=== PATIENT | female | born 1955 | race American Indian/Alaskan Native ===

== ENCOUNTER 2017-12-22 11:55 | Outpatient (CLI) | payer BC ==
--- NOTE | 2017-12-22 23:43 | XRay Report ---
FINAL REPORT PROCEDURE: XR SHOULDER 2+V RT TECHNIQUE: Right shoulder radiographs including AP views in internal and external rotation and abduction. CPT 56902 HISTORY: SHOULDER PAIN COMPARISON: No prior studies are available for comparison. FINDINGS: Fracture (s) and/or Dislocation(s): None . Joint space(s): Normal . Soft tissues: Normal . Bone mineralization: Normal . Foreign bodies: None . IMPRESSION: Normal Examination
== END 2017-12-22 11:56 | disposition home or self-care (01) ==
LOC: XRAY 11:55
PROVIDERS: ATTEND Internal Medicine
DX: M25.511 Pain in right shoulder (principal); I10 Essential (primary) hypertension; J45.909 Unspecified asthma, uncomplicated; Z90.710 Acquired absence of both cervix and uterus

== ENCOUNTER 2022-01-28 21:39 | Inpatient (IN) | payer MEDICARE ==
[2022-01-29] MEDS ORDERED: SODIUM CHLORIDE 0.9% 1000 ML 1,000 ML IV ONE
[2022-01-29 00:57] LABS: Hematocrit 28.4 % (30.3-42.9); Hemoglobin 9.3 gm/dl (10.1-14.3); Mean Corpuscular HGB Conc 33 % (30-34); Mean Corpuscular Volume 86 fl (79-97); Platelet Count 140 K/mm3 (140-440); Red Blood Count 3.31 M/mm3 (3.65-5.03)
[2022-01-29 01:08] LABS: Alanine Aminotransferase 12 units/L (7-56); Albumin 3.4 g/dL (3.9-5); BUN/Creatinine Ratio 12; Blood Urea Nitrogen 31 mg/dL (7-17); Calcium 9.2 mg/dL (8.4-10.2); Hemolysis Index 22
--- NOTE | 2022-01-29 01:17 | Emergency Department Report ---
ED General Adult HPI - General Chief complaint: Pain General Stated complaint: HIGH BLOOD SUGAR/GENERAL ILLNESS Time Seen by Provider: 01/29/22 00:00 Source: EMS Mode of arrival: Stretcher Limitations: No Limitations - History of Present Illness Initial comments: Patient is a 66-year-old female presented emergency department with complaint of generalized weakness. Patient states that she has a history of type 2 diabetes and takes insulin. She not take insulin today due to her not eating. She states that she feels generally weak and noticed that her blood sugar has been elevated. She denies any chest pain shortness of breath. She denies any nausea vomiting or abdominal pain. - Related Data Previous Rx's Medication Instructions Recorded Last Taken Type Azithromycin [Zithromax TAB] 500 mg PO QDAY #7 tablet 08/05/15 Unknown Rx Cinacalcet HCl [Sensipar] 60 mg PO DAILY #30 tablet 08/05/15 Unknown Rx Insulin Lispro Prot/Lispro 28 units SUB-Q 1700 units 08/05/15 Unknown Rx [HumaLOG Mix 75/25 Vial] Insulin Lispro Prot/Lispro 30 units SUB-Q QDDIAB units 08/05/15 Unknown Rx [HumaLOG Mix 75/25 Vial] Insulin Lispro [HumaLOG VIAL] 28 units SQ QHS #1 vial 08/05/15 Unknown Rx Insulin Lispro [HumaLOG VIAL] 30 units SQ QAM #1 vial 08/05/15 Unknown Rx Levothyroxine [Synthroid] 175 mcg PO QAM #30 tablet 08/05/15 Unknown Rx Prednisone [predniSONE 10 mg 10 mg PO .TAPER #1 tab.ds.pk 08/05/15 Unknown Rx (6-Day Pack, 21 Tabs)] Spironolactone [Aldactone] 100 mg PO QDAY #30 tablet 08/05/15 Unknown Rx carvediloL [Coreg] 3.125 mg PO BID #60 tablet 08/05/15 Unknown Rx metFORMIN [Glucophage] 500 mg PO BID #30 tablet 08/05/15 Unknown Rx Allergies Allergy/AdvReac Type Severity Reaction Status Date / Time No Known Allergies Allergy Unverified 08/01/15 23:02 ED Review of Systems ROS: Stated complaint: HIGH BLOOD SUGAR/GENERAL ILLNESS Other details as noted in HPI Constitutional: malaise, weakness. denies: chills, fever Eyes: denies: eye pain, eye discharge, vision change ENT: denies: ear pain, throat pain Respiratory: denies: cough, shortness of breath, wheezing Cardiovascular: denies: chest pain, palpitations Endocrine: no symptoms reported Gastrointestinal: denies: abdominal pain, nausea, diarrhea Genitourinary: denies: urgency, dysuria, discharge Musculoskeletal: denies: back pain, joint swelling, arthralgia Skin: denies: rash, lesions Neurological: denies: headache, weakness, paresthesias Psychiatric: denies: anxiety, depression Hematological/Lymphatic: denies: easy bleeding, easy bruising ED Past Medical Hx - Past Medical History Previous Medical History?: Yes Hx Hypertension: Yes Hx Diabetes: Yes Hx Asthma: Yes Additional medical history: hyperthyroid - Surgical History Past Surgical History?: Yes Additional Surgical History: myomectomy, hysterectomy - Social History Smoking Status: Never Smoker Substance Use Type: None - Medications Home Medications: Home Medications Medication Instructions Recorded Confirmed Last Taken Type Azithromycin [Zithromax TAB] 500 mg PO QDAY #7 tablet 08/05/15 Unknown Rx Cinacalcet HCl [Sensipar] 60 mg PO DAILY #30 tablet 08/05/15 Unknown Rx Insulin Lispro Prot/Lispro 28 units SUB-Q 1700 units 08/05/15 Unknown Rx [HumaLOG Mix 75/25 Vial] Insulin Lispro Prot/Lispro 30 units SUB-Q QDDIAB units 08/05/15 Unknown Rx [HumaLOG Mix 75/25 Vial] Insulin Lispro [HumaLOG VIAL] 28 units SQ QHS #1 vial 08/05/15 Unknown Rx Insulin Lispro [HumaLOG VIAL] 30 units SQ QAM #1 vial 08/05/15 Unknown Rx Levothyroxine [Synthroid] 175 mcg PO QAM #30 tablet 08/05/15 Unknown Rx Prednisone [predniSONE 10 mg 10 mg PO .TAPER #1 tab.ds.pk 08/05/15 Unknown Rx (6-Day Pack, 21 Tabs)] Spironolactone [Aldactone] 100 mg PO QDAY #30 tablet 08/05/15 Unknown Rx carvediloL [Coreg] 3.125 mg PO BID #60 tablet 08/05/15 Unknown Rx metFORMIN [Glucophage] 500 mg PO BID #30 tablet 08/05/15 Unknown Rx ED Physical Exam - General Limitations: No Limitations General appearance: alert, in no apparent distress - Head Head exam: Present: atraumatic, normocephalic - Eye Eye exam: Present: normal appearance - ENT ENT exam: Present: mucous membranes moist - Neck Neck exam: Present: normal inspection - Respiratory Respiratory exam: Present: normal lung sounds bilaterally. Absent: respiratory distress - Cardiovascular Cardiovascular Exam: Present: regular rate, normal rhythm. Absent: systolic murmur, diastolic murmur, rubs, gallop - GI/Abdominal GI/Abdominal exam: Present: soft, normal bowel sounds - Rectal Rectal exam: Present: deferred - Extremities Exam Extremities exam: Present: normal inspection - Back Exam Back exam: Present: normal inspection - Neurological Exam Neurological exam: Present: alert, oriented X3 - Psychiatric Psychiatric exam: Present: normal affect, normal mood - Skin Skin exam: Present: warm, dry, intact, normal color. Absent: rash ED Course Vital Signs 01/28/22 01/28/22 01/28/22 21:46 23:15 23:25 Temperature 98.9 F 100.7 F H Pulse Rate 96 H 92 H 93 H Respiratory 18 21 21 Rate Blood Pressure 150/80 Blood Pressure 136/62 [Left] O2 Sat by Pulse 97 100 100 Oximetry - Reevaluation(s) Reevaluation #1: 01/29/22 01:16 Patient's white blood cell count was noted to be elevated at 19. Given this we will order lactic acid, chest x-ray to evaluate for infection. Reevaluation #2: 01/29/22 03:22 Patient reports she does not have history of chronic kidney disease but has never been told she has had elevated creatinine. Given this I am concerned this could be an acute process and she could have an ISAIAH. Patient also had elevated troponin without chest pain or without EKG findings of ischemia. Plan to give aspirin, reassess. Patient has been given IV fluids and she is encouraged to attempt to give us a urinary sample. Her lactic acid is normal but she was noted to have a temperature of 100.7 so blood cultures are collected dose of IV Zosyn is given. Plan for admission to the hospitalist. I have spoken to the hospitalist with accept the patient. 01/29/22 03:27 ED Medical Decision Making - Lab Data Result diagrams: 01/29/22 00:27 01/29/22 00:27 - EKG Data -: EKG Interpreted by Me EKG shows normal: sinus rhythm Rate: normal - Radiology Data Radiology results: report reviewed, image reviewed - Medical Decision Making Patient is a 66-year-old female with past medical history of diabetes who presents emergency department complaint of elevated blood sugars. Differential includes infection, DKA, hyperglycemia or HHS. Plan for evaluation with labs, chest x-ray EKG will also obtain IV access and give IV fluids. Critical care attestation.: If time is entered above; I have spent that time in minutes in the direct care of this critically ill patient, excluding procedure time. ED Disposition Clinical Impression: Fever, ISAIAH (acute kidney injury), Hyperglycemia due to type 2 diabetes mellitus Disposition: ADMITTED INPATIENT Is pt being admited?: Yes Does the pt Need Aspirin: Yes Condition: Stable Instructions: Diabetes Mellitus Type 2 in Adults (ED)
--- NOTE | 2022-01-29 01:53 | XRay Report ---
CHEST 1 VIEW INDICATION / CLINICAL INFORMATION: elevated wbc; eval for pneumonia. COMPARISON: Chest x-ray 08/01/2015 FINDINGS: SUPPORT DEVICES: None. HEART / MEDIASTINUM: Mild cardiomegaly. No significant abnormality of the mediastinal contour. LUNGS / PLEURA: Bilateral prominence of central vasculature. Low lung volumes. No focal consolidation . BONES: No significant osseous abnormality. ADDITIONAL FINDINGS: No significant additional findings. IMPRESSION: 1. Mild prominence of central vasculature may reflect crowding given the low lung volumes. 2. No focal consolidation. Signer Name: Nestor Medeiros II, MD Signed: 01/29/2022 1:49 AM Workstation Name: [id number]
[2022-01-29] MEDS ORDERED: ASPIRIN 81 MG TAB CHEW PO ONE (02:31)
[2022-01-29 02:43] LABS: Chol/HDL Ratio 4.42 %; HDL Cholesterol 33 mg/dL (40-59); LDL Cholesterol,Direct 58 mg/dL (50-130)
[2022-01-29 03:03] LABS: Basophils % (Manual) 0 % (0.0-1.8); Eosinophils % (Manual) 0 % (0.0-4.3); Total Cells Counted 100
[2022-01-29 03:04] LABS: Platelet Estimate Consistent w Auto
[2022-01-29] MEDS ORDERED: PIPERACIL/TAZOBACTA 4.5/NS 100 4.5 GM/100 ML VIAL IV ONE (03:25)
[2022-01-29] MEDS ORDERED: ACETAMINOPHEN 325 MG TAB PO ONE (03:25)
[2022-01-29] MEDS ORDERED: ACETAMINOPHEN 325 MG TAB PO PRN ×2 (03:31→03:54)
[2022-01-29] MEDS ORDERED: MORPHINE 4 MG/1 ML INJ IV PRN ×2 (03:31→03:54)
[2022-01-29] MEDS ORDERED: ONDANSETRON 4 MG/2 ML INJ IV PRN ×2 (03:31→03:54)
[2022-01-29] MEDS ORDERED: MORPHINE 2 MG/1 ML INJ IV PRN (03:54)
[2022-01-29] MEDS ORDERED: ALBUTEROL 2.5 MG/3 ML NEBU IH PRN (03:54)
[2022-01-29] MEDS ORDERED: cefTRIAXone/NS 2 GM/100 ML 2 GM/100 ML BAG IV SCH (04:00)
[2022-01-29] MEDS ORDERED: SODIUM CHLORIDE 0.45% 1000 ML 1,000 ML IV SCH (04:00)
--- NOTE | 2022-01-29 04:03 | History and Physical Report ---
History of Present Illness Date of examination: 01/29/22 Date of admission: 01/29/22 Chief complaint: Hyperglycemia Fever History of present illness: 66-year-old female with past medical history of hypertension, diabetes, asthma and hypothyroidism was brought to the hospital because of generalized weakness. Patient states that she has a history of type 2 diabetes and takes insulin. She not take insulin today due to her not eating. She states that she feels gen erally weak and noticed that her blood sugar has been elevated. She denies any chest pain shortness of breath. She denies any nausea vomiting or abdominal pain. In the emergency room patient is found to have WBC of 19.6, BUN 31 creatinine 2.6 and blood glucose 232. Also patient is febrile temperature 100.7. So going to admit the patient we will put the patient on IV fluid insulin and IV anti biotic Past History Past Medical History: diabetes, hypertension, other (Asthma, hypothyroid) Past Surgical History: Other (myomectomy, hysterectomy) Social history: no significant social history Family history: no significant family history Medications and Allergies Allergies Allergy/AdvReac Type Severity Reaction Status Date / Time No Known Allergies Allergy Unverified 08/01/15 23:02 Home Medications Medication Instructions Recorded Confirmed Last Taken Type Azithromycin [Zithromax TAB] 500 mg PO QDAY #7 tablet 08/05/15 Unknown Rx Cinacalcet HCl [Sensipar] 60 mg PO DAILY #30 tablet 08/05/15 Unknown Rx Insulin Lispro Prot/Lispro 28 units SUB-Q 1700 units 08/05/15 Unknown Rx [HumaLOG Mix 75/25 Vial] Insulin Lispro Prot/Lispro 30 units SUB-Q QDDIAB units 08/05/15 Unknown Rx [HumaLOG Mix 75/25 Vial] Insulin Lispro [HumaLOG VIAL] 28 units SQ QHS #1 vial 08/05/15 Unknown Rx Insulin Lispro [HumaLOG VIAL] 30 units SQ QAM #1 vial 08/05/15 Unknown Rx Levothyroxine [Synthroid] 175 mcg PO QAM #30 tablet 08/05/15 Unknown Rx Prednisone [predniSONE 10 mg 10 mg PO .TAPER #1 tab.ds.pk 08/05/15 Unknown Rx (6-Day Pack, 21 Tabs)] Spironolactone [Aldactone] 100 mg PO QDAY #30 tablet 08/05/15 Unknown Rx carvediloL [Coreg] 3.125 mg PO BID #60 tablet 08/05/15 Unknown Rx metFORMIN [Glucophage] 500 mg PO BID #30 tablet 08/05/15 Unknown Rx Active Meds: Active Medications Acetaminophen (Acetaminophen 325 Mg Tab) 650 mg PO Q4H PRN PRN Reason: Pain MILD(1-3)/Fever >100.5/GARCIA Acetaminophen (Acetaminophen 325 Mg Tab) 650 mg PO Q4H PRN PRN Reason: Pain MILD(1-3)/Fever >100.5/GARCIA Albuterol (Albuterol 2.5 Mg/3 Ml Nebu) 2.5 mg IH Q3HRT PRN PRN Reason: Shortness Of Breath Albuterol/Ipratropium (Ipratropium/Albuterol Sulfate 3 Ml Ampul.Neb) 1 ampul IH Q6HRT ABDIAZIZ Carvedilol (Carvedilol 3.125 Mg Tab) 3.125 mg PO BID [facility] Dextrose (Dextrose 50% In Water (25gm) 50 Ml Syringe) 50 ml IV Q30MIN PRN; Protocol PRN Reason: Hypoglycemia Famotidine (Famotidine 20 Mg Tab) 20 mg PO BID [facility] Sodium Chloride (Nacl 0.45% 1000 Ml) 1,000 mls @ 125 mls/hr IV DIRECT ABDIAZIZ Ceftriaxone Sodium (Rocephin/Ns 2 Gm/100 Ml) 2 gm in 100 mls @ 200 mls/hr IV Q24H ABDIAZIZ; Protocol Insulin Human Lispro (Insulin Lispro 100 Unit/Ml) 0 unit SUB-Q ACHS ABDIAZIZ; Protocol Levothyroxine Sodium (Levothyroxine 75 Mcg Tab) 175 mcg PO QAM [facility] Miscellaneous Medication (Azithromycin [Zithromax Tab]) 500 mg PO QDAY [facility] Miscellaneous Medication (Spironolactone [Aldactone]) 100 mg PO QDAY [facility] Morphine Sulfate (Morphine 4 Mg/1 Ml Inj) 4 mg IV Q4H PRN PRN Reason: Pain , Severe (7-10) Morphine Sulfate (Morphine 2 Mg/1 Ml Inj) 2 mg IV Q4H PRN PRN Reason: Pain, Moderate (4-6) Morphine Sulfate (Morphine 4 Mg/1 Ml Inj) 4 mg IV Q4H PRN PRN Reason: Pain , Severe (7-10) Ondansetron HCl (Ondansetron 4 Mg/2 Ml Inj) 4 mg IV Q8H PRN PRN Reason: Nausea And Vomiting Ondansetron HCl (Ondansetron 4 Mg/2 Ml Inj) 4 mg IV Q8H PRN PRN Reason: Nausea And Vomiting Oxycodone/Acetaminophen (Oxycodone /Acetaminophen 5-325mg Tab) 1 tab PO Q6H PRN PRN Reason: Pain, Moderate (4-6) Sodium Chloride (Sodium Chloride 0.9% 10 Ml Flush Syringe) 10 ml IV BID ABDIAZIZ Sodium Chloride (Sodium Chloride 0.9% 10 Ml Flush Syringe) 10 ml IV BID ABDIAZIZ Sodium Chloride (Sodium Chloride 0.9% 10 Ml Flush Syringe) 10 ml IV PRN PRN PRN Reason: LINE FLUSH Review of Systems All systems: negative Constitutional: fatigue, weakness, malaise, lethargy Exam - Constitutional Vitals: Temp Pulse Resp BP Pulse Ox 100.7 F H 99 H 22 125/63 97 01/28/22 23:25 01/29/22 03:15 01/29/22 03:15 01/29/22 03:15 01/29/22 03:15 General appearance: Present: no acute distress, well-nourished - EENT Eyes: Present: PERRL ENT: hearing intact, clear oral mucosa - Neck Neck: Present: supple, normal ROM - Respiratory Respiratory effort: normal Respiratory: bilateral: CTA - Cardiovascular Heart Sounds: Present: S1 & S2. Absent: rub, click - Extremities Extremities: pulses symmetrical, No edema Peripheral Pulses: within normal limits - Abdominal General gastrointestinal: Present: soft, non-tender, non-distended, normal bowel sounds Female genitourinary: Present: normal - Integumentary Integumentary: Present: clear, warm, dry - Musculoskeletal Musculoskeletal: gait normal, strength equal bilaterally - Psychiatric Psychiatric: appropriate mood/affect, intact judgment & insight - Neurologic Neurologic: CNII-XII intact, moves all extremities HEART Score - HEART Score Troponin: Troponin T 0.068 ng/mL (0.00-0.029) H 01/29/22 00:27 Results - Labs CBC & Chem 7: 01/29/22 00:27 01/29/22 00:27 Labs: Laboratory Last Values WBC 19.6 K/mm3 (4.5-11.0) H 01/29/22 00: RBC 3.31 M/mm3 (3.65-5.03) L 01/29/22 00: Hgb 9.3 gm/dl (10.1-14.3) L 01/29/22 00: Hct 28.4 % (30.3-42.9) L 01/29/22 00: MCV 86 fl (79-97) 01/29/22: MCH 28 pg (28-32) 01/29/22: MCHC 33 % (30-34) 01/29/22 00: RDW 14.0 % (13.2-15.2) 01/29/22 00: Plt Count 140 K/mm3 (140-440) 01/29/22 00: Add Manual Diff Complete 01/29/22 00: Total Counted 100 01/29/22 00: Seg Neuts % (Manual) 89.0 % (40.0-70.0) H 01/29/22 00: Band Neutrophils % 0 % 01/29/22 00: Lymphocytes % (Manual) 4.0 % (13.4-35.0) L 01/29/22 00: Reactive Lymphs % (Man) 0 % 01/29/22 00: Monocytes % (Manual) 7.0 % (0.0-7.3) 01/29/22 00: Eosinophils % (Manual) 0 % (0.0-4.3) 01/29/22 00: Basophils % (Manual) 0 % (0.0-1.8) 01/29/22 00: Metamyelocytes % 0 % 01/29/22 00: Myelocytes % 0 % 01/29/22 00: Promyelocytes % 0 % 01/29/22 00: Blast Cells % 0 % 01/29/22 00: Nucleated RBC % Not Reportable 01/29/22 00: Seg Neutrophils # Man 17.4 K/mm3 (1.8-7.7) H 01/29/22 00: Band Neutrophils # 0.0 K/mm3 01/29/22 00:27 Lymphocytes # (Manual) 0.8 K/mm3 (1.2-5.4) L 01/29/22 00:27 Abs React Lymphs (Man) 0.0 K/mm3 01/29/22 00:27 Monocytes # (Manual) 1.4 K/mm3 (0.0-0.8) H 01/29/22 00:27 Eosinophils # (Manual) 0.0 K/mm3 (0.0-0.4) 01/29/22 00:27 Basophils # (Manual) 0.0 K/mm3 (0.0-0.1) 01/29/22 00:27 Metamyelocytes # 0.0 K/mm3 01/29/22 00:27 Myelocytes # 0.0 K/mm3 01/29/22 00:27 Promyelocytes # 0.0 K/mm3 01/29/22 00:27 Blast Cells # 0.0 K/mm3 01/29/22 00:27 WBC Morphology Not Reportable 01/29/22 00:27 Hypersegmented Neuts Not Reportable 01/29/22 00:27 Hyposegmented Neuts Not Reportable 01/29/22 00:27 Hypogranular Neuts Not Reportable 01/29/22 00:27 Smudge Cells Not Reportable 01/29/22 00:27 Toxic Granulation Not Reportable 01/29/22 00:27 Toxic Vacuolation Not Reportable 01/29/22 00:27 Dohle Bodies Not Reportable 01/29/22 00:27 Pelger-Huet Anomaly Not Reportable 01/29/22 00:27 Theresa Rods Not Reportable 01/29/22 00:27 Platelet Estimate Consistent w auto 01/29/22 00:27 Clumped Platelets Not Reportable 01/29/22 00:27 Plt Clumps, EDTA Not Reportable 01/29/22 00:27 Large Platelets Not Reportable 01/29/22 00:27 Giant Platelets Not Reportable 01/29/22 00:27 Platelet Satelliting Not Reportable 01/29/22 00:27 Plt Morphology Comment Not Reportable 01/29/22 00:27 RBC Morphology Not Reportable 01/29/22 00:27 Dimorphic RBCs Not Reportable 01/29/22 00:27 Polychromasia Not Reportable 01/29/22 00:27 Hypochromasia Not Reportable 01/29/22 00:27 Poikilocytosis Not Reportable 01/29/22 00:27 Anisocytosis Not Reportable 01/29/22 00:27 Microcytosis Not Reportable 01/29/22 00:27 Macrocytosis Not Reportable 01/29/22 00:27 Spherocytes Not Reportable 01/29/22 00:27 Pappenheimer Bodies Not Reportable 01/29/22 00:27 Sickle Cells Not Reportable 01/29/22 00:27 Target Cells Not Reportable 01/29/22 00:27 Tear Drop Cells Not Reportable 01/29/22 00:27 Ovalocytes Not Reportable 01/29/22 00:27 Helmet Cells Not Reportable 01/29/22 00:27 [place] Bodies Not Reportable 01/29/22 00:27 [place] Rings Not Reportable 01/29/22 00:27 [place] Cells Not Reportable 01/29/22 00:27 Bite Cells Not Reportable 01/29/22 00:27 Crenated Cell Not Reportable 01/29/22 00:27 Elliptocytes Not Reportable 01/29/22 00:27 Acanthocytes (Spur) Not Reportable 01/29/22 00:27 Rouleaux Not Reportable 01/29/22 00:27 Hemoglobin C Crystals Not Reportable 01/29/22 00:27 Schistocytes Not Reportable 01/29/22 00:27 Malaria parasites Not Reportable 01/29/22 00:27 Sonido Bodies Not Reportable 01/29/22 00:27 Hem Pathologist Commnt No 01/29/22 00:27 VBG pH 7.380 (7.320-7.420) 01/29/22 00:27 Sodium 130 mmol/L (137-145) L 01/29/22 00:27 Potassium 3.9 mmol/L (3.6-5.0) 01/29/22 00:27 Chloride 92.6 mmol/L (98-107) L 01/29/22 00:27 Carbon Dioxide 23 mmol/L (22-30) 01/29/22 00:27 Anion Gap 18 mmol/L 01/29/22 00:27 BUN 31 mg/dL (7-17) H 01/29/22 00:27 Creatinine 2.6 mg/dL (0.6-1.2) H 01/29/22 00:27 Estimated GFR 22 ml/min 01/29/22 00:27 BUN/Creatinine Ratio 12 % 01/29/22 00:27 Glucose 232 mg/dL (65-100) H 01/29/22 00:27 Ketones Quantitative Small (Negative) 01/29/22 00: Lactic Acid 1.30 mmol/L (0.7-2.0) 01/29/22 01:49 Calcium 9.2 mg/dL (8.4-10.2) 01/29/22 00:27 Total Bilirubin 0.90 mg/dL (0.1-1.2) 01/29/22 00:27 AST 18 units/L (5-40) 01/29/22 00:27 ALT 12 units/L (7-56) 01/29/22 00:27 Alkaline Phosphatase 94 units/L (35-129) 01/29/22 00: Troponin T 0.068 ng/mL (0.00-0.029) H 01/29/22 00:27 Total Protein 6.5 g/dL (6.3-8.2) 01/29/22 00:27 Albumin 3.4 g/dL (3.9-5) L 01/29/22 00: Albumin/Globulin Ratio 1.1 % 01/29/22 00:27 Triglycerides 195 mg/dL (2-149) H 01/29/22 00:27 Cholesterol 146 mg/dL (50-199) 01/29/22 00:27 LDL Cholesterol Direct 58 mg/dL (50-130) 01/29/22 00:27 HDL Cholesterol 33 mg/dL (40-59) L 01/29/22 00:27 Cholesterol/HDL Ratio 4.42 % 01/29/22 00:27 - Imaging and Cardiology Chest x-ray: report reviewed Assessment and Plan VTE prophylaxis?: Mechanical Plan of care discussed with patient/family: Yes - Patient Problems (1) ISAIAH (acute kidney injury) Status: Acute Plan to address problem: Admit the patient to the medical floor. Avoid nephrotoxic drug. Renally dose medication. Half-normal saline at the rate of 125 cc/h. Recheck BMP in the morning. Consult nephrology if needed (2) Hyperglycemia due to type 2 diabetes mellitus Status: Acute Plan to address problem: 18 kcal ADA diet. Accu-Chek before meals and at bedtime with moderate dose Humalog coverage. Diabetic education (3) Hypertension Status: Acute Plan to address problem: Hydralazine 10 mg every 6 hours as needed. We continue the home medication (4) Asthma Status: Acute Plan to address problem: Oxygen by nasal cannula 3 L/min. DuoNeb via nebulizer every 4 hours. Albuterol via nebulizer every 4 hours as needed (5) Fever Status: Acute Plan to address problem: Rocephin 2 g IV daily. Zithromax to 50 mg p.o. daily. Tylenol 650 mg p.o. every 6 hours as needed we will do the blood culture urine culture. Recheck CBC in the morning (6) DVT prophylaxis Status: Acute
[2022-01-29] MEDS: LEVOTHYROXINE 100 MCG TAB PO SCH (06:41)
[2022-01-29] MEDS: LEVOTHYROXINE 75 MCG TAB PO SCH (06:41)
--- NOTE | 2022-01-29 07:39 | Progress Note ---
Assessment and Plan Assessment and plan: VTE prophylaxis?: Mechanical Plan of care discussed with patient/family: Yes - Patient Problems --ISAIAH (acute kidney injury) Admit the patient to the medical floor. Avoid nephrotoxic drug. Renally dose medication. Half-normal saline at the rate of 125 cc/h. Monitor renal function check renal ultrasound Nephrology consult if needed --Hyperglycemia due to type 2 diabetes mellitus Accu-Cheks sliding scale coverage ADA diet insulin as needed --Hyponatremia; IV normal saline, closely monitor electrolytes --Elevated troponin/non-ST elevation TN type II In the setting of acute kidney injury Probably type II, however patient has risk factors Would benefit from cardiology evaluation --Sinus tachycardia versus arrhythmia Patient heart rate went narrow complex tachycardia Resolved to sinus rhythm after IV metoprolol. Coreg changed to metoprolol Pending echocardiogram Cardiology evaluation noted and appreciated echocardiogram --Hypertension Continue current antihypertensives and as needed medications --History of bronchial asthma Oxygen by nasal cannula 3 L/min. DuoNeb via nebulizer every 4 hours. Albuterol via nebulizer every 4 hours as needed --Cellulitis/abscess right groin; Check x-ray right groin hip/CT scan to rule out abscess Change antibiotics to IV Ancef, follow cultures Consult surgeon -Obesity; BMI 35.4 Behavioral modification, lifestyle changes counseling 20 minutes Counseling done advised diet modification exercise as tolerated and weight reduction When medically stable --Full CODE STATUS --DVT prophylaxis; Heparin renal dose --advance care planning +30 minutes. I discussed with the patient her medical condition, I discussed the tests and reports, I discussed with the patient the diagnosis I discussed with patient the treatment plan, I also discussed with the patient need for consultants evaluation, I discussed the patient the prognosis. Advance care directives. Patient has some questions, answered all of them, patient verbalized understanding --preventative health care counseling 30 minutes; Patient advised to comply with medications, patient advised fall precautions --Obesity weight reduction counseling 20 minutes Dietary modification, exercise as tolerated and weight reduction When medically stable -- Prolonged care inpatient 35 minutes Closely monitor the patient and adjust the management as needed Plan of care reviewed with the patient and her nurse I discussed with mining technician , regarding patient's arrhythmia And non-ST elevation TN type II History Interval history: I have seen and examined the patient at bedside [in ER awaiting bed assignment] Patient's chart and current medications reviewed Patient was admitted with generalized weakness and uncontrolled blood sugars Patient states that she feels slightly better Nurse found that patient has no groin swelling cellulitis versus abscess Patient has low-grade fever, vital signs reviewed Currently on empiric antibiotics Hospitalist Physical - Constitutional Vitals: Temp Pulse Resp BP Pulse Ox 100.7 F H 77 22 127/68 100 01/28/22 23:25 01/29/22 06:45 01/29/22 06:45 01/29/22 06:45 01/29/22 06:45 General appearance: Present: no acute distress, well-nourished, obese - EENT Eyes: Present: PERRL, EOM intact - Neck Neck: Present: supple, normal ROM - Respiratory Respiratory effort: normal Respiratory: bilateral: diminished, negative: rales, rhonchi, wheezing - Cardiovascular Rhythm: regular Heart Sounds: Present: S1 & S2 - Extremities Extremities: no ischemia, No edema - Abdominal General gastrointestinal: soft, non-tender, non-distended, normal bowel sounds - Integumentary Integumentary: Present: clear, warm - Psychiatric Psychiatric: appropriate mood/affect, cooperative - Neurologic Neurologic: CNII-XII intact, moves all extremities HEART Score - HEART Score Troponin: Troponin T 0.068 ng/mL (0.00-0.029) H 01/29/22 00:27 Results - Labs CBC & Chem 7: 01/29/22 00:27 01/29/22 00:27 Labs: Laboratory Last Values WBC 19.6 K/mm3 (4.5-11.0) H 01/29/22 00:27 RBC 3.31 M/mm3 (3.65-5.03) L 01/29/22 00:27 Hgb 9.3 gm/dl (10.1-14.3) L 01/29/22 00:27 Hct 28.4 % (30.3-42.9) L 01/29/22 00:27 MCV 86 fl (79-97) 01/29/22 00:27 MCH 28 pg (28-32) 01/29/22 00:27 MCHC 33 % (30-34) 01/29/22 00:27 RDW 14.0 % (13.2-15.2) 01/29/22 00:27 Plt Count 140 K/mm3 (140-440) 01/29/22 00:27 Add Manual Diff Complete 01/29/22 00:27 Total Counted 100 01/29/22 00:27 Seg Neuts % (Manual) 89.0 % (40.0-70.0) H 01/29/22 00:27 Band Neutrophils % 0 % 01/29/22 00:27 Lymphocytes % (Manual) 4.0 % (13.4-35.0) L 01/29/22 00:27 Reactive Lymphs % (Man) 0 % 01/29/22 00:27 Monocytes % (Manual) 7.0 % (0.0-7.3) 01/29/22 00:27 Eosinophils % (Manual) 0 % (0.0-4.3) 01/29/22 00:27 Basophils % (Manual) 0 % (0.0-1.8) 01/29/22 00:27 Metamyelocytes % 0 % 01/29/22 00:27 Myelocytes % 0 % 01/29/22 00:27 Promyelocytes % 0 % 01/29/22 00:27 Blast Cells % 0 % 01/29/22 00:27 Nucleated RBC % Not Reportable 01/29/22 00:27 Seg Neutrophils # Man 17.4 K/mm3 (1.8-7.7) H 01/29/22 00:27 Band Neutrophils # 0.0 K/mm3 01/29/22 00:27 Lymphocytes # (Manual) 0.8 K/mm3 (1.2-5.4) L 01/29/22 00:27 Abs React Lymphs (Man) 0.0 K/mm3 01/29/22 00:27 Monocytes # (Manual) 1.4 K/mm3 (0.0-0.8) H 01/29/22 00:27 Eosinophils # (Manual) 0.0 K/mm3 (0.0-0.4) 01/29/22 00:27 Basophils # (Manual) 0.0 K/mm3 (0.0-0.1) 01/29/22 00:27 Metamyelocytes # 0.0 K/mm3 01/29/22 00:27 Myelocytes # 0.0 K/mm3 01/29/22 00:27 Promyelocytes # 0.0 K/mm3 01/29/22 00:27 Blast Cells # 0.0 K/mm3 01/29/22 00:27 WBC Morphology Not Reportable 01/29/22 00:27 Hypersegmented Neuts Not Reportable 01/29/22 00:27 Hyposegmented Neuts Not Reportable 01/29/22 00:27 Hypogranular Neuts Not Reportable 01/29/22 00:27 Smudge Cells Not Reportable 01/29/22 00:27 Toxic Granulation Not Reportable 01/29/22 00:27 Toxic Vacuolation Not Reportable 01/29/22 00:27 Dohle Bodies Not Reportable 01/29/22 00:27 Pelger-Huet Anomaly Not Reportable 01/29/22 00:27 Theresa Rods Not Reportable 01/29/22 00:27 Platelet Estimate Consistent w auto 01/29/22 00:27 Clumped Platelets Not Reportable 01/29/22 00:27 Plt Clumps, EDTA Not Reportable 01/29/22 00:27 Large Platelets Not Reportable 01/29/22 00:27 Giant Platelets Not Reportable 01/29/22 00:27 Platelet Satelliting Not Reportable 01/29/22 00:27 Plt Morphology Comment Not Reportable 01/29/22 00:27 RBC Morphology Not Reportable 01/29/22 00:27 Dimorphic RBCs Not Reportable 01/29/22 00:27 Polychromasia Not Reportable 01/29/22 00:27 Hypochromasia Not Reportable 01/29/22 00:27 Poikilocytosis Not Reportable 01/29/22 00:27 Anisocytosis Not Reportable 01/29/22 00:27 Microcytosis Not Reportable 01/29/22 00:27 Macrocytosis Not Reportable 01/29/22 00:27 Spherocytes Not Reportable 01/29/22 00:27 Pappenheimer Bodies Not Reportable 01/29/22 00:27 Sickle Cells Not Reportable 01/29/22 00:27 Target Cells Not Reportable 01/29/22 00:27 Tear Drop Cells Not Reportable 01/29/22 00:27 Ovalocytes Not Reportable 01/29/22 00:27 Helmet Cells Not Reportable 01/29/22 00:27 [place] Bodies Not Reportable 01/29/22 00:27 [place] Rings Not Reportable 01/29/22 00:27 Memo Cells Not Reportable 01/29/22 00:27 Bite Cells Not Reportable 01/29/22 00:27 Crenated Cell Not Reportable 01/29/22 00:27 Elliptocytes Not Reportable 01/29/22 00:27 Acanthocytes (Spur) Not Reportable 01/29/22 00:27 Rouleaux Not Reportable 01/29/22 00:27 Hemoglobin C Crystals Not Reportable 01/29/22 00:27 Schistocytes Not Reportable 01/29/22 00:27 Malaria parasites Not Reportable 01/29/22 00:27 Sonido Bodies Not Reportable 01/29/22 00:27 Hem Pathologist Commnt No 01/29/22 00:27 VBG pH 7.380 (7.320-7.420) 01/29/22 00:27 Sodium 130 mmol/L (137-145) L 01/29/22 00:27 Potassium 3.9 mmol/L (3.6-5.0) 01/29/22 00: Chloride 92.6 mmol/L (98-107) L 01/29/22 00: Carbon Dioxide 23 mmol/L (22-30) 01/29/22 00:27 Anion Gap 18 mmol/L 01/29/22 00:27 BUN 31 mg/dL (7-17) H 01/29/22 00:27 Creatinine 2.6 mg/dL (0.6-1.2) H 01/29/22 00:27 Estimated GFR 22 ml/min 01/29/22 00: BUN/Creatinine Ratio 12 % 01/29/22: Glucose 232 mg/dL (65-100) H 01/29/22 00: Ketones Quantitative Small (Negative) 01/29/22 00: Lactic Acid 1.30 mmol/L (0.7-2.0) 01/29/22 01:49 Calcium 9.2 mg/dL (8.4-10.2) 01/29/22 00:27 Total Bilirubin 0.90 mg/dL (0.1-1.2) 01/29/22 00:27 AST 18 units/L (5-40) 01/29/22 00:27 ALT 12 units/L (7-56) 01/29/22 00:27 Alkaline Phosphatase 94 units/L (35-129) 08/26/22 00:27 Troponin T 0.068 ng/mL (0.00-0.029) H 01/29/22 00:27 Total Protein 6.5 g/dL (6.3-8.2) 01/29/22 00:27 Albumin 3.4 g/dL (3.9-5) L 01/29/22 00:27 Albumin/Globulin Ratio 1.1 % 01/29/22 00:27 Triglycerides 195 mg/dL (2-149) H 01/29/22 00:27 Cholesterol 146 mg/dL (50-199) 01/29/22 00:27 LDL Cholesterol Direct 58 mg/dL (50-130) 01/29/22 00:27 HDL Cholesterol 33 mg/dL (40-59) L 01/29/22 00:27 Cholesterol/HDL Ratio 4.42 % 01/29/22 00:27 Active Medications - Current Medications Current Medications: Generic Name Dose Route Start Last Admin Trade Name Freq PRN Reason Stop Dose Admin Acetaminophen 650 mg 01/29/22 03:54 Acetaminophen 325 Mg Tab PO Q4H PRN Pain MILD(1-3)/Fever >100.5/GARCIA Albuterol 2.5 mg 01/29/22 03:54 Albuterol 2.5 Mg/3 Ml Nebu IH Q3HRT PRN Shortness Of Breath Albuterol/Ipratropium 1 ampul 01/29/22 08:00 Ipratropium/Albuterol Sulfate 3 Ml Ampul.Neb IH Q6HRT ABDIAZIZ Azithromycin 500 mg 01/29/22 10:00 Azithromycin 250 Mg Tab PO QDAY [facility] Carvedilol 3.125 mg 01/29/22 10:00 Carvedilol 3.125 Mg Tab PO BID ABDIAZIZ Dextrose 50 ml 01/29/22 03:54 Dextrose 50% In Water (25gm) 50 Ml Syringe IV Q30MIN PRN Hypoglycemia Protocol Famotidine 10 mg 01/29/22 10:00 Famotidine 10 Mg Tab PO BID ABDIAZIZ Sodium Chloride 1,000 mls @ 125 mls/hr 01/29/22 04:00 Nacl 0.45% 1000 Ml IV DIRECT [facility] Ceftriaxone Sodium 2 gm in 100 mls @ 200 mls/hr 01/29/22 04:00 01/29/22 05:23 Rocephin/Ns 2 Gm/100 Ml IV 200 mls/hr Q24H [facility] Administration Protocol Insulin Human Lispro 0 unit 01/29/22 07:30 Insulin Lispro 100 Unit/Ml SUB-Q ACHS [facility] Protocol Levothyroxine Sodium 100 mcg 01/29/22 06:00 01/29/22 06:41 Levothyroxine 100 Mcg Tab PO 100 mcg QAM@0600 [facility] Administration Levothyroxine Sodium 75 mcg 01/29/22 06:00 01/29/22 06:41 Levothyroxine 75 Mcg Tab PO 75 mcg QAM@0600 [facility] Administration Morphine Sulfate 2 mg 01/29/22 03:54 Morphine 2 Mg/1 Ml Inj IV Q4H PRN Pain, Moderate (4-6) Morphine Sulfate 4 mg 01/29/22 03:54 Morphine 4 Mg/1 Ml Inj IV Q4H PRN Pain , Severe (7-10) Ondansetron HCl 4 mg 01/29/22 03:54 Ondansetron 4 Mg/2 Ml Inj IV Q8H PRN Nausea And Vomiting Oxycodone/Acetaminophen 1 tab 01/29/22 03:31 Oxycodone /Acetaminophen 5-325mg Tab PO Q6H PRN Pain, Moderate (4-6) Sodium Chloride 10 ml 01/29/22 10:00 Sodium Chloride 0.9% 10 Ml Flush Syringe IV BID [facility] Sodium Chloride 10 ml 01/29/22 03:54 Sodium Chloride 0.9% 10 Ml Flush Syringe IV PRN PRN LINE FLUSH Spironolactone 100 mg 01/29/22 10:00 Spironolactone 50 Mg Tab PO QDAY [facility]
[2022-01-29] MEDS: IPRATROPIUM/ALBUTEROL SULFATE 3 ML AMPUL.NEB IH SCH ×3 (07:57→20:49)
[2022-01-29] MEDS: INSULIN LISPRO 100 UNIT/ML SUB-Q SCH ×4 (08:10→21:33)
[2022-01-29] MEDS ORDERED: AZITHROMYCIN 250 MG TAB PO SCH (10:00)
[2022-01-29] MEDS ORDERED: NON-FORMULARY EACH (Spironolactone [Aldactone] 100 MG Tablet) PO SCH (10:00)
[2022-01-29] MEDS ORDERED: FAMOTIDINE 20 MG TAB PO SCH (10:00)
[2022-01-29] MEDS ORDERED: LEVOTHYROXINE 75 MCG TAB PO SCH (10:00)
[2022-01-29] MEDS ORDERED: AZITHROMYCIN 500 MG PO SCH (10:00)
[2022-01-29] MEDS ORDERED: carvediloL 3.125 MG TAB PO SCH (10:00)
--- NOTE | 2022-01-29 10:40 | Electrocardiograph Report ---
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
[2022-01-29] MEDS: FAMOTIDINE 10 MG TAB PO SCH ×2 (11:31→21:35)
[2022-01-29] MEDS ORDERED: METOPROLOL TARTRATE 5 MG/5 ML INJ IV ONE (13:00)
[2022-01-29] MEDS: INSULIN NPH/REGULAR 70/30 INJ SUB-Q SCH ×2 (13:28→18:23)
[2022-01-29] MEDS: SPIRONOLACTONE 50 MG TAB PO SCH (13:28)
--- NOTE | 2022-01-29 14:13 | Consultation ---
History of Present Illness Consult date: 01/29/22 Consult reason: elevated troponin, tachycardia History of present illness: The patient is a chronically ill-appearing 66-year-old woman patient of [facility], [place]. She has multiple comorbidities. She had brain surgery for a meningioma in 2018. She has diabetes, chronic asthma and hypertension. She also tells me that she sees a hospice care sales consultant at [facility] [place] for "CHF", but is unable to articulate any specific cardiac work-up or cardiac pathology associated with this diagnosis. She presented to the emergency room at this time with constitutional symptoms of generalized weakness, malaise and body aches. She denies any specific symptoms of chest pain or shortness of breath or palpitations. She has no edema. Work-up in the hospital so far: Patient has a low-grade pyrexia of 100.7, leukocytosis of 19,000. There is an elevated creatinine of 2.6, compared to a normal baseline in the hospital records from 2016. In this milieu, there was a borderline troponin that was measured at 0.06, prompting a cardiac consultation. ECG on presentation was normal sinus rhythm with no acute ST or T wave changes. During her ER course, the patient also developed a transient narrow complex tachycardia at 133 bpm, treated with intravenous metoprolol, now resolved back to his sinus rhythm. The morphology of the tachycardia appears likely AV node reentry tachycardia. Chest x-ray is a suboptimal study that is negative for acute infiltrate or interstitial edema. Past History Past Medical History: COPD (Chronic asthma), diabetes, heart failure, hypertension, other (Asthma, hypothyroid) Past Surgical History: Other (myomectomy, hysterectomy, brain surgery) Social history: no significant social history Family history: no significant family history Medications and Allergies Allergies Allergy/AdvReac Type Severity Reaction Status Date / Time No Known Allergies Allergy Unverified 08/01/15 23:02 Home Medications Medication Instructions Recorded Confirmed Last Taken Type Azithromycin [Zithromax TAB] 500 mg PO QDAY #7 tablet 08/05/15 Unknown Rx Cinacalcet HCl [Sensipar] 60 mg PO DAILY #30 tablet 08/05/15 Unknown Rx Insulin Lispro Prot/Lispro 28 units SUB-Q 1700 units 08/05/15 Unknown Rx [HumaLOG Mix 75/25 Vial] Insulin Lispro Prot/Lispro 30 units SUB-Q QDDIAB units 08/05/15 Unknown Rx [HumaLOG Mix 75/25 Vial] Insulin Lispro [HumaLOG VIAL] 28 units SQ QHS #1 vial 08/05/15 Unknown Rx Insulin Lispro [HumaLOG VIAL] 30 units SQ QAM #1 vial 08/05/15 Unknown Rx Levothyroxine [Synthroid] 175 mcg PO QAM #30 tablet 08/05/15 Unknown Rx Prednisone [predniSONE 10 mg 10 mg PO .TAPER #1 tab.ds.pk 08/05/15 Unknown Rx (6-Day Pack, 21 Tabs)] Spironolactone [Aldactone] 100 mg PO QDAY #30 tablet 08/05/15 Unknown Rx carvediloL [Coreg] 3.125 mg PO BID #60 tablet 08/05/15 Unknown Rx metFORMIN [Glucophage] 500 mg PO BID #30 tablet 08/05/15 Unknown Rx Active Meds: Active Medications Acetaminophen (Acetaminophen 325 Mg Tab) 650 mg PO Q4H PRN PRN Reason: Pain MILD(1-3)/Fever >100.5/GARCIA Albuterol (Albuterol 2.5 Mg/3 Ml Nebu) 2.5 mg IH Q3HRT PRN PRN Reason: Shortness Of Breath Albuterol/Ipratropium (Ipratropium/Albuterol Sulfate 3 Ml Ampul.Neb) 1 ampul IH Q6HRT [facility] Last Admin: 01/29/22 14:05 Dose: 1 ampul Azithromycin (Azithromycin 250 Mg Tab) 500 mg PO QDAY [facility] Last Admin: 01/29/22 11:30 Dose: 500 mg Carvedilol (Carvedilol 3.125 Mg Tab) 3.125 mg PO BID [facility] Last Admin: 01/29/22 11:30 Dose: 3.125 mg Dextrose (Dextrose 50% In Water (25gm) 50 Ml Syringe) 50 ml IV Q30MIN PRN; Protocol PRN Reason: Hypoglycemia Famotidine (Famotidine 10 Mg Tab) 10 mg PO BID [facility] Last Admin: 01/29/22 11:31 Dose: 10 mg Ceftriaxone Sodium (Rocephin/Ns 2 Gm/100 Ml) 2 gm in 100 mls @ 200 mls/hr IV Q24H ABDIAZIZ; Protocol Last Admin: 01/29/22 05:23 Dose: 200 mls/hr Sodium Chloride (Nacl 0.9% 1000 Ml) 1,000 mls @ 100 mls/hr IV DIRECT [facility] Insulin Human Isoph/Insulin Regular (Insulin Nph/Regular 70/30 Inj) 10 unit SUB-Q BIDDIAB [facility] Last Admin: 01/29/22 13:28 Dose: Not Given Insulin Human Lispro (Insulin Lispro 100 Unit/Ml) 0 unit SUB-Q ACHS [facility]; Protocol Last Admin: 01/29/22 13:29 Dose: Not Given Levothyroxine Sodium (Levothyroxine 100 Mcg Tab) 100 mcg PO QAM@0600 [facility] Last Admin: 01/29/22 06:41 Dose: 100 mcg Levothyroxine Sodium (Levothyroxine 75 Mcg Tab) 75 mcg PO QAM@0600 [facility] Last Admin: 01/29/22 06:41 Dose: 75 mcg Morphine Sulfate (Morphine 2 Mg/1 Ml Inj) 2 mg IV Q4H PRN PRN Reason: Pain, Moderate (4-6) Morphine Sulfate (Morphine 4 Mg/1 Ml Inj) 4 mg IV Q4H PRN PRN Reason: Pain , Severe (7-10) Ondansetron HCl (Ondansetron 4 Mg/2 Ml Inj) 4 mg IV Q8H PRN PRN Reason: Nausea And Vomiting Oxycodone/Acetaminophen (Oxycodone /Acetaminophen 5-325mg Tab) 1 tab PO Q6H PRN PRN Reason: Pain, Moderate (4-6) Sodium Chloride (Sodium Chloride 0.9% 10 Ml Flush Syringe) 10 ml IV BID [facility] Last Admin: 01/29/22 10:31 Dose: 10 ml Sodium Chloride (Sodium Chloride 0.9% 10 Ml Flush Syringe) 10 ml IV PRN PRN PRN Reason: LINE FLUSH Spironolactone (Spironolactone 50 Mg Tab) 100 mg PO QDAY [facility] Last Admin: 01/29/22 13:28 Dose: Not Given Review of Systems Cardiovascular: no chest pain, no orthopnea, no palpitations, no rapid/irregular heart beat, no edema, no syncope, no lightheadedness, no shortness of breath Physical Examination Vital Signs Temp Pulse Resp BP Pulse Ox 98.9 F 96 H 18 150/80 97 01/28/22 21:46 01/28/22 21:46 01/28/22 21:46 01/28/22 21:46 01/28/22 21:46 General appearance: no acute distress, cachectic, disheveled, other (Chronically ill-appearing) HEENT: Positive: PERRL Neck: Positive: neck supple Cardiac: Positive: Reg Rate and Rhythm Lungs: Positive: Decreased Breath Sounds Neuro: Positive: Weakness (Generalized lethargy) Abdomen: Positive: Soft Female genitourinary: deferred Skin: Positive: Clear Extremities: Absent: edema Results 01/29/22 00:27 01/29/22 00:27 Cardiac Enzymes 01/29/22 Range/Units 00:27 AST 18 (5-40) units/L Lipids 01/29/22 Range/Units 00:27 Triglycerides 195 H (2-149) mg/dL Cholesterol 146 (50-199) mg/dL HDL Cholesterol 33 L (40-59) mg/dL Cholesterol/HDL Ratio 4.42 % CBC 01/29/22 Range/Units 00:27 WBC 19.6 H (4.5-11.0) K/mm3 RBC 3.31 L (3.65-5.03) M/mm3 Hgb 9.3 L (10.1-14.3) gm/dl Hct 28.4 L (30.3-42.9) % Plt Count 140 (140-440) K/mm3 Comprehensive Metabolic Panel 01/29/22 Range/Units 00:27 Sodium 130 L (137-145) mmol/L Potassium 3.9 (3.6-5.0) mmol/L Chloride 92.6 L (98-107) mmol/L Carbon Dioxide 23 (22-30) mmol/L BUN 31 H (7-17) mg/dL Creatinine 2.6 H (0.6-1.2) mg/dL Glucose 232 H (65-100) mg/dL Calcium 9.2 (8.4-10.2) mg/dL AST 18 (5-40) units/L ALT 12 (7-56) units/L Alkaline Phosphatase 94 (35-129) units/L Total Protein 6.5 (6.3-8.2) g/dL Albumin 3.4 L (3.9-5) g/dL EKG interpretations - Telemetry EKG Rhythm: Sinus Rhythm (With no acute ST or T wave changes) Assessment and Plan - Patient Problems (1) Elevated troponin Current Visit: Yes Status: Acute Plan to address problem: Patient is borderline troponin elevation in the setting of acute renal failure is likely nonspecific finding. Patient has no cardiac symptoms, no chest pain or shortness of breath. ECG shows no ischemic changes. Echocardiogram will be done for left ventricular function assessment. We will otherwise follow conserv atively. (2) Narrow complex tachycardia Current Visit: Yes Status: Acute Plan to address problem: Patient developed spontaneous narrow complex tachycardia in the emergency room, treated with IV metoprolol. Morphology of the tachycardia appears likely AV node reentry tachycardia. We will continue metoprolol. Echocardiogram is pending for left ventricular function assessment.
[2022-01-29 16:18] LABS: Amorphous Crystals,Urine 3+; Bacteria,Urine 4+ /HPF (Negative); Granular Casts,Urine 13 /LPF; Hyaline Casts,Urine 9 /LPF
[2022-01-29] MEDS: METOPROLOL TARTRATE 50 MG TAB PO SCH (16:29)
[2022-01-29 16:32] LABS: Color,Urine Yellow (Yellow)
--- NOTE | 2022-01-29 17:35 | XRay Report ---
Right hip, 2 views HISTORY: Cellulitis/abscess right groin/hip COMPARISON: None FINDINGS: There is soft tissue gas along the medial right thigh and right groin region, compatible with clinica lly reported soft tissue infection. No aggressive cortical destructive changes to suggest osteomyelit is. There is no acute fracture or malalignment. Signer Name: Steffen Walker MD Signed: 01/29/2022 5:31 PM Workstation Name: [id number]
[2022-01-29] MEDS: SODIUM CHLORIDE 0.9% 1000 ML 1,000 ML IV SCH (18:47)
[2022-01-29] MEDS: ceFAZolin/NS 1 GM/50 ML 1 GM/50 ML BAG IV SCH (18:57)
[2022-01-29] MEDS: HEPARIN 5,000 UNIT/1 ML VIAL SUB-Q SCH (21:35)
[2022-01-30] MEDS: METOPROLOL TARTRATE 50 MG TAB PO SCH ×4 (00:19→22:44)
[2022-01-30] MEDS: oxyCODONE /ACETAMINOPHEN 5-325MG TAB PO PRN (00:19)
[2022-01-30] MEDS: IPRATROPIUM/ALBUTEROL SULFATE 3 ML AMPUL.NEB IH SCH ×4 (01:24→21:09)
[2022-01-30 06:26] LABS: Hematocrit 29.2 % (30.3-42.9); Hemoglobin 9.3 gm/dl (10.1-14.3); Mean Corpuscular HGB Conc 32 % (30-34); Mean Corpuscular Volume 86 fl (79-97); Platelet Count 160 K/mm3 (140-440); Red Cell Distribution Width 14.6 % (13.2-15.2)
[2022-01-30 06:55] LABS: Calcium 8.7 mg/dL (8.4-10.2)
[2022-01-30] MEDS: LEVOTHYROXINE 100 MCG TAB PO SCH (07:55)
[2022-01-30] MEDS: LEVOTHYROXINE 75 MCG TAB PO SCH (07:56)
[2022-01-30 08:13] LABS: Anisocytosis 1+; Band Neutrophils # (Manual) 0.2 K/mm3; Basophils % (Manual) 0 % (0.0-1.8); Platelet Estimate Consistent w Auto; Total Cells Counted 100
[2022-01-30] MEDS: ceFAZolin/NS 1 GM/50 ML 1 GM/50 ML BAG IV SCH (08:31)
[2022-01-30] MEDS: INSULIN LISPRO 100 UNIT/ML SUB-Q SCH ×4 (08:31→22:38)
[2022-01-30] MEDS: SODIUM CHLORIDE 0.9% 1000 ML 1,000 ML IV SCH (08:50)
[2022-01-30] MEDS: FAMOTIDINE 10 MG TAB PO SCH ×2 (08:59→22:32)
[2022-01-30] MEDS: SPIRONOLACTONE 50 MG TAB PO SCH ×2 (08:59→12:44)
[2022-01-30] MEDS: HEPARIN 5,000 UNIT/1 ML VIAL SUB-Q SCH ×2 (08:59→22:33)
[2022-01-30] MEDS ORDERED: ceFAZolin/NS 1 GM/50 ML 1 GM/50 ML BAG IV SCH (09:00)
--- NOTE | 2022-01-30 09:12 | Electrocardiograph Report ---
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
--- NOTE | 2022-01-30 10:13 | Progress Note ---
Assessment and Plan Assessment and plan: Assessment and plan: VTE prophylaxis?: Mechanical Plan of care discussed with patient/family: Yes - Patient Problems --Cellulitis/abscess right groin/upper thigh x-ray right groin hip findings noted Change antibiotics to IV Ancef, follow cultures Consulted surgeon Dr. Lam today --ISAIAH (acute kidney injury) Admit the patient to the medical floor. Avoid nephrotoxic drug. Renally dose medication. Half-normal saline at the rate of 125 cc/h. Monitor renal function check renal ultrasound Nephrology consult if needed --Hyperglycemia due to type 2 diabetes mellitus Accu-Cheks sliding scale coverage ADA diet insulin as needed --Hyponatremia; IV normal saline, closely monitor electrolytes --Elevated troponin/non-ST elevation CO type II In the setting of acute kidney injury Probably type II, however patient has risk factors Cardiology following, follow echo --Sinus tachycardia/ narrow complex tachycardia/resolved Continue metoprolol, closely monitor Follow echocardiogram for LV function ejection fraction Cardiology following --Hypertension Continue current antihypertensives and as needed medications --History of bronchial asthma Oxygen by nasal cannula 3 L/min. DuoNeb via nebulizer every 4 hours. Albuterol via nebulizer every 4 hours as needed -Obesity; BMI 35.4 Behavioral modification, lifestyle changes counseling 20 minutes Counseling done advised diet modification exercise as tolerated and weight reduction When medically stable --Full CODE STATUS --DVT prophylaxis; Heparin renal dose --advance care planning +30 minutes. I discussed with the patient her medical condition, I discussed the tests and reports, I discussed with the patient the diagnosis I discussed with patient the treatment plan, I also discussed with the patient need for consultants evaluation, I discussed the patient the prognosis. Advance care directives. Patient has some questions, answered all of them, patient verbalized understanding --preventative health care counseling 30 minutes; Patient advised to comply with medications, patient advised fall precautions --Obesity weight reduction counseling 20 minutes Dietary modification, exercise as tolerated and weight reduction When medically stable -- Prolonged care inpatient 35 minutes Closely monitor the patient and adjust the management as needed Plan of care reviewed with the patient and her nurse I discussed with business management specialist , regarding patient's arrhythmia And non-ST elevation CO type II Daily Hospital course; 01/31/2020; x-ray right hip findings reviewed Consulted surgeon Dr. Lam, planning incision and drainage abscess tomorrow Continue empiric antibiotics History Interval history: I have seen and examined the patient at the bedside this morning Patient's chart and medications reviewed Patient is slightly confused X-ray of the right hip findings reviewed Vital signs noted Hospitalist Physical - Constitutional Vitals: Temp Pulse Resp BP Pulse Ox 98.9 F 82 16 130/58 99 01/30/22 06:14 01/30/22 07:38 01/30/22 07:38 01/30/22 06:14 01/30/22 07:57 General appearance: Present: no acute distress, well-nourished, obese - EENT Eyes: Present: PERRL, EOM intact - Neck Neck: Present: supple, normal ROM - Respiratory Respiratory effort: normal Respiratory: bilateral: diminished, negative: rales, rhonchi, wheezing - Cardiovascular Rhythm: regular Heart Sounds: Present: S1 & S2 - Extremities Extremities: no ischemia, No edema - Abdominal General gastrointestinal: soft, non-tender, non-distended, normal bowel sounds - Integumentary Integumentary: Present: clear, warm - Psychiatric Psychiatric: appropriate mood/affect, cooperative - Neurologic Neurologic: CNII-XII intact, moves all extremities HEART Score - HEART Score Troponin: Troponin T 0.068 ng/mL (0.00-0.029) H 01/29/22 00:27 Results - Labs CBC & Chem 7: 01/30/22 05:40 01/30/22 05:40 Labs: Laboratory Last Values WBC 22.7 K/mm3 (4.5-11.0) H 01/30/22 05:40 RBC 3.40 M/mm3 (3.65-5.03) L 01/30/22 05:40 Hgb 9.3 gm/dl (10.1-14.3) L 01/30/22 05:40 Hct 29.2 % (30.3-42.9) L 01/30/22 05:40 MCV 86 fl (79-97) 01/30/22 05:40 MCH 28 pg (28-32) 01/30/22 05:40 MCHC 32 % (30-34) 01/30/22 05:40 RDW 14.6 % (13.2-15.2) 01/30/22 05:40 Plt Count 160 K/mm3 (140-440) 01/30/22 05:40 Add Manual Diff Complete 01/30/22 05:40 Total Counted 100 01/30/22 05:40 Seg Neuts % (Manual) 86.0 % (40.0-70.0) H 01/30/22 05:40 Band Neutrophils % 1.0 % 01/30/22 05:40 Lymphocytes % (Manual) 5.0 % (13.4-35.0) L 01/30/22 05:40 Reactive Lymphs % (Man) 0 % 01/30/22 05:40 Monocytes % (Manual) 7.0 % (0.0-7.3) 01/30/22 05:40 Eosinophils % (Manual) 1.0 % (0.0-4.3) 01/30/22 05:40 Basophils % (Manual) 0 % (0.0-1.8) 01/30/22 05:40 Metamyelocytes % 0 % 01/30/22 05:40 Myelocytes % 0 % 01/30/22 05:40 Promyelocytes % 0 % 01/30/22 05:40 Blast Cells % 0 % 01/30/22 05:40 Nucleated RBC % Not Reportable 01/30/22 05:40 Seg Neutrophils # Man 19.5 K/mm3 (1.8-7.7) H 01/30/22 05:40 Band Neutrophils # 0.2 K/mm3 01/30/22 05:40 Lymphocytes # (Manual) 1.1 K/mm3 (1.2-5.4) L 01/30/22 05:40 Abs React Lymphs (Man) 0.0 K/mm3 01/30/22 05:40 Monocytes # (Manual) 1.6 K/mm3 (0.0-0.8) H 01/30/22 05:40 Eosinophils # (Manual) 0.2 K/mm3 (0.0-0.4) 01/30/22 05:40 Basophils # (Manual) 0.0 K/mm3 (0.0-0.1) 01/30/22 05:40 Metamyelocytes # 0.0 K/mm3 01/30/22 05:40 Myelocytes # 0.0 K/mm3 01/30/22 05:40 Promyelocytes # 0.0 K/mm3 01/30/22 05:40 Blast Cells # 0.0 K/mm3 01/30/22 05:40 WBC Morphology Not Reportable 01/30/22 05:40 Hypersegmented Neuts Not Reportable 01/30/22 05:40 Hyposegmented Neuts Not Reportable 01/30/22 05:40 Hypogranular Neuts Not Reportable 01/30/22 05:40 Smudge Cells Not Reportable 01/30/22 05:40 Toxic Granulation Not Reportable 01/30/22 05:40 Toxic Vacuolation Not Reportable 01/30/22 05:40 Dohle Bodies Not Reportable 01/30/22 05:40 Pelger-Huet Anomaly Not Reportable 01/30/22 05:40 Theresa Rods Not Reportable 01/30/22 05:40 Platelet Estimate Consistent w auto 01/30/22 05:40 Clumped Platelets Not Reportable 01/30/22 05:40 Plt Clumps, EDTA Not Reportable 01/30/22 05:40 Large Platelets Not Reportable 01/30/22 05:40 Giant Platelets Not Reportable 01/30/22 05:40 Platelet Satelliting Not Reportable 01/30/22 05:40 Plt Morphology Comment Not Reportable 01/30/22 05:40 RBC Morphology Not Reportable 01/30/22 05:40 Dimorphic RBCs Not Reportable 01/30/22 05:40 Polychromasia Not Reportable 01/30/22 05:40 Hypochromasia Not Reportable 01/30/22 05:40 Poikilocytosis Not Reportable 01/30/22 05:40 Anisocytosis 1+ 01/30/22 05:40 Microcytosis Not Reportable 01/30/22 05:40 Macrocytosis Not Reportable 01/30/22 05:40 Spherocytes Not Reportable 01/30/22 05:40 Pappenheimer Bodies Not Reportable 01/30/22 05:40 Sickle Cells Not Reportable 01/30/22 05:40 Target Cells Not Reportable 01/30/22 05:40 Tear Drop Cells Not Reportable 01/30/22 05:40 Ovalocytes Not Reportable 01/30/22 05:40 Helmet Cells Not Reportable 01/30/22 05:40 Michaels-Peconic Bodies Not Reportable 01/30/22 05:40 P[place]grass Rings Not Reportable 01/30/22 05:40 Memo Cells Not Reportable 01/30/22 05:40 Bite Cells Not Reportable 01/30/22 05:40 Crenated Cell Not Reportable 01/30/22 05:40 Elliptocytes Not Reportable 01/30/22 05:40 Acanthocytes (Spur) Not Reportable 01/30/22 05:40 Rouleaux Not Reportable 01/30/22 05:40 Hemoglobin C Crystals Not Reportable 01/30/22 05:40 Schistocytes Not Reportable 01/30/22 05:40 Malaria parasites Not Reportable 01/30/22 05:40 Sonido Bodies Not Reportable 01/30/22 05:40 Hem Pathologist Commnt No 01/30/22 05:40 VBG pH 7.380 (7.320-7.420) 01/29/22 00:27 Sodium 136 mmol/L (137-145) L 01/30/22 05:40 Potassium 3.8 mmol/L (3.6-5.0) 01/30/22 05:40 Chloride 98.9 mmol/L (98-107) 01/30/22 05:40 Carbon Dioxide 21 mmol/L (22-30) L 01/30/22 05:40 Anion Gap 20 mmol/L 01/30/22 05:40 BUN 39 mg/dL (7-17) H 01/30/22 05:40 Creatinine 2.9 mg/dL (0.6-1.2) H 01/30/22 05:40 Estimated GFR 20 ml/min 01/30/22 05:40 BUN/Creatinine Ratio 13 % 01/30/22 05:40 Glucose 113 mg/dL (65-100) H 01/30/22 05:40 POC Glucose 127 mg/dL (70-105) H 01/30/22 07:50 Ketones Quantitative Small (Negative) 01/29/22 00:27 Lactic Acid 1.30 mmol/L (0.7-2.0) 01/29/22 01:49 Calcium 8.7 mg/dL (8.4-10.2) 01/30/22 05:40 Total Bilirubin 0.90 mg/dL (0.1-1.2) 01/29/22 00:27 AST 18 units/L (5-40) 01/29/22 00:27 ALT 12 units/L (7-56) 01/29/22 00:27 Alkaline Phosphatase 94 units/L (35-129) 01/29/22 00:27 Troponin T 0.068 ng/mL (0.00-0.029) H 01/29/22 00:27 Total Protein 6.5 g/dL (6.3-8.2) 01/29/22 00:27 Albumin 3.4 g/dL (3.9-5) L 01/29/22 00:27 Albumin/Globulin Ratio 1.1 % 01/29/22 00:27 Triglycerides 195 mg/dL (2-149) H 01/29/22 00:27 Cholesterol 146 mg/dL (50-199) 01/29/22 00:27 LDL Cholesterol Direct 58 mg/dL (50-130) 01/29/22 00:27 HDL Cholesterol 33 mg/dL (40-59) L 01/29/22 00:27 Cholesterol/HDL Ratio 4.42 % 01/29/22 00:27 TSH 1.600 mlU/mL (0.270-4.200) 01/29/22 00:27 Urine Color Yellow (Yellow) 01/29/22 Unknown Urine Turbidity Hazy (Clear) 01/29/22 Unknown Specific [place] (Man) 1.015 (1.003-1.030) 01/29/22 Unknown Ur Protein (Man) 4+ mg/dL (Negative) 01/29/22 Unknown Ur Ketones (Man) Negative (Negative) 01/29/22 Unknown Ur Nitrite (Man) Negative (Negative) 01/29/22 Unknown Ur Reducing Substances Not Reportable 01/29/22 Unknown Urine Bilirubin (Man) Negative (Negative) 01/29/22 Unknown Leukocyte Esterase (Man) Negative (Negative) 01/29/22 Unknown Urine WBC (Auto) 6.0 /HPF (0.0-6.0) 01/29/22 Unknown Urine RBC (Auto) 5.0 /HPF (0.0-6.0) 01/29/22 Unknown U Epithel Cells (Auto) 14.0 /HPF (0-13.0) H 01/29/22 Unknown Urine Bacteria (Auto) 4+ /HPF (Negative) 01/29/22 Unknown Urine RBC (Manual) Negative (Negative) 01/29/22 Unknown Amorphous Crystals 3+ 01/29/22 Unknown Hyaline Casts 9 /LPF 01/29/22 Unknown Granular Casts 13 /LPF 01/29/22 Unknown Microbiology: Microbiology 01/29/22 04:39 Peripheral/Venous Blood Culture - Preliminary Culture in Progress 01/29/22 04:34 Peripheral/Venous Blood Culture - Preliminary Culture in Progress Urias/IV: Voiding Method Indwelling Catheter Active Medications - Current Medications Current Medications: Generic Name Dose Route Start Last Admin Trade Name Freq PRN Reason Stop Dose Admin Acetaminophen 650 mg 01/29/22 03:54 Acetaminophen 325 Mg Tab PO Q4H PRN Pain MILD(1-3)/Fever >100.5/GARCIA Albuterol 2.5 mg 01/29/22 03:54 Albuterol 2.5 Mg/3 Ml Nebu IH Q3HRT PRN Shortness Of Breath Albuterol/Ipratropium 1 ampul 01/29/22 08:00 01/30/22 07:38 Ipratropium/Albuterol Sulfate 3 Ml Ampul.Neb IH 1 ampul Q6HRT ABDIAZIZ Administration Dextrose 50 ml 01/29/22 03:54 Dextrose 50% In Water (25gm) 50 Ml Syringe IV Q30MIN PRN Hypoglycemia Protocol Famotidine 10 mg 01/29/22 10:00 01/30/22 08:59 Famotidine 10 Mg Tab PO 10 mg BID ABDIAZIZ Administration Heparin Sodium (Porcine) 5,000 unit 01/29/22 22:00 01/30/22 08:59 Heparin 5,000 Unit/1 Ml Vial SUB-Q 5,000 unit Q12HR ABDIAZIZ Administration Sodium Chloride 1,000 mls @ 100 mls/hr 01/29/22 08:00 01/30/22 08:50 Nacl 0.9% 1000 Ml IV 100 mls/hr DIRECT ABDIAZIZ Administration Cefazolin Sodium 1 gm in 50 mls @ 200 mls/hr 01/30/22 09:00 01/30/22 08:51 Ancef/Ns 1 Gm/50 Ml IV 200 mls/hr Q12H ABDIAZIZ Administration Protocol Insulin Human Isoph/Insulin Regular 10 unit 01/29/22 09:00 01/29/22 18:23 Insulin Nph/Regular 70/30 Inj SUB-Q Not Given BIDDIAB ABDIAZIZ Insulin Human Lispro 0 unit 01/29/22 07:30 01/30/22 08:31 Insulin Lispro 100 Unit/Ml SUB-Q Not Given ACHS ABDIAZIZ Protocol Levothyroxine Sodium 100 mcg 01/29/22 06:00 01/30/22 07:55 Levothyroxine 100 Mcg Tab PO 100 mcg QAM@0600 ABDIAZIZ Administration Levothyroxine Sodium 75 mcg 01/29/22 06:00 01/30/22 07:56 Levothyroxine 75 Mcg Tab PO 75 mcg QAM@0600 ABDIAZIZ Administration Metoprolol Tartrate 50 mg 01/29/22 15:00 01/30/22 07:56 Metoprolol Tartrate 50 Mg Tab PO 50 mg Q8H ABDIAZIZ Administration Morphine Sulfate 2 mg 01/29/22 03:54 Morphine 2 Mg/1 Ml Inj IV Q4H PRN Pain, Moderate (4-6) Morphine Sulfate 4 mg 01/29/22 03:54 Morphine 4 Mg/1 Ml Inj IV Q4H PRN Pain , Severe (7-10) Ondansetron HCl 4 mg 01/29/22 03:54 Ondansetron 4 Mg/2 Ml Inj IV Q8H PRN Nausea And Vomiting Oxycodone/Acetaminophen 1 tab 01/29/22 03:31 01/30/22 00:19 Oxycodone /Acetaminophen 5-325mg Tab PO 1 tab Q6H PRN Administration Pain, Moderate (4-6) Sodium Chloride 10 ml 01/29/22 10:00 01/30/22 08:59 Sodium Chloride 0.9% 10 Ml Flush Syringe IV 10 ml BID ABDIAZIZ Administration Sodium Chloride 10 ml 01/29/22 03:54 Sodium Chloride 0.9% 10 Ml Flush Syringe IV PRN PRN LINE FLUSH Spironolactone 100 mg 01/29/22 10:00 01/30/22 08:59 Spironolactone 50 Mg Tab PO Not Given QDAY [facility] Nutrition/Malnutrition Assess - Dietary Evaluation Nutrition/Malnutrition Findings: Nutrition Notes Start: 01/29/22 10:03 Freq: Status: Active Protocol: Document 01/29/22 10:03 JULIO (Rec: 01/29/22 10:06 JULIO [id number]) Nutrition Notes Need for Assessment generated from: MD Order,Education Initial or Follow up Brief Note Current Diagnosis Acute Kidney Injury,Diabetes, Hypertension Other Pertinent Diagnosis Hyperglycemia Current Diet Cardiac/Consistent CHO Labs/Tests BG 232 Triglycerides 195 HDL 33 BUN 31 Cr 2.6 Na 130 Pertinent Medications Reviewed Weight Status Obese Subjective/Other Information RD consulted for diet education. Pt in ED at this time. Burn Absent Trauma Absent Minimum of two criteria No Nutrition Intervention Follow-Up By: 02/03/22 Additional Comments F/U: diet education needs, intakes
[2022-01-30] MEDS ORDERED: LOPERAMIDE 2 MG CAP PO PRN (12:14)
[2022-01-30] MEDS: INSULIN NPH/REGULAR 70/30 INJ SUB-Q SCH ×2 (12:42→16:56)
--- NOTE | 2022-01-30 15:16 | Consultation ---
History of Present Illness Consult date: 01/30/22 - History of present illness History of present illness: General surgery called to see 66-year-old female presented to the emergency room with malaise and hyperglycemia. She has a longstanding history of diabetes. She was found to have right leg cellulitis and pain. Patient says she is unsure when this started and denies any insect bite or trauma. She does admit to having abscesses requiring incision and drainage many times in the past. She denies any nausea or vomiting. Patient says that her pain is about 8 out of 10 and she is scared to have surgery. Past History Past Medical History: COPD (Chronic asthma), diabetes, heart failure, hypertension, other (Asthma, hypothyroid) Past Surgical History: Other (myomectomy, hysterectomy, brain surgery, multiple soft tissue I&Ds) Social history: no significant social history Family history: no significant family history Medications and Allergies Allergies Allergy/AdvReac Type Severity Reaction Status Date / Time No Known Allergies Allergy Unverified 08/01/15 23:02 Home Medications Medication Instructions Recorded Confirmed Last Taken Type Azithromycin [Zithromax TAB] 500 mg PO QDAY #7 tablet 08/05/15 Unknown Rx Cinacalcet HCl [Sensipar] 60 mg PO DAILY #30 tablet 08/05/15 Unknown Rx Insulin Lispro Prot/Lispro 28 units SUB-Q 1700 units 08/05/15 Unknown Rx [HumaLOG Mix 75/25 Vial] Insulin Lispro Prot/Lispro 30 units SUB-Q QDDIAB units 08/05/15 Unknown Rx [HumaLOG Mix 75/25 Vial] Insulin Lispro [HumaLOG VIAL] 28 units SQ QHS #1 vial 08/05/15 Unknown Rx Insulin Lispro [HumaLOG VIAL] 30 units SQ QAM #1 vial 08/05/15 Unknown Rx Levothyroxine [Synthroid] 175 mcg PO QAM #30 tablet 08/05/15 Unknown Rx Prednisone [predniSONE 10 mg 10 mg PO .TAPER #1 tab.ds.pk 08/05/15 Unknown Rx (6-Day Pack, 21 Tabs)] Spironolactone [Aldactone] 100 mg PO QDAY #30 tablet 08/05/15 Unknown Rx carvediloL [Coreg] 3.125 mg PO BID #60 tablet 08/05/15 Unknown Rx metFORMIN [Glucophage] 500 mg PO BID #30 tablet 08/05/15 Unknown Rx Active Meds: Active Medications Acetaminophen (Acetaminophen 325 Mg Tab) 650 mg PO Q4H PRN PRN Reason: Pain MILD(1-3)/Fever >100.5/GARCIA Albuterol (Albuterol 2.5 Mg/3 Ml Nebu) 2.5 mg IH Q3HRT PRN PRN Reason: Shortness Of Breath Albuterol/Ipratropium (Ipratropium/Albuterol Sulfate 3 Ml Ampul.Neb) 1 ampul IH Q6HRT [facility] Last Admin: 01/30/22 13:45 Dose: 1 ampul Dextrose (Dextrose 50% In Water (25gm) 50 Ml Syringe) 50 ml IV Q30MIN PRN; Protocol PRN Reason: Hypoglycemia Famotidine (Famotidine 10 Mg Tab) 10 mg PO BID [facility] Last Admin: 01/30/22 08:59 Dose: 10 mg Heparin Sodium (Porcine) (Heparin 5,000 Unit/1 Ml Vial) 5,000 unit SUB-Q Q12HR [facility] Last Admin: 01/30/22 08:59 Dose: 5,000 unit Sodium Chloride (Nacl 0.9% 1000 Ml) 1,000 mls @ 100 mls/hr IV DIRECT ABDIAZIZ Last Admin: 01/30/22 08:50 Dose: 100 mls/hr Piperacillin Sod/Tazobactam Sod (Zosyn/Ns 2.25 Gm/50ml) 2.25 gm in 50 mls @ 100 mls/hr IV Q8H [facility]; Protocol Insulin Human Isoph/Insulin Regular (Insulin Nph/Regular 70/30 Inj) 10 unit SUB-Q BIDDIAB [facility] Last Admin: 01/30/22 12:42 Dose: 10 unit Insulin Human Lispro (Insulin Lispro 100 Unit/Ml) 0 unit SUB-Q ACHS ABDIAZIZ; Protocol Last Admin: 01/30/22 12:43 Dose: 3 unit Levothyroxine Sodium (Levothyroxine 100 Mcg Tab) 100 mcg PO QAM@0600 [facility] Last Admin: 01/30/22 07:55 Dose: 100 mcg Levothyroxine Sodium (Levothyroxine 75 Mcg Tab) 75 mcg PO QAM@0600 [facility] Last Admin: 01/30/22 07:56 Dose: 75 mcg Loperamide HCl (Loperamide 2 Mg Cap) 2 mg PO Q2H PRN PRN Reason: Diarrhea Last Admin: 01/30/22 12:43 Dose: 2 mg Metoprolol Tartrate (Metoprolol Tartrate 50 Mg Tab) 50 mg PO Q8H [facility] Last Admin: 01/30/22 07:56 Dose: 50 mg Morphine Sulfate (Morphine 2 Mg/1 Ml Inj) 2 mg IV Q4H PRN PRN Reason: Pain, Moderate (4-6) Morphine Sulfate (Morphine 4 Mg/1 Ml Inj) 4 mg IV Q4H PRN PRN Reason: Pain , Severe (7-10) Ondansetron HCl (Ondansetron 4 Mg/2 Ml Inj) 4 mg IV Q8H PRN PRN Reason: Nausea And Vomiting Oxycodone/Acetaminophen (Oxycodone /Acetaminophen 5-325mg Tab) 1 tab PO Q6H PRN PRN Reason: Pain, Moderate (4-6) Last Admin: 01/30/22 00:19 Dose: 1 tab Sodium Chloride (Sodium Chloride 0.9% 10 Ml Flush Syringe) 10 ml IV BID [facility] Last Admin: 01/30/22 08:59 Dose: 10 ml Sodium Chloride (Sodium Chloride 0.9% 10 Ml Flush Syringe) 10 ml IV PRN PRN PRN Reason: LINE FLUSH Spironolactone (Spironolactone 50 Mg Tab) 100 mg PO QDAY [facility] Last Admin: 01/30/22 12:44 Dose: 100 mg Review of Systems All systems: negative - Constitutional malaise - Integumentary redness, other (swelling and paiin) Exam Vital Signs Temp Pulse Resp BP Pulse Ox 98.9 F 96 H 18 150/80 97 01/28/22 21:46 01/28/22 21:46 01/28/22 21:46 01/28/22 21:46 01/28/22 21:46 - General physical appearance Positive: well developed, well nourished, no distress, moderate pain - Eyes Positive: PERRL - ENT Positive: no hearing loss - Respiratory Positive: normal expansion, normal respiratory effort - Cardiovascular Heart Sounds: Present: S1 & S2 - Extremities Extremities: no ischemia - Abdomen Abdomen: Present: soft. Absent: tender - Integumentary other (Right upper medial thigh erythema and swelling extending up to the groin. Very tender to palpation. No obvious skin breaks or drainage.) Results - Labs 01/30/22 05:40 01/30/22 05:40 Abnormal lab results 01/29/22 01/29/22 01/29/22 Range/Units 20:31 21:31 Unknown WBC (4.5-11.0) K/mm3 RBC (3.65-5.03) M/mm3 Hgb (10.1-14.3) gm/dl Hct (30.3-42.9) % Seg Neuts % (Manual) (40.0-70.0) % Lymphocytes % (Manual) (13.4-35.0) % Seg Neutrophils # Man (1.8-7.7) K/mm3 Lymphocytes # (Manual) (1.2-5.4) K/mm3 Monocytes # (Manual) (0.0-0.8) K/mm3 Sodium (137-145) mmol/L Carbon Dioxide (22-30) mmol/L BUN (7-17) mg/dL Creatinine (0.6-1.2) mg/dL Glucose (65-100) mg/dL POC Glucose 146 H 142 H (70-105) mg/dL U Epithel Cells (Auto) 14.0 H (0-13.0) /HPF 01/30/22 01/30/22 01/30/22 Range/Units 05:40 05:40 07:50 WBC 22.7 H (4.5-11.0) K/mm3 RBC 3.40 L (3.65-5.03) M/mm3 Hgb 9.3 L (10.1-14.3) gm/dl Hct 29.2 L (30.3-42.9) % Seg Neuts % (Manual) 86.0 H (40.0-70.0) % Lymphocytes % (Manual) 5.0 L (13.4-35.0) % Seg Neutrophils # Man 19.5 H (1.8-7.7) K/mm3 Lymphocytes # (Manual) 1.1 L (1.2-5.4) K/mm3 Monocytes # (Manual) 1.6 H (0.0-0.8) K/mm3 Sodium 136 L (137-145) mmol/L Carbon Dioxide 21 L (22-30) mmol/L BUN 39 H (7-17) mg/dL Creatinine 2.9 H (0.6-1.2) mg/dL Glucose 113 H (65-100) mg/dL POC Glucose 127 H (70-105) mg/dL U Epithel Cells (Auto) (0-13.0) /HPF 01/30/22 Range/Units 12:07 WBC (4.5-11.0) K/mm3 RBC (3.65-5.03) M/mm3 Hgb (10.1-14.3) gm/dl Hct (30.3-42.9) % Seg Neuts % (Manual) (40.0-70.0) % Lymphocytes % (Manual) (13.4-35.0) % Seg Neutrophils # Man (1.8-7.7) K/mm3 Lymphocytes # (Manual) (1.2-5.4) K/mm3 Monocytes # (Manual) (0.0-0.8) K/mm3 Sodium (137-145) mmol/L Carbon Dioxide (22-30) mmol/L BUN (7-17) mg/dL Creatinine (0.6-1.2) mg/dL Glucose (65-100) mg/dL POC Glucose 200 H (70-105) mg/dL U Epithel Cells (Auto) (0-13.0) /HPF Diabetes panel 01/30/22 Range/Units 05:40 Sodium 136 L (137-145) mmol/L Potassium 3.8 (3.6-5.0) mmol/L Chloride 98.9 (98-107) mmol/L Carbon Dioxide 21 L (22-30) mmol/L BUN 39 H (7-17) mg/dL Creatinine 2.9 H (0.6-1.2) mg/dL Glucose 113 H (65-100) mg/dL Calcium 8.7 (8.4-10.2) mg/dL Thyroid panel 01/29/22 Range/Units 00:27 TSH 1.600 (0.270-4.200) mlU/mL Calcium panel 01/30/22 Range/Units 05:40 Calcium 8.7 (8.4-10.2) mg/dL Pituitary panel 01/29/22 01/30/22 Range/Units 00:27 05:40 Sodium 136 L (137-145) mmol/L Potassium 3.8 (3.6-5.0) mmol/L Chloride 98.9 (98-107) mmol/L Carbon Dioxide 21 L (22-30) mmol/L BUN 39 H (7-17) mg/dL Creatinine 2.9 H (0.6-1.2) mg/dL Glucose 113 H (65-100) mg/dL Calcium 8.7 (8.4-10.2) mg/dL TSH 1.600 (0.270-4.200) mlU/mL Adrenal panel 01/30/22 Range/Units 05:40 Sodium 136 L (137-145) mmol/L Potassium 3.8 (3.6-5.0) mmol/L Chloride 98.9 (98-107) mmol/L Carbon Dioxide 21 L (22-30) mmol/L BUN 39 H (7-17) mg/dL Creatinine 2.9 H (0.6-1.2) mg/dL Glucose 113 H (65-100) mg/dL Calcium 8.7 (8.4-10.2) mg/dL Assessment and Plan 66-year-old diabetic female with right upper leg cellulitis and probable underlying abscess with soft tissue infection. Patient intermittently febrile with stable vital signs. Patient ate approximately an hour before evaluation making it unsafe to have general anesthesia for least 6 hours. Since patient is stable will take patient to the OR for incision and drainage in the morning. We will get CT scan today to help evaluate extent of underlying cellulitis to help better guide procedure. Patient expressed understanding of pathology and treatment options. Patient says that she is reluctant to have surgery but she understands. Patient is consented.
--- NOTE | 2022-01-30 16:24 | Progress Note ---
Assessment and Plan - Patient Problems (1) Elevated troponin Current Visit: Yes Status: Acute Plan to address problem: Nonspecific troponin findings, associated with acute kidney injury and sepsis. Echocardiogram is pending and will be reported. We will otherwise follow conservatively. (2) Narrow complex tachycardia Current Visit: Yes Status: Acute Plan to address problem: Patient developed spontaneous narrow complex tachycardia in the emergency room, treated with IV metoprolol. Morphology of the tachycardia appears likely AV node reentry tachycardia. We will continue metoprolol. Echocardiogram is pending for left ventricular function assessment. Subjective Date of service: 01/30/22 Principal diagnosis: Fever, general malaise, PSVT Interval history: Patient is currently undergoing work-up of lower extremity abscess with CT scan. No cardiac complaints, no new cardiac events reported. Objective Vital Signs Temp Pulse Pulse Resp Resp BP Pulse Ox 01/30/22 13:45 86 18 01/30/22 12:07 98.1 F 77 136/66 97 01/30/22 07:57 99 01/30/22 07:38 82 16 100 01/30/22 06:14 98.9 F 78 20 130/58 96 01/30/22 01:26 71 16 01/29/22 23:00 99 01/29/22 22:56 100.6 F H 87 19 131/51 99 01/29/22 20:52 100 01/29/22 20:00 90 16 01/29/22 18:07 98 01/29/22 17:46 98.3 F 85 18 123/60 98 01/29/22 16:45 91 H 23 135/68 100 01/29/22 16:30 92 H 18 136/76 100 01/29/22 16:29 90 136/76 - Physical Examination General: No Apparent Distress HEENT: Positive: PERRL Neck: Positive: neck supple Cardiac: Positive: Reg Rate and Rhythm Lungs: Positive: Decreased Breath Sounds Neuro: Positive: Weakness (Generalized lethargy) Abdomen: Positive: Soft Skin: Positive: Clear Extremities: Absent: edema - Labs and Meds CBC 01/30/22 Range/Units 05:40 WBC 22.7 H (4.5-11.0) K/mm3 RBC 3.40 L (3.65-5.03) M/mm3 Hgb 9.3 L (10.1-14.3) gm/dl Hct 29.2 L (30.3-42.9) % Plt Count 160 (140-440) K/mm3 Comprehensive Metabolic Panel 01/30/22 Range/Units 05:40 Sodium 136 L (137-145) mmol/L Potassium 3.8 (3.6-5.0) mmol/L Chloride 98.9 (98-107) mmol/L Carbon Dioxide 21 L (22-30) mmol/L BUN 39 H (7-17) mg/dL Creatinine 2.9 H (0.6-1.2) mg/dL Glucose 113 H (65-100) mg/dL Calcium 8.7 (8.4-10.2) mg/dL
[2022-01-30] MEDS: PIPERACIL-TAZO 2.25 GM/50 ML 2.25 GM/50 ML BAG IV SCH (16:51)
--- NOTE | 2022-01-30 18:19 | Cat Scan Report ---
CT pelvis wo con INDICATION: right leg cellulits. TECHNIQUE: All CT scans at this location are performed using the following dose modulation technique: Automated exposure control. CONTRAST: None. COMPARISON: None available. FINDINGS: No intrapelvic mass, fluid collection or inflammation. No significant bowel distention. Sta tus post previous hysterectomy. The bowel is decompressed by Urias catheter. A normal appendix is gail ntified. No bony abnormality. Soft tissues inflammation and skin thickening is seen at the medial thigh. A complex collection is se en predominantly containing air and debris measuring approximately 9.9 x 2 7.5 cm. IMPRESSION: Complex collection containing predominantly air and debris at the proximal, medial right thigh region extending from the level the peritoneum inferiorly with adjacent inflammation and skin thickening. Signer Name: Too Maurer MD Signed: 01/30/2022 6:16 PM Workstation Name: [id number]
[2022-01-31] MEDS: PIPERACIL-TAZO 2.25 GM/50 ML 2.25 GM/50 ML BAG IV SCH ×4 (00:55→23:38)
[2022-01-31] MEDS: SODIUM CHLORIDE 0.9% 1000 ML 1,000 ML IV SCH (00:57)
[2022-01-31] MEDS: oxyCODONE /ACETAMINOPHEN 5-325MG TAB PO PRN (03:48)
[2022-01-31] MEDS: LEVOTHYROXINE 100 MCG TAB PO SCH (05:34)
[2022-01-31] MEDS: LEVOTHYROXINE 75 MCG TAB PO SCH (05:35)
[2022-01-31] MEDS: IPRATROPIUM/ALBUTEROL SULFATE 3 ML AMPUL.NEB IH SCH ×3 (07:17→20:05)
[2022-01-31] MEDS: DEXTROSE 50% IN WATER (25GM) 50 ML SYRINGE IV PRN (07:44)
[2022-01-31] MEDS: INSULIN LISPRO 100 UNIT/ML SUB-Q SCH ×4 (08:30→21:59)
[2022-01-31] MEDS: INSULIN NPH/REGULAR 70/30 INJ SUB-Q SCH ×2 (08:31→17:58)
[2022-01-31] MEDS ORDERED: LIDOCAINE MPF (2%) 20 MG/1 ML VIAL 5 ML ONE (08:45)
[2022-01-31] MEDS ORDERED: MIDAZOLAM 2 MG/2 ML INJ ONE (08:46)
[2022-01-31] MEDS ORDERED: propofoL 200 MG/20 ML VIAL IV ONE (08:46)
--- NOTE | 2022-01-31 09:35 | Anesthesia Day of Surgery ---
Anesthesia Day of Surgery - Day of Surgery Patient Examined: Yes Patient H&P Reviewed: Yes Patient is NPO: Yes
--- NOTE | 2022-01-31 09:37 | Anesthesia Consultation ---
Anesthesia Consult and Med Hx Date of service: 01/31/22 - Airway ROM Head & Neck: Adequate Mental/Hyoid Distance: Adequate Mallampati Class: Class II Intubation Access Assessment: Good - Pulmonary Exam CTA: Yes - Cardiac Exam Anesthetic Concerns: irregular. Echo-01/29 EF 60-65% - Pre-Operative Health Status ASA Pre-Surgery Classification: ASA3 Proposed Anesthetic Plan: General - Pulmonary Hx Asthma: Yes - Cardiovascular System Hx Hypertension: Yes - Endocrine Hx Renal Disease: Yes (ISAIAH) Hx Insulin Dependent Diabetes: Yes Hx Hypothyroidism: Yes
[2022-01-31] MEDS ORDERED: fentaNYL 100 MCG/2 ML INJ ONE (09:52)
[2022-01-31] MEDS ORDERED: ePHEDrine SULFATE 50 MG/1 ML INJ ONE (09:55)
[2022-01-31] MEDS ORDERED: LIDOCAINE (1%) 10 MG/1 ML VIAL 20 ML MDV ONE (10:06)
[2022-01-31] MEDS ORDERED: BUPIVACAINE-EPINEPHRINE/PF 0.5%-1:200,000 (30 ML) VIAL INFILTRATI ONE ×2 (10:06→10:15)
[2022-01-31] MEDS ORDERED: LIDOCAINE (1%) 10 MG/1 ML VIAL 20 ML MDV INFILTRATI ONE (10:15)
[2022-01-31] MEDS ORDERED: SODIUM CHLORIDE 0.9% IRR 1,500 ML BOTTLE IR ONE (10:15)
[2022-01-31] MEDS ORDERED: dexAMETHasone 20 MG/5 ML VIAL ONE (10:31)
[2022-01-31] MEDS ORDERED: PHENYLEPHRINE/NS 1,000 MCG/10 ML SYRINGE (OR USE) IV ONE (10:31)
[2022-01-31] MEDS ORDERED: ONDANSETRON 4 MG/2 ML INJ ONE (10:31)
--- NOTE | 2022-01-31 10:41 | Operative Report ---
Operative Report Operative Report: Date: January 31, 2022 Surgeon: Lenny Lam MD Procedure: Incision and drainage of right upper thigh abscess Pre-op diagnosis: Right upper thigh abscess Postop diagnosis: Same as preop Anesthesia:GETA Indication for procedure: Patient is a 66-year-old diabetic female who presents to the emergency room with general malaise. She complains of having right upper thigh swelling and pain for some time, with a history of multiple previous abscesses requiring incision and drainage. She had elevated white count, episodic low-grade fever, and air and gas seen in subcutaneous tissue on CT scan. Patient was consented for incision and drainage. Details of procedure: Patient brought into the OR and placed in supine position. Bilateral lower extremity SCDs were placed. General anesthesia was induced via successful and tracheal tube intubation. Patient was then placed in lithotomy position. Patient's lower abdomen perineum and bilateral upper thighs were prepped and draped in sterile fashion. After a timeout was performed a 2 to 3 cm incision was placed over the most fluctuant area on the right upper medial thigh. With digital exploration there was immediate expression of foul-smelling purulent material. There was also noted to be a less than 1 cm skin defect in the crease of her groin of which there was some drainage as well. The cavity was digitally explored with both my finger and suction found to track up towards her inguinal area, and down towards her perineum but did not track medially to her perianal area or vagina. Feeling confident that all abscess cavities were broken up the area was then irrigated with saline and aspirated. Cultures were taken and sent to pathology. The cavity was then packed with 1 inch iodoform gauze followed by dressing. Patient was awoken extubated taken to recovery stable condition. Specimen: Cultures of the wound Complications: None immediate EBL: Less than 10 mL
[2022-01-31] MEDS ORDERED: ONDANSETRON 4 MG/2 ML INJ IV PRN (10:49)
[2022-01-31] MEDS ORDERED: fentaNYL 100 MCG/2 ML INJ IV PRN (10:49)
[2022-01-31] MEDS: SPIRONOLACTONE 50 MG TAB PO SCH (10:50)
[2022-01-31] MEDS: METOPROLOL TARTRATE 50 MG TAB PO SCH ×4 (10:50→23:43)
--- NOTE | 2022-01-31 10:52 | Progress Note ---
Assessment and Plan Assessment and plan: --Cellulitis/abscess right groin/upper thigh x-ray right groin hip findings noted Change antibiotics to IV Ancef, follow cultures Status post incision drainage by Dr. Lam today 01/31/2022 Fluid sent for analysis --ISAIAH (acute kidney injury) Admit the patient to the medical floor. Avoid nephrotoxic drug. Renally dose medication. Half-normal saline at the rate of 125 cc/h. Monitor renal function check renal ultrasound Nephrology consult if needed --Hyperglycemia due to type 2 diabetes mellitus Accu-Cheks sliding scale coverage ADA diet insulin as needed --Hyponatremia; IV normal saline, closely monitor electrolytes --Elevated troponin/non-ST elevation IN type II In the setting of acute kidney injury Probably type II, however patient has risk factors Cardiology following, follow echo --Sinus tachycardia/ narrow complex tachycardia/resolved Continue metoprolol, closely monitor Follow echocardiogram for LV function ejection fraction Cardiology following --Hypertension Continue current antihypertensives and as needed medications --History of bronchial asthma Oxygen by nasal cannula 3 L/min. DuoNeb via nebulizer every 4 hours. Albuterol via nebulizer every 4 hours as needed -Obesity; BMI 35.4 Behavioral modification, lifestyle changes counseling 20 minutes Counseling done advised diet modification exercise as tolerated and weight reduction When medically stable --Full CODE STATUS --DVT prophylaxis; Heparin renal dose Total time spent 35 minutes --advance care planning +30 minutes. I discussed with the patient her medical condition, I discussed the tests and reports, I discussed with the patient the diagnosis I discussed with patient the treatment plan, I also discussed with the patient need for consultants evaluation, I discussed the patient the prognosis. Advance care directives. Patient has some questions, answered all of them, patient verbalized understanding --preventative health care counseling + 30 minutes; Patient advised to comply with medications, patient advised fall precautions --Obesity weight reduction counseling +20 minutes Dietary modification, exercise as tolerated and weight reduction When medically stable Closely monitor the patient and adjust the management as needed Consultants cardiology, nephrology and surgeon's recommendations noted and appreciated Plan of care reviewed with the patient and her nurse Daily Hospital course; 01/31/2020; x-ray right hip findings reviewed Consulted surgeon Dr. Lam, planning incision and drainage abscess tomorrow Continue empiric antibiotics 01/31; incision and drainage of the upper thigh abscess, fluid sent for analysis Follow cultures, continue empiric antibiotics History Interval history: Surgeon Dr. Lam has evaluated the patient and scheduled for IND today Patient underwent Incision and drainage of right upper thigh abscess. Fluid sent for analysis Patient tolerated the procedure well Patient complains of some pain at the site of surgery Vital signs noted Hospitalist Physical - Constitutional Vitals: Temp Pulse Resp BP Pulse Ox 97.7 F 72 14 131/62 100 01/31/22 10:32 01/31/22 10:45 01/31/22 10:45 01/31/22 10:45 01/31/22 10:45 General appearance: Present: no acute distress, well-nourished, obese - EENT Eyes: Present: PERRL, EOM intact - Neck Neck: Present: supple, normal ROM - Respiratory Respiratory effort: normal Respiratory: bilateral: diminished, negative: rales, rhonchi, wheezing - Cardiovascular Rhythm: regular Heart Sounds: Present: S1 & S2 - Extremities Extremities: no ischemia, No edema, abnormal (Right upper thigh dressing in place) - Abdominal General gastrointestinal: soft, non-tender, non-distended, normal bowel sounds - Integumentary Integumentary: Present: clear, warm - Psychiatric Psychiatric: appropriate mood/affect, cooperative - Neurologic Neurologic: moves all extremities HEART Score - HEART Score Troponin: Troponin T 0.068 ng/mL (0.00-0.029) H 01/29/22 00:27 Results - Labs CBC & Chem 7: 01/30/22 05:40 01/30/22 05:40 Labs: Laboratory Last Values WBC 22.7 K/mm3 (4.5-11.0) H 01/30/22 05:40 RBC 3.40 M/mm3 (3.65-5.03) L 01/30/22 05:40 Hgb 9.3 gm/dl (10.1-14.3) L 01/30/22 05:40 Hct 29.2 % (30.3-42.9) L 01/30/22 05:40 MCV 86 fl (79-97) 01/30/22 05:40 MCH 28 pg (28-32) 01/30/22 05:40 MCHC 32 % (30-34) 01/30/22 05:40 RDW 14.6 % (13.2-15.2) 01/30/22 05:40 Plt Count 160 K/mm3 (140-440) 01/30/22 05:40 Add Manual Diff Complete 01/30/22 05:40 Total Counted 100 01/30/22 05:40 Seg Neuts % (Manual) 86.0 % (40.0-70.0) H 01/30/22 05:40 Band Neutrophils % 1.0 % 01/30/22 05:40 Lymphocytes % (Manual) 5.0 % (13.4-35.0) L 01/30/22 05:40 Reactive Lymphs % (Man) 0 % 01/30/22 05:40 Monocytes % (Manual) 7.0 % (0.0-7.3) 01/30/22 05:40 Eosinophils % (Manual) 1.0 % (0.0-4.3) 01/30/22 05:40 Basophils % (Manual) 0 % (0.0-1.8) 01/30/22 05:40 Metamyelocytes % 0 % 01/30/22 05:40 Myelocytes % 0 % 01/30/22 05:40 Promyelocytes % 0 % 01/30/22 05:40 Blast Cells % 0 % 01/30/22 05:40 Nucleated RBC % Not Reportable 01/30/22 05:40 Seg Neutrophils # Man 19.5 K/mm3 (1.8-7.7) H 01/30/22 05:40 Band Neutrophils # 0.2 K/mm3 01/30/22 05:40 Lymphocytes # (Manual) 1.1 K/mm3 (1.2-5.4) L 01/30/22 05:40 Abs React Lymphs (Man) 0.0 K/mm3 01/30/22 05:40 Monocytes # (Manual) 1.6 K/mm3 (0.0-0.8) H 01/30/22 05:40 Eosinophils # (Manual) 0.2 K/mm3 (0.0-0.4) 01/30/22 05:40 Basophils # (Manual) 0.0 K/mm3 (0.0-0.1) 01/30/22 05:40 Metamyelocytes # 0.0 K/mm3 01/30/22 05:40 Myelocytes # 0.0 K/mm3 01/30/22 05:40 Promyelocytes # 0.0 K/mm3 01/30/22 05:40 Blast Cells # 0.0 K/mm3 01/30/22 05:40 WBC Morphology Not Reportable 01/30/22 05:40 Hypersegmented Neuts Not Reportable 01/30/22 05:40 Hyposegmented Neuts Not Reportable 01/30/22 05:40 Hypogranular Neuts Not Reportable 01/30/22 05:40 Smudge Cells Not Reportable 01/30/22 05:40 Toxic Granulation Not Reportable 01/30/22 05:40 Toxic Vacuolation Not Reportable 01/30/22 05:40 Dohle Bodies Not Reportable 01/30/22 05:40 Pelger-Huet Anomaly Not Reportable 01/30/22 05:40 Theresa Rods Not Reportable 01/30/22 05:40 Platelet Estimate Consistent w auto 01/30/22 05:40 Clumped Platelets Not Reportable 01/30/22 05:40 Plt Clumps, EDTA Not Reportable 01/30/22 05:40 Large Platelets Not Reportable 01/30/22 05:40 Giant Platelets Not Reportable 01/30/22 05:40 Platelet Satelliting Not Reportable 01/30/22 05:40 Plt Morphology Comment Not Reportable 01/30/22 05:40 RBC Morphology Not Reportable 01/30/22 05:40 Dimorphic RBCs Not Reportable 01/30/22 05:40 Polychromasia Not Reportable 01/30/22 05:40 Hypochromasia Not Reportable 01/30/22 05:40 Poikilocytosis Not Reportable 01/30/22 05:40 Anisocytosis 1+ 01/30/22 05:40 Microcytosis Not Reportable 01/30/22 05:40 Macrocytosis Not Reportable 01/30/22 05:40 Spherocytes Not Reportable 01/30/22 05:40 Pappenheimer Bodies Not Reportable 01/30/22 05:40 Sickle Cells Not Reportable 01/30/22 05:40 Target Cells Not Reportable 01/30/22 05:40 Tear Drop Cells Not Reportable 01/30/22 05:40 Ovalocytes Not Reportable 01/30/22 05:40 Helmet Cells Not Reportable 01/30/22 05:40 Michaels-Jenison Bodies Not Reportable 01/30/22 05:40 Byron Rings Not Reportable 01/30/22 05:40 [place] Cells Not Reportable 01/30/22 05:40 Bite Cells Not Reportable 01/30/22 05:40 Crenated Cell Not Reportable 01/30/22 05:40 Elliptocytes Not Reportable 01/30/22 05:40 Acanthocytes (Spur) Not Reportable 01/30/22 05:40 Rouleaux Not Reportable 01/30/22 05:40 Hemoglobin C Crystals Not Reportable 01/30/22 05:40 Schistocytes Not Reportable 01/30/22 05:40 Malaria parasites Not Reportable 01/30/22 05:40 Sonido Bodies Not Reportable 01/30/22 05:40 Hem Pathologist Commnt No 01/30/22 05:40 VBG pH 7.380 (7.320-7.420) 01/29/22 00:27 Sodium 136 mmol/L (137-145) L 01/30/22 05:40 Potassium 3.8 mmol/L (3.6-5.0) 01/30/22 05:40 Chloride 98.9 mmol/L (98-107) 01/30/22 05:40 Carbon Dioxide 21 mmol/L (22-30) L 01/30/22 05:40 Anion Gap 20 mmol/L 01/30/22 05:40 BUN 39 mg/dL (7-17) H 01/30/22 05:40 Creatinine 2.9 mg/dL (0.6-1.2) H 01/30/22 05:40 Estimated GFR 20 ml/min 01/30/22 05:40 BUN/Creatinine Ratio 13 % 01/30/22 05:40 Glucose 113 mg/dL (65-100) H 01/30/22 05:40 POC Glucose 97 mg/dL (70-105) 01/31/22 08:03 Ketones Quantitative Small (Negative) 01/29/22 00:27 Lactic Acid 1.30 mmol/L (0.7-2.0) 01/29/22 01:49 Calcium 8.7 mg/dL (8.4-10.2) 01/30/22 05:40 Total Bilirubin 0.90 mg/dL (0.1-1.2) 01/29/22 00:27 AST 18 units/L (5-40) 01/29/22 00:27 ALT 12 units/L (7-56) 01/29/22 00:27 Alkaline Phosphatase 94 units/L (35-129) 01/29/22 00:27 Troponin T 0.068 ng/mL (0.00-0.029) H 01/29/22 00:27 Total Protein 6.5 g/dL (6.3-8.2) 01/29/22 00:27 Albumin 3.4 g/dL (3.9-5) L 01/29/22 00: Albumin/Globulin Ratio 1.1 % 01/29/22 00:27 Triglycerides 195 mg/dL (2-149) H 01/29/22 00:27 Cholesterol 146 mg/dL (50-199) 01/29/22 00:27 LDL Cholesterol Direct 58 mg/dL (50-130) 01/29/22 00:27 HDL Cholesterol 33 mg/dL (40-59) L 01/29/22 00:27 Cholesterol/HDL Ratio 4.42 % 01/29/22 00:27 TSH 1.600 mlU/mL (0.270-4.200) 01/29/22 00:27 Urine Color Yellow (Yellow) 01/29/22 Unknown Urine Turbidity Hazy (Clear) 01/29/22 Unknown Specific [place] (Man) 1.015 (1.003-1.030) 01/29/22 Unknown Ur Protein (Man) 4+ mg/dL (Negative) 01/29/22 Unknown Ur Ketones (Man) Negative (Negative) 01/29/22 Unknown Ur Nitrite (Man) Negative (Negative) 01/29/22 Unknown Ur Reducing Substances Not Reportable 01/29/22 Unknown Urine Bilirubin (Man) Negative (Negative) 01/29/22 Unknown Leukocyte Esterase (Man) Negative (Negative) 01/29/22 Unknown Urine WBC (Auto) 6.0 /HPF (0.0-6.0) 01/29/22 Unknown Urine RBC (Auto) 5.0 /HPF (0.0-6.0) 01/29/22 Unknown U Epithel Cells (Auto) 14.0 /HPF (0-13.0) H 01/29/22 Unknown Urine Bacteria (Auto) 4+ /HPF (Negative) 01/29/22 Unknown Urine RBC (Manual) Negative (Negative) 01/29/22 Unknown Amorphous Crystals 3+ 01/29/22 Unknown Hyaline Casts 9 /LPF 01/29/22 Unknown Granular Casts 13 /LPF 01/29/22 Unknown Microbiology: Microbiology 01/29/22 04:39 Peripheral/Venous Blood Culture - Preliminary NO GROWTH AFTER 24 HOURS 01/29/22 04:34 Peripheral/Venous Blood Culture - Preliminary NO GROWTH AFTER 24 HOURS Urias/IV: Voiding Method Indwelling Catheter Active Medications - Current Medications Current Medications: Generic Name Dose Route Start Last Admin Trade Name Freq PRN Reason Stop Dose Admin Acetaminophen 650 mg 01/29/22 03:54 Acetaminophen 325 Mg Tab PO Q4H PRN Pain MILD(1-3)/Fever >100.5/GARCIA Albuterol 2.5 mg 01/29/22 03:54 Albuterol 2.5 Mg/3 Ml Nebu IH Q3HRT PRN Shortness Of Breath Albuterol/Ipratropium 1 ampul 01/31/22 08:00 01/31/22 07:17 Ipratropium/Albuterol Sulfate 3 Ml Ampul.Neb IH 1 ampul TIDRT ABDIAZIZ Administration Dextrose 50 ml 01/29/22 03:54 01/31/22 07:44 Dextrose 50% In Water (25gm) 50 Ml Syringe IV 50 ml Q30MIN PRN Administration Hypoglycemia Protocol Famotidine 10 mg 01/29/22 10:00 01/30/22 22:32 Famotidine 10 Mg Tab PO 10 mg BID ABDIAZIZ Administration Heparin Sodium (Porcine) 5,000 unit 01/29/22 22:00 01/30/22 22:33 Heparin 5,000 Unit/1 Ml Vial SUB-Q 5,000 unit Q12HR ABDIAZIZ Administration Sodium Chloride 1,000 mls @ 100 mls/hr 01/29/22 08:00 01/31/22 00:57 Nacl 0.9% 1000 Ml IV 100 mls/hr DIRECT ABDIAZIZ Administration Piperacillin Sod/Tazobactam Sod 2.25 gm in 50 mls @ 100 mls/hr 01/30/22 16:00 01/31/22 03:55 Zosyn/Ns 2.25 Gm/50ml IV Infused Q8H ABDIAZIZ Infusion Protocol Insulin Human Isoph/Insulin Regular 10 unit 01/29/22 09:00 01/31/22 08:31 Insulin Nph/Regular 70/30 Inj SUB-Q Not Given BIDDIAB [facility] Insulin Human Lispro 0 unit 01/29/22 07:30 01/31/22 08:30 Insulin Lispro 100 Unit/Ml SUB-Q Not Given ACHS [facility] Protocol Levothyroxine Sodium 100 mcg 01/29/22 06:00 01/31/22 05:34 Levothyroxine 100 Mcg Tab PO 100 mcg QAM@0600 [facility] Administration Levothyroxine Sodium 75 mcg 01/29/22 06:00 01/31/22 05:35 Levothyroxine 75 Mcg Tab PO 75 mcg QAM@0600 [facility] Administration Loperamide HCl 2 mg 01/30/22 12:14 01/30/22 12:43 Loperamide 2 Mg Cap PO 2 mg Q2H PRN Administration Diarrhea Metoprolol Tartrate 50 mg 01/29/22 15:00 01/31/22 10:50 Metoprolol Tartrate 50 Mg Tab PO Not Given Q8H [facility] Morphine Sulfate 2 mg 01/29/22 03:54 01/31/22 03:51 Morphine 2 Mg/1 Ml Inj IV 2 mg Q4H PRN Administration Pain, Moderate (4-6) Morphine Sulfate 4 mg 01/29/22 03:54 Morphine 4 Mg/1 Ml Inj IV Q4H PRN Pain , Severe (7-10) Ondansetron HCl 4 mg 01/29/22 03:54 Ondansetron 4 Mg/2 Ml Inj IV Q8H PRN Nausea And Vomiting Oxycodone/Acetaminophen 1 tab 01/29/22 03:31 01/31/22 03:48 Oxycodone /Acetaminophen 5-325mg Tab PO 1 tab Q6H PRN Administration Pain, Moderate (4-6) Sodium Chloride 10 ml 01/29/22 10:00 01/30/22 22:38 Sodium Chloride 0.9% 10 Ml Flush Syringe IV 10 ml BID [facility] Administration Sodium Chloride 10 ml 01/29/22 03:54 Sodium Chloride 0.9% 10 Ml Flush Syringe IV PRN PRN LINE FLUSH Spironolactone 100 mg 01/29/22 10:00 01/31/22 10:50 Spironolactone 50 Mg Tab PO Not Given QDAY [facility] Nutrition/Malnutrition Assess - Dietary Evaluation Nutrition/Malnutrition Findings: Nutrition Notes Start: 01/29/22 10:03 Freq: Status: Active Protocol: Document 01/30/22 12:21 TW (Rec: 01/30/22 12:47 TW [id number]) Nutrition Notes Need for Assessment generated from: adventure guide,MST Initial or Follow up Assessment Current Diagnosis Acute Kidney Injury,Diabetes, Hypertension Other Pertinent Diagnosis Asthma, Hypothyroidism, elevated troponin Current Diet Cardiac/Consistent CHO Labs/Tests BUN 39 Pertinent Medications NS 0.9% @100ml/hr Height 5 ft 3 in Weight 90.718 kg [place] Body Weight (kg) 52.27 BMI 35.4 Weight Status Obese Subjective/Other Information Pt screened for MST. BG Not able to assess PO intake at this time. Pt reports losing 2 -13 pounds without trying and eating poorly due to a decreased appetite. Burn Absent Trauma Absent Minimum of two criteria No #1 Nutrition Diagnosis Predicted suboptimal energy intake Is patient on ventilator? No Is Patient Ambulatory and/or Out of Bed No REE-([place]-confined to bed) 1710.720 Kcal/Kg value to use for calculation 19 Approximate Energy Requirements Using 1724 kcal/Kg Calculation Used for Recommendations Kcal/kg Additional Notes Protein: 90-109 g/day (1-1.2 g /kg/day) Fluid: 1 ml/kcal or per MD order Nutrition Intervention Change Diet Order: Continue current diet Goal #1 PO intake to meet 75% nutrition needs Follow-Up By: 02/01/22 Additional Comments F/U for intakes
[2022-01-31] MEDS: HEPARIN 5,000 UNIT/1 ML VIAL SUB-Q SCH ×2 (11:30→21:58)
[2022-01-31] MEDS: FAMOTIDINE 10 MG TAB PO SCH ×2 (11:30→21:58)
--- NOTE | 2022-01-31 12:46 | Consultation ---
History of Present Illness - Reason for Consult Consult date: 01/31/22 acute renal failure - History of Present Illness RFC: ISAIAH, Unknown CKD HPI: 66 year old F with past medical history of hypertension, diabetes, asthma and hypothyroidism who has been admitted to the [facility] with generalized weakness as well as sepsis and fever. Pt denied CP or SHOB. Her Cr has been found to be elevated. Last Cr in our system is from 2016 and it was normal. She has been found to have an abscess on Pelvic CT s/p I&D today. She has a song in place and is making urine. She is on IVFs. ROS: As in HPI otherwise 12 point review of systems -ve Past History Past Medical History: COPD (Chronic asthma), diabetes, heart failure, hypertension, other (Asthma, hypothyroid) Past Surgical History: Other (myomectomy, hysterectomy, brain surgery, multiple soft tissue I&Ds) Social history: no significant social history Family history: no significant family history Medications and Allergies Allergies Allergy/AdvReac Type Severity Reaction Status Date / Time No Known Allergies Allergy Unverified 08/01/15 23:02 Home Medications Medication Instructions Recorded Confirmed Last Taken Type Azithromycin [Zithromax TAB] 500 mg PO QDAY #7 tablet 08/05/15 Unknown Rx Cinacalcet HCl [Sensipar] 60 mg PO DAILY #30 tablet 08/05/15 Unknown Rx Insulin Lispro Prot/Lispro 28 units SUB-Q 1700 units 08/05/15 Unknown Rx [HumaLOG Mix 75/25 Vial] Insulin Lispro Prot/Lispro 30 units SUB-Q QDDIAB units 08/05/15 Unknown Rx [HumaLOG Mix 75/25 Vial] Insulin Lispro [HumaLOG VIAL] 28 units SQ QHS #1 vial 08/05/15 Unknown Rx Insulin Lispro [HumaLOG VIAL] 30 units SQ QAM #1 vial 08/05/15 Unknown Rx Levothyroxine [Synthroid] 175 mcg PO QAM #30 tablet 08/05/15 Unknown Rx Prednisone [predniSONE 10 mg 10 mg PO .TAPER #1 tab.ds.pk 08/05/15 Unknown Rx (6-Day Pack, 21 Tabs)] Spironolactone [Aldactone] 100 mg PO QDAY #30 tablet 08/05/15 Unknown Rx carvediloL [Coreg] 3.125 mg PO BID #60 tablet 08/05/15 Unknown Rx metFORMIN [Glucophage] 500 mg PO BID #30 tablet 08/05/15 Unknown Rx Active Meds: Active Medications Acetaminophen (Acetaminophen 325 Mg Tab) 650 mg PO Q4H PRN PRN Reason: Pain MILD(1-3)/Fever >100.5/GARCIA Albuterol (Albuterol 2.5 Mg/3 Ml Nebu) 2.5 mg IH Q3HRT PRN PRN Reason: Shortness Of Breath Albuterol/Ipratropium (Ipratropium/Albuterol Sulfate 3 Ml Ampul.Neb) 1 ampul IH TIDRT ABDIAZIZ Last Admin: 01/31/22 07:17 Dose: 1 ampul Dextrose (Dextrose 50% In Water (25gm) 50 Ml Syringe) 50 ml IV Q30MIN PRN; Protocol PRN Reason: Hypoglycemia Last Admin: 01/31/22 07:44 Dose: 50 ml Famotidine (Famotidine 10 Mg Tab) 10 mg PO BID [facility] Last Admin: 01/31/22 11:30 Dose: 10 mg Fentanyl (Fentanyl 100 Mcg/2 Ml Inj) 50 mcg IV Q5MIN PRN PRN Reason: Pain , Severe (7-10) Heparin Sodium (Porcine) (Heparin 5,000 Unit/1 Ml Vial) 5,000 unit SUB-Q Q12HR [facility] Last Admin: 01/31/22 11:30 Dose: 5,000 unit Sodium Chloride (Nacl 0.9% 1000 Ml) 1,000 mls @ 100 mls/hr IV DIRECT ABDIAZIZ Last Admin: 01/31/22 00:57 Dose: 100 mls/hr Piperacillin Sod/Tazobactam Sod (Zosyn/Ns 2.25 Gm/50ml) 2.25 gm in 50 mls @ 100 mls/hr IV Q8H [facility]; Protocol Last Admin: 01/31/22 10:57 Dose: 100 mls/hr Insulin Human Isoph/Insulin Regular (Insulin Nph/Regular 70/30 Inj) 10 unit SUB-Q BIDDIAB [facility] Last Admin: 01/31/22 08:31 Dose: Not Given Insulin Human Lispro (Insulin Lispro 100 Unit/Ml) 0 unit SUB-Q ACHS [facility]; Protocol Last Admin: 01/31/22 08:30 Dose: Not Given Levothyroxine Sodium (Levothyroxine 100 Mcg Tab) 100 mcg PO QAM@0600 [facility] Last Admin: 01/31/22 05:34 Dose: 100 mcg Levothyroxine Sodium (Levothyroxine 75 Mcg Tab) 75 mcg PO QAM@0600 [facility] Last Admin: 01/31/22 05:35 Dose: 75 mcg Loperamide HCl (Loperamide 2 Mg Cap) 2 mg PO Q2H PRN PRN Reason: Diarrhea Last Admin: 01/30/22 12:43 Dose: 2 mg Metoprolol Tartrate (Metoprolol Tartrate 50 Mg Tab) 50 mg PO Q8H [facility] Last Admin: 01/31/22 10:50 Dose: Not Given Morphine Sulfate (Morphine 2 Mg/1 Ml Inj) 2 mg IV Q4H PRN PRN Reason: Pain, Moderate (4-6) Last Admin: 01/31/22 03:51 Dose: 2 mg Morphine Sulfate (Morphine 4 Mg/1 Ml Inj) 4 mg IV Q4H PRN PRN Reason: Pain , Severe (7-10) Ondansetron HCl (Ondansetron 4 Mg/2 Ml Inj) 4 mg IV Q8H PRN PRN Reason: Nausea And Vomiting Ondansetron HCl (Ondansetron 4 Mg/2 Ml Inj) 4 mg IV ONCE PRN PRN Reason: Nausea And Vomiting Oxycodone/Acetaminophen (Oxycodone /Acetaminophen 5-325mg Tab) 2 tab PO Q4H PRN PRN Reason: Pain, Moderate (4-6) Sodium Chloride (Sodium Chloride 0.9% 10 Ml Flush Syringe) 10 ml IV BID [facility] Last Admin: 01/31/22 11:59 Dose: Not Given Sodium Chloride (Sodium Chloride 0.9% 10 Ml Flush Syringe) 10 ml IV PRN PRN PRN Reason: LINE FLUSH Spironolactone (Spironolactone 50 Mg Tab) 100 mg PO QDAY [facility] Last Admin: 01/31/22 10:50 Dose: Not Given Exam - Vital Signs Vital signs: Vital Signs Temp Pulse Resp BP Pulse Ox 98.9 F 96 H 18 150/80 97 01/28/22 21:46 01/28/22 21:46 01/28/22 21:46 01/28/22 21:46 01/28/22 21:46 - Physical Exam Narrative exam: General appearance: Present: no acute distress, well-nourished - EENT Eyes: Present: PERRL ENT: hearing intact, clear oral mucosa - Neck Neck: Present: supple, normal ROM - Respiratory Respiratory effort: normal Respiratory: bilateral: CTA - Cardiovascular Heart Sounds: Present: S1 & S2. Absent: rub, click - Extremities Extremities: pulses symmetrical, No edema Peripheral Pulses: within normal limits - Abdominal General gastrointestinal: Present: soft, non-tender, non-distended, normal bowel sounds Female genitourinary: Present: normal - Integumentary Integumentary: Present: clear, warm, dry - Musculoskeletal Musculoskeletal: gait normal, strength equal bilaterally - Psychiatric Psychiatric: appropriate mood/affect, intact judgment & insight - Neurologic Neurologic: CNII-XII intact, moves all extremities Results - Lab Results 01/30/22 05:40 01/30/22 05:40 Most recent lab results WBC 22.7 K/mm3 (4.5-11.0) H 01/30/22 05:40 RBC 3.40 M/mm3 (3.65-5.03) L 01/30/22 05:40 Hgb 9.3 gm/dl (10.1-14.3) L 01/30/22 05:40 Hct 29.2 % (30.3-42.9) L 01/30/22 05:40 MCV 86 fl (79-97) 01/30/22 05:40 MCH 28 pg (28-32) 01/30/22 05:40 MCHC 32 % (30-34) 01/30/22 05:40 RDW 14.6 % (13.2-15.2) 01/30/22 05:40 Plt Count 160 K/mm3 (140-440) 01/30/22 05:40 Add Manual Diff Complete 01/30/22 05:40 Total Counted 100 01/30/22 05:40 Seg Neuts % (Manual) 86.0 % (40.0-70.0) H 01/30/22 05:40 Band Neutrophils % 1.0 % 01/30/22 05:40 Lymphocytes % (Manual) 5.0 % (13.4-35.0) L 01/30/22 05:40 Reactive Lymphs % (Man) 0 % 01/30/22 05:40 Monocytes % (Manual) 7.0 % (0.0-7.3) 01/30/22 05:40 Eosinophils % (Manual) 1.0 % (0.0-4.3) 01/30/22 05:40 Basophils % (Manual) 0 % (0.0-1.8) 01/30/22 05:40 Metamyelocytes % 0 % 01/30/22 05:40 Myelocytes % 0 % 01/30/22 05:40 Promyelocytes % 0 % 01/30/22 05:40 Blast Cells % 0 % 01/30/22 05:40 Nucleated RBC % Not Reportable 01/30/22 05:40 Seg Neutrophils # Man 19.5 K/mm3 (1.8-7.7) H 01/30/22 05:40 Band Neutrophils # 0.2 K/mm3 01/30/22 05:40 Lymphocytes # (Manual) 1.1 K/mm3 (1.2-5.4) L 01/30/22 05:40 Abs React Lymphs (Man) 0.0 K/mm3 01/30/22 05:40 Monocytes # (Manual) 1.6 K/mm3 (0.0-0.8) H 01/30/22 05:40 Eosinophils # (Manual) 0.2 K/mm3 (0.0-0.4) 01/30/22 05:40 Basophils # (Manual) 0.0 K/mm3 (0.0-0.1) 01/30/22 05:40 Metamyelocytes # 0.0 K/mm3 01/30/22 05:40 Myelocytes # 0.0 K/mm3 01/30/22 05:40 Promyelocytes # 0.0 K/mm3 01/30/22 05:40 Blast Cells # 0.0 K/mm3 01/30/22 05:40 WBC Morphology Not Reportable 01/30/22 05:40 Hypersegmented Neuts Not Reportable 01/30/22 05:40 Hyposegmented Neuts Not Reportable 01/30/22 05:40 Hypogranular Neuts Not Reportable 01/30/22 05:40 Smudge Cells Not Reportable 01/30/22 05:40 Toxic Granulation Not Reportable 01/30/22 05:40 Toxic Vacuolation Not Reportable 01/30/22 05:40 Dohle Bodies Not Reportable 01/30/22 05:40 Pelger-Huet Anomaly Not Reportable 01/30/22 05:40 Hteresa Rods Not Reportable 01/30/22 05:40 Platelet Estimate Consistent w auto 01/30/22 05:40 Clumped Platelets Not Reportable 01/30/22 05:40 Plt Clumps, EDTA Not Reportable 01/30/22 05:40 Large Platelets Not Reportable 01/30/22 05:40 Giant Platelets Not Reportable 01/30/22 05:40 Platelet Satelliting Not Reportable 01/30/22 05:40 Plt Morphology Comment Not Reportable 01/30/22 05:40 RBC Morphology Not Reportable 01/30/22 05:40 Dimorphic RBCs Not Reportable 01/30/22 05:40 Polychromasia Not Reportable 01/30/22 05:40 Hypochromasia Not Reportable 01/30/22 05:40 Poikilocytosis Not Reportable 01/30/22 05:40 Anisocytosis 1+ 01/30/22 05:40 Microcytosis Not Reportable 01/30/22 05:40 Macrocytosis Not Reportable 01/30/22 05:40 Spherocytes Not Reportable 01/30/22 05:40 Pappenheimer Bodies Not Reportable 01/30/22 05:40 Sickle Cells Not Reportable 01/30/22 05:40 Target Cells Not Reportable 01/30/22 05:40 Tear Drop Cells Not Reportable 01/30/22 05:40 Ovalocytes Not Reportable 01/30/22 05:40 Helmet Cells Not Reportable 01/30/22 05:40 Michaels-Govan Bodies Not Reportable 01/30/22 05:40 Campbell Rings Not Reportable 01/30/22 05:40 Memo Cells Not Reportable 01/30/22 05:40 Bite Cells Not Reportable 01/30/22 05:40 Crenated Cell Not Reportable 01/30/22 05:40 Elliptocytes Not Reportable 01/30/22 05:40 Acanthocytes (Spur) Not Reportable 01/30/22 05:40 Rouleaux Not Reportable 01/30/22 05:40 Hemoglobin C Crystals Not Reportable 01/30/22 05:40 Schistocytes Not Reportable 01/30/22 05:40 Malaria parasites Not Reportable 01/30/22 05:40 Sonido Bodies Not Reportable 01/30/22 05:40 Hem Pathologist Commnt No 01/30/22 05:40 VBG pH 7.380 (7.320-7.420) 01/29/22 00:27 Sodium 136 mmol/L (137-145) L 01/30/22 05:40 Potassium 3.8 mmol/L (3.6-5.0) 01/30/22 05:40 Chloride 98.9 mmol/L (98-107) 01/30/22 05:40 Carbon Dioxide 21 mmol/L (22-30) L 01/30/22 05:40 Anion Gap 20 mmol/L 01/30/22 05:40 BUN 39 mg/dL (7-17) H 01/30/22 05:40 Creatinine 2.9 mg/dL (0.6-1.2) H 01/30/22 05:40 Estimated GFR 20 ml/min 01/30/22 05:40 BUN/Creatinine Ratio 13 % 01/30/22 05:40 Glucose 113 mg/dL (65-100) H 01/30/22 05:40 POC Glucose 97 mg/dL (70-105) 01/31/22 08:03 Ketones Quantitative Small (Negative) 01/29/22 00:27 Lactic Acid 1.30 mmol/L (0.7-2.0) 01/29/22 01:49 Calcium 8.7 mg/dL (8.4-10.2) 01/30/22 05:40 Total Bilirubin 0.90 mg/dL (0.1-1.2) 01/29/22 00:27 AST 18 units/L (5-40) 01/29/22 00:27 ALT 12 units/L (7-56) 01/29/22 00:27 Alkaline Phosphatase 94 units/L (35-129) 01/29/22 00:27 Troponin T 0.068 ng/mL (0.00-0.029) H 01/29/22 00:27 Total Protein 6.5 g/dL (6.3-8.2) 01/29/22 00:27 Albumin 3.4 g/dL (3.9-5) L 01/29/22 00:27 Albumin/Globulin Ratio 1.1 % 01/29/22 00:27 Triglycerides 195 mg/dL (2-149) H 01/29/22 00:27 Cholesterol 146 mg/dL (50-199) 01/29/22 00:27 LDL Cholesterol Direct 58 mg/dL (50-130) 01/29/22 00:27 HDL Cholesterol 33 mg/dL (40-59) L 01/29/22 00:27 Cholesterol/HDL Ratio 4.42 % 01/29/22 00:27 TSH 1.600 mlU/mL (0.270-4.200) 01/29/22 00:27 Urine Color Yellow (Yellow) 01/29/22 Unknown Urine Turbidity Hazy (Clear) 01/29/22 Unknown Specific [place] (Man) 1.015 (1.003-1.030) 01/29/22 Unknown Ur Protein (Man) 4+ mg/dL (Negative) 01/29/22 Unknown Ur Ketones (Man) Negative (Negative) 01/29/22 Unknown Ur Nitrite (Man) Negative (Negative) 01/29/22 Unknown Ur Reducing Substances Not Reportable 01/29/22 Unknown Urine Bilirubin (Man) Negative (Negative) 01/29/22 Unknown Leukocyte Esterase (Man) Negative (Negative) 01/29/22 Unknown Urine WBC (Auto) 6.0 /HPF (0.0-6.0) 01/29/22 Unknown Urine RBC (Auto) 5.0 /HPF (0.0-6.0) 01/29/22 Unknown U Epithel Cells (Auto) 14.0 /HPF (0-13.0) H 01/29/22 Unknown Urine Bacteria (Auto) 4+ /HPF (Negative) 01/29/22 Unknown Urine RBC (Manual) Negative (Negative) 01/29/22 Unknown Amorphous Crystals 3+ 01/29/22 Unknown Hyaline Casts 9 /LPF 01/29/22 Unknown Granular Casts 13 /LPF 01/29/22 Unknown Assessment and Plan Cellulitis/abscess right groin/upper thigh ISAIAH (acute kidney injury) Hyperglycemia due to type 2 diabetes mellitus Hyponatremia; Elevated troponin/non-ST elevation CA type II Sinus tachycardia/ narrow complex tachycardia/resolved Hypertension History of bronchial asthma Obesity; BMI 35.4 Anemia -Cr was normal in 2016 -No recent BL Cr available so not sure if has CKD or not -Recheck BMP today -Check CK level -On IVFs, monitor volume status -Has song -Check Renal US -Renally dose all meds -Avoid Nephrotoxic meds -Strict I/Os -Check iron panel (for ACD) and PTH (for 2HPT) as markers for possible CKD Royal Arnold MD [phone]
--- NOTE | 2022-01-31 15:23 | Progress Note ---
Assessment and Plan - Patient Problems (1) Elevated troponin Current Visit: Yes Status: Acute Plan to address problem: Patient was admitted with sepsis and acute kidney injury, nonspecific troponin findings. Echocardiogram shows normal left ventricular systolic function, ejection fraction 60 to 65%. Conservative cardiac management. (2) Narrow complex tachycardia Current Visit: Yes Status: Acute Plan to address problem: Patient developed spontaneous narrow complex tachycardia in the emergency room, treated with IV metoprolol. Morphology of the tachycardia appears likely AV node reentry tachycardia. Continue metoprolol. Subjective Date of service: 01/31/22 Principal diagnosis: Fever, general malaise, PSVT Interval history: Patient is status post incision and drainage of lower extremity abscess with CT scan. No cardiac complaints, no new cardiac events reported. Heart rate is 76 and stable. Objective Vital Signs Temp Pulse Pulse Resp Resp BP BP 01/31/22 11:54 01/31/22 11:27 97.8 F 65 18 123/66 01/31/22 11:15 97.7 F 78 15 121/62 01/31/22 11:00 79 15 122/61 01/31/22 10:45 72 14 131/62 01/31/22 10:40 73 14 123/57 01/31/22 10:35 77 14 102/58 01/31/22 10:32 97.7 F 75 14 96/56 01/31/22 07:17 74 20 01/31/22 01:54 01/30/22 23:38 01/30/22 21:38 98.9 F 93 H 16 140/58 01/30/22 21:12 01/30/22 21:11 86 20 01/30/22 19:00 01/30/22 16:24 98.3 F 82 142/76 Pulse Ox 01/31/22 11:54 99 01/31/22 11:27 97 01/31/22 11:15 98 01/31/22 11:00 98 01/31/22 10:45 100 01/31/22 10:40 100 01/31/22 10:35 100 01/31/22 10:32 100 01/31/22 07:17 01/31/22 01:54 99 01/30/22 23:38 98 01/30/22 21:38 97 01/30/22 21:12 98 01/30/22 21:11 01/30/22 19:00 99 01/30/22 16:24 99 - Physical Examination General: No Apparent Distress HEENT: Positive: PERRL Neck: Positive: neck supple Cardiac: Positive: Reg Rate and Rhythm Lungs: Positive: Decreased Breath Sounds Neuro: Positive: Grossly Intact Abdomen: Positive: Soft Skin: Positive: Clear Extremities: Absent: edema
[2022-01-31 21:33] LABS: Calcium 8.2 mg/dL (8.4-10.2)
[2022-01-31 22:09] LABS: Iron 12 ug/dL (37-170); Total Iron Binding Capacity 92 mcg/dL (250-450)
[2022-02-01 04:22] LABS: Creatinine,Urine 153.8 mg/dL (0.1-20.0)
[2022-02-01 04:38] LABS: Protein/Creatinine Ratio,Urine 1.36
[2022-02-01] MEDS: LEVOTHYROXINE 75 MCG TAB PO SCH (05:47)
[2022-02-01] MEDS: LEVOTHYROXINE 100 MCG TAB PO SCH (05:47)
[2022-02-01] MEDS: INSULIN LISPRO 100 UNIT/ML SUB-Q SCH ×4 (07:48→22:31)
[2022-02-01] MEDS: INSULIN NPH/REGULAR 70/30 INJ SUB-Q SCH ×2 (08:00→16:30)
--- NOTE | 2022-02-01 08:44 | Progress Note ---
Assessment and Plan Assessment and plan: --Cellulitis/abscess right groin/upper thigh x-ray right groin hip findings noted Change antibiotics to IV Ancef, follow cultures Status post incision drainage by Dr. Lam today 01/31/2022 Fluid sent for analysis --ISAIAH (acute kidney injury) Admit the patient to the medical floor. Avoid nephrotoxic drug. Renally dose medication. Half-normal saline at the rate of 125 cc/h. Monitor renal function check renal ultrasound Nephrology consult if needed --Hyperglycemia / type 2 diabetes mellitus /uncontrolled Accu-Cheks sliding scale coverage ADA diet insulin as needed Increase 714 7 to 18 units twice a day, A1c 7.8 Diabetic diet education, diabetes education prior to discharge Home health nurse for monitoring and DC --Hyponatremia; IV normal saline, closely monitor electrolytes --Elevated troponin/non-ST elevation [place] type II In the setting of acute kidney injury Probably type II, however patient has risk factors Cardiology following, follow echo --Sinus tachycardia/ narrow complex tachycardia/resolved Continue metoprolol, closely monitor Follow echocardiogram for LV function ejection fraction Cardiology following --Hypertension Continue current antihypertensives and as needed medications --History of hypothyroidism: Continue Synthroid and supportive care --History of bronchial asthma O-xygen by nasal cannula 3 L/min. DuoNeb via nebulizer every 4 hours. Albuterol via nebulizer every 4 hours as needed -Obesity; BMI 35.4 Behavioral modification, lifestyle changes counseling 20 minutes Counseling done advised diet modification exercise as tolerated and weight reduction When medically stable --Full CODE STATUS --DVT prophylaxis; Heparin renal dose Total time spent 35 minutes --advance care planning +30 minutes. I discussed with the patient her medical condition, I discussed the tests and reports, I discussed with the patient the diagnosis I discussed with patient the treatment plan, I also discussed with the patient need for consultants evaluation, I discussed the patient the prognosis. Advance care directives. Patient has some questions, answered all of them, patient verbalized understanding --preventative health care counseling + 30 minutes; Patient advised to comply with medications, patient advised fall precautions --Obesity weight reduction counseling +20 minutes Dietary modification, exercise as tolerated and weight reduction When medically stable Closely monitor the patient and adjust the management as needed Consultants cardiology, nephrology and surgeon's recommendationsn [email or web address] Plan of care reviewed with the patient and her nurse Daily Hospital course; 01/31/2020; x-ray right hip findings reviewed Consulted surgeon Dr. Lam, planning incision and drainage abscess tomorrow Continue empiric antibiotics 01/31; s/p incision and drainage of the upper thigh abscess today, fluid sent for analysis Follow cultures, continue empiric antibiotics, continue empiric antibiotics 02/01: Worsening leukocytosis, continue antibiotics, follow cultures, urine culture sent Disposition: Follow clinically and discharged in stable History Interval history: I have seen and examined the patient reviewed bedside Patient's chart and medications reviewed Patient with right upper thigh abscess s/p incision and drainage and acute kidney injury Complains of mild pain at the site of surgery. Patient has worsening leukocytosis Vital signs noted Hospitalist Physical - Constitutional Vitals: Temp Pulse Resp BP Pulse Ox 98.7 F 71 16 140/67 99 02/01/22 04:46 02/01/22 04:46 02/01/22 04:46 02/01/22 04:46 02/01/22 04:46 General appearance: Present: no acute distress, well-nourished, obese - EENT Eyes: Present: PERRL, EOM intact - Neck Neck: Present: supple, normal ROM - Respiratory Respiratory effort: normal Respiratory: bilateral: diminished, negative: rales, rhonchi, wheezing - Cardiovascular Rhythm: regular Heart Sounds: Present: S1 & S2 - Extremities Extremities: no ischemia, No edema Extremity abnormal: other (Incision and drainage right upper thigh/knee in place) - Abdominal General gastrointestinal: soft, non-tender, non-distended, normal bowel sounds - Integumentary Integumentary: Present: clear, warm - Psychiatric Psychiatric: appropriate mood/affect, cooperative - Neurologic Neurologic: moves all extremities HEART Score - HEART Score Troponin: Troponin T 0.068 ng/mL (0.00-0.029) H 01/29/22 00:27 Results - Labs CBC & Chem 7: 02/01/22 11:15 02/01/22 11:15 Labs: Laboratory Last Values WBC 22.7 K/mm3 (4.5-11.0) H 01/30/22 05:40 RBC 3.40 M/mm3 (3.65-5.03) L 01/30/22 05:40 Hgb 9.3 gm/dl (10.1-14.3) L 01/30/22 05:40 Hct 29.2 % (30.3-42.9) L 01/30/22 05:40 MCV 86 fl (79-97) 01/30/22 05:40 MCH 28 pg (28-32) 01/30/22 05:40 MCHC 32 % (30-34) 01/30/22 05:40 RDW 14.6 % (13.2-15.2) 01/30/22 05:40 Plt Count 160 K/mm3 (140-440) 01/30/22 05:40 Add Manual Diff Complete 01/30/22 05:40 Total Counted 100 01/30/22 05:40 Seg Neuts % (Manual) 86.0 % (40.0-70.0) H 01/30/22 05:40 Band Neutrophils % 1.0 % 01/30/22 05:40 Lymphocytes % (Manual) 5.0 % (13.4-35.0) L 01/30/22 05:40 Reactive Lymphs % (Man) 0 % 01/30/22 05:40 Monocytes % (Manual) 7.0 % (0.0-7.3) 01/30/22 05:40 Eosinophils % (Manual) 1.0 % (0.0-4.3) 01/30/22 05:40 Basophils % (Manual) 0 % (0.0-1.8) 01/30/22 05:40 Metamyelocytes % 0 % 01/30/22 05:40 Myelocytes % 0 % 01/30/22 05:40 Promyelocytes % 0 % 01/30/22 05:40 Blast Cells % 0 % 01/30/22 05:40 Nucleated RBC % Not Reportable 01/30/22 05:40 Seg Neutrophils # Man 19.5 K/mm3 (1.8-7.7) H 01/30/22 05:40 Band Neutrophils # 0.2 K/mm3 01/30/22 05:40 Lymphocytes # (Manual) 1.1 K/mm3 (1.2-5.4) L 01/30/22 05:40 Abs React Lymphs (Man) 0.0 K/mm3 01/30/22 05:40 Monocytes # (Manual) 1.6 K/mm3 (0.0-0.8) H 01/30/22 05:40 Eosinophils # (Manual) 0.2 K/mm3 (0.0-0.4) 01/30/22 05:40 Basophils # (Manual) 0.0 K/mm3 (0.0-0.1) 01/30/22 05:40 Metamyelocytes # 0.0 K/mm3 01/30/22 05:40 Myelocytes # 0.0 K/mm3 01/30/22 05:40 Promyelocytes # 0.0 K/mm3 01/30/22 05:40 Blast Cells # 0.0 K/mm3 01/30/22 05:40 WBC Morphology Not Reportable 01/30/22 05:40 Hypersegmented Neuts Not Reportable 01/30/22 05:40 Hyposegmented Neuts Not Reportable 01/30/22 05:40 Hypogranular Neuts Not Reportable 01/30/22 05:40 Smudge Cells Not Reportable 01/30/22 05:40 Toxic Granulation Not Reportable 01/30/22 05:40 Toxic Vacuolation Not Reportable 01/30/22 05:40 Dohle Bodies Not Reportable 01/30/22 05:40 Pelger-Huet Anomaly Not Reportable 01/30/22 05:40 Theresa Rods Not Reportable 01/30/22 05:40 Platelet Estimate Consistent w auto 01/30/22 05:40 Clumped Platelets Not Reportable 01/30/22 05:40 Plt Clumps, EDTA Not Reportable 01/30/22 05:40 Large Platelets Not Reportable 01/30/22 05:40 Giant Platelets Not Reportable 01/30/22 05:40 Platelet Satelliting Not Reportable 01/30/22 05:40 Plt Morphology Comment Not Reportable 01/30/22 05:40 RBC Morphology Not Reportable 01/30/22 05:40 Dimorphic RBCs Not Reportable 01/30/22 05:40 Polychromasia Not Reportable 01/30/22 05:40 Hypochromasia Not Reportable 01/30/22 05:40 Poikilocytosis Not Reportable 01/30/22 05:40 Anisocytosis 1+ 01/30/22 05:40 Microcytosis Not Reportable 01/30/22 05:40 Macrocytosis Not Reportable 01/30/22 05:40 Spherocytes Not Reportable 01/30/22 05:40 Pappenheimer Bodies Not Reportable 01/30/22 05:40 Sickle Cells Not Reportable 01/30/22 05:40 Target Cells Not Reportable 01/30/22 05:40 Tear Drop Cells Not Reportable 01/30/22 05:40 Ovalocytes Not Reportable 01/30/22 05:40 Helmet Cells Not Reportable 01/30/22 05:40 [place]aels-[place]achita Bodies Not Reportable 01/30/22 05:40 [place] Rings Not Reportable 01/30/22 05:40 [place] Cells Not Reportable 01/30/22 05:40 Bite Cells Not Reportable 01/30/22 05:40 Crenated Cell Not Reportable 01/30/22 05:40 Elliptocytes Not Reportable 01/30/22 05:40 Acanthocytes (Spur) Not Reportable 01/30/22 05:40 Rouleaux Not Reportable 01/30/22 05:40 Hemoglobin C Crystals Not Reportable 01/30/22 05:40 Schistocytes Not Reportable 01/30/22 05:40 Malaria parasites Not Reportable 01/30/22 05:40 Sonido Bodies Not Reportable 01/30/22 05:40 Hem Pathologist Commnt No 01/30/22 05:40 VBG pH 7.380 (7.320-7.420) 01/29/22 00:27 Sodium 130 mmol/L (137-145) L 01/31/22 20:55 Potassium 3.7 mmol/L (3.6-5.0) 01/31/22 20:55 Chloride 98.3 mmol/L (98-107) 01/31/22 20:55 Carbon Dioxide 18 mmol/L (22-30) L 01/31/22 20:55 Anion Gap 17 mmol/L 01/31/22 20:55 BUN 47 mg/dL (7-17) H 01/31/22 20:55 Creatinine 2.9 mg/dL (0.6-1.2) H 01/31/22 20:55 Estimated GFR 20 ml/min 01/31/22 20:55 BUN/Creatinine Ratio 16 % 01/31/22 20:55 Glucose 321 mg/dL (65-100) H 01/31/22 20:55 POC Glucose 314 mg/dL (70-105) H 01/31/22 21:01 Ketones Quantitative Small (Negative) 01/29/22 00:27 Lactic Acid 1.30 mmol/L (0.7-2.0) 01/29/22 01:49 Calcium 8.2 mg/dL (8.4-10.2) L 01/31/22 20:55 Iron 12 ug/dL (37-170) L 01/31/22 20:55 TIBC 92 mcg/dL (250-450) L 01/31/22 20:55 Total Bilirubin 0.90 mg/dL (0.1-1.2) 01/29/22 00:27 AST 18 units/L (5-40) 01/29/22 00:27 ALT 12 units/L (7-56) 01/29/22 00:27 Alkaline Phosphatase 94 units/L (35-129) 01/29/22 00:27 Total Creatine Kinase 127 units/L (30-135) 01/31/22 20:55 Troponin T 0.068 ng/mL (0.00-0.029) H 01/29/22 00:27 Total Protein 6.5 g/dL (6.3-8.2) 01/29/22 00:27 Albumin 3.4 g/dL (3.9-5) L 01/29/22 00:27 Albumin/Globulin Ratio 1.1 % 01/29/22 00:27 Triglycerides 195 mg/dL (2-149) H 01/29/22 00:27 Cholesterol 146 mg/dL (50-199) 01/29/22 00:27 LDL Cholesterol Direct 58 mg/dL (50-130) 01/29/22 00:27 HDL Cholesterol 33 mg/dL (40-59) L 01/29/22 00:27 Cholesterol/HDL Ratio 4.42 % 01/29/22 00:27 TSH 1.600 mlU/mL (0.270-4.200) 01/29/22 00:27 PTH Intact 65.61 pg/mL (15-65) H 01/31/22 21:07 Urine Color Yellow (Yellow) 01/29/22 Unknown Urine Turbidity Hazy (Clear) 01/29/22 Unknown Specific [place] (Man) 1.015 (1.003-1.030) 01/29/22 Unknown Ur Protein (Man) 4+ mg/dL (Negative) 01/29/22 Unknown Ur Ketones (Man) Negative (Negative) 01/29/22 Unknown Ur Nitrite (Man) Negative (Negative) 01/29/22 Unknown Ur Reducing Substances Not Reportable 01/29/22 Unknown Urine Bilirubin (Man) Negative (Negative) 01/29/22 Unknown Leukocyte Esterase (Man) Negative (Negative) 01/29/22 Unknown Urine WBC (Auto) 6.0 /HPF (0.0-6.0) 01/29/22 Unknown Urine RBC (Auto) 5.0 /HPF (0.0-6.0) 01/29/22 Unknown U Epithel Cells (Auto) 14.0 /HPF (0-13.0) H 01/29/22 Unknown Urine Bacteria (Auto) 4+ /HPF (Negative) 01/29/22 Unknown Urine RBC (Manual) Negative (Negative) 01/29/22 Unknown Amorphous Crystals 3+ 01/29/22 Unknown Hyaline Casts 9 /LPF 01/29/22 Unknown Granular Casts 13 /LPF 01/29/22 Unknown Urine Eosinophils None seen (None Seen) 01/31/22 15:46 Urine Creatinine 152.6 mg/dL (0.1-20.0) H 02/01/22 03:55 Urine Creatinine 153.8 mg/dL (0.1-20.0) H 02/01/22 03:55 Protein/Creatinin Ratio 1.36 02/01/22 03:55 Urine Sodium 15 mmol/L 02/01/22 03:55 Urine Urea Nitrogen 400 02/01/22 03:55 Urine Total Protein 209 mg/dL (5-11.8) H 02/01/22 03:55 Microbiology: Microbiology 01/31/22 Unknown Leg - Right Surgical Culture - Preliminary 01/29/22 04:39 Peripheral/Venous Blood Culture - Preliminary NO GROWTH AFTER 48 HOURS 01/29/22 04:34 Peripheral/Venous Blood Culture - Preliminary NO GROWTH AFTER 48 HOURS Urias/IV: Voiding Method Indwelling Catheter Active Medications - Current Medications Current Medications: Generic Name Dose Route Start Last Admin Trade Name Freq PRN Reason Stop Dose Admin Acetaminophen 650 mg 01/29/22 03:54 Acetaminophen 325 Mg Tab PO Q4H PRN Pain MILD(1-3)/Fever >100.5/GARCIA Albuterol 2.5 mg 01/29/22 03:54 Albuterol 2.5 Mg/3 Ml Nebu IH Q3HRT PRN Shortness Of Breath Albuterol/Ipratropium 1 ampul 01/31/22 08:00 01/31/22 20:05 Ipratropium/Albuterol Sulfate 3 Ml Ampul.Neb IH 1 ampul TIDRT ABDIAZIZ Administration Dextrose 50 ml 01/29/22 03:54 01/31/22 07:44 Dextrose 50% In Water (25gm) 50 Ml Syringe IV 50 ml Q30MIN PRN Administration Hypoglycemia Protocol Famotidine 10 mg 01/29/22 10:00 01/31/22 21:58 Famotidine 10 Mg Tab PO 10 mg BID ABDIAZIZ Administration Fentanyl 50 mcg 01/31/22 10:49 Fentanyl 100 Mcg/2 Ml Inj IV Q5MIN PRN Pain , Severe (7-10) Heparin Sodium (Porcine) 5,000 unit 01/29/22 22:00 01/31/22 21:58 Heparin 5,000 Unit/1 Ml Vial SUB-Q 5,000 unit Q12HR ABDIAZIZ Administration Sodium Chloride 1,000 mls @ 100 mls/hr 01/29/22 08:00 01/31/22 00:57 Nacl 0.9% 1000 Ml IV 100 mls/hr DIRECT ABDIAZIZ Administration Piperacillin Sod/Tazobactam Sod 2.25 gm in 50 mls @ 100 mls/hr 01/30/22 16:00 01/31/22 23:38 Zosyn/Ns 2.25 Gm/50ml IV 100 mls/hr Q8H ABDIAZIZ Administration Protocol Insulin Human Isoph/Insulin Regular 10 unit 01/29/22 09:00 01/31/22 17:58 Insulin Nph/Regular 70/30 Inj SUB-Q 10 unit BIDDIAB ABDIAZIZ Administration Insulin Human Lispro 0 unit 01/29/22 07:30 01/31/22 21:59 Insulin Lispro 100 Unit/Ml SUB-Q 6 unit ACHS ABDIAZIZ Administration Protocol Levothyroxine Sodium 100 mcg 01/29/22 06:00 02/01/22 05:47 Levothyroxine 100 Mcg Tab PO 100 mcg QAM@0600 ABDIAZIZ Administration Levothyroxine Sodium 75 mcg 01/29/22 06:00 02/01/22 05:47 Levothyroxine 75 Mcg Tab PO 75 mcg QAM@0600 ABDIAZIZ Administration Loperamide HCl 2 mg 01/30/22 12:14 01/30/22 12:43 Loperamide 2 Mg Cap PO 2 mg Q2H PRN Administration Diarrhea Metoprolol Tartrate 50 mg 01/29/22 15:00 01/31/22 23:43 Metoprolol Tartrate 50 Mg Tab PO Not Given Q8H [facility] Morphine Sulfate 2 mg 01/29/22 03:54 01/31/22 03:51 Morphine 2 Mg/1 Ml Inj IV 2 mg Q4H PRN Administration Pain, Moderate (4-6) Morphine Sulfate 4 mg 01/29/22 03:54 Morphine 4 Mg/1 Ml Inj IV Q4H PRN Pain , Severe (7-10) Ondansetron HCl 4 mg 01/29/22 03:54 Ondansetron 4 Mg/2 Ml Inj IV Q8H PRN Nausea And Vomiting Ondansetron HCl 4 mg 01/31/22 10:49 Ondansetron 4 Mg/2 Ml Inj IV ONCE PRN Nausea And Vomiting Oxycodone/Acetaminophen 2 tab 01/31/22 11:57 Oxycodone /Acetaminophen 5-325mg Tab PO Q4H PRN Pain, Moderate (4-6) Sodium Chloride 10 ml 01/29/22 10:00 01/31/22 22:01 Sodium Chloride 0.9% 10 Ml Flush Syringe IV 10 ml BID ABDIAZIZ Administration Sodium Chloride 10 ml 01/29/22 03:54 Sodium Chloride 0.9% 10 Ml Flush Syringe IV PRN PRN LINE FLUSH Spironolactone 100 mg 01/29/22 10:00 01/31/22 10:50 Spironolactone 50 Mg Tab PO Not Given QDAY [facility] Nutrition/Malnutrition Assess - Dietary Evaluation Nutrition/Malnutrition Findings: Nutrition Notes Start: 01/29/22 10:03 Freq: Status: Active Protocol: Document 01/30/22 12:21 TW (Rec: 01/30/22 12:47 TW [email or web address]) Nutrition Notes Need for Assessment generated from: can intake worker,MST Initial or Follow up Assessment Current Diagnosis Acute Kidney Injury,Diabetes, Hypertension Other Pertinent Diagnosis Asthma, Hypothyroidism, elevated troponin Current Diet Cardiac/Consistent CHO Labs/Tests BUN 39 Pertinent Medications NS 0.9% @100ml/hr Height 5 ft 3 in Weight 90.718 kg [place] Body Weight (kg) 52.27 BMI 35.4 Weight Status Obese Subjective/Other Information Pt screened for MST. BG Not able to assess PO intake at this time. Pt reports losing 2 -13 pounds without trying and eating poorly due to a decreased appetite. Burn Absent Trauma Absent Minimum of two criteria No #1 Nutrition Diagnosis Predicted suboptimal energy intake Is patient on ventilator? No Is Patient Ambulatory and/or Out of Bed No REE-([place] [employer] [facility]-confined to bed) 1710.720 Kcal/Kg value to use for calculation 19 Approximate Energy Requirements Using 1724 kcal/Kg Calculation Used for Recommendations Kcal/kg Additional Notes Protein: 90-109 g/day (1-1.2 g /kg/day) Fluid: 1 ml/kcal or per MD order Nutrition Intervention Change Diet Order: Continue current diet Goal #1 PO intake to meet 75% nutrition needs Follow-Up By: 02/01/22 Additional Comments F/U for intakes
[2022-02-01] MEDS: METOPROLOL TARTRATE 50 MG TAB PO SCH ×3 (08:46→22:31)
[2022-02-01] MEDS: PIPERACIL-TAZO 2.25 GM/50 ML 2.25 GM/50 ML BAG IV SCH ×3 (08:48→23:01)
[2022-02-01] MEDS: IPRATROPIUM/ALBUTEROL SULFATE 3 ML AMPUL.NEB IH SCH ×3 (09:43→20:03)
--- NOTE | 2022-02-01 10:20 | Progress Note ---
Assessment and Plan Assessment: Cellulitis/abscess right groin/upper thigh ISAIAH (acute kidney injury) Hyperglycemia due to type 2 diabetes mellitus Hyponatremia; Elevated troponin/non-ST elevation [place] type II Sinus tachycardia/ narrow complex tachycardia/resolved Hypertension History of bronchial asthma Obesity; BMI 35.4 Anemia Plan: -No new renal labs noted for today at present. Serum creatinine yesterday was stable at 2.9, UOP 650 ml -Serum creatinine was normal in 2016. No recent baseline serum creatinine available so not sure if has CKD or not -Urine lytes reviewed, No urine eosinophils. Has proteinuria, likely from DM, will also check SPEP and serum free light chains -Low iron level-Start Ferrous Sulfate 325 mg po TID -Renal ultrasound-pending -PTH level was 65, monitor -CK level was 127 -On NS@ 100 ml/hr -Echo-LVEF was 60-65% -Hold home Spironolactone -Not resuming home Metformin given advanced renal disease -Renally dose all medications -Avoid nephrotoxic agents -Strict I/O's daily, has song -Monitor renal function closely -Plan of care reviewed by Dr. Palacios Subjective Date of service: 02/01/22 Principal diagnosis: Fever, general malaise, PSVT Interval history: Patient seen lying in bed. No family at bedside. Objective - Vital Signs Vital signs: Vital Signs - 12hr 01/31/22 02/01/22 02/01/22 23:43 01:00 04:46 Temperature 98.7 F Pulse Rate 83 71 Pulse Rate [ Anterior Bilateral Throughout] Respiratory 17 16 Rate Respiratory Rate [Anterior Bilateral Throughout] Blood Pressure 110/59 140/67 O2 Sat by Pulse 98 99 Oximetry 02/01/22 02/01/22 09:43 09:46 Temperature Pulse Rate Pulse Rate [ 68 Anterior Bilateral Throughout] Respiratory Rate Respiratory 16 Rate [Anterior Bilateral Throughout] Blood Pressure O2 Sat by Pulse 98 Oximetry - General Appearance General appearance: well-developed, appears stated age EENT: ATNC, PERRL, hearing intact Neck: no JVD, supple Respiratory: Present: Decreased Breath Sounds Cardiology: S1S2 Gastrointestinal: normoactive bowel sounds Integumentary: warm and dry Neurologic: other (Awake and alert) Musculoskeletal: decreased ROM - Lab 02/01/22 11:15 02/01/22 11:15 Most recent lab results Calcium 8.2 mg/dL (8.4-10.2) L 01/31/22 20:55 Urine Creatinine 152.6 mg/dL (0.1-20.0) H 02/01/22 03:55 Urine Creatinine 153.8 mg/dL (0.1-20.0) H 02/01/22 03:55 Urine Sodium 15 mmol/L 02/01/22 03:55 Urine Total Protein 209 mg/dL (5-11.8) H 02/01/22 03:55 Medications & Allergies - Medications Allergies/Adverse Reactions: Allergies No Known Allergies Allergy (Unverified 08/01/15 23:02) Home Medications: Home Medications Medication Instructions Recorded Confirmed Last Taken Type Azithromycin [Zithromax TAB] 500 mg PO QDAY #7 tablet 08/05/15 Unknown Rx Cinacalcet HCl [Sensipar] 60 mg PO DAILY #30 tablet 08/05/15 Unknown Rx Insulin Lispro Prot/Lispro 28 units SUB-Q 1700 units 08/05/15 Unknown Rx [HumaLOG Mix 75/25 Vial] Insulin Lispro Prot/Lispro 30 units SUB-Q QDDIAB units 08/05/15 Unknown Rx [HumaLOG Mix 75/25 Vial] Insulin Lispro [HumaLOG VIAL] 28 units SQ QHS #1 vial 08/05/15 Unknown Rx Insulin Lispro [HumaLOG VIAL] 30 units SQ QAM #1 vial 08/05/15 Unknown Rx Levothyroxine [Synthroid] 175 mcg PO QAM #30 tablet 08/05/15 Unknown Rx Prednisone [predniSONE 10 mg 10 mg PO .TAPER #1 tab.ds.pk 08/05/15 Unknown Rx (6-Day Pack, 21 Tabs)] Spironolactone [Aldactone] 100 mg PO QDAY #30 tablet 08/05/15 Unknown Rx carvediloL [Coreg] 3.125 mg PO BID #60 tablet 08/05/15 Unknown Rx metFORMIN [Glucophage] 500 mg PO BID #30 tablet 08/05/15 Unknown Rx Active Medications: Generic Name Dose Route Start Last Admin Trade Name Freq PRN Reason Stop Dose Admin Acetaminophen 650 mg 01/29/22 03:54 Acetaminophen 325 Mg Tab PO Q4H PRN Pain MILD(1-3)/Fever >100.5/GARCIA Albuterol 2.5 mg 01/29/22 03:54 Albuterol 2.5 Mg/3 Ml Nebu IH Q3HRT PRN Shortness Of Breath Albuterol/Ipratropium 1 ampul 01/31/22 08:00 02/01/22 09:43 Ipratropium/Albuterol Sulfate 3 Ml Ampul.Neb IH 1 ampul TIDRT ABDIAZIZ Administration Dextrose 50 ml 01/29/22 03:54 01/31/22 07:44 Dextrose 50% In Water (25gm) 50 Ml Syringe IV 50 ml Q30MIN PRN Administration Hypoglycemia Protocol Famotidine 10 mg 01/29/22 10:00 01/31/22 21:58 Famotidine 10 Mg Tab PO 10 mg BID ABDIAZIZ Administration Fentanyl 50 mcg 01/31/22 10:49 Fentanyl 100 Mcg/2 Ml Inj IV Q5MIN PRN Pain , Severe (7-10) Heparin Sodium (Porcine) 5,000 unit 01/29/22 22:00 01/31/22 21:58 Heparin 5,000 Unit/1 Ml Vial SUB-Q 5,000 unit Q12HR ABDIAZIZ Administration Sodium Chloride 1,000 mls @ 100 mls/hr 01/29/22 08:00 01/31/22 00:57 Nacl 0.9% 1000 Ml IV 100 mls/hr DIRECT ABDIAZIZ Administration Piperacillin Sod/Tazobactam Sod 2.25 gm in 50 mls @ 100 mls/hr 01/30/22 16:00 02/01/22 08:48 Zosyn/Ns 2.25 Gm/50ml IV 100 mls/hr Q8H ABDIAZIZ Administration Protocol Insulin Human Isoph/Insulin Regular 10 unit 01/29/22 09:00 02/01/22 08:00 Insulin Nph/Regular 70/30 Inj SUB-Q 10 unit BIDDIAB ABDIAZIZ Administration Insulin Human Lispro 0 unit 01/29/22 07:30 02/01/22 07:48 Insulin Lispro 100 Unit/Ml SUB-Q 4 unit ACHS ABDIAZIZ Administration Protocol Levothyroxine Sodium 100 mcg 01/29/22 06:00 02/01/22 05:47 Levothyroxine 100 Mcg Tab PO 100 mcg QAM@0600 ABDIAZIZ Administration Levothyroxine Sodium 75 mcg 01/29/22 06:00 02/01/22 05:47 Levothyroxine 75 Mcg Tab PO 75 mcg QAM@0600 ABDIAZIZ Administration Loperamide HCl 2 mg 01/30/22 12:14 01/30/22 12:43 Loperamide 2 Mg Cap PO 2 mg Q2H PRN Administration Diarrhea Metoprolol Tartrate 50 mg 01/29/22 15:00 02/01/22 08:46 Metoprolol Tartrate 50 Mg Tab PO 50 mg Q8H ABDIAZIZ Administration Morphine Sulfate 2 mg 01/29/22 03:54 01/31/22 03:51 Morphine 2 Mg/1 Ml Inj IV 2 mg Q4H PRN Administration Pain, Moderate (4-6) Morphine Sulfate 4 mg 01/29/22 03:54 Morphine 4 Mg/1 Ml Inj IV Q4H PRN Pain , Severe (7-10) Ondansetron HCl 4 mg 01/29/22 03:54 Ondansetron 4 Mg/2 Ml Inj IV Q8H PRN Nausea And Vomiting Ondansetron HCl 4 mg 01/31/22 10:49 Ondansetron 4 Mg/2 Ml Inj IV ONCE PRN Nausea And Vomiting Oxycodone/Acetaminophen 2 tab 01/31/22 11:57 Oxycodone /Acetaminophen 5-325mg Tab PO Q4H PRN Pain, Moderate (4-6) Sodium Chloride 10 ml 01/29/22 10:00 01/31/22 22:01 Sodium Chloride 0.9% 10 Ml Flush Syringe IV 10 ml BID ABDIAZIZ Administration Sodium Chloride 10 ml 01/29/22 03:54 Sodium Chloride 0.9% 10 Ml Flush Syringe IV PRN PRN LINE FLUSH Spironolactone 100 mg 01/29/22 10:00 01/31/22 10:50 Spironolactone 50 Mg Tab PO Not Given QDAY ABDIAZIZ
[2022-02-01] MEDS: FAMOTIDINE 10 MG TAB PO SCH ×2 (10:43→21:49)
[2022-02-01] MEDS: HEPARIN 5,000 UNIT/1 ML VIAL SUB-Q SCH ×2 (10:43→21:50)
[2022-02-01 11:55] LABS: Hematocrit 26.4 % (30.3-42.9); Hemoglobin 8.5 gm/dl (10.1-14.3); Mean Corpuscular HGB Conc 32 % (30-34); Mean Corpuscular Volume 86 fl (79-97); Platelet Count 174 K/mm3 (140-440); Red Blood Count 3.06 M/mm3 (3.65-5.03); Red Cell Distribution Width 15.5 % (13.2-15.2)
[2022-02-01 12:17] LABS: Calcium 8.2 mg/dL (8.4-10.2)
--- NOTE | 2022-02-01 13:11 | Ultrasound Report ---
ULTRASOUND RENAL INDICATION / CLINICAL INFORMATION: samir. COMPARISON: None available. FINDINGS: RIGHT KIDNEY: Length = 11.1 cm. - Echogenicity: Normal. - Cortical Thickness: Normal. - Hydronephrosis: None. - Cyst or mass: No significant abnormality. - Stones: None seen. LEFT KIDNEY: Length = 10.8 cm. - Echogenicity: Normal. - Cortical Thickness: Normal. - Hydronephrosis: None. - Cyst or mass: Left renal cyst measures 3.2 x 3.2 x 3.4 cm - Stones: None seen. URINARY BLADDER: No significant abnormality. FREE FLUID: None. ADDITIONAL FINDINGS: IMPRESSION: 1. Left renal cyst. Signer Name: Timi Payne MD Signed: 02/01/2022 1:07 PM Workstation Name: [id number]
[2022-02-01 13:12] LABS: Band Neutrophils # (Manual) 3.2 K/mm3; Basophils % (Manual) 0 % (0.0-1.8); Monocytes % (Manual) 0 % (0.0-7.3); Myelocytes # (Manual) 1.1 K/mm3; Total Cells Counted 100
[2022-02-01 13:14] LABS: Platelet Estimate Consistent w Auto; RBC Morphology Normal
[2022-02-01] MEDS: FERROUS SULFATE 325 MG TAB PO SCH ×2 (13:44→21:49)
--- NOTE | 2022-02-01 13:56 | Progress Note ---
Assessment and Plan Postop day #1 status post incision and drainage of right thigh abscess. Patient's been afebrile and stable since debridement. Leukocytosis has worsened however white blood cell count level just prior to surgery unknown. Continue antibiotics and wait for results of cultures. We will change packing and dressing tomorrow. We will send urine for culture. Subjective Date of service: 02/01/22 Narrative: No acute events overnight. Patient says that she feels better in her leg compared to yesterday. Patient was seen eating lunch comfortably. Objective Vital Signs - 12hr 02/01/22 02/01/22 02/01/22 04:46 09:43 09:46 Temperature 98.7 F Pulse Rate 71 Pulse Rate [ 68 Anterior Bilateral Throughout] Respiratory 16 Rate Respiratory 16 Rate [Anterior Bilateral Throughout] Blood Pressure 140/67 O2 Sat by Pulse 99 98 Oximetry 02/01/22 13:34 Temperature Pulse Rate Pulse Rate [ 72 Anterior Bilateral Throughout] Respiratory Rate Respiratory 18 Rate [Anterior Bilateral Throughout] Blood Pressure O2 Sat by Pulse Oximetry - General physical appearance well developed, no distress, no pain - Integumentary other (Right thigh dressing clean dry and intact. Appropriate tenderness to palpation with no significant swelling) - Labs 02/01/22 11:15 02/01/22 11:15 Diabetes panel 01/31/22 02/01/22 02/01/22 Range/Units 20:55 11:15 11:15 Sodium 130 L 133 L (137-145) mmol/L Potassium 3.7 4.0 (3.6-5.0) mmol/L Chloride 98.3 99.3 (98-107) mmol/L Carbon Dioxide 18 L 19 L (22-30) mmol/L BUN 47 H 51 H (7-17) mg/dL Creatinine 2.9 H 3.0 H (0.6-1.2) mg/dL Glucose 321 H 315 H (65-100) mg/dL Hemoglobin A1c 7.8 H (4-6) % Calcium 8.2 L 8.2 L (8.4-10.2) mg/dL Calcium panel 01/31/22 02/01/22 Range/Units 20:55 11:15 Calcium 8.2 L 8.2 L (8.4-10.2) mg/dL Pituitary panel 01/31/22 02/01/22 Range/Units 20:55 11:15 Sodium 130 L 133 L (137-145) mmol/L Potassium 3.7 4.0 (3.6-5.0) mmol/L Chloride 98.3 99.3 (98-107) mmol/L Carbon Dioxide 18 L 19 L (22-30) mmol/L BUN 47 H 51 H (7-17) mg/dL Creatinine 2.9 H 3.0 H (0.6-1.2) mg/dL Glucose 321 H 315 H (65-100) mg/dL Calcium 8.2 L 8.2 L (8.4-10.2) mg/dL Adrenal panel 01/31/22 02/01/22 Range/Units 20:55 11:15 Sodium 130 L 133 L (137-145) mmol/L Potassium 3.7 4.0 (3.6-5.0) mmol/L Chloride 98.3 99.3 (98-107) mmol/L Carbon Dioxide 18 L 19 L (22-30) mmol/L BUN 47 H 51 H (7-17) mg/dL Creatinine 2.9 H 3.0 H (0.6-1.2) mg/dL Glucose 321 H 315 H (65-100) mg/dL Calcium 8.2 L 8.2 L (8.4-10.2) mg/dL
--- NOTE | 2022-02-01 14:13 | Progress Note ---
Assessment and Plan - Patient Problems (1) Elevated troponin Current Visit: Yes Status: Acute Plan to address problem: Patient was admitted with sepsis and acute kidney injury, nonspecific troponin findings. Echocardiogram shows normal left ventricular systolic function, ejection fraction 60 to 65%. Conservative cardiac management. (2) Narrow complex tachycardia Current Visit: Yes Status: Acute Plan to address problem: Patient developed spontaneous narrow complex tachycardia in the emergency room, treated with IV metoprolol. Morphology of the tachycardia appears likely AV node reentry tachycardia. Continue metoprolol. Subjective Date of service: 02/01/22 Principal diagnosis: Fever, general malaise, PSVT Interval history: Patient is comfortable no new cardiac complaints, no cardiac events reported. Objective Vital Signs Temp Pulse Pulse Resp Resp Resp BP 02/01/22 13:34 72 18 02/01/22 09:46 02/01/22 09:43 68 16 02/01/22 04:46 98.7 F 71 16 140/67 02/01/22 01:00 17 01/31/22 23:43 83 110/59 01/31/22 22:00 17 01/31/22 20:32 97.9 F 83 16 110/59 01/31/22 20:15 01/31/22 20:05 80 18 01/31/22 16:55 97.7 F 82 18 113/55 Pulse Ox 02/01/22 13:34 02/01/22 09:46 98 02/01/22 09:43 02/01/22 04:46 99 02/01/22 01:00 98 01/31/22 23:43 01/31/22 22:00 01/31/22 20:32 100 01/31/22 20:15 99 01/31/22 20:05 01/31/22 16:55 98 - Physical Examination General: No Apparent Distress HEENT: Positive: PERRL Neck: Positive: neck supple Cardiac: Positive: Reg Rate and Rhythm Lungs: Positive: Decreased Breath Sounds Neuro: Positive: Grossly Intact Abdomen: Positive: Soft Skin: Positive: Clear Extremities: Absent: edema - Labs and Meds CBC 02/01/22 Range/Units 11:15 WBC 35.5 H (4.5-11.0) K/mm3 RBC 3.06 L (3.65-5.03) M/mm3 Hgb 8.5 L (10.1-14.3) gm/dl Hct 26.4 L (30.3-42.9) % Plt Count 174 (140-440) K/mm3 Comprehensive Metabolic Panel 01/31/22 02/01/22 Range/Units 20:55 11:15 Sodium 130 L 133 L (137-145) mmol/L Potassium 3.7 4.0 (3.6-5.0) mmol/L Chloride 98.3 99.3 (98-107) mmol/L Carbon Dioxide 18 L 19 L (22-30) mmol/L BUN 47 H 51 H (7-17) mg/dL Creatinine 2.9 H 3.0 H (0.6-1.2) mg/dL Glucose 321 H 315 H (65-100) mg/dL Calcium 8.2 L 8.2 L (8.4-10.2) mg/dL
[2022-02-01] MEDS: oxyCODONE /ACETAMINOPHEN 5-325MG TAB PO PRN (14:21)
[2022-02-01] MEDS: SODIUM CHLORIDE 0.9% 1000 ML 1,000 ML IV SCH (21:53)
[2022-02-02] MEDS: LEVOTHYROXINE 75 MCG TAB PO SCH (06:09)
[2022-02-02] MEDS: LEVOTHYROXINE 100 MCG TAB PO SCH (06:09)
[2022-02-02] MEDS: INSULIN LISPRO 100 UNIT/ML SUB-Q SCH ×4 (07:30→23:13)
[2022-02-02 08:33] LABS: Hematocrit 23.8 % (30.3-42.9); Mean Corpuscular HGB Conc 34 % (30-34); Mean Corpuscular Volume 84 fl (79-97); Platelet Count 187 K/mm3 (140-440); Red Blood Count 2.81 M/mm3 (3.65-5.03); Red Cell Distribution Width 14.9 % (13.2-15.2)
[2022-02-02] MEDS: oxyCODONE /ACETAMINOPHEN 5-325MG TAB PO PRN (08:41)
[2022-02-02] MEDS: FERROUS SULFATE 325 MG TAB PO SCH ×3 (08:42→21:28)
[2022-02-02] MEDS: IPRATROPIUM/ALBUTEROL SULFATE 3 ML AMPUL.NEB IH SCH ×3 (08:43→20:09)
[2022-02-02] MEDS: METOPROLOL TARTRATE 50 MG TAB PO SCH ×3 (08:46→23:14)
[2022-02-02] MEDS: SODIUM CHLORIDE 0.9% 1000 ML 1,000 ML IV SCH (08:47)
[2022-02-02] MEDS: PIPERACIL-TAZO 2.25 GM/50 ML 2.25 GM/50 ML BAG IV SCH (08:47)
[2022-02-02] MEDS: HEPARIN 5,000 UNIT/1 ML VIAL SUB-Q SCH ×3 (08:50→23:13)
[2022-02-02 08:51] LABS: Calcium 7.9 mg/dL (8.4-10.2)
[2022-02-02] MEDS: FAMOTIDINE 10 MG TAB PO SCH ×3 (08:51→21:27)
--- NOTE | 2022-02-02 09:11 | Progress Note ---
Assessment and Plan Cellulitis/abscess right groin/upper thigh ISAIAH (acute kidney injury) Hyperglycemia due to type 2 diabetes mellitus Hyponatremia; Elevated troponin/non-ST elevation [place] type II Sinus tachycardia/ narrow complex tachycardia/resolved Hypertension History of bronchial asthma Obesity; BMI 35.4 Anemia Plan: -Crs is trending down, good UOP -fluid restriction ordered for worsening hyponatremia -Serum creatinine was normal in 2016. No recent baseline serum creatinine available so not sure if has CKD or not -Urine lytes reviewed, No urine eosinophils. Has proteinuria, likely from DM, will also check SPEP and serum free light chains -Low iron level-cont Ferrous Sulfate 325 mg po TID -Hold home Spironolactone -Not resuming home Metformin given advanced renal disease -Renally dose all medications -Avoid nephrotoxic agents -Strict I/O's daily, has song -Monitor renal function closely Subjective Date of service: 02/02/22 Principal diagnosis: Fever, general malaise, PSVT Interval history: comfortable but confused Objective - Vital Signs Vital signs: Vital Signs - 12hr 02/01/22 02/01/22 02/02/22 21:41 22:31 01:00 Temperature 97.5 F L Pulse Rate 56 L 56 L Respiratory 18 Rate Blood Pressure 133/64 133/64 Blood Pressure [Left] O2 Sat by Pulse 100 100 Oximetry 02/02/22 05:12 Temperature 97.4 F L Pulse Rate 54 L Respiratory 18 Rate Blood Pressure Blood Pressure 129/63 [Left] O2 Sat by Pulse 100 Oximetry - Lab 02/02/22 08:08 02/02/22 08:08 Most recent lab results Calcium 7.9 mg/dL (8.4-10.2) L 02/02/22 08:08 Magnesium 2.20 mg/dL (1.7-2.3) 02/01/22 11:15 Urine Creatinine 152.6 mg/dL (0.1-20.0) H 02/01/22 03:55 Urine Creatinine 153.8 mg/dL (0.1-20.0) H 02/01/22 03:55 Urine Sodium 15 mmol/L 02/01/22 03:55 Urine Total Protein 209 mg/dL (5-11.8) H 02/01/22 03:55 Medications & Allergies - Medications Allergies/Adverse Reactions: Allergies No Known Allergies Allergy (Unverified 02/26/16 23:02) Home Medications: Home Medications Medication Instructions Recorded Confirmed Last Taken Type Azithromycin [Zithromax TAB] 500 mg PO QDAY #7 tablet 08/05/15 02/02/22 Unknown Rx Cinacalcet HCl [Sensipar] 60 mg PO DAILY #30 tablet 08/05/15 02/02/22 Unknown Rx Insulin Lispro Prot/Lispro 28 units SUB-Q 1700 units 08/05/15 02/02/22 Unknown Rx [HumaLOG Mix 75/25 Vial] Insulin Lispro Prot/Lispro 30 units SUB-Q QDDIAB units 08/05/15 02/02/22 Unknown Rx [HumaLOG Mix 75/25 Vial] Insulin Lispro [HumaLOG VIAL] 28 units SQ QHS #1 vial 08/05/15 02/02/22 Unknown Rx Insulin Lispro [HumaLOG VIAL] 30 units SQ QAM #1 vial 08/05/15 02/02/22 Unknown Rx Levothyroxine [Synthroid] 175 mcg PO QAM #30 tablet 08/05/15 02/02/22 Unknown Rx Prednisone [predniSONE 10 mg 10 mg PO .TAPER #1 tab.ds.pk 08/05/15 02/02/22 Unknown Rx (6-Day Pack, 21 Tabs)] Spironolactone [Aldactone] 100 mg PO QDAY #30 tablet 08/05/15 02/02/22 Unknown Rx carvediloL [Coreg] 3.125 mg PO BID #60 tablet 08/05/15 02/02/22 Unknown Rx metFORMIN [Glucophage] 500 mg PO BID #30 tablet 08/05/15 02/02/22 Unknown Rx Active Medications: Generic Name Dose Route Start Last Admin Trade Name Freq PRN Reason Stop Dose Admin Acetaminophen 650 mg 01/29/22 03:54 Acetaminophen 325 Mg Tab PO Q4H PRN Pain MILD(1-3)/Fever >100.5/GARCIA Albuterol 2.5 mg 01/29/22 03:54 Albuterol 2.5 Mg/3 Ml Nebu IH Q3HRT PRN Shortness Of Breath Albuterol/Ipratropium 1 ampul 01/31/22 08:00 02/02/22 08:43 Ipratropium/Albuterol Sulfate 3 Ml Ampul.Neb IH 1 ampul TIDRT ABDIAZIZ Administration Dextrose 50 ml 01/29/22 03:54 01/31/22 07:44 Dextrose 50% In Water (25gm) 50 Ml Syringe IV 50 ml Q30MIN PRN Administration Hypoglycemia Protocol Famotidine 10 mg 01/29/22 10:00 02/02/22 08:51 Famotidine 10 Mg Tab PO 10 mg BID ABDIAZIZ Administration Ferrous Sulfate 325 mg 02/01/22 14:00 02/02/22 08:42 Ferrous Sulfate 325 Mg Tab PO 325 mg TID ABDIAZIZ Administration Heparin Sodium (Porcine) 5,000 unit 01/29/22 22:00 02/02/22 08:50 Heparin 5,000 Unit/1 Ml Vial SUB-Q 5,000 unit Q12HR ABDIAZIZ Administration Sodium Chloride 1,000 mls @ 100 mls/hr 01/29/22 08:00 02/02/22 08:47 Nacl 0.9% 1000 Ml IV 100 mls/hr DIRECT ABDIAZIZ Administration Piperacillin Sod/Tazobactam Sod 2.25 gm in 50 mls @ 100 mls/hr 01/30/22 16:00 02/02/22 08:47 Zosyn/Ns 2.25 Gm/50ml IV 100 mls/hr Q8H ABDIAZIZ Administration Protocol Insulin Human Isoph/Insulin Regular 18 unit 02/02/22 08:00 Insulin Nph/Regular 70/30 Inj SUB-Q BIDDIAB ABDIAZIZ Insulin Human Lispro 0 unit 01/29/22 07:30 02/02/22 07:30 Insulin Lispro 100 Unit/Ml SUB-Q 3 unit ACHS ABDIAZIZ Administration Protocol Levothyroxine Sodium 100 mcg 01/29/22 06:00 02/02/22 06:09 Levothyroxine 100 Mcg Tab PO 100 mcg QAM@0600 ABDIAZIZ Administration Levothyroxine Sodium 75 mcg 01/29/22 06:00 02/02/22 06:09 Levothyroxine 75 Mcg Tab PO 75 mcg QAM@0600 ABDIAZIZ Administration Loperamide HCl 2 mg 01/30/22 12:14 01/30/22 12:43 Loperamide 2 Mg Cap PO 2 mg Q2H PRN Administration Diarrhea Metoprolol Tartrate 50 mg 01/29/22 15:00 02/02/22 08:46 Metoprolol Tartrate 50 Mg Tab PO 50 mg Q8H ABDIAZIZ Administration Morphine Sulfate 2 mg 01/29/22 03:54 01/31/22 03:51 Morphine 2 Mg/1 Ml Inj IV 2 mg Q4H PRN Administration Pain, Moderate (4-6) Morphine Sulfate 4 mg 01/29/22 03:54 Morphine 4 Mg/1 Ml Inj IV Q4H PRN Pain , Severe (7-10) Ondansetron HCl 4 mg 01/29/22 03:54 Ondansetron 4 Mg/2 Ml Inj IV Q8H PRN Nausea And Vomiting Oxycodone/Acetaminophen 2 tab 01/31/22 11:57 02/02/22 08:41 Oxycodone /Acetaminophen 5-325mg Tab PO 2 tab Q4H PRN Administration Pain, Moderate (4-6) Sodium Chloride 10 ml 01/29/22 10:00 02/01/22 22:00 Sodium Chloride 0.9% 10 Ml Flush Syringe IV 10 ml BID ABDIAZIZ Administration Sodium Chloride 10 ml 01/29/22 03:54 Sodium Chloride 0.9% 10 Ml Flush Syringe IV PRN PRN LINE FLUSH
[2022-02-02] MEDS: INSULIN NPH/REGULAR 70/30 INJ SUB-Q SCH ×2 (09:35→16:30)
[2022-02-02 10:11] LABS: Total Cells Counted 100
[2022-02-02 10:12] LABS: Band Neutrophils # (Manual) 1.3 K/mm3; Basophils % (Manual) 0 % (0.0-1.8); Myelocytes # (Manual) 0.7 K/mm3; Platelet Estimate Consistent w Auto; RBC Morphology Normal
--- NOTE | 2022-02-02 11:57 | Progress Note ---
Assessment and Plan - Patient Problems (1) Elevated troponin Current Visit: Yes Status: Acute Plan to address problem: Patient was admitted with sepsis and acute kidney injury, nonspecific troponin findings. Echocardiogram shows normal left ventricular systolic function, ejection fraction 60 to 65%. Conservative cardiac management. (2) Narrow complex tachycardia Current Visit: Yes Status: Acute Plan to address problem: Patient developed spontaneous narrow complex tachycardia in the emergency room, treated with IV metoprolol. Morphology of the tachycardia appears likely AV node reentry tachycardia. Continue metoprolol. Subjective Date of service: 02/02/22 Principal diagnosis: Fever, general malaise, PSVT Interval history: Patient is comfortable no new cardiac complaints, no cardiac events reported. Objective Vital Signs Temp Pulse Pulse Resp Resp BP BP 02/02/22 08:43 72 18 02/02/22 05:12 97.4 F L 54 L 18 129/63 02/02/22 01:00 02/01/22 22:31 56 L 133/64 02/01/22 21:41 97.5 F L 56 L 18 133/64 02/01/22 20:00 57 L 16 02/01/22 15:47 97.4 F L 65 13 133/70 02/01/22 13:34 72 18 02/01/22 13:00 Pulse Ox 02/02/22 08:43 02/02/22 05:12 100 02/02/22 01:00 100 02/01/22 22:31 02/01/22 21:41 100 02/01/22 20:00 02/01/22 15:47 100 02/01/22 13:34 02/01/22 13:00 96 - Physical Examination General: No Apparent Distress HEENT: Positive: PERRL Neck: Positive: neck supple Cardiac: Positive: Reg Rate and Rhythm Lungs: Positive: Decreased Breath Sounds Neuro: Positive: Grossly Intact Abdomen: Positive: Soft Skin: Positive: Clear Extremities: Absent: edema - Labs and Meds CBC 02/01/22 02/02/22 Range/Units 11:15 08:08 WBC 35.5 H 33.2 H (4.5-11.0) K/mm3 RBC 3.06 L 2.81 L (3.65-5.03) M/mm3 Hgb 8.5 L 8.0 L (10.1-14.3) gm/dl Hct 26.4 L 23.8 L (30.3-42.9) % Plt Count 174 187 (140-440) K/mm3 Comprehensive Metabolic Panel 02/01/22 02/02/22 Range/Units 11:15 08:08 Sodium 133 L 129 L (137-145) mmol/L Potassium 4.0 3.9 (3.6-5.0) mmol/L Chloride 99.3 97.4 L (98-107) mmol/L Carbon Dioxide 19 L 18 L (22-30) mmol/L BUN 51 H 54 H (7-17) mg/dL Creatinine 3.0 H 2.6 H (0.6-1.2) mg/dL Glucose 315 H 212 H (65-100) mg/dL Calcium 8.2 L 7.9 L (8.4-10.2) mg/dL
[2022-02-02] MEDS: SODIUM HYPOCHLORITE, DAKIN'S 1/2 STRENGTH (0.25%) 473 ML TOPICAL SOLN TP SCH ×2 (12:00→21:28)
--- NOTE | 2022-02-02 12:02 | Progress Note ---
Assessment and Plan Postop day #2 status post incision and drainage of right thigh abscess. Patient's been afebrile and stable since debridement. Leukocytosis with minimal improvement. will change dressings to Dakin's solution. Recommend consulting ID and following up on wound cultures regarding antibiotic therapy. We will continue to follow. Subjective Date of service: 02/02/22 Narrative: No acute events overnight. Patient says that her leg is feeling better compared to before surgery but she has pain when she moves it. She denies any nausea or vomiting. Objective Vital Signs - 12hr 02/02/22 02/02/22 02/02/22 01:00 05:12 08:43 Temperature 97.4 F L Pulse Rate 54 L Pulse Rate [ 72 Anterior Bilateral Throughout] Respiratory 18 Rate Respiratory 18 Rate [Anterior Bilateral Throughout] Blood Pressure 129/63 [Left] O2 Sat by Pulse 100 100 Oximetry - General physical appearance well developed, no distress, no pain - Integumentary other (Packing removed. No drainage or foul odor. Circumferential induration that is tender to palpation. Minimal skin erythema) - Labs 02/02/22 08:08 02/02/22 08:08 Diabetes panel 02/01/22 02/01/22 02/02/22 Range/Units 11:15 11:15 08:08 Sodium 133 L 129 L (137-145) mmol/L Potassium 4.0 3.9 (3.6-5.0) mmol/L Chloride 99.3 97.4 L (98-107) mmol/L Carbon Dioxide 19 L 18 L (22-30) mmol/L BUN 51 H 54 H (7-17) mg/dL Creatinine 3.0 H 2.6 H (0.6-1.2) mg/dL Glucose 315 H 212 H (65-100) mg/dL Hemoglobin A1c 7.8 H (4-6) % Calcium 8.2 L 7.9 L (8.4-10.2) mg/dL Calcium panel 02/01/22 02/02/22 Range/Units 11:15 08:08 Calcium 8.2 L 7.9 L (8.4-10.2) mg/dL Pituitary panel 02/01/22 02/02/22 Range/Units 11:15 08:08 Sodium 133 L 129 L (137-145) mmol/L Potassium 4.0 3.9 (3.6-5.0) mmol/L Chloride 99.3 97.4 L (98-107) mmol/L Carbon Dioxide 19 L 18 L (22-30) mmol/L BUN 51 H 54 H (7-17) mg/dL Creatinine 3.0 H 2.6 H (0.6-1.2) mg/dL Glucose 315 H 212 H (65-100) mg/dL Calcium 8.2 L 7.9 L (8.4-10.2) mg/dL Adrenal panel 02/01/22 02/02/22 Range/Units 11:15 08:08 Sodium 133 L 129 L (137-145) mmol/L Potassium 4.0 3.9 (3.6-5.0) mmol/L Chloride 99.3 97.4 L (98-107) mmol/L Carbon Dioxide 19 L 18 L (22-30) mmol/L BUN 51 H 54 H (7-17) mg/dL Creatinine 3.0 H 2.6 H (0.6-1.2) mg/dL Glucose 315 H 212 H (65-100) mg/dL Calcium 8.2 L 7.9 L (8.4-10.2) mg/dL
--- NOTE | 2022-02-02 13:27 | Consultation ---
History of Present Illness - Reason for Consult Consult date: 02/02/22 R thigh abscess Requesting physician: GLENROY BARTH - History of Present Illness The patient is a 66-year-old female with diabetes, hypertension, asthma was admitted to the hospital with complaints of generalized weakness. Upon evaluation in the ED, found to be septic with leukocytosis, fever. She was started on empiric antibiotics. Noted to have right leg cellulitis and pain, CT showed an abscess, general surgery was consulted and on 01/31/2022, she underwent an I&D of right upper thigh abscess. As per OR note, there was foul-smelling purulent material drained, abscess cavity appeared to track towards her inguinal area but not medially into the perianal or vaginal area. ID was consulted for antibiotic management. She has persistent leukocytosis. Got IV Zosyn in the E R, then was continued on ceftriaxone/Ancef Review of Systems: General: no fevers,chills or rigors HEENT: no new visual disturbance Respiratory: No cough, sputum, hemoptysis or shortness of breath Cardiovascular: No chest pain, syncope Gastrointestinal: No nausea, vomiting or diarrhea Genitourinary: No dysuria or hematuria Musculoskeletal: No new or worsening neck pain or back pain Neurologic: No headaches, seizures Hematologic: No easy bruising or bleeding Endocrine: No night sweats or acute weight loss Skin: negative for rash, jaundice Psychiatric: No suicidal or homicidal ideation Past History Past Medical History: COPD (Chronic asthma), diabetes, heart failure, hypertension, other (Asthma, hypothyroid) Past Surgical History: Other (myomectomy, hysterectomy, brain surgery, multiple soft tissue I&Ds) Social history: no significant social history Family history: no significant family history Medications and Allergies Allergies Allergy/AdvReac Type Severity Reaction Status Date / Time No Known Allergies Allergy Unverified 08/01/15 23:02 Home Medications Medication Instructions Recorded Confirmed Last Taken Type Azithromycin [Zithromax TAB] 500 mg PO QDAY #7 tablet 08/05/15 02/02/22 Unknown Rx Cinacalcet HCl [Sensipar] 60 mg PO DAILY #30 tablet 08/05/15 02/02/22 Unknown Rx Insulin Lispro Prot/Lispro 28 units SUB-Q 1700 units 08/05/15 02/02/22 Unknown Rx [HumaLOG Mix 75/25 Vial] Insulin Lispro Prot/Lispro 30 units SUB-Q QDDIAB units 08/05/15 02/02/22 Unknown Rx [HumaLOG Mix 75/25 Vial] Insulin Lispro [HumaLOG VIAL] 28 units SQ QHS #1 vial 08/05/15 02/02/22 Unknown Rx Insulin Lispro [HumaLOG VIAL] 30 units SQ QAM #1 vial 08/05/15 02/02/22 Unknown Rx Levothyroxine [Synthroid] 175 mcg PO QAM #30 tablet 08/05/15 02/02/22 Unknown Rx Prednisone [predniSONE 10 mg 10 mg PO .TAPER #1 tab.ds.pk 08/05/15 02/02/22 Un known Rx (6-Day Pack, 21 Tabs)] Spironolactone [Aldactone] 100 mg PO QDAY #30 tablet 08/05/15 02/02/22 Unknown Rx carvediloL [Coreg] 3.125 mg PO BID #60 tablet 08/05/15 02/02/22 Unknown Rx metFORMIN [Glucophage] 500 mg PO BID #30 tablet 08/05/15 02/02/22 Unknown Rx Active Meds: Active Medications Acetaminophen (Acetaminophen 325 Mg Tab) 650 mg PO Q4H PRN PRN Reason: Pain MILD(1-3)/Fever >100.5/GARCIA Albuterol (Albuterol 2.5 Mg/3 Ml Nebu) 2.5 mg IH Q3HRT PRN PRN Reason: Shortness Of Breath Albuterol/Ipratropium (Ipratropium/Albuterol Sulfate 3 Ml Ampul.Neb) 1 ampul IH TIDRT [facility] Last Admin: 02/02/22 08:43 Dose: 1 ampul Dextrose (Dextrose 50% In Water (25gm) 50 Ml Syringe) 50 ml IV Q30MIN PRN; Protocol PRN Reason: Hypoglycemia Last Admin: 01/31/22 07:44 Dose: 50 ml Famotidine (Famotidine 10 Mg Tab) 10 mg PO BID [facility] Last Admin: 02/02/22 09:36 Dose: 10 mg Ferrous Sulfate (Ferrous Sulfate 325 Mg Tab) 325 mg PO TID [facility] Last Admin: 02/02/22 08:42 Dose: 325 mg Heparin Sodium (Porcine) (Heparin 5,000 Unit/1 Ml Vial) 5,000 unit SUB-Q Q12HR [facility] Last Admin: 02/02/22 09:35 Dose: 5,000 unit Sodium Chloride (Nacl 0.9% 1000 Ml) 1,000 mls @ 100 mls/hr IV DIRECT [facility] Last Admin: 02/02/22 08:47 Dose: 100 mls/hr Ceftriaxone Sodium (Rocephin/Ns 2 Gm/100 Ml) 2 gm in 100 mls @ 200 mls/hr IV Q24HR [facility]; Protocol Insulin Human Isoph/Insulin Regular (Insulin Nph/Regular 70/30 Inj) 18 unit SUB-Q BIDDIAB [facility] Last Admin: 02/02/22 09:35 Dose: 18 unit Insulin Human Lispro (Insulin Lispro 100 Unit/Ml) 0 unit SUB-Q ACHS [facility]; P rotocol Last Admin: 02/02/22 11:30 Dose: 2 unit Levothyroxine Sodium (Levothyroxine 100 Mcg Tab) 100 mcg PO QAM@0600 [facility] Last Admin: 02/02/22 06:09 Dose: 100 mcg Levothyroxine Sodium (Levothyroxine 75 Mcg Tab) 75 mcg PO QAM@0600 [facility] Last Admin: 02/02/22 06:09 Dose: 75 mcg Linezolid (Linezolid 600 Mg Tab) 600 mg PO Q12HR [facility]; Protocol Loperamide HCl (Loperamide 2 Mg Cap) 2 mg PO Q2H PRN PRN Reason: Diarrhea Last Admin: 01/30/22 12:43 Dose: 2 mg Metoprolol Tartrate (Metoprolol Tartrate 50 Mg Tab) 50 mg PO Q8H [facility] Last Admin: 02/02/22 08:46 Dose: 50 mg Ondansetron HCl (Ondansetron 4 Mg/2 Ml Inj) 4 mg IV Q8H PRN PRN Reason: Nausea And Vomiting Oxycodone HCl (Oxycodone 5 Mg Tab) 5 mg PO Q4H PRN PRN Reason: Pain, Moderate (4-6) Sodium Chloride (Sodium Chloride 0.9% 10 Ml Flush Syringe) 10 ml IV BID [facility] Last Admin: 02/02/22 12:41 Dose: 10 ml Sodium Chloride (Sodium Chloride 0.9% 10 Ml Flush Syringe) 10 ml IV PRN PRN PRN Reason: LINE FLUSH Sodium Hypochlorite (Sodium Hypochlorite, Dakin's 1/2 Strength (0.25%) 473 Ml Topical Soln) 1 applic TP BID ABDIAZIZ Physical Examination - Physical Exam Narrative exam: Physical Exam: Constitutional: Alert, cooperative. No acute distress Head, Ears, Nose: Normocephalic, atraumatic. External ears, nose normal Eyes: Conjunctivae/corneas clear. No icterus. No ptosis. Neck: Supple, no meningeal signs Cardiovascular: S1, S2 + Respiratory: Good air entry, clear to auscultation bilaterally GI: Soft, non-tender; bowel sounds normal. No peritoneal signs Musculoskeletal: Right thigh with dressing with induration around it Skin: No rash or abscess Hem/Lymphatic: No palpable cervical or supraclavicular nodes. No lymphangitis Psych: Mood ok. Affect normal Neurological: Awake, alert, oriented. No gross abnormality - Constitutional Vitals: Vital Signs Temp Pulse Resp BP Pulse Ox 97.4 F L 72 18 129/63 100 02/02/22 05:12 02/02/22 08:43 02/02/22 08:43 02/02/22 05:12 02/02/22 05:12 Temperature -Last 24 Hours Temperature 97.4 F Temperature 97.5 F Temperature 97.4 F Results - Labs CBC & Chem 7: 02/02/22 08:08 02/02/22 08:08 Labs: Abnormal lab results 02/01/22 02/01/22 02/01/22 Range/Units 07:55 11:36 16:11 WBC (4.5-11.0) K/mm3 RBC (3.65-5.03) M/mm3 Hgb (10.1-14.3) gm/dl Hct (30.3-42.9) % Seg Neuts % (Manual) (40.0-70.0) % Lymphocytes % (Manual) (13.4-35.0) % Seg Neutrophils # Man (1.8-7.7) K/mm3 Lymphocytes # (Manual) (1.2-5.4) K/mm3 Sodium (137-145) mmol/L Chloride (98-107) mmol/L Carbon Dioxide (22-30) mmol/L BUN (7-17) mg/dL Creatinine (0.6-1.2) mg/dL Glucose (65-100) mg/dL POC Glucose 299 H 299 H 239 H (70-105) mg/dL Calcium (8.4-10.2) mg/dL 02/02/22 02/02/22 02/02/22 Range/Units 08:08 08:08 08:23 WBC 33.2 H (4.5-11.0) K/mm3 RBC 2.81 L (3.65-5.03) M/mm3 Hgb 8.0 L (10.1-14.3) gm/dl Hct 23.8 L (30.3-42.9) % Seg Neuts % (Manual) 90.0 H (40.0-70.0) % Lymphocytes % (Manual) 2.0 L (13.4-35.0) % Seg Neutrophils # Man 29.9 H (1.8-7.7) K/mm3 Lymphocytes # (Manual) 0.7 L (1.2-5.4) K/mm3 Sodium 129 L (137-145) mmol/L Chloride 97.4 L (98-107) mmol/L Carbon Dioxide 18 L (22-30) mmol/L BUN 54 H (7-17) mg/dL Creatinine 2.6 H (0.6-1.2) mg/dL Glucose 212 H (65-100) mg/dL POC Glucose 209 H (70-105) mg/dL Calcium 7.9 L (8.4-10.2) mg/dL 02/02/22 Range/Units 12:23 WBC (4.5-11.0) K/mm3 RBC (3.65-5.03) M/mm3 Hgb (10.1-14.3) gm/dl Hct (30.3-42.9) % Seg Neuts % (Manual) (40.0-70.0) % Lymphocytes % (Manual) (13.4-35.0) % Seg Neutrophils # Man (1.8-7.7) K/mm3 Lymphocytes # (Manual) (1.2-5.4) K/mm3 Sodium (137-145) mmol/L Chloride (98-107) mmol/L Carbon Dioxide (22-30) mmol/L BUN (7-17) mg/dL Creatinine (0.6-1.2) mg/dL Glucose (65-100) mg/dL POC Glucose 190 H (70-105) mg/dL Calcium (8.4-10.2) mg/dL - Imaging and Cardiology Chest x-ray: report reviewed, image reviewed (no pneumonia) Assessment and Plan Cultures: 01/29/2022 blood culture: No growth 01/31/2022 surgical culture from right thigh: Usual skin adilia A/P: 66-year-old female with diabetes, hypertension, asthma was admitted to the hospital with complaints of generalized weakness: #Sepsis, secondary to right upper thigh abscess: S/p I&D by general surgery on 01/31/2022. As per OR note, there was foul-smelling purulent material drained, a bscess cavity appeared to track towards her inguinal area but not medially into the perianal or vaginal area #Diabetes mellitus type 2, uncontrolled #ISAIAH: Renally adjust antibiotics #Obesity Recs: -Zosyn discontinued -Ceftriaxone, Linezolid ordered -monitor WBC for improvement -wound care and packing per surgery Malena Castellano MD, FACP, [facility] O: [phone] F: [phone] C: [phone]
--- NOTE | 2022-02-02 14:45 | Progress Note ---
Assessment and Plan The patient is a 66-year-old female with diabetes, hypertension, asthma was admitted to the hospital with complaints of generalized weakness. In the ED, found to be septic with leukocytosis, fever. She was started on empiric antibiotics for right leg cellulitis and pain, CT showed an abscess, general surgery was consulted and on 01/31/2022, she underwent an I&D of right upper thigh abscess. As per OR note, there was foul-smelling purulent material drained, abscess cavity appeared to track towards her inguinal area but not medially into the perianal or vaginal area. Got IV Zosyn in the ER, then was continued on ceftriaxone/Ancef. ID was consulted for antibiotic management for persistent leukocytosis. Daily Hospital course; 01/31/2020; x-ray right hip findings reviewed Consulted surgeon Dr. Lam, planning incision and drainage abscess tomorrow Continue empiric antibiotics 01/31; s/p incision and drainage of the upper thigh abscess today, fluid sent for analysis Follow cultures, continue empiric antibiotics, continue empiric antibiotics 02/01: Worsening leukocytosis, continue antibiotics, follow cultures, urine culture sent 02/02: Resumed care, consulted ID for persistent leukocytosis. Continue current antibiotic, follow ID recommendation. Patient appears to be altered and confused and oriented to self only. Continue to provide supportive care. A/P --Metabolic encephalopathy, patient noted to be on and off confused Likely due to underlying infection, hyponatremia and ISAIAH, cannot rule out underlying dementia. Does not have any focal neurological deficit Follow clinically --Cellulitis/abscess right groin/upper thigh x-ray right groin hip findings noted Change antibiotics to IV Ancef, follow cultures Status post incision drainage by Dr. Lam 01/31/2022 Fluid sent for analysis, consulted ID --ISAIAH (acute kidney injury) Admit the patient to the medical floor. Avoid nephrotoxic drug. Renally dose medication. Continue IV fluid hydration Monitor renal function, ordered renal ultrasound Nephrology consulted --Hyperglycemia / type 2 diabetes mellitus /uncontrolled Accu-Cheks sliding scale coverage ADA diet insulin as needed Adjust long-acting insulin dose as needed, A1c 7.8 Home health nurse for monitoring on DC --Hyponatremia; IV normal saline, closely monitor electrolytes --Elevated troponin/non-ST elevation UT type II In the setting of acute kidney injury Probably type II, however patient has risk factors Cardiology following, follow echo --Sinus tachycardia/ narrow complex tachycardia/resolved Continue metoprolol, closely monitor Follow echocardiogram for LV function ejection fraction Cardiology following --Hypertension Continue current antihypertensives and as needed medications --History of hypothyroidism: Continue Synthroid and supportive care --History of bronchial asthma O-xygen by nasal cannula 3 L/min. DuoNeb via nebulizer every 4 hours. Albuterol via nebulizer every 4 hours as needed -Obesity; BMI 35.4 Behavioral modification, lifestyle changes counseling 20 minutes Counseling done advised diet modification exercise as tolerated and weight reduction When medically stable --Full CODE STATUS --DVT prophylaxis; Heparin renal dose Total time spent 35 minutes Closely monitor the patient and adjust the management as needed Consultants ID, cardiology, nephrology and surgeon's recommendations noted and appreciated Plan of care reviewed with the patient and her nurse Disposition: Follow clinically and discharged in stable Subjective Date of service: 02/02/22 Principal diagnosis: Fever, general malaise, PSVT Interval history: Patient seen and examined. Medical records and medication list reviewed. No acute event overnight noted by the RN. Patient denies any chest pain or difficulty breathing. Patient is tolerating diet. Planes of generalized body ache and right thigh pain Discussed plan of care at bedside with patient's RN. Objective - Exam Narrative Exam: GENERAL: well-developed obese elderly -Irish female lying on bed appeared to be in no discomfort. HEENT: Normocephalic. Atraumatic. No conjunctival congestion or icterus. Patient has moist mucous membranes. NECK: Supple. Trachea midline. CHEST/LUNGS: Clear to auscultated bilaterally, breathing nonlabored. No wheezes crackles or rhonchi. HEART/CARDIOVASCULAR: Regular in rate and rhythm. S1 and S2 positive. ABDOMEN: Abdomen is soft, nontender. Patient has normal bowel sounds. SKIN: There is no rash. Warm and dry. NEURO: No focal motor deficit. Follows command. Oriented to self only MUSCULOSKELETAL: No joint effusion or tenderness. EXTRIMITY: No edema, no cyanosis or clubbing. PSYCH: Cooperative. - Constitutional Vitals: Vital Signs - 12hr 02/02/22 02/02/22 02/02/22 05:12 08:43 13:56 Temperature 97.4 F L Pulse Rate 54 L Pulse Rate [ 72 74 Anterior Bilateral Throughout] Respiratory 18 Rate Respiratory 18 18 Rate [Anterior Bilateral Throughout] Blood Pressure 129/63 [Left] O2 Sat by Pulse 100 Oximetry - Labs CBC & Chem 7: 02/06/22 04:25 02/07/22 05:31 Labs: Abnormal lab results 02/01/22 02/01/22 02/01/22 Range/Units 07:55 11:36 16:11 WBC (4.5-11.0) K/mm3 RBC (3.65-5.03) M/mm3 Hgb (10.1-14.3) gm/dl Hct (30.3-42.9) % Seg Neuts % (Manual) (40.0-70.0) % Lymphocytes % (Manual) (13.4-35.0) % Seg Neutrophils # Man (1.8-7.7) K/mm3 Lymphocytes # (Manual) (1.2-5.4) K/mm3 Sodium (137-145) mmol/L Chloride (98-107) mmol/L Carbon Dioxide (22-30) mmol/L BUN (7-17) mg/dL Creatinine (0.6-1.2) mg/dL Glucose (65-100) mg/dL POC Glucose 299 H 299 H 239 H (70-105) mg/dL Calcium (8.4-10.2) mg/dL 02/02/22 02/02/22 02/02/22 Range/Units 08:08 08:08 08:23 WBC 33.2 H (4.5-11.0) K/mm3 RBC 2.81 L (3.65-5.03) M/mm3 Hgb 8.0 L (10.1-14.3) gm/dl Hct 23.8 L (30.3-42.9) % Seg Neuts % (Manual) 90.0 H (40.0-70.0) % Lymphocytes % (Manual) 2.0 L (13.4-35.0) % Seg Neutrophils # Man 29.9 H (1.8-7.7) K/mm3 Lymphocytes # (Manual) 0.7 L (1.2-5.4) K/mm3 Sodium 129 L (137-145) mmol/L Chloride 97.4 L (98-107) mmol/L Carbon Dioxide 18 L (22-30) mmol/L BUN 54 H (7-17) mg/dL Creatinine 2.6 H (0.6-1.2) mg/dL Glucose 212 H (65-100) mg/dL POC Glucose 209 H (70-105) mg/dL Calcium 7.9 L (8.4-10.2) mg/dL 02/02/22 Range/Units 12:23 WBC (4.5-11.0) K/mm3 RBC (3.65-5.03) M/mm3 Hgb (10.1-14.3) gm/dl Hct (30.3-42.9) % Seg Neuts % (Manual) (40.0-70.0) % Lymphocytes % (Manual) (13.4-35.0) % Seg Neutrophils # Man (1.8-7.7) K/mm3 Lymphocytes # (Manual) (1.2-5.4) K/mm3 Sodium (137-145) mmol/L Chloride (98-107) mmol/L Carbon Dioxide (22-30) mmol/L BUN (7-17) mg/dL Creatinine (0.6-1.2) mg/dL Glucose (65-100) mg/dL POC Glucose 190 H (70-105) mg/dL Calcium (8.4-10.2) mg/dL HEART Score - HEART Score Troponin: Troponin T 0.068 ng/mL (0.00-0.029) H 01/29/22 00:27
[2022-02-02] MEDS: cefTRIAXone/NS 2 GM/100 ML 2 GM/100 ML BAG IV SCH (15:40)
[2022-02-02] MEDS: LINEZOLID 600 MG TAB PO SCH ×2 (15:42→21:32)
[2022-02-02] MEDS: oxyCODONE 5 MG TAB PO PRN (21:32)
[2022-02-03] MEDS ORDERED: ZIPRASIDONE MESYLATE 20 MG VIAL IM ONE (00:47)
[2022-02-03] MEDS: SODIUM CHLORIDE 0.9% 1000 ML 1,000 ML IV SCH (05:00)
[2022-02-03] MEDS: LEVOTHYROXINE 100 MCG TAB PO SCH (06:24)
[2022-02-03] MEDS: LEVOTHYROXINE 75 MCG TAB PO SCH (06:24)
[2022-02-03] MEDS: METOPROLOL TARTRATE 50 MG TAB PO SCH ×3 (06:26→22:09)
[2022-02-03 08:48] LABS: Hematocrit 28.3 % (30.3-42.9); Mean Corpuscular HGB Conc 32 % (30-34); Mean Corpuscular Volume 86 fl (79-97); Platelet Count 215 K/mm3 (140-440); Red Blood Count 3.29 M/mm3 (3.65-5.03); Red Cell Distribution Width 15.5 % (13.2-15.2)
[2022-02-03 09:07] LABS: Calcium 8.4 mg/dL (8.4-10.2)
[2022-02-03] MEDS: INSULIN NPH/REGULAR 70/30 INJ SUB-Q SCH ×2 (09:40→17:26)
[2022-02-03] MEDS: HEPARIN 5,000 UNIT/1 ML VIAL SUB-Q SCH ×2 (09:41→21:16)
[2022-02-03] MEDS: FERROUS SULFATE 325 MG TAB PO SCH ×3 (09:44→21:15)
[2022-02-03] MEDS: SODIUM HYPOCHLORITE, DAKIN'S 1/2 STRENGTH (0.25%) 473 ML TOPICAL SOLN TP SCH ×2 (09:44→21:15)
[2022-02-03] MEDS: FAMOTIDINE 10 MG TAB PO SCH ×2 (09:44→21:14)
[2022-02-03] MEDS: cefTRIAXone/NS 2 GM/100 ML 2 GM/100 ML BAG IV SCH (09:45)
[2022-02-03] MEDS: LINEZOLID 600 MG TAB PO SCH ×2 (09:45→21:15)
--- NOTE | 2022-02-03 09:48 | Progress Note ---
Assessment and Plan Cultures: 01/29/2022 blood culture: No growth 01/31/2022 surgical culture from right thigh: Usual skin adilia A/P: 66-year-old female with diabetes, hypertension, asthma was admitted to the hospital with complaints of generalized weakness: #Sepsis, secondary to right upper thigh abscess: S/p I&D by general surgery on 01/31/2022. As per OR note, there was foul-smelling purulent material drained, a bscess cavity appeared to track towards her inguinal area but not medially into the perianal or vaginal area #Diabetes mellitus type 2, uncontrolled #ISAIAH: Renally adjust antibiotics #Obesity Recs: -continue Ceftriaxone, Linezolid, D2 -monitor WBC for improvement, if continued improvement tomorrow, may discharge on PO Augmentin 875 mg BID + PO Linezolid 600 mg BID x 7 days -wound care and packing per surgery -optimize glycemic control Malena Castellano MD, FACP, [facility] O: [phone] F: [phone] C: [phone] Subjective Date of service: 02/03/22 Principal diagnosis: Fever, general malaise, PSVT Interval history: No fever. Reports feeling better today. Pain is also improving. Objective - Exam Narrative Exam: Physical Exam: Constitutional: Alert, cooperative. No acute distress Head, Ears, Nose: Normocephalic, atraumatic. External ears, nose normal Eyes: Conjunctivae/corneas clear. No icterus. No ptosis. Neck: Supple, no meningeal signs Cardiovascular: S1, S2 + Respiratory: Good air entry, clear to auscultation bilaterally GI: Soft, non-tender; bowel sounds normal. No peritoneal signs Musculoskeletal: Right thigh with dressing with induration around it Skin: No rash or abscess Hem/Lymphatic: No palpable cervical or supraclavicular nodes. No lymphangitis Psych: Mood ok. Affect normal Neurological: Awake, alert, oriented. No gross abnormality - Constitutional Vitals: Vital Signs Temp Pulse Resp BP Pulse Ox 97.7 F 72 20 159/76 93 02/03/22 05:33 02/03/22 06:26 02/03/22 05:33 02/03/22 06:26 08/31/22 05:33 Temperature -Last 24 Hours Temperature 97.7 F Temperature 97.9 F Temperature 97.6 F - Labs CBC & Chem 7: 02/03/22 08:20 02/03/22 08:20 Labs: Abnormal lab results 02/02/22 02/02/22 02/02/22 Range/Units 08:08 08:23 12:23 WBC (4.5-11.0) K/mm3 RBC (3.65-5.03) M/mm3 Hgb (10.1-14.3) gm/dl Hct (30.3-42.9) % MCH (28-32) pg RDW (13.2-15.2) % Seg Neuts % (Manual) 90.0 H (40.0-70.0) % Lymphocytes % (Manual) 2.0 L (13.4-35.0) % Seg Neutrophils # Man 29.9 H (1.8-7.7) K/mm3 Lymphocytes # (Manual) 0.7 L (1.2-5.4) K/mm3 Chloride (98-107) mmol/L Carbon Dioxide (22-30) mmol/L BUN (7-17) mg/dL Creatinine (0.6-1.2) mg/dL Glucose (65-100) mg/dL POC Glucose 209 H 190 H (70-105) mg/dL 02/02/22 02/02/22 02/03/22 Range/Units 17:00 22:28 08:20 WBC 22.3 H (4.5-11.0) K/mm3 RBC 3.29 L (3.65-5.03) M/mm3 Hgb 9.0 L (10.1-14.3) gm/dl Hct 28.3 L (30.3-42.9) % MCH 27 L (28-32) pg RDW 15.5 H (13.2-15.2) % Seg Neuts % (Manual) (40.0-70.0) % Lymphocytes % (Manual) (13.4-35.0) % Seg Neutrophils # Man (1.8-7.7) K/mm3 Lymphocytes # (Manual) (1.2-5.4) K/mm3 Chloride (98-107) mmol/L Carbon Dioxide (22-30) mmol/L BUN (7-17) mg/dL Creatinine (0.6-1.2) mg/dL Glucose (65-100) mg/dL POC Glucose 143 H 113 H (70-105) mg/dL 02/03/22 Range/Units 08:20 WBC (4.5-11.0) K/mm3 RBC (3.65-5.03) M/mm3 Hgb (10.1-14.3) gm/dl Hct (30.3-42.9) % MCH (28-32) pg RDW (13.2-15.2) % Seg Neuts % (Manual) (40.0-70.0) % Lymphocytes % (Manual) (13.4-35.0) % Seg Neutrophils # Man (1.8-7.7) K/mm3 Lymphocytes # (Manual) (1.2-5.4) K/mm3 Chloride 107.1 H (98-107) mmol/L Carbon Dioxide 20 L (22-30) mmol/L BUN 58 H (7-17) mg/dL Creatinine 2.5 H (0.6-1.2) mg/dL Glucose 54 L (65-100) mg/dL POC Glucose (70-105) mg/dL
[2022-02-03] MEDS: IPRATROPIUM/ALBUTEROL SULFATE 3 ML AMPUL.NEB IH SCH ×3 (10:00→19:50)
[2022-02-03] MEDS: INSULIN LISPRO 100 UNIT/ML SUB-Q SCH ×3 (10:22→18:33)
--- NOTE | 2022-02-03 12:28 | Progress Note ---
Assessment and Plan - Patient Problems (1) Elevated troponin Current Visit: Yes Status: Acute Plan to address problem: Patient was admitted with sepsis and acute kidney injury, nonspecific troponin findings. Echocardiogram shows normal left ventricular systolic function, ejection fraction 60 to 65%. Conservative cardiac management. Follow intermittently. (2) Narrow complex tachycardia Current Visit: Yes Status: Acute Plan to address problem: Patient developed spontaneous narrow complex tachycardia in the emergency room, treated with IV metoprolol. Morphology of the tachycardia appears likely AV node reentry tachycardia. Continue metoprolol. Follow intermittently. Subjective Date of service: 02/03/22 Principal diagnosis: Fever, general malaise, PSVT Interval history: Patient is comfortable no new cardiac complaints, no cardiac events reported. Objective Vital Signs Temp Pulse Pulse Resp Resp BP Pulse Ox 02/03/22 08:00 62 16 02/03/22 06:26 72 159/76 02/03/22 05:33 97.7 F 72 20 159/76 93 02/03/22 01:00 100 02/02/22 23:14 71 157/66 02/02/22 22:32 97.9 F 75 20 178/82 100 02/02/22 20:11 68 20 02/02/22 16:02 97.6 F 77 18 140/69 98 02/02/22 13:56 74 18 - Physical Examination General: No Apparent Distress HEENT: Positive: PERRL Neck: Positive: neck supple Cardiac: Positive: Reg Rate and Rhythm Lungs: Positive: Decreased Breath Sounds Neuro: Positive: Grossly Intact Abdomen: Positive: Soft Skin: Positive: Clear Extremities: Absent: edema - Labs and Meds CBC 02/03/22 Range/Units 08:20 WBC 22.3 H (4.5-11.0) K/mm3 RBC 3.29 L (3.65-5.03) M/mm3 Hgb 9.0 L (10.1-14.3) gm/dl Hct 28.3 L (30.3-42.9) % Plt Count 215 (140-440) K/mm3 Comprehensive Metabolic Panel 02/03/22 Range/Units 08:20 Sodium 139 D (137-145) mmol/L Potassium 3.9 (3.6-5.0) mmol/L Chloride 107.1 H (98-107) mmol/L Carbon Dioxide 20 L (22-30) mmol/L BUN 58 H (7-17) mg/dL Creatinine 2.5 H (0.6-1.2) mg/dL Glucose 54 L (65-100) mg/dL Calcium 8.4 (8.4-10.2) mg/dL
--- NOTE | 2022-02-03 12:40 | Progress Note ---
Assessment and Plan Assessment: Cellulitis/abscess right groin/upper thigh ISAIAH (acute kidney injury) Hyperglycemia due to type 2 diabetes mellitus Hyponatremia Elevated troponin/non-ST elevation [place] type II Sinus tachycardia/ narrow complex tachycardia/resolved Hypertension History of bronchial asthma Obesity; BMI 35.4 Anemia Plan: -Renal labs reviewed. Serum creatinine was 2.5 today, yesterday's was 2.6, has good UOP of 1100 ml -Serum creatinine was normal in 2016. No recent baseline serum creatinine available so not sure if has CKD or not -Renal ultrasound reviewed-Left renal cysts. No hydronephrosis. -Urine lytes reviewed, No urine eosinophils. Has proteinuria, likely from DM -SPEP and serum free light chains are pending -Low iron level-on Ferrous Sulfate 325 mg po TID -Recent sodium level today was 139, prior was 129 -On NS@ 100 ml/hr, decrease to 50 ml/hr -PTH level was 65, monitor -CK level was 127 -Echo-LVEF was 60-65% -Holding home Spironolactone for now -Not resuming home Metformin given advanced renal disease -Renally dose all medications -Avoid nephrotoxic agents -Strict I/O's daily -Continue to monitor renal function closely -No acute indication for RESOURCE SPECIALIST -Plan of care reviewed by Dr. Palacios Subjective Date of service: 02/03/22 Principal diagnosis: Fever, general malaise, PSVT Interval history: Patient seen lying in bed. No family at bedside. RN at bedside about to remove song and place [place] Objective - Vital Signs Vital signs: Vital Signs - 12hr 02/03/22 02/03/22 02/03/22 01:00 05:33 06:26 Temperature 97.7 F Pulse Rate 72 72 Pulse Rate [ Anterior Bilateral Throughout] Respiratory 20 Rate Respiratory Rate [Anterior Bilateral Throughout] Blood Pressure 159/76 159/76 O2 Sat by Pulse 100 93 Oximetry 02/03/22 08:00 Temperature Pulse Rate Pulse Rate [ 62 Anterior Bilateral Throughout] Respiratory Rate Respiratory 16 Rate [Anterior Bilateral Throughout] Blood Pressure O2 Sat by Pulse Oximetry - General Appearance General appearance: well-developed EENT: ATNC Neck: no JVD, supple Respiratory: Present: Decreased Breath Sounds Cardiology: S1S2 Gastrointestinal: normoactive bowel sounds Integumentary: warm and dry Neurologic: other (Awake and confused) Musculoskeletal: joint swelling, other (has pvd) - Lab 02/03/22 08:20 02/03/22 08:20 Most recent lab results Calcium 8.4 mg/dL (8.4-10.2) 02/03/22 08:20 Magnesium 2.20 mg/dL (1.7-2.3) 02/01/22 11:15 Urine Creatinine 152.6 mg/dL (0.1-20.0) H 02/01/22 03:55 Urine Creatinine 153.8 mg/dL (0.1-20.0) H 02/01/22 03:55 Urine Sodium 15 mmol/L 02/01/22 03:55 Urine Total Protein 209 mg/dL (5-11.8) H 02/01/22 03:55 Medications & Allergies - Medications Allergies/Adverse Reactions: Allergies No Known Allergies Allergy (Unverified 08/01/15 23:02) Home Medications: Home Medications Medication Instructions Recorded Confirmed Last Taken Type Azithromycin [Zithromax TAB] 500 mg PO QDAY #7 tablet 08/05/15 02/02/22 Unknown Rx Cinacalcet HCl [Sensipar] 60 mg PO DAILY #30 tablet 08/05/15 02/02/22 Unknown Rx Insulin Lispro Prot/Lispro 28 units SUB-Q 1700 units 08/05/15 02/02/22 Unknown Rx [HumaLOG Mix 75/25 Vial] Insulin Lispro Prot/Lispro 30 units SUB-Q QDDIAB units 08/05/15 02/02/22 Unknown Rx [HumaLOG Mix 75/25 Vial] Insulin Lispro [HumaLOG VIAL] 28 units SQ QHS #1 vial 08/05/15 02/02/22 Unknown Rx Insulin Lispro [HumaLOG VIAL] 30 units SQ QAM #1 vial 08/05/15 02/02/22 Unknown Rx Levothyroxine [Synthroid] 175 mcg PO QAM #30 tablet 08/05/15 02/02/22 Unknown Rx Prednisone [predniSONE 10 mg 10 mg PO .TAPER #1 tab.ds.pk 08/05/15 02/02/22 Unknown Rx (6-Day Pack, 21 Tabs)] Spironolactone [Aldactone] 100 mg PO QDAY #30 tablet 08/05/15 02/02/22 Unknown Rx carvediloL [Coreg] 3.125 mg PO BID #60 tablet 08/05/15 02/02/22 Unknown Rx metFORMIN [Glucophage] 500 mg PO BID #30 tablet 08/05/15 02/02/22 Unknown Rx Active Medications: Generic Name Dose Route Start Last Admin Trade Name Freq PRN Reason Stop Dose Admin Acetaminophen 650 mg 01/29/22 03:54 Acetaminophen 325 Mg Tab PO Q4H PRN Pain MILD(1-3)/Fever >100.5/GARCIA Albuterol 2.5 mg 01/29/22 03:54 Albuterol 2.5 Mg/3 Ml Nebu IH Q3HRT PRN Shortness Of Breath Albuterol/Ipratropium 1 ampul 01/31/22 08:00 02/03/22 10:00 Ipratropium/Albuterol Sulfate 3 Ml Ampul.Neb IH 1 ampul TIDRT ABDIAZIZ Administration Dextrose 50 ml 01/29/22 03:54 01/31/22 07:44 Dextrose 50% In Water (25gm) 50 Ml Syringe IV 50 ml Q30MIN PRN Administration Hypoglycemia Protocol Famotidine 10 mg 01/29/22 10:00 02/03/22 09:44 Famotidine 10 Mg Tab PO 10 mg BID ABDIAZIZ Administration Ferrous Sulfate 325 mg 02/01/22 14:00 02/03/22 09:44 Ferrous Sulfate 325 Mg Tab PO 325 mg TID ABDIAZIZ Administration Heparin Sodium (Porcine) 5,000 unit 01/29/22 22:00 02/03/22 09:41 Heparin 5,000 Unit/1 Ml Vial SUB-Q 5,000 unit Q12HR ABDIAZIZ Administration Sodium Chloride 1,000 mls @ 100 mls/hr 01/29/22 08:00 02/03/22 05:00 Nacl 0.9% 1000 Ml IV 100 mls/hr DIRECT ABDIAZIZ Administration Ceftriaxone Sodium 2 gm in 100 mls @ 200 mls/hr 02/02/22 14:00 02/03/22 09:45 Rocephin/Ns 2 Gm/100 Ml IV 200 mls/hr Q24HR ABDIAZIZ Administration Protocol Insulin Human Isoph/Insulin Regular 18 unit 02/02/22 08:00 02/03/22 09:40 Insulin Nph/Regular 70/30 Inj SUB-Q 18 unit BIDDIAB ABDIAZIZ Administration Insulin Human Lispro 0 unit 01/29/22 07:30 02/03/22 10:22 Insulin Lispro 100 Unit/Ml SUB-Q Not Given ACHS [facility] Protocol Levothyroxine Sodium 100 mcg 01/29/22 06:00 02/03/22 06:24 Levothyroxine 100 Mcg Tab PO 100 mcg QAM@0600 ABDIAZIZ Administration Levothyroxine Sodium 75 mcg 01/29/22 06:00 02/03/22 06:24 Levothyroxine 75 Mcg Tab PO 75 mcg QAM@0600 ABDIAZIZ Administration Linezolid 600 mg 02/02/22 14:00 02/03/22 09:45 Linezolid 600 Mg Tab PO 600 mg Q12HR ABDIAZIZ Administration Protocol Loperamide HCl 2 mg 01/30/22 12:14 01/30/22 12:43 Loperamide 2 Mg Cap PO 2 mg Q2H PRN Administration Diarrhea Metoprolol Tartrate 50 mg 01/29/22 15:00 02/03/22 06:26 Metoprolol Tartrate 50 Mg Tab PO 50 mg Q8H ABDIAZIZ Administration Ondansetron HCl 4 mg 01/29/22 03:54 Ondansetron 4 Mg/2 Ml Inj IV Q8H PRN Nausea And Vomiting Oxycodone HCl 5 mg 02/02/22 12:00 02/02/22 21:32 Oxycodone 5 Mg Tab PO 5 mg Q4H PRN Administration Pain, Moderate (4-6) Sodium Chloride 10 ml 01/29/22 10:00 02/03/22 09:44 Sodium Chloride 0.9% 10 Ml Flush Syringe IV 10 ml BID ABDIAZIZ Administration Sodium Chloride 10 ml 01/29/22 03:54 Sodium Chloride 0.9% 10 Ml Flush Syringe IV PRN PRN LINE FLUSH Sodium Hypochlorite 1 applic 02/02/22 10:00 02/03/22 09:44 Sodium Hypochlorite, Dakin's 1/2 Strength (0.25%) 473 Ml Topical Soln TP 1 applicatio BID ABDIAZIZ Administration
--- NOTE | 2022-02-03 15:53 | Event Note ---
Date: 02/03/22 Patient's chart was reviewed. Patient was sleeping soundly when I went for evaluation. No acute events overnight. Dressing was changed by nurse adequately. Patient's white blood cell count has dropped over 11 point since yesterday after infectious disease recommendations were started by changing antibiotics. Continue daily nursing dressing changes with Dakin solution and antibiotics per infectious disease. Continue to keep tight glucose control.
--- NOTE | 2022-02-03 16:06 | Progress Note ---
Assessment and Plan The patient is a 66-year-old female with diabetes, hypertension, asthma was admitted to the hospital with complaints of generalized weakness. In the ED, found to be septic with leukocytosis, fever. She was started on empiric antibiotics for right leg cellulitis and pain, CT showed an abscess, general surgery was consulted and on 01/31/2022, she underwent an I&D of right upper thigh abscess. As per OR note, there was foul-smelling purulent material drained, abscess cavity appeared to track towards her inguinal area but not medially into the perianal or vaginal area. Got IV Zosyn in the ER, then was continued on ceftriaxone/Ancef. ID was consulted for antibiotic management for persistent leukocytosis. Daily Hospital course; 01/31/2020; x-ray right hip findings reviewed Consulted surgeon Dr. Lam, planning incision and drainage abscess tomorrow Continue empiric antibiotics 01/31; s/p incision and drainage of the upper thigh abscess today, fluid sent for analysis Follow cultures, continue empiric antibiotics, continue empiric antibiotics 02/01: Worsening leukocytosis, continue antibiotics, follow cultures, urine culture sent 02/02: Resumed care, consulted ID for persistent leukocytosis. Continue current antibiotic, follow ID recommendation. Patient appears to be altered and confused and oriented to self only. Continue to provide supportive care. 02/03: Noted ID recommendation. Added linezolid along with Rocephin. Monitor WBC to see improvement. Wound care and packing per surgery. Glycemic control. Monitor renal function, continue IV fluid. A/P --Metabolic encephalopathy, patient noted to be on and off confused Likely due to underlying infection, hyponatremia and ISAIAH, cannot rule out underlying dementia. Does not have any focal neurological deficit Follow clinically --Cellulitis/abscess right groin/upper thigh x-ray right groin hip findings noted Change antibiotics to IV Rocephin and linezolid, follow cultures Status post incision drainage by Dr. Lam 01/31/2022 Fluid sent for analysis, consulted ID --ISAIAH (acute kidney injury), likely ATN Admit the patient to the medical floor. Avoid nephrotoxic drug. Renally dose medication. Continue IV fluid hydration Monitor renal function, ordered renal ultrasound Nephrology consulted --Hyperglycemia / type 2 diabetes mellitus /uncontrolled Accu-Cheks sliding scale coverage ADA diet insulin as needed Adjust long-acting insulin dose as needed, A1c 7.8 Home health nurse for monitoring on DC --Hyponatremia; IV normal saline, closely monitor electrolytes --Elevated troponin/non-ST elevation [place] type II In the setting of acute kidney injury Probably type II, however patient has risk factors Cardiology following, follow echo --Sinus tachycardia/ narrow complex tachycardia/resolved Continue metoprolol, closely monitor Follow echocardiogram for LV function ejection fraction Cardiology following --Hypertension Continue current antihypertensives and as needed medications --History of hypothyroidism: Continue Synthroid and supportive care --History of bronchial asthma O-xygen by nasal cannula 3 L/min. DuoNeb via nebulizer every 4 hours. Albuterol via nebulizer every 4 hours as needed -Obesity; BMI 35.4 Behavioral modification, lifestyle changes counseling 20 minutes Counseling done advised diet modification exercise as tolerated and weight reduction When medically stable --Full CODE STATUS --DVT prophylaxis; Heparin renal dose Total time spent 35 minutes Closely monitor the patient and adjust the management as needed Consultants ID, cardiology, nephrology and surgeon's recommendations noted and appreciated Plan of care reviewed with the patient and her nurse Disposition: Follow clinically and discharged in stable Subjective Date of service: 02/03/22 Principal diagnosis: Fever, general malaise, PSVT Interval history: Patient seen and examined. Medical records and medication list reviewed. No acute event overnight noted by the RN. Patient denies any chest pain or difficulty breathing. Patient is tolerating diet. Complaints of generalized body ache and right thigh pain Discussed plan of care at bedside with patient's RN. Objective - Exam Narrative Exam: GENERAL: well-developed obese elderly -[place] female lying on bed appeared to be in no discomfort. HEENT: Normocephalic. Atraumatic. No conjunctival congestion or icterus. Patient has moist mucous membranes. NECK: Supple. Trachea midline. CHEST/LUNGS: Clear to auscultated bilaterally, breathing nonlabored. No wheezes crackles or rhonchi. HEART/CARDIOVASCULAR: Regular in rate and rhythm. S1 and S2 positive. ABDOMEN: Abdomen is soft, nontender. Patient has normal bowel sounds. SKIN: There is no rash. Warm and dry. NEURO: No focal motor deficit. Follows command. Oriented to self only MUSCULOSKELETAL: No joint effusion or tenderness. Right thigh dressing EXTRIMITY: No edema, no cyanosis or clubbing. PSYCH: Cooperative. - Constitutional Vitals: Vital Signs - 12hr 08/31/22 08/31/22 08/31/22 05:33 06:26 08:00 Temperature 97.7 F Pulse Rate 72 72 Pulse Rate [ 62 Anterior Bilateral Throughout] Respiratory 20 Rate Respiratory 16 Rate [Anterior Bilateral Throughout] Blood Pressure 159/76 159/76 O2 Sat by Pulse 93 Oximetry 02/03/22 02/03/22 02/03/22 11:58 13:00 14:00 Temperature 97.6 F Pulse Rate 64 Pulse Rate [ 70 Anterior Bilateral Throughout] Respiratory 22 Rate Respiratory 17 Rate [Anterior Bilateral Throughout] Blood Pressure 163/72 O2 Sat by Pulse 99 97 Oximetry - Labs CBC & Chem 7: 02/06/22 04:25 02/07/22 05:31 Labs: Abnormal lab results 02/02/22 02/02/22 02/03/22 Range/Units 17:00 22:28 08:20 WBC 22.3 H (4.5-11.0) K/mm3 RBC 3.29 L (3.65-5.03) M/mm3 Hgb 9.0 L (10.1-14.3) gm/dl Hct 28.3 L (30.3-42.9) % MCH 27 L (28-32) pg RDW 15.5 H (13.2-15.2) % Chloride (98-107) mmol/L Carbon Dioxide (22-30) mmol/L BUN (7-17) mg/dL Creatinine (0.6-1.2) mg/dL Glucose (65-100) mg/dL POC Glucose 143 H 113 H (70-105) mg/dL 02/03/22 02/03/22 Range/Units 08:20 09:58 WBC (4.5-11.0) K/mm3 RBC (3.65-5.03) M/mm3 Hgb (10.1-14.3) gm/dl Hct (30.3-42.9) % MCH (28-32) pg RDW (13.2-15.2) % Chloride 107.1 H (98-107) mmol/L Carbon Dioxide 20 L (22-30) mmol/L BUN 58 H (7-17) mg/dL Creatinine 2.5 H (0.6-1.2) mg/dL Glucose 54 L (65-100) mg/dL POC Glucose 65 L (70-105) mg/dL HEART Score - HEART Score Troponin: Troponin T 0.068 ng/mL (0.00-0.029) H 01/29/22 00:27
[2022-02-03 16:41] LABS: Basophils % (Manual) 0 % (0.0-1.8); Eosinophils % (Manual) 0 % (0.0-4.3); Platelet Estimate Consistent w Auto; RBC Morphology Normal; Total Cells Counted 100
[2022-02-04] MEDS: INSULIN LISPRO 100 UNIT/ML SUB-Q SCH ×4 (03:04→16:39)
[2022-02-04] MEDS: LEVOTHYROXINE 75 MCG TAB PO SCH (05:24)
[2022-02-04] MEDS: LEVOTHYROXINE 100 MCG TAB PO SCH (05:24)
[2022-02-04] MEDS: METOPROLOL TARTRATE 50 MG TAB PO SCH ×3 (07:00→22:00)
[2022-02-04] MEDS: FERROUS SULFATE 325 MG TAB PO SCH ×3 (08:00→21:39)
[2022-02-04] MEDS: INSULIN NPH/REGULAR 70/30 INJ SUB-Q SCH ×2 (08:00→17:20)
[2022-02-04 08:49] LABS: Hematocrit 27.3 % (30.3-42.9); Hemoglobin 8.6 gm/dl (10.1-14.3); Mean Corpuscular HGB Conc 31 % (30-34); Mean Corpuscular Volume 89 fl (79-97); Platelet Count 194 K/mm3 (140-440); Red Blood Count 3.06 M/mm3 (3.65-5.03); Red Cell Distribution Width 15.9 % (13.2-15.2)
[2022-02-04 09:04] LABS: Calcium 8.2 mg/dL (8.4-10.2)
[2022-02-04] MEDS: IPRATROPIUM/ALBUTEROL SULFATE 3 ML AMPUL.NEB IH SCH ×3 (09:30→20:40)
--- NOTE | 2022-02-04 09:30 | Progress Note ---
Assessment and Plan Cellulitis/abscess right groin/upper thigh ISAIAH (acute kidney injury) Hyperglycemia due to type 2 diabetes mellitus Hyponatremia Elevated troponin/non-ST elevation [place] type II Sinus tachycardia/ narrow complex tachycardia/resolved Hypertension History of bronchial asthma Obesity; BMI 35.4 Anemia Plan: -Cr is trending down -will start bicitra for metabolic acidosi -Serum creatinine was normal in 2016. No recent baseline serum creatinine available so not sure if has CKD or not -Renal ultrasound reviewed-Left renal cysts. No hydronephrosis. -Urine lytes reviewed, No urine eosinophils. 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 Subjective Date of service: 02/04/22 Principal diagnosis: Fever, general malaise, PSVT Interval history: no overnight events Objective - Vital Signs Vital signs: Vital Signs - 12hr 02/03/22 02/03/22 02/04/22 21:31 22:09 05:21 Temperature 97.8 F 98.1 F Pulse Rate 78 78 73 Respiratory 18 20 Rate Blood Pressure 174/80 174/80 Blood Pressure 158/73 [Left] O2 Sat by Pulse 86 95 Oximetry - Lab 02/04/22 08:01 02/04/22 08:01 Most recent lab results Calcium 8.2 mg/dL (8.4-10.2) L 02/04/22 08:01 Magnesium 2.20 mg/dL (1.7-2.3) 02/01/22 11:15 Urine Creatinine 152.6 mg/dL (0.1-20.0) H 02/01/22 03:55 Urine Creatinine 153.8 mg/dL (0.1-20.0) H 02/01/22 03:55 Urine Sodium 15 mmol/L 02/01/22 03:55 Urine Total Protein 209 mg/dL (5-11.8) H 02/01/22 03:55 Medications & Allergies - Medications Allergies/Adverse Reactions: Allergies No Known Allergies Allergy (Unverified 08/01/15 23:02) Home Medications: Home Medications Medication Instructions Recorded Confirmed Last Taken Type Azithromycin [Zithromax TAB] 500 mg PO QDAY #7 tablet 08/05/15 02/02/22 Unknown Rx Cinacalcet HCl [Sensipar] 60 mg PO DAILY #30 tablet 08/05/15 02/02/22 Unknown Rx Insulin Lispro Prot/Lispro 28 units SUB-Q 1700 units 08/05/15 02/02/22 Unknown Rx [HumaLOG Mix 75/25 Vial] Insulin Lispro Prot/Lispro 30 units SUB-Q QDDIAB units 08/05/15 02/02/22 Unknown Rx [HumaLOG Mix 75/25 Vial] Insulin Lispro [HumaLOG VIAL] 28 units SQ QHS #1 vial 08/05/15 02/02/22 Unknown Rx Insulin Lispro [HumaLOG VIAL] 30 units SQ QAM #1 vial 08/05/15 02/02/22 Unknown Rx Levothyroxine [Synthroid] 175 mcg PO QAM #30 tablet 08/05/15 02/02/22 Unknown Rx Prednisone [predniSONE 10 mg 10 mg PO .TAPER #1 tab.ds.pk 08/05/15 02/02/22 Unknown Rx (6-Day Pack, 21 Tabs)] Spironolactone [Aldactone] 100 mg PO QDAY #30 tablet 08/05/15 02/02/22 Unknown Rx carvediloL [Coreg] 3.125 mg PO BID #60 tablet 08/05/15 02/02/22 Unknown Rx metFORMIN [Glucophage] 500 mg PO BID #30 tablet 08/05/15 02/02/22 Unknown Rx Active Medications: Generic Name Dose Route Start Last Admin Trade Name Freq PRN Reason Stop Dose Admin Acetaminophen 650 mg 01/29/22 03:54 Acetaminophen 325 Mg Tab PO Q4H PRN Pain MILD(1-3)/Fever >100.5/GARCIA Albuterol 2.5 mg 01/29/22 03:54 Albuterol 2.5 Mg/3 Ml Nebu IH Q3HRT PRN Shortness Of Breath Albuterol/Ipratropium 1 ampul 01/31/22 08:00 02/03/22 19:50 Ipratropium/Albuterol Sulfate 3 Ml Ampul.Neb IH 1 ampul TIDRT ABDIAZIZ Administration Dextrose 50 ml 01/29/22 03:54 01/31/22 07:44 Dextrose 50% In Water (25gm) 50 Ml Syringe IV 50 ml Q30MIN PRN Administration Hypoglycemia Protocol Famotidine 10 mg 01/29/22 10:00 02/03/22 21:14 Famotidine 10 Mg Tab PO 10 mg BID ABDIAZIZ Administration Ferrous Sulfate 325 mg 02/01/22 14:00 02/03/22 21:15 Ferrous Sulfate 325 Mg Tab PO 325 mg TID ABDIAZIZ Administration Heparin Sodium (Porcine) 5,000 unit 01/29/22 22:00 02/03/22 21:16 Heparin 5,000 Unit/1 Ml Vial SUB-Q 5,000 unit Q12HR ABDIAZIZ Administration Sodium Chloride 1,000 mls @ 50 mls/hr 01/29/22 08:00 02/03/22 05:00 Nacl 0.9% 1000 Ml IV 100 mls/hr DIRECT ABDIAZIZ Administration Ceftriaxone Sodium 2 gm in 100 mls @ 200 mls/hr 02/02/22 14:00 02/03/22 09:45 Rocephin/Ns 2 Gm/100 Ml IV 200 mls/hr Q24HR ABDIAZIZ Administration Protocol Insulin Human Isoph/Insulin Regular 18 unit 02/02/22 08:00 02/03/22 17:26 Insulin Nph/Regular 70/30 Inj SUB-Q 18 unit BIDDIAB ABDIAZIZ Administration Insulin Human Lispro 0 unit 01/29/22 07:30 02/04/22 07:30 Insulin Lispro 100 Unit/Ml SUB-Q Not Given ACHS ABDIAZIZ Protocol Levothyroxine Sodium 100 mcg 01/29/22 06:00 02/04/22 05:24 Levothyroxine 100 Mcg Tab PO 100 mcg QAM@0600 ABDIAZIZ Administration Levothyroxine Sodium 75 mcg 01/29/22 06:00 02/04/22 05:24 Levothyroxine 75 Mcg Tab PO 75 mcg QAM@0600 ABDIAZIZ Administration Linezolid 600 mg 02/02/22 14:00 02/03/22 21:15 Linezolid 600 Mg Tab PO 600 mg Q12HR ABDIAZIZ Administration Protocol Loperamide HCl 2 mg 01/30/22 12:14 01/30/22 12:43 Loperamide 2 Mg Cap PO 2 mg Q2H PRN Administration Diarrhea Metoprolol Tartrate 50 mg 01/29/22 15:00 02/03/22 22:09 Metoprolol Tartrate 50 Mg Tab PO 50 mg Q8H ABDIAZIZ Administration Ondansetron HCl 4 mg 01/29/22 03:54 Ondansetron 4 Mg/2 Ml Inj IV Q8H PRN Nausea And Vomiting Oxycodone HCl 5 mg 02/02/22 12:00 02/02/22 21:32 Oxycodone 5 Mg Tab PO 5 mg Q4H PRN Administration Pain, Moderate (4-6) Sodium Chloride 10 ml 01/29/22 10:00 02/03/22 22:09 Sodium Chloride 0.9% 10 Ml Flush Syringe IV 10 ml BID ABDIAZIZ Administration Sodium Chloride 10 ml 01/29/22 03:54 Sodium Chloride 0.9% 10 Ml Flush Syringe IV PRN PRN LINE FLUSH Sodium Hypochlorite 1 applic 02/02/22 10:00 02/03/22 21:15 Sodium Hypochlorite, Dakin's 1/2 Strength (0.25%) 473 Ml Topical Soln TP 1 applicatio BID ABDIAZIZ Administration
[2022-02-04] MEDS: cefTRIAXone/NS 2 GM/100 ML 2 GM/100 ML BAG IV SCH (09:39)
[2022-02-04] MEDS: FAMOTIDINE 10 MG TAB PO SCH ×2 (09:40→21:38)
[2022-02-04] MEDS: SODIUM HYPOCHLORITE, DAKIN'S 1/2 STRENGTH (0.25%) 473 ML TOPICAL SOLN TP SCH ×2 (09:44→21:59)
[2022-02-04] MEDS: HEPARIN 5,000 UNIT/1 ML VIAL SUB-Q SCH ×2 (09:45→21:40)
[2022-02-04] MEDS: LINEZOLID 600 MG TAB PO SCH ×2 (10:00→21:39)
[2022-02-04 10:10] LABS: Anisocytosis 1+; Band Neutrophils # (Manual) 1.1 K/mm3; Basophils % (Manual) 0 % (0.0-1.8); Eosinophils % (Manual) 0 % (0.0-4.3); Myelocytes # (Manual) 0.6 K/mm3; Total Cells Counted 100
[2022-02-04 10:11] LABS: Platelet Estimate Cons
--- NOTE | 2022-02-04 12:36 | Progress Note ---
Assessment and Plan Cultures: 01/29/2022 blood culture: No growth 01/31/2022 surgical culture from right thigh: Usual skin adilia A/P: 66-year-old female with diabetes, hypertension, asthma was admitted to the hospital with complaints of generalized weakness: #Sepsis, secondary to right upper thigh abscess: S/p I&D by general surgery on 01/31/2022. As per OR note, there was foul-smelling purulent material drained, abscess cavity appeared to track towards her inguinal area but not medially into the perianal or vaginal area #Diabetes mellitus type 2, uncontrolled #ISAIAH: Renally adjust antibiotics #Obesity Recs: -continue Ceftriaxone, Linezolid, D3 -WBC is still high, recheck in AM. If continued improvement tomorrow, may discharge on PO Augmentin 875 mg BID + PO Linezolid 600 mg BID x 7 days. If it remains elevated, consider re-imaging to eval for any residual abscess, defer to surgery -wound care and packing per surgery -optimize glycemic control Malena Castellano MD, FACP, [facility] O: [phone] F: [phone] C: [phone] Subjective Date of service: 02/04/22 Principal diagnosis: Fever, general malaise, PSVT Interval history: No fever. Reports feeling better but still has pain at times which she thinks is quite severe. Wound care and packing being done by RN. Objective - Exam Narrative Exam: Physical Exam: Constitutional: Alert, cooperative. No acute distress Head, Ears, Nose: Normocephalic, atraumatic. External ears, nose normal Eyes: Conjunctivae/corneas clear. No icterus. No ptosis. Neck: Supple, no meningeal signs Cardiovascular: S1, S2 + Respiratory: Good air entry, clear to auscultation bilaterally GI: Soft, non-tender; bowel sounds normal. No peritoneal signs Musculoskeletal: Right thigh with dressing with mild tenderness around it Skin: No rash or abscess Hem/Lymphatic: No palpable cervical or supraclavicular nodes. No lymphangitis Psych: Mood ok. Affect normal Neurological: Awake, alert, oriented. No gross abnormality - Constitutional Vitals: Vital Signs Temp Pulse Resp BP Pulse Ox 98.1 F 72 20 158/73 95 02/04/22 05:21 02/04/22 09:30 02/04/22 09:30 02/04/22 05:21 02/04/22 05:21 Temperature -Last 24 Hours Temperature 98.1 F Temperature 97.8 F Temperature 98.0 F - Labs CBC & Chem 7: 02/04/22 08:01 02/04/22 08:01 Labs: Abnormal lab results 02/03/22 02/03/22 02/03/22 Range/Units 08:20 11:56 22:01 WBC (4.5-11.0) K/mm3 RBC (3.65-5.03) M/mm3 Hgb (10.1-14.3) gm/dl Hct (30.3-42.9) % RDW (13.2-15.2) % Seg Neuts % (Manual) 81.0 H (40.0-70.0) % Lymphocytes % (Manual) 7.0 L (13.4-35.0) % Monocytes % (Manual) 12.0 H (0.0-7.3) % Nucleated RBC % (0.0-0.9) % Seg Neutrophils # Man 18.1 H (1.8-7.7) K/mm3 Monocytes # (Manual) 2.7 H (0.0-0.8) K/mm3 Chloride (98-107) mmol/L Carbon Dioxide (22-30) mmol/L BUN (7-17) mg/dL Creatinine (0.6-1.2) mg/dL Glucose (65-100) mg/dL POC Glucose 69 L 64 L (70-105) mg/dL Calcium (8.4-10.2) mg/dL 02/04/22 02/04/22 Range/Units 08:01 08:01 WBC 21.2 H (4.5-11.0) K/mm3 RBC 3.06 L (3.65-5.03) M/mm3 Hgb 8.6 L (10.1-14.3) gm/dl Hct 27.3 L (30.3-42.9) % RDW 15.9 H (13.2-15.2) % Seg Neuts % (Manual) (40.0-70.0) % Lymphocytes % (Manual) 10.0 L (13.4-35.0) % Monocytes % (Manual) (0.0-7.3) % Nucleated RBC % 1.0 H (0.0-0.9) % Seg Neutrophils # Man 14.6 H (1.8-7.7) K/mm3 Monocytes # (Manual) (0.0-0.8) K/mm3 Chloride 108.3 H (98-107) mmol/L Carbon Dioxide 17 L (22-30) mmol/L BUN 49 H (7-17) mg/dL Creatinine 2.0 H (0.6-1.2) mg/dL Glucose 52 L (65-100) mg/dL POC Glucose (70-105) mg/dL Calcium 8.2 L (8.4-10.2) mg/dL
[2022-02-04] MEDS: BICITRA ORAL LIQD 30ML PO SCH ×2 (14:00→21:39)
--- NOTE | 2022-02-04 14:35 | Progress Note ---
Assessment and Plan The patient is a 66-year-old female with diabetes, hypertension, asthma was admitted to the hospital with complaints of generalized weakness. In the ED, found to be septic with leukocytosis, fever. She was started on empiric antibiotics for right leg cellulitis and pain, CT showed an abscess, general surgery was consulted and on 01/31/2022, she underwent an I&D of right upper thigh abscess. As per OR note, there was foul-smelling purulent material drained, abscess cavity appeared to track towards her inguinal area but not medially into the perianal or vaginal area. Got IV Zosyn in the ER, then was continued on ceftriaxone/Ancef. ID was consulted for antibiotic management for persistent leukocytosis. Daily Hospital course; 01/31/2020; x-ray right hip findings reviewed Consulted surgeon Dr. Lam, planning incision and drainage abscess tomorrow Continue empiric antibiotics 01/31; s/p incision and drainage of the upper thigh abscess today, fluid sent for analysis Follow cultures, continue empiric antibiotics, continue empiric antibiotics 02/01: Worsening leukocytosis, continue antibiotics, follow cultures, urine culture sent 02/02: Resumed care, consulted ID for persistent leukocytosis. Continue current antibiotic, follow ID recommendation. Patient appears to be altered and confused and oriented to self only. Continue to provide supportive care. 02/03: Noted ID recommendation. Added linezolid along with Rocephin. Monitor WBC to see improvement. Wound care and packing per surgery. Glycemic control. Monitor renal function, continue IV fluid. 02/04: WBC slightly improved. Creatinine 2.0 today. Patient's mental status remained unchanged. Continue current antibiotics, IV fluid. Patient need subacute rehab prior PT recommendation. Follow clinically. A/P --Metabolic encephalopathy, patient noted to be on and off confused Likely due to underlying infection, hyponatremia and ISAIAH, cannot rule out underlying dementia. Does not have any focal neurological deficit Follow clinically --Cellulitis/abscess right groin/upper thigh x-ray right groin hip findings noted Change antibiotics to IV Rocephin and linezolid, follow cultures Status post incision drainage by Dr. Lam 01/31/2022 Fluid sent for analysis, consulted ID --ISAIAH (acute kidney injury), likely ATN Admit the patient to the medical floor. Avoid nephrotoxic drug. Renally dose medication. Continue IV fluid hydration Monitor renal function, ordered renal ultrasound Nephrology consulted --Hyperglycemia / type 2 diabetes mellitus /uncontrolled Accu-Cheks sliding scale coverage ADA diet insulin as needed Adjust long-acting insulin dose as needed, A1c 7.8 Home health nurse for monitoring on DC --Hyponatremia; IV normal saline, closely monitor electrolytes --Elevated troponin/non-ST elevation [place] type II In the setting of acute kidney injury Probably type II, however patient has risk factors Cardiology following, follow echo --Sinus tachycardia/ narrow complex tachycardia/resolved Continue metoprolol, closely monitor Follow echocardiogram for LV function ejection fraction Cardiology following --Hypertension Continue current antihypertensives and as needed medications --History of hypothyroidism: Continue Synthroid and supportive care --History of bronchial asthma O-xygen by nasal cannula 3 L/min. DuoNeb via nebulizer every 4 hours. Albuterol via nebulizer every 4 hours as needed -Obesity; BMI 35.4 Behavioral modification, lifestyle changes counseling 20 minutes Counseling done advised diet modification exercise as tolerated and weight reduction When medically stable --Full CODE STATUS --DVT prophylaxis; Heparin renal dose Total time spent 35 minutes Closely monitor the patient and adjust the management as needed Consultants ID, cardiology, nephrology and surgeon's recommendations noted and appreciated Plan of care reviewed with the patient and her nurse Disposition: Follow clinically and discharged in stable Subjective Date of service: 02/04/22 Principal diagnosis: Fever, general malaise, PSVT Interval history: Patient seen and examined. Medical records and medication list reviewed. No acute event overnight noted by the RN. Patient denies any chest pain or difficulty breathing. Patient is tolerating diet. Complaints of generalized body ache and right thigh pain Discussed plan of care at bedside with patient's RN. Objective - Exam Narrative Exam: GENERAL: well-developed obese elderly -Thai female lying on bed appeared to be in no discomfort. HEENT: Normocephalic. Atraumatic. No conjunctival congestion or icterus. Patient has moist mucous membranes. NECK: Supple. Trachea midline. CHEST/LUNGS: Clear to auscultated bilaterally, breathing nonlabored. No wheezes crackles or rhonchi. HEART/CARDIOVASCULAR: Regular in rate and rhythm. S1 and S2 positive. ABDOMEN: Abdomen is soft, nontender. Patient has normal bowel sounds. SKIN: There is no rash. Warm and dry. NEURO: No focal motor deficit. Follows command. Oriented to self only MUSCULOSKELETAL: No joint effusion or tenderness. Right thigh dressing EXTRIMITY: No edema, no cyanosis or clubbing. PSYCH: Cooperative. - Constitutional Vitals: Vital Signs - 12hr 02/04/22 02/04/22 02/04/22 05:21 09:30 10:00 Temperature 98.1 F Pulse Rate 73 Pulse Rate [ 72 Anterior Bilateral Throughout] Respiratory 20 Rate Respiratory 20 Rate [Anterior Bilateral Throughout] Blood Pressure Blood Pressure 158/73 [Left] O2 Sat by Pulse 95 97 Oximetry 02/04/22 02/04/22 11:38 14:23 Temperature 98.5 F Pulse Rate 77 Pulse Rate [ 74 Anterior Bilateral Throughout] Respiratory 22 Rate Respiratory 20 Rate [Anterior Bilateral Throughout] Blood Pressure 165/72 Blood Pressure [Left] O2 Sat by Pulse 100 Oximetry - Labs CBC & Chem 7: 02/06/22 04:25 02/07/22 05:31 Labs: Abnormal lab results 02/03/22 02/03/22 02/03/22 Range/Units 08:20 11:56 22:01 WBC (4.5-11.0) K/mm3 RBC (3.65-5.03) M/mm3 Hgb (10.1-14.3) gm/dl Hct (30.3-42.9) % RDW (13.2-15.2) % Seg Neuts % (Manual) 81.0 H (40.0-70.0) % Lymphocytes % (Manual) 7.0 L (13.4-35.0) % Monocytes % (Manual) 12.0 H (0.0-7.3) % Nucleated RBC % (0.0-0.9) % Seg Neutrophils # Man 18.1 H (1.8-7.7) K/mm3 Monocytes # (Manual) 2.7 H (0.0-0.8) K/mm3 Chloride (98-107) mmol/L Carbon Dioxide (22-30) mmol/L BUN (7-17) mg/dL Creatinine (0.6-1.2) mg/dL Glucose (65-100) mg/dL POC Glucose 69 L 64 L (70-105) mg/dL Calcium (8.4-10.2) mg/dL 02/04/22 02/04/22 Range/Units 08:01 08:01 WBC 21.2 H (4.5-11.0) K/mm3 RBC 3.06 L (3.65-5.03) M/mm3 Hgb 8.6 L (10.1-14.3) gm/dl Hct 27.3 L (30.3-42.9) % RDW 15.9 H (13.2-15.2) % Seg Neuts % (Manual) (40.0-70.0) % Lymphocytes % (Manual) 10.0 L (13.4-35.0) % Monocytes % (Manual) (0.0-7.3) % Nucleated RBC % 1.0 H (0.0-0.9) % Seg Neutrophils # Man 14.6 H (1.8-7.7) K/mm3 Monocytes # (Manual) (0.0-0.8) K/mm3 Chloride 108.3 H (98-107) mmol/L Carbon Dioxide 17 L (22-30) mmol/L BUN 49 H (7-17) mg/dL Creatinine 2.0 H (0.6-1.2) mg/dL Glucose 52 L (65-100) mg/dL POC Glucose (70-105) mg/dL Calcium 8.2 L (8.4-10.2) mg/dL HEART Score - HEART Score Troponin: Troponin T 0.068 ng/mL (0.00-0.029) H 01/29/22 00:27
[2022-02-04 16:21] LABS: Albumin 2.4 g/dL (3.8-4.8)
[2022-02-05] MEDS: INSULIN LISPRO 100 UNIT/ML SUB-Q SCH ×4 (00:36→17:25)
[2022-02-05] MEDS: LEVOTHYROXINE 75 MCG TAB PO SCH (06:02)
[2022-02-05] MEDS: LEVOTHYROXINE 100 MCG TAB PO SCH (06:03)
[2022-02-05] MEDS: hydrALAZINE 20 MG/1 ML INJ IV PRN ×3 (06:24→21:55)
[2022-02-05 06:27] LABS: Hematocrit 24.7 % (30.3-42.9); Hemoglobin 7.9 gm/dl (10.1-14.3); Mean Corpuscular HGB Conc 32 % (30-34); Mean Corpuscular Volume 85 fl (79-97); Platelet Count 200 K/mm3 (140-440); Red Cell Distribution Width 15.5 % (13.2-15.2)
[2022-02-05] MEDS: METOPROLOL TARTRATE 50 MG TAB PO SCH ×3 (07:00→22:01)
[2022-02-05 07:20] LABS: Band Neutrophils # (Manual) 0.2 K/mm3; Basophils % (Manual) 0 % (0.0-1.8); Eosinophils % (Manual) 0 % (0.0-4.3); Platelet Estimate Consistent w Auto; Total Cells Counted 100
[2022-02-05] MEDS: IPRATROPIUM/ALBUTEROL SULFATE 3 ML AMPUL.NEB IH SCH ×3 (07:59→20:48)
[2022-02-05] MEDS: BICITRA ORAL LIQD 30ML PO SCH ×3 (08:00→21:55)
[2022-02-05] MEDS: FERROUS SULFATE 325 MG TAB PO SCH ×3 (08:00→21:56)
[2022-02-05] MEDS: INSULIN NPH/REGULAR 70/30 INJ SUB-Q SCH ×2 (08:00→17:00)
--- NOTE | 2022-02-05 09:06 | Progress Note ---
Assessment and Plan Cellulitis/abscess right groin/upper thigh ISIAAH (acute kidney injury) Hyperglycemia due to type 2 diabetes mellitus Hyponatremia Elevated troponin/non-ST elevation [place] type II Sinus tachycardia/ narrow complex tachycardia/resolved Hypertension History of bronchial asthma Obesity; BMI 35.4 Anemia Plan: -BMP is pending this AM -tcont bicitra for metabolic acidosi -Serum creatinine was normal in 2016. No recent baseline serum creatinine available so not sure if has CKD or not -Renal ultrasound reviewed-Left renal cysts. No hydronephrosis. -Urine lytes reviewed, No urine eosinophils. Has proteinuria, likely from DM -SPEP and serum free light chains are pending -Low iron level-on Ferrous Sulfate 325 mg po TID -Recent sodium level today was 139, prior was 129 -PTH level was 65, monitor -Echo-LVEF was 60-65% -Holding home Spironolactone for now -Not resuming home Metformin given advanced renal disease -Renally dose all medications -Avoid nephrotoxic agents -Strict I/O's daily -Continue to monitor renal function closely -No acute indication for [employer] Subjective Date of service: 02/05/22 Principal diagnosis: Fever, general malaise, PSVT Interval history: comfortable. Objective - Vital Signs Vital signs: Vital Signs - 12hr 02/04/22 02/05/22 22:00 03:33 Temperature 98.5 F Pulse Rate 73 71 Respiratory 16 Rate Blood Pressure 167/63 182/80 O2 Sat by Pulse 97 100 Oximetry - Lab 02/05/22 06:06 02/04/22 08:01 Most recent lab results Calcium 8.2 mg/dL (8.4-10.2) L 02/04/22 08:01 Magnesium 2.20 mg/dL (1.7-2.3) 02/01/22 11:15 Urine Creatinine 152.6 mg/dL (0.1-20.0) H 02/01/22 03:55 Urine Creatinine 153.8 mg/dL (0.1-20.0) H 02/01/22 03:55 Urine Sodium 15 mmol/L 02/01/22 03:55 Urine Total Protein 209 mg/dL (5-11.8) H 02/01/22 03:55 Medications & Allergies - Medications Allergies/Adverse Reactions: Allergies No Known Allergies Allergy (Unverified 08/01/15 23:02) Home Medications: Home Medications Medication Instructions Recorded Confirmed Last Taken Type Azithromycin [Zithromax TAB] 500 mg PO QDAY #7 tablet 08/05/15 02/02/22 Unknown Rx Cinacalcet HCl [Sensipar] 60 mg PO DAILY #30 tablet 08/05/15 02/02/22 Unknown Rx Insulin Lispro Prot/Lispro 28 units SUB-Q 1700 units 08/05/15 02/02/22 Unknown Rx [HumaLOG Mix 75/25 Vial] Insulin Lispro Prot/Lispro 30 units SUB-Q QDDIAB units 08/05/15 02/02/22 Unknown Rx [HumaLOG Mix 75/25 Vial] Insulin Lispro [HumaLOG VIAL] 28 units SQ QHS #1 vial 08/05/15 02/02/22 Unknown Rx Insulin Lispro [HumaLOG VIAL] 30 units SQ QAM #1 vial 08/05/15 02/02/22 Unknown Rx Levothyroxine [Synthroid] 175 mcg PO QAM #30 tablet 08/05/15 02/02/22 Unknown Rx Prednisone [predniSONE 10 mg 10 mg PO .TAPER #1 tab.ds.pk 08/05/15 02/02/22 Unknown Rx (6-Day Pack, 21 Tabs)] Spironolactone [Aldactone] 100 mg PO QDAY #30 tablet 08/05/15 02/02/22 Unknown Rx carvediloL [Coreg] 3.125 mg PO BID #60 tablet 08/05/15 02/02/22 Unknown Rx metFORMIN [Glucophage] 500 mg PO BID #30 tablet 08/05/15 02/02/22 Unknown Rx Active Medications: Generic Name Dose Route Start Last Admin Trade Name Pabloq PRN Reason Stop Dose Admin Acetaminophen 650 mg 01/29/22 03:54 Acetaminophen 325 Mg Tab PO Q4H PRN Pain MILD(1-3)/Fever >100.5/GARCIA Albuterol 2.5 mg 01/29/22 03:54 Albuterol 2.5 Mg/3 Ml Nebu IH Q3HRT PRN Shortness Of Breath Albuterol/Ipratropium 1 ampul 01/31/22 08:00 02/05/22 07:59 Ipratropium/Albuterol Sulfate 3 Ml Ampul.Neb IH 1 ampul TIDRT ABDIAZIZ Administration Citric Acid/Sodium Citrate 15 ml 02/04/22 14:00 02/04/22 21:39 Bicitra Oral Liqd 30ml PO 15 ml TID ABDIAZIZ Administration Dextrose 50 ml 01/29/22 03:54 01/31/22 07:44 Dextrose 50% In Water (25gm) 50 Ml Syringe IV 50 ml Q30MIN PRN Administration Hypoglycemia Protocol Famotidine 10 mg 01/29/22 10:00 02/04/22 21:38 Famotidine 10 Mg Tab PO 10 mg BID ABDIAZIZ Administration Ferrous Sulfate 325 mg 02/01/22 14:00 02/04/22 21:39 Ferrous Sulfate 325 Mg Tab PO 325 mg TID ABDIAZIZ Administration Heparin Sodium (Porcine) 5,000 unit 01/29/22 22:00 02/04/22 21:40 Heparin 5,000 Unit/1 Ml Vial SUB-Q 5,000 unit Q12HR ABDIAZIZ Administration Hydralazine HCl 10 mg 02/05/22 06:11 02/05/22 06:24 Hydralazine 20 Mg/1 Ml Inj IV 10 mg Q4H PRN Administration Hypertension Sodium Chloride 1,000 mls @ 50 mls/hr 01/29/22 08:00 02/03/22 05:00 Nacl 0.9% 1000 Ml IV 100 mls/hr DIRECT ABDIAZIZ Administration Ceftriaxone Sodium 2 gm in 100 mls @ 200 mls/hr 02/02/22 14:00 02/04/22 09:39 Rocephin/Ns 2 Gm/100 Ml IV 200 mls/hr Q24HR ABDIAZIZ Administration Protocol Insulin Human Isoph/Insulin Regular 18 unit 02/02/22 08:00 02/04/22 17:20 Insulin Nph/Regular 70/30 Inj SUB-Q Not Given BIDDIAB ABDIAZIZ Insulin Human Lispro 0 unit 01/29/22 07:30 02/05/22 00:36 Insulin Lispro 100 Unit/Ml SUB-Q Not Given ACHS [facility] Protocol Levothyroxine Sodium 100 mcg 01/29/22 06:00 02/05/22 06:03 Levothyroxine 100 Mcg Tab PO 100 mcg QAM@0600 ABDIAZIZ Administration Levothyroxine Sodium 75 mcg 01/29/22 06:00 02/05/22 06:02 Levothyroxine 75 Mcg Tab PO 75 mcg QAM@0600 ABDIAZIZ Administration Linezolid 600 mg 02/02/22 14:00 02/04/22 21:39 Linezolid 600 Mg Tab PO 600 mg Q12HR ABDIAZIZ Administration Protocol Loperamide HCl 2 mg 01/30/22 12:14 01/30/22 12:43 Loperamide 2 Mg Cap PO 2 mg Q2H PRN Administration Diarrhea Metoprolol Tartrate 50 mg 01/29/22 15:00 02/04/22 22:00 Metoprolol Tartrate 50 Mg Tab PO 50 mg Q8H ABDIAZIZ Administration Ondansetron HCl 4 mg 01/29/22 03:54 Ondansetron 4 Mg/2 Ml Inj IV Q8H PRN Nausea And Vomiting Oxycodone HCl 5 mg 02/02/22 12:00 02/02/22 21:32 Oxycodone 5 Mg Tab PO 5 mg Q4H PRN Administration Pain, Moderate (4-6) Sodium Chloride 10 ml 01/29/22 10:00 02/04/22 21:43 Sodium Chloride 0.9% 10 Ml Flush Syringe IV 10 ml BID ABDIAZIZ Administration Sodium Chloride 10 ml 01/29/22 03:54 Sodium Chloride 0.9% 10 Ml Flush Syringe IV PRN PRN LINE FLUSH Sodium Hypochlorite 1 applic 02/02/22 10:00 02/04/22 21:59 Sodium Hypochlorite, Dakin's 1/2 Strength (0.25%) 473 Ml Topical Soln TP 1 applicatio BID ABDIAZIZ Administration
[2022-02-05] MEDS: cefTRIAXone/NS 2 GM/100 ML 2 GM/100 ML BAG IV SCH (09:11)
[2022-02-05] MEDS: FAMOTIDINE 10 MG TAB PO SCH ×2 (09:12→21:56)
[2022-02-05] MEDS: SODIUM HYPOCHLORITE, DAKIN'S 1/2 STRENGTH (0.25%) 473 ML TOPICAL SOLN TP SCH ×2 (09:14→21:59)
[2022-02-05] MEDS: HEPARIN 5,000 UNIT/1 ML VIAL SUB-Q SCH ×2 (09:26→21:57)
[2022-02-05] MEDS: LINEZOLID 600 MG TAB PO SCH ×2 (10:34→21:55)
--- NOTE | 2022-02-05 10:47 | Progress Note ---
Assessment and Plan Cultures: 01/29/2022 blood culture: No growth 01/31/2022 surgical culture from right thigh: Usual skin adilia A/P: 66-year-old female with diabetes, hypertension, asthma was admitted to the hospital with complaints of generalized weakness: #Sepsis, secondary to right upper thigh abscess: S/p I&D by general surgery on 01/31/2022. As per OR note, there was foul-smelling purulent material drained, abscess cavity appeared to track towards her inguinal area but not medially into the perianal or vaginal area #Diabetes mellitus type 2, uncontrolled #ISAIAH: Renally adjust antibiotics #Obesity Recs: -continue Ceftriaxone, Linezolid, D4 -Leukocytosis continues to improve, upon discharge, switch to PO Augmentin 875 mg daily + PO linezolid 600 mg BID to complete 10 more days ending 02/15/2022. Adjust Augmentin dose if renal function improves -wound care and packing per surgery -optimize glycemic control Malena Castellano MD, FACP, [facility] O: [phone] F: [phone] C: [phone] Subjective Date of service: 02/05/22 Principal diagnosis: Fever, general malaise, PSVT Interval history: Awake, alert. Afebrile. Says she does not want to be in the hospital. Objective - Exam Narrative Exam: Physical Exam: Constitutional: Alert, cooperative. No acute distress Head, Ears, Nose: Normocephalic, atraumatic. External ears, nose normal Eyes: Conjunctivae/corneas clear. No icterus. No ptosis. Neck: Supple, no meningeal signs Cardiovascular: S1, S2 + Respiratory: Good air entry, clear to auscultation bilaterally GI: Soft, non-tender; bowel sounds normal. No peritoneal signs Musculoskeletal: Right thigh with dressing with mild tenderness around it Skin: No rash or abscess Hem/Lymphatic: No palpable cervical or supraclavicular nodes. No lymphangitis Psych: Mood ok. Affect normal Neurological: Awake, alert, oriented. No gross abnormality - Constitutional Vitals: Vital Signs Temp Pulse Resp BP Pulse Ox 98.5 F 77 18 182/80 100 02/05/22 03:33 02/05/22 07:59 02/05/22 07:59 02/05/22 03:33 02/05/22 03:33 Temperature -Last 24 Hours Temperature 98.5 F Temperature 98.4 F Temperature 98.5 F - Labs CBC & Chem 7: 02/05/22 06:06 02/04/22 08:01 Labs: Abnormal lab results 02/02/22 02/04/22 02/04/22 Range/Units 08:08 16:15 21:44 WBC (4.5-11.0) K/mm3 RBC (3.65-5.03) M/mm3 Hgb (10.1-14.3) gm/dl Hct (30.3-42.9) % RDW (13.2-15.2) % Seg Neuts % (Manual) (40.0-70.0) % Lymphocytes % (Manual) (13.4-35.0) % Seg Neutrophils # Man (1.8-7.7) K/mm3 POC Glucose 199 H 163 H (70-105) mg/dL Serum Total Protein 5.6 L (6.1-8.1) g/dL Albumin 2.4 L (3.8-4.8) g/dL Vtkvk-2-Ahgvnokwz 0.7 H (0.2-0.3) g/dL Iphnd-6-Ikzkpardg 1.0 H (0.5-0.9) g/dL PEP Interpretation see below H 02/05/22 02/05/22 Range/Units 06:06 07:47 WBC 17.1 H (4.5-11.0) K/mm3 RBC 2.90 L (3.65-5.03) M/mm3 Hgb 7.9 L (10.1-14.3) gm/dl Hct 24.7 L (30.3-42.9) % RDW 15.5 H (13.2-15.2) % Seg Neuts % (Manual) 83.0 H (40.0-70.0) % Lymphocytes % (Manual) 11.0 L (13.4-35.0) % Seg Neutrophils # Man 14.2 H (1.8-7.7) K/mm3 POC Glucose 145 H (70-105) mg/dL Serum Total Protein (6.1-8.1) g/dL Albumin (3.8-4.8) g/dL Xfhgc-4-Rkukjlyqj (0.2-0.3) g/dL Mejhe-3-Sodfgnbio (0.5-0.9) g/dL PEP Interpretation
--- NOTE | 2022-02-05 22:30 | Progress Note ---
Assessment and Plan The patient is a 66-year-old female with diabetes, hypertension, asthma was admitted to the hospital with complaints of generalized weakness. In the ED, found to be septic with leukocytosis, fever. She was started on empiric antibiotics for right leg cellulitis and pain, CT showed an abscess, general surgery was consulted and on 01/31/2022, she underwent an I&D of right upper thigh abscess. As per OR note, there was foul-smelling purulent material drained, abscess cavity appeared to track towards her inguinal area but not medially into the perianal or vaginal area. Got IV Zosyn in the ER, then was continued on ceftriaxone/Ancef. ID was consulted for antibiotic management for persistent leukocytosis. Daily Hospital course; 01/31/2020; x-ray right hip findings reviewed Consulted surgeon Dr. Lam, planning incision and drainage abscess tomorrow Continue empiric antibiotics 01/31; s/p incision and drainage of the upper thigh abscess today, fluid sent for analysis Follow cultures, continue empiric antibiotics, continue empiric antibiotics 02/01: Worsening leukocytosis, continue antibiotics, follow cultures, urine culture sent 02/02: Resumed care, consulted ID for persistent leukocytosis. Continue current antibiotic, follow ID recommendation. Patient appears to be altered and confused and oriented to self only. Continue to provide supportive care. 02/03: Noted ID recommendation. Added linezolid along with Rocephin. Monitor WBC to see improvement. Wound care and packing per surgery. Glycemic control. Monitor renal function, continue IV fluid. 02/04: WBC slightly improved. Creatinine 2.0 today. Patient's mental status remained unchanged. Continue current antibiotics, IV fluid. Patient need subacute rehab prior PT recommendation. Follow clinically. 02/05: WBC count improving with Rocephin and linezolid. Continue to follow BMP. Continue IV fluid. Patient tolerating diet. Her mental status remains unchanged. Pending placement. Possible DC to subacute rehab upon insurance authorization. Continue to provide supportive care. A/P --Metabolic encephalopathy, patient noted to be on and off confused Likely due to underlying infection, hyponatremia and ISAIAH, cannot rule out underlying dementia. Does not have any focal neurological d eficit Follow clinically --Cellulitis/abscess right groin/upper thigh x-ray right groin hip findings noted Change antibiotics to IV Rocephin and linezolid, follow cultures Status post incision drainage by Dr. Lam 01/31/2022 Fluid sent for analysis, consulted ID --ISAIAH (acute kidney injury), likely ATN Admit the patient to the medical floor. Avoid nephrotoxic drug. Renally dose medication. Continue IV fluid hydration Monitor renal function, ordered renal ultrasound Nephrology consulted --Hyperglycemia / type 2 diabetes mellitus /uncontrolled Accu-Cheks sliding scale coverage ADA diet insulin as needed Adjust long-acting insulin dose as needed, A1c 7.8 Home health nurse for monitoring on DC --Hyponatremia; IV normal saline, closely monitor electrolytes --Elevated troponin/non-ST elevation [place] type II In the setting of acute kidney injury Probably type II, however patient has risk factors Cardiology following, follow echo --Sinus tachycardia/ narrow complex tachycardia/resolved Continue metoprolol, closely monitor Follow echocardiogram for LV function ejection fraction Cardiology following --Hypertension Continue current antihypertensives and as needed medications --History of hypothyroidism: Continue Synthroid and supportive care --History of bronchial asthma O-xygen by nasal cannula 3 L/min. DuoNeb via nebulizer every 4 hours. Albuterol via nebulizer every 4 hours as needed -Obesity; BMI 35.4 Behavioral modification, lifestyle changes counseling 20 minutes Counseling done advised diet modification exercise as tolerated and weight reduction When medically stable --Full CODE STATUS --DVT prophylaxis; Heparin renal dose Total time spent 35 minutes Closely monitor the patient and adjust the management as needed Consultants ID, cardiology, nephrology and surgeon's recommendations noted and appreciated Plan of care reviewed with the patient and her nurse Disposition: Follow clinically and discharged in stable Subjective Date of service: 02/05/22 Principal diagnosis: Fever, general malaise, PSVT Interval history: Patient seen and examined. Medical records and medication list reviewed. No acute event overnight noted by the RN. Patient denies any chest pain or difficulty breathing. Patient is tolerating diet. Complaints of generalized body ache and right thigh pain Discussed plan of care at bedside with patient's RN. Objective - Exam Narrative Exam: GENERAL: well-developed obese elderly -[place] female lying on bed appeared to be in no discomfort. HEENT: Normocephalic. Atraumatic. No conjunctival congestion or icterus. Patient has moist mucous membranes. NECK: Supple. Trachea midline. CHEST/LUNGS: Clear to auscultated bilaterally, breathing nonlabored. No wheezes crackles or rhonchi. HEART/CARDIOVASCULAR: Regular in rate and rhythm. S1 and S2 positive. ABDOMEN: Abdomen is soft, nontender. Patient has normal bowel sounds. SKIN: There is no rash. Warm and dry. NEURO: No focal motor deficit. Follows command. Oriented to self only MUSCULOSKELETAL: No joint effusion or tenderness. Right thigh dressing EXTRIMITY: No edema, no cyanosis or clubbing. PSYCH: Cooperative. - Constitutional Vitals: Vital Signs - 12hr 02/05/22 02/05/22 02/05/22 14:05 19:43 19:51 Temperature Pulse Rate Pulse Rate [ 72 72 Anterior Bilateral Throughout] Respiratory Rate Respiratory 18 18 Rate [Anterior Bilateral Throughout] Blood Pressure O2 Sat by Pulse 97 Oximetry 02/05/22 02/05/22 02/05/22 21:26 21:55 22:01 Temperature 97.2 F L Pulse Rate 76 76 76 Pulse Rate [ Anterior Bilateral Throughout] Respiratory 16 Rate Respiratory Rate [Anterior Bilateral Throughout] Blood Pressure 173/71 173/71 173/71 O2 Sat by Pulse 99 Oximetry - Labs CBC & Chem 7: 02/06/22 04:25 02/07/22 05:31 Labs: Abnormal lab results 01/29/22 01/29/22 02/02/22 Range/Units 07:54 12:56 08:08 WBC (4.5-11.0) K/mm3 RBC (3.65-5.03) M/mm3 Hgb (10.1-14.3) gm/dl Hct (30.3-42.9) % RDW (13.2-15.2) % Seg Neuts % (Manual) (40.0-70.0) % Lymphocytes % (Manual) (13.4-35.0) % Seg Neutrophils # Man (1.8-7.7) K/mm3 POC Glucose 174 H 133 H (70-105) mg/dL Miscellaneous Test Flexitest 1 H 02/05/22 02/05/22 02/05/22 Range/Units 06:06 07:47 11:45 WBC 17.1 H (4.5-11.0) K/mm3 RBC 2.90 L (3.65-5.03) M/mm3 Hgb 7.9 L (10.1-14.3) gm/dl Hct 24.7 L (30.3-42.9) % RDW 15.5 H (13.2-15.2) % Seg Neuts % (Manual) 83.0 H (40.0-70.0) % Lymphocytes % (Manual) 11.0 L (13.4-35.0) % Seg Neutrophils # Man 14.2 H (1.8-7.7) K/mm3 POC Glucose 145 H 178 H (70-105) mg/dL Miscellaneous Test 02/05/22 Range/Units 16:28 WBC (4.5-11.0) K/mm3 RBC (3.65-5.03) M/mm3 Hgb (10.1-14.3) gm/dl Hct (30.3-42.9) % RDW (13.2-15.2) % Seg Neuts % (Manual) (40.0-70.0) % Lymphocytes % (Manual) (13.4-35.0) % Seg Neutrophils # Man (1.8-7.7) K/mm3 POC Glucose 228 H (70-105) mg/dL Miscellaneous Test HEART Score - HEART Score Troponin: Troponin T 0.068 ng/mL (0.00-0.029) H 01/29/22 00:27
[2022-02-06] MEDS: INSULIN LISPRO 100 UNIT/ML SUB-Q SCH ×5 (04:40→22:01)
[2022-02-06 04:56] LABS: Hematocrit 23.1 % (30.3-42.9); Hemoglobin 7.6 gm/dl (10.1-14.3); Mean Corpuscular HGB Conc 33 % (30-34); Mean Corpuscular Volume 85 fl (79-97); Platelet Count 185 K/mm3 (140-440); Red Blood Count 2.73 M/mm3 (3.65-5.03); Red Cell Distribution Width 15.3 % (13.2-15.2)
[2022-02-06 05:34] LABS: Calcium 8.2 mg/dL (8.4-10.2)
[2022-02-06 05:39] LABS: Basophils % (Manual) 0 % (0.0-1.8); Eosinophils % (Manual) 0 % (0.0-4.3); RBC Morphology Normal; Total Cells Counted 100
[2022-02-06] MEDS: hydrALAZINE 20 MG/1 ML INJ IV PRN ×2 (06:32→21:55)
[2022-02-06] MEDS: LEVOTHYROXINE 100 MCG TAB PO SCH (06:33)
[2022-02-06] MEDS: LEVOTHYROXINE 75 MCG TAB PO SCH (06:33)
[2022-02-06] MEDS: INSULIN NPH/REGULAR 70/30 INJ SUB-Q SCH ×2 (08:00→17:00)
[2022-02-06] MEDS: IPRATROPIUM/ALBUTEROL SULFATE 3 ML AMPUL.NEB IH SCH ×3 (08:34→20:54)
[2022-02-06] MEDS: cefTRIAXone/NS 2 GM/100 ML 2 GM/100 ML BAG IV SCH (09:29)
[2022-02-06] MEDS: LINEZOLID 600 MG TAB PO SCH ×2 (09:32→21:59)
[2022-02-06] MEDS: METOPROLOL TARTRATE 50 MG TAB PO SCH ×3 (09:34→22:00)
[2022-02-06] MEDS: FERROUS SULFATE 325 MG TAB PO SCH ×3 (09:34→22:00)
[2022-02-06] MEDS: BICITRA ORAL LIQD 30ML PO SCH ×3 (09:35→21:59)
[2022-02-06] MEDS: HEPARIN 5,000 UNIT/1 ML VIAL SUB-Q SCH ×2 (09:35→22:01)
[2022-02-06] MEDS: FAMOTIDINE 10 MG TAB PO SCH ×2 (09:35→22:00)
--- NOTE | 2022-02-06 11:38 | Progress Note ---
Assessment and Plan The patient is a 66-year-old female with diabetes, hypertension, asthma was admitted to the hospital with complaints of generalized weakness. In the ED, found to be septic with leukocytosis, fever. She was started on empiric antibiotics for right leg cellulitis and pain, CT showed an abscess, general surgery was consulted and on 01/31/2022, she underwent an I&D of right upper thigh abscess. As per OR note, there was foul-smelling purulent material drained, abscess cavity appeared to track towards her inguinal area but not medially into the perianal or vaginal area. Got IV Zosyn in the ER, then was continued on ceftriaxone/Ancef. ID was consulted for antibiotic management for persistent leukocytosis. Daily Hospital course; 01/31/2020; x-ray right hip findings reviewed Consulted surgeon Dr. Lam, planning incision and drainage abscess tomorrow Continue empiric antibiotics 01/31; s/p incision and drainage of the upper thigh abscess today, fluid sent for analysis Follow cultures, continue empiric antibiotics, continue empiric antibiotics 02/01: Worsening leukocytosis, continue antibiotics, follow cultures, urine culture sent 02/02: Resumed care, consulted ID for persistent leukocytosis. Continue current antibiotic, follow ID recommendation. Patient appears to be altered and confused and oriented to self only. Continue to provide supportive care. 02/03: Noted ID recommendation. Added linezolid along with Rocephin. Monitor WBC to see improvement. Wound care and packing per surgery. Glycemic control. Monitor renal function, continue IV fluid. 02/04: WBC slightly improved. Creatinine 2.0 today. Patient's mental status remained unchanged. Continue current antibiotics, IV fluid. Patient need subacute rehab prior PT recommendation. Follow clinically. 02/05: WBC count improving with Rocephin and linezolid. Continue to follow BMP. Continue IV fluid. Patient tolerating diet. Her mental status remains unchanged. Pending placement. Possible DC to subacute rehab upon insurance authorization. Continue to provide supportive care. 02/06: Continue to improve in WBC count and serum creatinine. Continue current antibiotics. Continue to provide supportive care. Discharge pending on subacute rehab placement. A/P --Metabolic encephalopathy, patient noted to be on and off confused Likely due to underlying infection, hyponatremia and ISAIAH, cannot rule out underlying dementia. Does not have any focal neurological deficit Follow clinically --Cellulitis/abscess right groin/upper thigh x-ray right groin hip findings noted Change antibiotics to IV Rocephin and linezolid, follow cultures Status post incision drainage by Dr. Lam 01/31/2022 Fluid sent for analysis, consulted ID --ISAIAH (acute kidney injury), likely ATN Admit the patient to the medical floor. Avoid nephrotoxic drug. Renally dose medication. Continue IV fluid hydration Monitor renal function, ordered renal ultrasound Nephrology consulted --Hyperglycemia / type 2 diabetes mellitus /uncontrolled Accu-Cheks sliding scale coverage ADA diet insulin as needed Adjust long-acting insulin dose as needed, A1c 7.8 Home health nurse for monitoring on DC --Hyponatremia; IV normal saline, closely monitor electrolytes --Elevated troponin/non-ST elevation PR type II In the setting of acute kidney injury Probably type II, however patient has risk factors Cardiology following, follow echo --Sinus tachycardia/ narrow complex tachycardia/resolved Continue metoprolol, closely monitor Follow echocardiogram for LV function ejection fraction Cardiology following --Hypertension Continue current antihypertensives and as needed medications --History of hypothyroidism: Continue Synthroid and supportive care --History of bronchial asthma O-xygen by nasal cannula 3 L/min. DuoNeb via nebulizer every 4 hours. Albuterol via nebulizer every 4 hours as needed -Obesity; BMI 35.4 Behavioral modification, lifestyle changes counseling 20 minutes Counseling done advised diet modification exercise as tolerated and weight reduction When medically stable --Full CODE STATUS --DVT prophylaxis; Heparin renal dose Total time spent 35 minutes Closely monitor the patient and adjust the management as needed Consultants ID, cardiology, nephrology and surgeon's recommendations noted and appreciated Plan of care reviewed with the patient and her nurse Disposition: Follow clinically and discharged in stable Subjective Date of service: 02/06/22 Principal diagnosis: Fever, general malaise, PSVT Interval history: Patient seen and examined. Medical records and medication list reviewed. No acute event overnight noted by the RN. Patient denies any chest pain or difficulty breathing. Patient is tolerating diet. Complaints of generalized body ache and right thigh pain Discussed plan of care at bedside with patient's RN. Objective - Exam Narrative Exam: GENERAL: well-developed obese elderly -Lao female lying on bed appeared to be in no discomfort. HEENT: Normocephalic. Atraumatic. No conjunctival congestion or icterus. Patient has moist mucous membranes. NECK: Supple. Trachea midline. CHEST/LUNGS: Clear to auscultated bilaterally, breathing nonlabored. No wheezes crackles or rhonchi. HEART/CARDIOVASCULAR: Regular in rate and rhythm. S1 and S2 positive. ABDOMEN: Abdomen is soft, nontender. Patient has normal bowel sounds. SKIN: There is no rash. Warm and dry. NEURO: No focal motor deficit. Follows command. Oriented to self only MUSCULOSKELETAL: No joint effusion or tenderness. Right thigh dressing EXTRIMITY: No edema, no cyanosis or clubbing. PSYCH: Cooperative. - Constitutional Vitals: Vital Signs - 12hr 02/06/22 02/06/22 02/06/22 06:19 06:32 06:35 Temperature 98.6 F 98.6 F Pulse Rate 96 H 97 H Pulse Rate [ Anterior Bilateral Throughout] Respiratory 20 20 Rate Respiratory Rate [Anterior Bilateral Throughout] Blood Pressure 195/88 196/88 Blood Pressure 195/88 [Left] O2 Sat by Pulse 100 Oximetry 02/06/22 02/06/22 08:36 09:34 Temperature Pulse Rate 82 Pulse Rate [ 79 Anterior Bilateral Throughout] Respiratory Rate Respiratory 18 Rate [Anterior Bilateral Throughout] Blood Pressure 143/58 Blood Pressure [Left] O2 Sat by Pulse Oximetry - Labs CBC & Chem 7: 02/06/22 04:25 02/07/22 05:31 Labs: Abnormal lab results 01/29/22 01/29/22 02/02/22 Range/Units 07:54 12:56 08:08 WBC (4.5-11.0) K/mm3 RBC (3.65-5.03) M/mm3 Hgb (10.1-14.3) gm/dl Hct (30.3-42.9) % RDW (13.2-15.2) % Seg Neuts % (Manual) (40.0-70.0) % Monocytes % (Manual) (0.0-7.3) % Seg Neutrophils # Man (1.8-7.7) K/mm3 Monocytes # (Manual) (0.0-0.8) K/mm3 Chloride (98-107) mmol/L Carbon Dioxide (22-30) mmol/L BUN (7-17) mg/dL Creatinine (0.6-1.2) mg/dL Glucose (65-100) mg/dL POC Glucose 174 H 133 H (70-105) mg/dL Calcium (8.4-10.2) mg/dL Miscellaneous Test Flexitest 1 H 02/05/22 02/05/22 02/05/22 Range/Units 11:45 16:28 21:53 WBC (4.5-11.0) K/mm3 RBC (3.65-5.03) M/mm3 Hgb (10.1-14.3) gm/dl Hct (30.3-42.9) % RDW (13.2-15.2) % Seg Neuts % (Manual) (40.0-70.0) % Monocytes % (Manual) (0.0-7.3) % Seg Neutrophils # Man (1.8-7.7) K/mm3 Monocytes # (Manual) (0.0-0.8) K/mm3 Chloride (98-107) mmol/L Carbon Dioxide (22-30) mmol/L BUN (7-17) mg/dL Creatinine (0.6-1.2) mg/dL Glucose (65-100) mg/dL POC Glucose 178 H 228 H 150 H (70-105) mg/dL Calcium (8.4-10.2) mg/dL Miscellaneous Test 02/06/22 02/06/22 Range/Units 04:25 04:25 WBC 14.5 H (4.5-11.0) K/mm3 RBC 2.73 L (3.65-5.03) M/mm3 Hgb 7.6 L (10.1-14.3) gm/dl Hct 23.1 L (30.3-42.9) % RDW 15.3 H (13.2-15.2) % Seg Neuts % (Manual) 75.0 H (40.0-70.0) % Monocytes % (Manual) 8.0 H (0.0-7.3) % Seg Neutrophils # Man 10.9 H (1.8-7.7) K/mm3 Monocytes # (Manual) 1.2 H (0.0-0.8) K/mm3 Chloride 114.9 H (98-107) mmol/L Carbon Dioxide 19 L (22-30) mmol/L BUN 39 H (7-17) mg/dL Creatinine 1.7 H (0.6-1.2) mg/dL Glucose 174 H (65-100) mg/dL POC Glucose (70-105) mg/dL Calcium 8.2 L (8.4-10.2) mg/dL Miscellaneous Test HEART Score - HEART Score Troponin: Troponin T 0.068 ng/mL (0.00-0.029) H 01/29/22 00:27
[2022-02-06] MEDS: SODIUM HYPOCHLORITE, DAKIN'S 1/2 STRENGTH (0.25%) 473 ML TOPICAL SOLN TP SCH ×2 (12:00→22:00)
--- NOTE | 2022-02-06 12:17 | Progress Note ---
Assessment and Plan 1. Nonspecific elevation of serum troponin level in the setting of acute kidney injury. 2. Acute on chronic renal failure resolving 3. Cellulitis and sepsis right groin and upper thigh currently on IV antibiotics status post incision and drainage 4. Type 2 diabetes mellitus Plan. Cardiac anaya patient is stable echocardiogram shows normal left ventricular size and function with an ejection fraction of 60%. Continue IV hydration and add IV antibiotics elective PCI prior to discharge Subjective Date of service: 02/06/22 Principal diagnosis: Fever, general malaise, PSVT Interval history: No cardiac complains. Objective Vital Signs Temp Pulse Pulse Resp Resp BP BP 02/06/22 09:34 82 143/58 02/06/22 08:36 79 18 02/06/22 06:35 98.6 F 97 H 20 195/88 02/06/22 06:32 96 H 196/88 02/06/22 06:19 98.6 F 20 195/88 02/05/22 22:01 76 173/71 02/05/22 21:55 76 173/71 02/05/22 21:45 105 H 173/71 02/05/22 21:26 97.2 F L 76 16 173/71 02/05/22 19:51 72 18 02/05/22 19:43 02/05/22 14:05 72 18 Pulse Ox 02/06/22 09:34 02/06/22 08:36 02/06/22 06:35 100 02/06/22 06:32 02/06/22 06:19 02/05/22 22:01 02/05/22 21:55 02/05/22 21:45 02/05/22 21:26 99 02/05/22 19:51 02/05/22 19:43 97 02/05/22 14:05 - Physical Examination General: Appears Well, No Apparent Distress, Other (obese) HEENT: Positive: PERRL Neck: Positive: neck supple Cardiac: Positive: Regular Rate, S1/S2, PMI, Laterally Displaced. Negative: S3, S4 Lungs: Positive: clear to auscultation, No Wheeze, Rales, Rhonchi Neuro: Positive: Grossly Intact Abdomen: Positive: Soft Skin: Positive: Clear Extremities: Absent: edema - Labs and Meds CBC 02/06/22 Range/Units 04:25 WBC 14.5 H (4.5-11.0) K/mm3 RBC 2.73 L (3.65-5.03) M/mm3 Hgb 7.6 L (10.1-14.3) gm/dl Hct 23.1 L (30.3-42.9) % Plt Count 185 (140-440) K/mm3 Comprehensive Metabolic Panel 02/06/22 Range/Units 04:25 Sodium 145 D (137-145) mmol/L Potassium 4.2 (3.6-5.0) mmol/L Chloride 114.9 H (98-107) mmol/L Carbon Dioxide 19 L (22-30) mmol/L BUN 39 H (7-17) mg/dL Creatinine 1.7 H (0.6-1.2) mg/dL Glucose 174 H (65-100) mg/dL Calcium 8.2 L (8.4-10.2) mg/dL
[2022-02-06] MEDS: oxyCODONE 5 MG TAB PO PRN (12:43)
--- NOTE | 2022-02-06 14:37 | Progress Note ---
Assessment and Plan Assessment and Plan Cellulitis/abscess right groin/upper thigh ISAIAH (acute kidney injury) Hyperglycemia due to type 2 diabetes mellitus Hyponatremia Elevated troponin/non-ST elevation DC type II Sinus tachycardia/ narrow complex tachycardia Hypertension History of bronchial asthma Obesity; BMI 35.4 Anemia Plan: -Renal function reviewed, SCr level was 1.7 today, prior SCr level was 2.0 -Serum creatinine was normal in 2016. No recent baseline serum creatinine available so unsure if pt has CKD or not -Renal ultrasound reviewed showed Left renal cysts. No hydronephrosis. -No urine eosinophils, pt has proteinuria with protein to cr ratio 1.3 g, likely from DM -SPEP showed no M spike -Free kappa/lambda ratio was slightly above range at 1.76 (0.26-1.65), check serum immunofixation and UPEP -On Bicitra 15 ml po TID -On Ferrous Sulfate 325 mg po TID -Most recent sodium level today was 145, prior SCr level on 02/04/22 was 138 -Holding home Spironolactone for now -Not resuming home Metformin given advanced renal disease -Renally dose all medications -Strict I/O's daily -Urias Catheter: No (purewick) -Renal plan reviewed by Dr Palacios Subjective Date of service: 02/06/22 Principal diagnosis: Fever, general malaise, PSVT Interval history: Pt seen in bed, denies shortness of breath, nausea, or vomiting, no acute distress, no family at bedside Objective - Vital Signs Vital signs: Vital Signs - 12hr 02/06/22 02/06/22 02/06/22 06:19 06:32 06:35 Temperature 98.6 F 98.6 F Pulse Rate 96 H 97 H Pulse Rate [ Anterior Bilateral Throughout] Respiratory 20 20 Rate Respiratory Rate [Anterior Bilateral Throughout] Blood Pressure 195/88 196/88 Blood Pressure 195/88 [Left] O2 Sat by Pulse 100 Oximetry 02/06/22 02/06/22 02/06/22 08:36 09:34 10:00 Temperature Pulse Rate 82 Pulse Rate [ 79 Anterior Bilateral Throughout] Respiratory Rate Respiratory 18 Rate [Anterior Bilateral Throughout] Blood Pressure 143/58 Blood Pressure [Left] O2 Sat by Pulse 98 Oximetry 02/06/22 02/06/22 11:02 13:52 Temperature 99.0 F Pulse Rate 79 Pulse Rate [ 82 Anterior Bilateral Throughout] Respiratory 22 Rate Respiratory 20 Rate [Anterior Bilateral Throughout] Blood Pressure 158/70 Blood Pressure [Left] O2 Sat by Pulse 100 Oximetry - General Appearance General appearance: well-developed EENT: ATNC Neck: no JVD Respiratory: Present: Decreased Breath Sounds Cardiology: regular, S1S2 Gastrointestinal: normoactive bowel sounds, no tenderness Integumentary: warm and dry Neurologic: other (awake, alert, oriented to person, year, but not place, follows simple commands) Musculoskeletal: other (trace edema to BLE) Psychiatric: cooperative - Lab 02/06/22 04:25 02/06/22 04:25 Most recent lab results Calcium 8.2 mg/dL (8.4-10.2) L 02/06/22 04:25 Magnesium 2.20 mg/dL (1.7-2.3) 02/01/22 11:15 Urine Creatinine 152.6 mg/dL (0.1-20.0) H 02/01/22 03:55 Urine Creatinine 153.8 mg/dL (0.1-20.0) H 02/01/22 03:55 Urine Sodium 15 mmol/L 02/01/22 03:55 Urine Total Protein 209 mg/dL (5-11.8) H 02/01/22 03:55 Medications & Allergies - Medications Allergies/Adverse Reactions: Allergies No Known Allergies Allergy (Unverified 08/01/15 23:02) Home Medications: Home Medications Medication Instructions Recorded Confirmed Last Taken Type Azithromycin [Zithromax TAB] 500 mg PO QDAY #7 tablet 08/05/15 02/02/22 Unknown Rx Cinacalcet HCl [Sensipar] 60 mg PO DAILY #30 tablet 08/05/15 02/02/22 Unknown Rx Insulin Lispro Prot/Lispro 28 units SUB-Q 1700 units 08/05/15 02/02/22 Unknown Rx [HumaLOG Mix 75/25 Vial] Insulin Lispro Prot/Lispro 30 units SUB-Q QDDIAB units 08/05/15 02/02/22 Unknown Rx [HumaLOG Mix 75/25 Vial] Insulin Lispro [HumaLOG VIAL] 28 units SQ QHS #1 vial 08/05/15 02/02/22 Unknown Rx Insulin Lispro [HumaLOG VIAL] 30 units SQ QAM #1 vial 08/05/15 02/02/22 Unknown Rx Levothyroxine [Synthroid] 175 mcg PO QAM #30 tablet 08/05/15 02/02/22 Unknown Rx Prednisone [predniSONE 10 mg 10 mg PO .TAPER #1 tab.ds.pk 08/05/15 02/02/22 U nknown Rx (6-Day Pack, 21 Tabs)] Spironolactone [Aldactone] 100 mg PO QDAY #30 tablet 08/05/15 02/02/22 Unknown Rx carvediloL [Coreg] 3.125 mg PO BID #60 tablet 08/05/15 02/02/22 Unknown Rx metFORMIN [Glucophage] 500 mg PO BID #30 tablet 08/05/15 02/02/22 Unknown Rx Active Medications: Generic Name Dose Route Start Last Admin Trade Name Freq PRN Reason Stop Dose Admin Acetaminophen 650 mg 01/29/22 03:54 Acetaminophen 325 Mg Tab PO Q4H PRN Pain MILD(1-3)/Fever >100.5/GARCIA Albuterol 2.5 mg 01/29/22 03:54 Albuterol 2.5 Mg/3 Ml Nebu IH Q3HRT PRN Shortness Of Breath Albuterol/Ipratropium 1 ampul 01/31/22 08:00 02/06/22 13:52 Ipratropium/Albuterol Sulfate 3 Ml Ampul.Neb IH 1 ampul TIDRT ABDIAZIZ Administration Citric Acid/Sodium Citrate 15 ml 02/04/22 14:00 02/06/22 09:35 Bicitra Oral Liqd 30ml PO 15 ml TID ABDIAZIZ Administration Dextrose 50 ml 01/29/22 03:54 01/31/22 07:44 Dextrose 50% In Water (25gm) 50 Ml Syringe IV 50 ml Q30MIN PRN Administration Hypoglycemia Protocol Famotidine 10 mg 01/29/22 10:00 02/06/22 09:35 Famotidine 10 Mg Tab PO 10 mg BID ABDIAZIZ Administration Ferrous Sulfate 325 mg 02/01/22 14:00 02/06/22 09:34 Ferrous Sulfate 325 Mg Tab PO 325 mg TID ABDIAZIZ Administration Heparin Sodium (Porcine) 5,000 unit 01/29/22 22:00 02/06/22 09:35 Heparin 5,000 Unit/1 Ml Vial SUB-Q 5,000 unit Q12HR ABDIAZIZ Administration Hydralazine HCl 10 mg 02/05/22 06:11 02/06/22 06:32 Hydralazine 20 Mg/1 Ml Inj IV 10 mg Q4H PRN Administration Hypertension Ceftriaxone Sodium 2 gm in 100 mls @ 200 mls/hr 02/02/22 14:00 02/06/22 09:29 Rocephin/Ns 2 Gm/100 Ml IV 02/15/22 10:29 200 mls/hr Q24HR ABDIAZIZ Administration Protocol Insulin Human Isoph/Insulin Regular 18 unit 02/02/22 08:00 02/06/22 08:00 Insulin Nph/Regular 70/30 Inj SUB-Q 18 unit BIDDIAB ABDIAZIZ Administration Insulin Human Lispro 0 unit 01/29/22 07:30 02/06/22 11:30 Insulin Lispro 100 Unit/Ml SUB-Q 3 unit ACHS ABDIAZIZ Administration Protocol Levothyroxine Sodium 100 mcg 01/29/22 06:00 02/06/22 06:33 Levothyroxine 100 Mcg Tab PO 100 mcg QAM@0600 ABDIAZIZ Administration Levothyroxine Sodium 75 mcg 01/29/22 06:00 02/06/22 06:33 Levothyroxine 75 Mcg Tab PO 75 mcg QAM@0600 ABDIAZIZ Administration Linezolid 600 mg 02/02/22 14:00 02/06/22 09:32 Linezolid 600 Mg Tab PO 02/15/22 22:01 600 mg Q12HR ABDIAZIZ Administration Protocol Loperamide HCl 2 mg 01/30/22 12:14 01/30/22 12:43 Loperamide 2 Mg Cap PO 2 mg Q2H PRN Administration Diarrhea Metoprolol Tartrate 50 mg 01/29/22 15:00 02/06/22 09:34 Metoprolol Tartrate 50 Mg Tab PO 50 mg Q8H ABDIAZIZ Administration Ondansetron HCl 4 mg 01/29/22 03:54 Ondansetron 4 Mg/2 Ml Inj IV Q8H PRN Nausea And Vomiting Oxycodone HCl 5 mg 02/02/22 12:00 02/06/22 12:43 Oxycodone 5 Mg Tab PO 5 mg Q4H PRN Administration Pain, Moderate (4-6) Sodium Chloride 10 ml 01/29/22 10:00 02/06/22 09:35 Sodium Chloride 0.9% 10 Ml Flush Syringe IV 10 ml BID ABDIAZIZ Administration Sodium Chloride 10 ml 01/29/22 03:54 Sodium Chloride 0.9% 10 Ml Flush Syringe IV PRN PRN LINE FLUSH Sodium Hypochlorite 1 applic 02/02/22 10:00 02/05/22 21:59 Sodium Hypochlorite, Dakin's 1/2 Strength (0.25%) 473 Ml Topical Soln TP 1 applicatio BID ABDIAZIZ Administration
[2022-02-06] MEDS: DEXTROSE 50% IN WATER (25GM) 50 ML SYRINGE IV PRN (21:56)
[2022-02-07] MEDS: LEVOTHYROXINE 75 MCG TAB PO SCH (05:12)
[2022-02-07] MEDS: LEVOTHYROXINE 100 MCG TAB PO SCH (05:12)
[2022-02-07] MEDS: hydrALAZINE 20 MG/1 ML INJ IV PRN ×2 (05:29→18:46)
[2022-02-07 06:35] LABS: Calcium 8.7 mg/dL (8.4-10.2)
[2022-02-07] MEDS: METOPROLOL TARTRATE 50 MG TAB PO SCH ×4 (06:38→23:16)
[2022-02-07] MEDS: IPRATROPIUM/ALBUTEROL SULFATE 3 ML AMPUL.NEB IH SCH ×3 (07:28→20:10)
[2022-02-07] MEDS: INSULIN LISPRO 100 UNIT/ML SUB-Q SCH ×4 (07:30→23:13)
[2022-02-07] MEDS: INSULIN NPH/REGULAR 70/30 INJ SUB-Q SCH ×2 (08:00→16:00)
--- NOTE | 2022-02-07 08:37 | Progress Note ---
Assessment and Plan The patient is a 66-year-old female with diabetes, hypertension, asthma was admitted to the hospital with complaints of generalized weakness. In the ED, found to be septic with leukocytosis, fever. She was started on empiric antibiotics for right leg cellulitis and pain, CT showed an abscess, general surgery was consulted and on 01/31/2022, she underwent an I&D of right upper thigh abscess. As per OR note, there was foul-smelling purulent material drained, abscess cavity appeared to track towards her inguinal area but not medially into the perianal or vaginal area. Got IV Zosyn in the ER, then was continued on ceftriaxone/Ancef. ID was consulted for antibiotic management for persistent leukocytosis. Daily Hospital course; 01/31/2020; x-ray right hip findings reviewed Consulted surgeon Dr. Lam, planning incision and drainage abscess tomorrow Continue empiric antibiotics 01/31; s/p incision and drainage of the upper thigh abscess today, fluid sent for analysis Follow cultures, continue empiric antibiotics, continue empiric antibiotics 02/01: Worsening leukocytosis, continue antibiotics, follow cultures, urine culture sent 02/02: Resumed care, consulted ID for persistent leukocytosis. Continue current antibiotic, follow ID recommendation. Patient appears to be altered and confused and oriented to self only. Continue to provide supportive care. 02/03: Noted ID recommendation. Added linezolid along with Rocephin. Monitor WBC to see improvement. Wound care and packing per surgery. Glycemic control. Monitor renal function, continue IV fluid. 02/04: WBC slightly improved. Creatinine 2.0 today. Patient's mental status remained unchanged. Continue current antibiotics, IV fluid. Patient need subacute rehab prior PT recommendation. Follow clinically. 02/05: WBC count improving with Rocephin and linezolid. Continue to follow BMP. Continue IV fluid. Patient tolerating diet. Her mental status remains unchanged. Pending placement. Possible DC to subacute rehab upon insurance authorization. Continue to provide supportive care. 02/06: Continue to improve in WBC count and serum creatinine. Continue current antibiotics. Continue to provide supportive care. Discharge pending on subacute rehab placement. 02/07: Creatinine level 1.4 today. Patient remains on and off confused and oriented to self only. Will get CT head to rule out any intracranial process. White count significantly improved. Patient remains afebrile. Pending discharge to subacute rehab. Change IV fluids to half-normal saline. A/P --Metabolic encephalopathy, patient noted to be on and off confused Likely due to underlying infection, hyponatremia and ISAIAH, cannot rule out underlying dementia. Does not have any focal neurological deficit Follow clinically --Cellulitis/abscess right groin/upper thigh x-ray right groin hip findings noted Change antibiotics to IV Rocephin and linezolid, follow cultures Status post incision drainage by Dr. Lam 01/31/2022 Fluid sent for analysis, consulted ID --ISAIAH (acute kidney injury), likely ATN, improving Admit the patient to the medical floor. Avoid nephrotoxic drug. Renally dose medication. Continue IV fluid hydration Monitor renal function, ordered renal ultrasound Nephrology consulted --Hyperglycemia / type 2 diabetes mellitus /uncontrolled Accu-Cheks sliding scale coverage ADA diet insulin as needed Adjust long-acting insulin dose as needed, A1c 7.8 Home health nurse for monitoring on DC --Hyponatremia; IV normal saline, closely monitor electrolytes --Elevated troponin/non-ST elevation AK type II In the setting of acute kidney injury Probably type II, however patient has risk factors Cardiology following, follow echo --Sinus tachycardia/ narrow complex tachycardia/resolved Continue metoprolol, closely monitor Follow echocardiogram for LV function ejection fraction Cardiology following --Hypertension Continue current antihypertensives and as needed medications --History of hypothyroidism: Continue Synthroid and supportive care --History of bronchial asthma O-xygen by nasal cannula 3 L/min. DuoNeb via nebulizer every 4 hours. Albuterol via nebulizer every 4 hours as needed -Obesity; BMI 35.4 Behavioral modification, lifestyle changes counseling 20 minutes Counseling done advised diet modification exercise as tolerated and weight reduction When medically stable --Full CODE STATUS --DVT prophylaxis; Heparin renal dose Total time spent 35 minutes Closely monitor the patient and adjust the management as needed Consultants ID, cardiology, nephrology and surgeon's recommendations noted and appreciated Plan of care reviewed with the patient and her nurse Disposition: Follow clinically and discharged in stable Subjective Date of service: 02/07/22 Principal diagnosis: Fever, general malaise, PSVT Interval history: Patient seen and examined. Medical records and medication list reviewed. No acute event overnight noted by the RN. Patient denies any chest pain or difficulty breathing. Patient is tolerating diet. Complaints of generalized body ache and right thigh pain Discussed plan of care at bedside with patient's RN. Objective - Exam Narrative Exam: GENERAL: well-developed obese elderly -[place] female lying on bed appeared to be in no discomfort. HEENT: Normocephalic. Atraumatic. No conjunctival congestion or icterus. Patient has moist mucous membranes. NECK: Supple. Trachea midline. CHEST/LUNGS: Clear to auscultated bilaterally, breathing nonlabored. No wheezes crackles or rhonchi. HEART/CARDIOVASCULAR: Regular in rate and rhythm. S1 and S2 positive. ABDOMEN: Abdomen is soft, nontender. Patient has normal bowel sounds. SKIN: There is no rash. Warm and dry. NEURO: No focal motor deficit. Follows command. Oriented to self only MUSCULOSKELETAL: No joint effusion or tenderness. Right thigh dressing EXTRIMITY: No edema, no cyanosis or clubbing. PSYCH: Cooperative. - Constitutional Vitals: Vital Signs - 12hr 02/06/22 02/06/22 02/07/22 20:58 21:45 05:19 Temperature 97.9 F 98.6 F Pulse Rate 86 67 Pulse Rate [ 77 Anterior Bilateral Throughout] Respiratory 18 Rate Respiratory 18 Rate [Anterior Bilateral Throughout] Blood Pressure 170/76 Blood Pressure 183/74 [Left] O2 Sat by Pulse 94 98 Oximetry 02/07/22 07:21 Temperature Pulse Rate Pulse Rate [ Anterior Bilateral Throughout] Respiratory Rate Respiratory Rate [Anterior Bilateral Throughout] Blood Pressure Blood Pressure [Left] O2 Sat by Pulse 96 Oximetry - Labs CBC & Chem 7: 02/06/22 04:25 02/07/22 05:31 Labs: Abnormal lab results 02/06/22 02/06/22 02/06/22 Range/Units 07:52 11:00 16:23 Sodium (137-145) mmol/L Chloride (98-107) mmol/L BUN (7-17) mg/dL Creatinine (0.6-1.2) mg/dL POC Glucose 182 H 232 H 116 H (70-105) mg/dL 02/06/22 02/07/22 Range/Units 21:53 05:31 Sodium 146 H (137-145) mmol/L Chloride 115.0 H (98-107) mmol/L BUN 32 H (7-17) mg/dL Creatinine 1.4 H (0.6-1.2) mg/dL POC Glucose 41 L (70-105) mg/dL HEART Score - HEART Score Troponin: Troponin T 0.068 ng/mL (0.00-0.029) H 01/29/22 00:27
--- NOTE | 2022-02-07 09:13 | Progress Note ---
Assessment and Plan Assessment and Plan Cellulitis/abscess right groin/upper thigh ISAIAH (acute kidney injury) Hyperglycemia due to type 2 diabetes mellitus Hyponatremia Elevated troponin/non-ST elevation [place] type II Sinus tachycardia/ narrow complex tachycardia Hypertension History of bronchial asthma Obesity; BMI 35.4 Anemia Plan: -Renal function reviewed, SCr level was 1.4 today, yesterday's SCr level was 1.7 -Serum creatinine was normal in 2016. No recent baseline serum creatinine available so unsure if pt has CKD or not -Renal ultrasound reviewed showed Left renal cysts. No hydronephrosis. -Orders for 0.45% NS infusion at 50 ml/hr -No urine eosinophils, pt has proteinuria with protein to cr ratio 1.3 g, likely from DM -SPEP showed no M spike -Free kappa/lambda ratio was slightly above range at 1.76 (0.26-1.65), check serum immunofixation and UPEP -On Bicitra 15 ml po TID -On Ferrous Sulfate 325 mg po TID -Most recent sodium level today was 146, yesterday's SCr level on 02/04/22 was 145 -Holding home Spironolactone for now -Not resuming home Metformin given advanced renal disease -Renally dose all medications -Strict I/O's daily -Urias Catheter: No (purewick) -Intake= 1930 ml Output= 1400 ml (Net= 530 ml) -Renal plan reviewed by Dr Palacios Subjective Date of service: 02/07/22 Principal diagnosis: Fever, general malaise, PSVT Interval history: Pt seen in bed, states she has decreased appetite, no acute distress, no family at bedside Objective - Vital Signs Vital signs: Vital Signs - 12hr 02/06/22 02/07/22 02/07/22 21:45 05:19 07:21 Temperature 97.9 F 98.6 F Pulse Rate 86 67 Respiratory 18 Rate Blood Pressure 170/76 Blood Pressure 183/74 [Left] O2 Sat by Pulse 94 98 96 Oximetry - General Appearance General appearance: well-developed EENT: ATNC Neck: no JVD Respiratory: Present: Decreased Breath Sounds Cardiology: regular, S1S2 Gastrointestinal: normoactive bowel sounds Integumentary: warm and dry Neurologic: alert and oriented x3 Musculoskeletal: other (trace edema to BLE) Psychiatric: cooperative - Lab 02/06/22 04:25 02/07/22 05:31 Most recent lab results Calcium 8.7 mg/dL (8.4-10.2) 02/07/22 05:31 Magnesium 2.20 mg/dL (1.7-2.3) 02/01/22 11:15 Urine Creatinine 152.6 mg/dL (0.1-20.0) H 02/01/22 03:55 Urine Creatinine 153.8 mg/dL (0.1-20.0) H 02/01/22 03:55 Urine Sodium 15 mmol/L 02/01/22 03:55 Urine Total Protein 209 mg/dL (5-11.8) H 02/01/22 03:55 Medications & Allergies - Medications Allergies/Adverse Reactions: Allergies No Known Allergies Allergy (Unverified 08/01/15 23:02) Home Medications: Home Medications Medication Instructions Recorded Confirmed Last Taken Type Azithromycin [Zithromax TAB] 500 mg PO QDAY #7 tablet 08/05/15 02/02/22 Unknown Rx Cinacalcet HCl [Sensipar] 60 mg PO DAILY #30 tablet 08/05/15 02/02/22 Unknown Rx Insulin Lispro Prot/Lispro 28 units SUB-Q 1700 units 08/05/15 02/02/22 Unknown Rx [HumaLOG Mix 75/25 Vial] Insulin Lispro Prot/Lispro 30 units SUB-Q QDDIAB units 08/05/15 02/02/22 Unknown Rx [HumaLOG Mix 75/25 Vial] Insulin Lispro [HumaLOG VIAL] 28 units SQ QHS #1 vial 08/05/15 02/02/22 Unknown Rx Insulin Lispro [HumaLOG VIAL] 30 units SQ QAM #1 vial 08/05/15 02/02/22 Unknown Rx Levothyroxine [Synthroid] 175 mcg PO QAM #30 tablet 08/05/15 02/02/22 Unknown Rx Prednisone [predniSONE 10 mg 10 mg PO .TAPER #1 tab.ds.pk 08/05/15 02/02/22 Unknown Rx (6-Day Pack, 21 Tabs)] Spironolactone [Aldactone] 100 mg PO QDAY #30 tablet 08/05/15 02/02/22 Unknown Rx carvediloL [Coreg] 3.125 mg PO BID #60 tablet 08/05/15 02/02/22 Unknown Rx metFORMIN [Glucophage] 500 mg PO BID #30 tablet 08/05/15 02/02/22 Unknown Rx Active Medications: Generic Name Dose Route Start Last Admin Trade Name Radha PRN Reason Stop Dose Admin Acetaminophen 650 mg 01/29/22 03:54 Acetaminophen 325 Mg Tab PO Q4H PRN Pain MILD(1-3)/Fever >100.5/GARCIA Albuterol 2.5 mg 01/29/22 03:54 Albuterol 2.5 Mg/3 Ml Nebu IH Q3HRT PRN Shortness Of Breath Albuterol/Ipratropium 1 ampul 01/31/22 08:00 02/07/22 07:28 Ipratropium/Albuterol Sulfate 3 Ml Ampul.Neb IH 1 ampul TIDRT ABDIAZIZ Administration Citric Acid/Sodium Citrate 15 ml 02/04/22 14:00 02/06/22 21:59 Bicitra Oral Liqd 30ml PO 15 ml TID ABDIAZIZ Administration Dextrose 50 ml 01/29/22 03:54 02/06/22 21:56 Dextrose 50% In Water (25gm) 50 Ml Syringe IV 50 ml Q30MIN PRN Administration Hypoglycemia Protocol Famotidine 10 mg 01/29/22 10:00 02/06/22 22:00 Famotidine 10 Mg Tab PO 10 mg BID ABDIAZIZ Administration Ferrous Sulfate 325 mg 02/01/22 14:00 02/06/22 22:00 Ferrous Sulfate 325 Mg Tab PO 325 mg TID ABDIAZIZ Administration Heparin Sodium (Porcine) 5,000 unit 01/29/22 22:00 02/06/22 22:01 Heparin 5,000 Unit/1 Ml Vial SUB-Q 5,000 unit Q12HR ABDIAZIZ Administration Hydralazine HCl 10 mg 02/05/22 06:11 02/07/22 05:29 Hydralazine 20 Mg/1 Ml Inj IV 10 mg Q4H PRN Administration Hypertension Ceftriaxone Sodium 2 gm in 100 mls @ 200 mls/hr 02/02/22 14:00 02/06/22 09:29 Rocephin/Ns 2 Gm/100 Ml IV 02/15/22 10:29 200 mls/hr Q24HR ABDIAZIZ Administration Protocol Sodium Chloride 1,000 mls @ 50 mls/hr 02/07/22 09:00 Nacl 0.45% 1000 Ml IV DIRECT ABDIAZIZ Insulin Human Isoph/Insulin Regular 18 unit 08/30/22 08:00 02/06/22 17:00 Insulin Nph/Regular 70/30 Inj SUB-Q 18 unit BIDDIAB ABDIAZIZ Administration Insulin Human Lispro 0 unit 01/29/22 07:30 02/07/22 07:30 Insulin Lispro 100 Unit/Ml SUB-Q Not Given ACHS [facility] Protocol Levothyroxine Sodium 100 mcg 01/29/22 06:00 02/07/22 05:12 Levothyroxine 100 Mcg Tab PO 100 mcg QAM@0600 ABDIAZIZ Administration Levothyroxine Sodium 75 mcg 01/29/22 06:00 02/07/22 05:12 Levothyroxine 75 Mcg Tab PO 75 mcg QAM@0600 ABDIAZIZ Administration Linezolid 600 mg 02/02/22 14:00 02/06/22 21:59 Linezolid 600 Mg Tab PO 02/15/22 22:01 600 mg Q12HR ABDIAZIZ Administration Protocol Loperamide HCl 2 mg 01/30/22 12:14 01/30/22 12:43 Loperamide 2 Mg Cap PO 2 mg Q2H PRN Administration Diarrhea Metoprolol Tartrate 50 mg 01/29/22 15:00 02/07/22 06:38 Metoprolol Tartrate 50 Mg Tab PO 50 mg Q8H ABDIAZIZ Administration Ondansetron HCl 4 mg 01/29/22 03:54 Ondansetron 4 Mg/2 Ml Inj IV Q8H PRN Nausea And Vomiting Oxycodone HCl 5 mg 02/02/22 12:00 02/06/22 12:43 Oxycodone 5 Mg Tab PO 5 mg Q4H PRN Administration Pain, Moderate (4-6) Sodium Chloride 10 ml 01/29/22 10:00 02/06/22 22:03 Sodium Chloride 0.9% 10 Ml Flush Syringe IV 10 ml BID ABDIAZIZ Administration Sodium Chloride 10 ml 01/29/22 03:54 Sodium Chloride 0.9% 10 Ml Flush Syringe IV PRN PRN LINE FLUSH Sodium Hypochlorite 1 applic 02/02/22 10:00 02/06/22 22:00 Sodium Hypochlorite, Dakin's 1/2 Strength (0.25%) 473 Ml Topical Soln TP 1 applicatio BID ABDIAZIZ Administration
[2022-02-07] MEDS: FAMOTIDINE 10 MG TAB PO SCH ×2 (09:54→21:28)
[2022-02-07] MEDS: FERROUS SULFATE 325 MG TAB PO SCH ×3 (09:54→21:26)
[2022-02-07] MEDS: HEPARIN 5,000 UNIT/1 ML VIAL SUB-Q SCH ×2 (09:54→21:27)
[2022-02-07] MEDS: cefTRIAXone/NS 2 GM/100 ML 2 GM/100 ML BAG IV SCH (09:55)
[2022-02-07] MEDS: LINEZOLID 600 MG TAB PO SCH ×2 (09:55→21:26)
[2022-02-07] MEDS: BICITRA ORAL LIQD 30ML PO SCH ×3 (09:55→21:26)
[2022-02-07] MEDS: SODIUM CHLORIDE 0.45% 1000 ML 1,000 ML IV SCH (09:56)
--- NOTE | 2022-02-07 10:06 | Cat Scan Report ---
CT head/brain wo con INDICATION / CLINICAL INFORMATION: 66 years Female; AMS. TECHNIQUE: Routine CT head without contrast. All CT scans at this location are performed using CT dos e reduction for ALARA by means of automated exposure control. COMPARISON: None. FINDINGS: BRAIN / INTRACRANIAL CONTENTS: The patient is status post left parietal craniotomy this patient with history of meningioma. There appears be soft tissue lesion along the high medial left parafalcine reg ion measuring approximately 2.8 cm AP by 2.2 cm transverse by 2.5 similar sagittally and greatest dim ensions which would appear most consistent with residual meningioma given the patient's history. Himanshu tionally, there is vasogenic edema within the left parietal lobe extending into the adjacent left fro ntal lobe with mild degree of mass effect. Correlation with any previous outside imaging would be epifanio eficial. There otherwise appears to be mild cerebral white matter disease most consistent with microvascular a ngiopathy at. This mild cerebral atrophy with associated mild prominence of the ventricular system. T here is no clear CT evidence of acute intracranial hemorrhage. ORBITS: No significant abnormality of visualized orbits. SINUSES / MASTOIDS: No significant abnormality in the visualized paranasal sinuses or mastoid air jaclyn ls. CRANIOCERVICAL JUNCTION: No significant abnormality. ADDITIONAL FINDINGS: None. IMPRESSION: 1. Status post left parietal craniotomy with findings indicative of residual meningioma along the hig h right parafalcine region with surrounding vasogenic edema as detailed above; correlation with any p revious outside imaging would be beneficial. 2. There is otherwise mild microvascular angiopathy without CT evidence of acute intracranial hemorrh age. Signer Name: Benjamin Chaves MD Signed: 02/07/2022 10:02 AM Workstation Name: [id number]
--- NOTE | 2022-02-07 10:13 | Progress Note ---
Assessment and Plan 1. Nonspecific elevation of serum troponin level in the setting of acute kidney injury. 2. Acute on chronic renal failure resolving 3. Cellulitis and sepsis right groin and upper thigh currently on IV antibiotics status post incision and drainage 4. Type 2 diabetes mellitus Plan. Cardiac anaya patient is stable. Continue IV antibiotics. Elective stress MPI before discharge. Subjective Date of service: 02/07/22 Principal diagnosis: Fever, general malaise, PSVT Interval history: No new cardiac complains. Objective Vital Signs Temp Pulse Pulse Resp Resp BP BP 02/07/22 07:28 77 18 02/07/22 07:21 02/07/22 05:19 98.6 F 67 18 170/76 02/06/22 21:45 97.9 F 86 183/74 02/06/22 20:58 77 18 02/06/22 20:11 02/06/22 16:26 99.1 F 68 20 161/68 02/06/22 13:52 82 20 02/06/22 11:02 99.0 F 79 22 158/70 Pulse Ox 02/07/22 07:28 02/07/22 07:21 96 02/07/22 05:19 98 02/06/22 21:45 94 02/06/22 20:58 02/06/22 20:11 98 02/06/22 16:26 98 02/06/22 13:52 02/06/22 11:02 100 - Physical Examination General: Appears Well, No Apparent Distress, Other (obese) HEENT: Positive: PERRL Neck: Positive: neck supple Cardiac: Positive: Regular Rate, S1/S2, PMI, Laterally Displaced. Negative: S3, S4 Lungs: Positive: clear to auscultation, No Wheeze, Rales, Rhonchi Neuro: Positive: Grossly Intact Abdomen: Positive: Soft Skin: Positive: Clear Extremities: Absent: edema - Labs and Meds Comprehensive Metabolic Panel 02/07/22 Range/Units 05:31 Sodium 146 H (137-145) mmol/L Potassium 3.9 (3.6-5.0) mmol/L Chloride 115.0 H (98-107) mmol/L Carbon Dioxide 23 (22-30) mmol/L BUN 32 H (7-17) mg/dL Creatinine 1.4 H (0.6-1.2) mg/dL Glucose 65 (65-100) mg/dL Calcium 8.7 (8.4-10.2) mg/dL
[2022-02-07] MEDS: SODIUM HYPOCHLORITE, DAKIN'S 1/2 STRENGTH (0.25%) 473 ML TOPICAL SOLN TP SCH ×2 (18:00→21:28)
[2022-02-08] MEDS: LEVOTHYROXINE 100 MCG TAB PO SCH (05:43)
[2022-02-08] MEDS: LEVOTHYROXINE 75 MCG TAB PO SCH (05:43)
[2022-02-08] MEDS: hydrALAZINE 20 MG/1 ML INJ IV PRN (06:01)
[2022-02-08] MEDS: METOPROLOL TARTRATE 50 MG TAB PO SCH ×3 (06:05→22:50)
[2022-02-08] MEDS: IPRATROPIUM/ALBUTEROL SULFATE 3 ML AMPUL.NEB IH SCH ×3 (07:36→19:46)
[2022-02-08] MEDS: FERROUS SULFATE 325 MG TAB PO SCH ×3 (08:00→21:06)
[2022-02-08] MEDS: INSULIN NPH/REGULAR 70/30 INJ SUB-Q SCH ×2 (08:08→17:30)
[2022-02-08] MEDS: INSULIN LISPRO 100 UNIT/ML SUB-Q SCH ×4 (08:08→21:09)
[2022-02-08] MEDS: FAMOTIDINE 10 MG TAB PO SCH ×2 (09:31→21:07)
[2022-02-08] MEDS: BICITRA ORAL LIQD 30ML PO SCH ×3 (09:31→21:07)
[2022-02-08] MEDS: cefTRIAXone/NS 2 GM/100 ML 2 GM/100 ML BAG IV SCH (09:31)
[2022-02-08] MEDS: HEPARIN 5,000 UNIT/1 ML VIAL SUB-Q SCH ×2 (09:32→21:06)
[2022-02-08] MEDS: SODIUM CHLORIDE 0.45% 1000 ML 1,000 ML IV SCH (09:43)
--- NOTE | 2022-02-08 09:51 | Progress Note ---
Assessment and Plan 1. Nonspecific elevation of serum troponin level in the setting of acute kidney injury. 2. Acute on chronic renal failure resolving 3. Cellulitis and sepsis right groin and upper thigh currently on IV antibiotics status post incision and drainage 4. Type 2 diabetes mellitus Plan. Cardiac anaya patient is stable. Continue IV antibiotics. Elective stress MPI before discharge. Subjective Date of service: 02/08/22 Principal diagnosis: Fever, general malaise, PSVT Interval history: No new cardiac complains. Objective Vital Signs Temp Pulse Pulse Resp Resp BP BP 02/08/22 07:36 75 18 02/08/22 06:01 187/79 02/08/22 05:58 98.6 F 71 18 187/79 02/08/22 00:10 02/07/22 21:22 98.4 F 79 18 140/72 02/07/22 20:10 79 16 02/07/22 18:46 75 175/75 02/07/22 16:43 99.3 F 75 22 171/75 02/07/22 13:40 72 18 02/07/22 11:31 98.8 F 71 22 158/65 Pulse Ox 02/08/22 07:36 02/08/22 06:01 02/08/22 05:58 99 02/08/22 00:10 96 02/07/22 21:22 100 02/07/22 20:10 02/07/22 18:46 02/07/22 16:43 99 02/07/22 13:40 02/07/22 11:31 97 - Physical Examination General: Appears Well, No Apparent Distress, Other (obese) HEENT: Positive: PERRL Neck: Positive: neck supple Cardiac: Positive: Regular Rate, S1/S2, PMI, Laterally Displaced. Negative: S3, S4 Lungs: Positive: clear to auscultation, No Wheeze, Rales, Rhonchi Neuro: Positive: Grossly Intact Abdomen: Positive: Soft Skin: Positive: Clear Extremities: Absent: edema
--- NOTE | 2022-02-08 09:54 | Progress Note ---
Assessment and Plan Assessment and Plan Cellulitis/abscess right groin/upper thigh ISAIAH (acute kidney injury) Hyperglycemia due to type 2 diabetes mellitus Hyponatremia Elevated troponin/non-ST elevation [place] type II Sinus tachycardia/ narrow complex tachycardia Hypertension History of bronchial asthma Obesity; BMI 35.4 Anemia Plan: -Labs pending today (reamer hand unable to obtain labs this morning so will follow up) -Serum creatinine was normal in 2016. No recent baseline serum creatinine available so unsure if pt has CKD or not -Renal ultrasound reviewed showed Left renal cysts. No hydronephrosis. -Orders for 0.45% NS infusion at 50 ml/hr -No urine eosinophils, pt has proteinuria with protein to cr ratio 1.3 g, likely from DM -SPEP showed no M spike -Free kappa/lambda ratio was slightly above range at 1.76 (0.26-1.65), check serum immunofixation and UPEP -On Bicitra 15 ml po TID -Holding home Spironolactone for now -Not resuming home Metformin given advanced renal disease -Renally dose all medications -Strict I/O's daily -Renal plan reviewed by Dr Palacios Subjective Date of service: 02/08/22 Principal diagnosis: Fever, general malaise, PSVT Interval history: Pt seen sitting up on the side of the bed with walker working with physical therapist, states she has BLE pain to palpation, denies shortness of breath, nausea, or vomiting, no acute distress, no family at bedside Objective - Vital Signs Vital signs: Vital Signs - 12hr 02/08/22 02/08/22 02/08/22 00:10 05:58 06:01 Temperature 98.6 F Pulse Rate 71 Pulse Rate [ Anterior Bilateral Throughout] Respiratory 18 Rate Respiratory Rate [Anterior Bilateral Throughout] Blood Pressure 187/79 Blood Pressure 187/79 [Left] O2 Sat by Pulse 96 99 Oximetry 02/08/22 07:36 Temperature Pulse Rate Pulse Rate [ 75 Anterior Bilateral Throughout] Respiratory Rate Respiratory 18 Rate [Anterior Bilateral Throughout] Blood Pressure Blood Pressure [Left] O2 Sat by Pulse Oximetry - General Appearance General appearance: well-developed EENT: ATNC Neck: no JVD Respiratory: Present: Decreased Breath Sounds Cardiology: regular, S1S2 Gastrointestinal: normoactive bowel sounds, no tenderness Integumentary: warm and dry Neurologic: alert and oriented x3 Musculoskeletal: other (trace edema to BLE) Psychiatric: cooperative - Lab 02/06/22 04:25 02/07/22 05:31 Most recent lab results Calcium 8.7 mg/dL (8.4-10.2) 02/07/22 05:31 Magnesium 2.20 mg/dL (1.7-2.3) 02/01/22 11:15 Urine Creatinine 152.6 mg/dL (0.1-20.0) H 02/01/22 03:55 Urine Creatinine 153.8 mg/dL (0.1-20.0) H 02/01/22 03:55 Urine Sodium 15 mmol/L 02/01/22 03:55 Urine Total Protein 209 mg/dL (5-11.8) H 02/01/22 03:55 Medications & Allergies - Medications Allergies/Adverse Reactions: Allergies No Known Allergies Allergy (Unverified 08/01/15 23:02) Home Medications: Home Medications Medication Instructions Recorded Confirmed Last Taken Type Azithromycin [Zithromax TAB] 500 mg PO QDAY #7 tablet 08/05/15 02/02/22 Unknown Rx Cinacalcet HCl [Sensipar] 60 mg PO DAILY #30 tablet 08/05/15 02/02/22 Unknown Rx Insulin Lispro Prot/Lispro 28 units SUB-Q 1700 units 08/05/15 02/02/22 Unknown Rx [HumaLOG Mix 75/25 Vial] Insulin Lispro Prot/Lispro 30 units SUB-Q QDDIAB units 08/05/15 02/02/22 Unknown Rx [HumaLOG Mix 75/25 Vial] Insulin Lispro [HumaLOG VIAL] 28 units SQ QHS #1 vial 08/05/15 02/02/22 Unknown Rx Insulin Lispro [HumaLOG VIAL] 30 units SQ QAM #1 vial 08/05/15 02/02/22 Unknown Rx Levothyroxine [Synthroid] 175 mcg PO QAM #30 tablet 08/05/15 02/02/22 Unknown Rx Prednisone [predniSONE 10 mg 10 mg PO .TAPER #1 tab.ds.pk 08/05/15 02/02/22 Unknown Rx (6-Day Pack, 21 Tabs)] Spironolactone [Aldactone] 100 mg PO QDAY #30 tablet 08/05/15 02/02/22 Unknown Rx carvediloL [Coreg] 3.125 mg PO BID #60 tablet 08/05/15 02/02/22 Unknown Rx metFORMIN [Glucophage] 500 mg PO BID #30 tablet 08/05/15 02/02/22 Unknown Rx Active Medications: Generic Name Dose Route Start Last Admin Trade Name Freq PRN Reason Stop Dose Admin Acetaminophen 650 mg 01/29/22 03:54 02/07/22 21:25 Acetaminophen 325 Mg Tab PO 650 mg Q4H PRN Administration Pain MILD(1-3)/Fever >100.5/GARCIA Albuterol 2.5 mg 01/29/22 03:54 Albuterol 2.5 Mg/3 Ml Nebu IH Q3HRT PRN Shortness Of Breath Albuterol/Ipratropium 1 ampul 01/31/22 08:00 02/08/22 07:36 Ipratropium/Albuterol Sulfate 3 Ml Ampul.Neb IH 1 ampul TIDRT ABDIAZIZ Administration Citric Acid/Sodium Citrate 15 ml 02/04/22 14:00 02/08/22 09:31 Bicitra Oral Liqd 30ml PO 15 ml TID ABDIAZIZ Administration Dextrose 50 ml 01/29/22 03:54 02/06/22 21:56 Dextrose 50% In Water (25gm) 50 Ml Syringe IV 50 ml Q30MIN PRN Administration Hypoglycemia Protocol Famotidine 10 mg 01/29/22 10:00 02/08/22 09:31 Famotidine 10 Mg Tab PO 10 mg BID ABDIAZIZ Administration Ferrous Sulfate 325 mg 02/01/22 14:00 02/08/22 08:00 Ferrous Sulfate 325 Mg Tab PO 325 mg TID ABDIAZIZ Administration Heparin Sodium (Porcine) 5,000 unit 01/29/22 22:00 02/08/22 09:32 Heparin 5,000 Unit/1 Ml Vial SUB-Q 5,000 unit Q12HR ABDIAZIZ Administration Hydralazine HCl 10 mg 02/05/22 06:11 02/08/22 06:01 Hydralazine 20 Mg/1 Ml Inj IV 10 mg Q4H PRN Administration Hypertension Ceftriaxone Sodium 2 gm in 100 mls @ 200 mls/hr 02/02/22 14:00 02/08/22 09:31 Rocephin/Ns 2 Gm/100 Ml IV 02/15/22 10:29 200 mls/hr Q24HR ABDIAZIZ Administration Protocol Sodium Chloride 1,000 mls @ 50 mls/hr 02/07/22 09:00 02/08/22 09:43 Nacl 0.45% 1000 Ml IV 50 mls/hr DIRECT ABDIAZIZ Administration Insulin Human Isoph/Insulin Regular 18 unit 02/02/22 08:00 02/08/22 08:08 Insulin Nph/Regular 70/30 Inj SUB-Q Not Given BIDDIAB ABDIAZIZ Insulin Human Lispro 0 unit 01/29/22 07:30 02/08/22 08:08 Insulin Lispro 100 Unit/Ml SUB-Q Not Given ACHS [facility] Protocol Levothyroxine Sodium 100 mcg 01/29/22 06:00 02/08/22 05:43 Levothyroxine 100 Mcg Tab PO 100 mcg QAM@0600 ABDIAZIZ Administration Levothyroxine Sodium 75 mcg 01/29/22 06:00 02/08/22 05:43 Levothyroxine 75 Mcg Tab PO 75 mcg QAM@0600 ABDIAZIZ Administration Linezolid 600 mg 02/02/22 14:00 02/07/22 21:26 Linezolid 600 Mg Tab PO 02/15/22 22:01 600 mg Q12HR ABDIAZIZ Administration Protocol Loperamide HCl 2 mg 01/30/22 12:14 01/30/22 12:43 Loperamide 2 Mg Cap PO 2 mg Q2H PRN Administration Diarrhea Metoprolol Tartrate 50 mg 01/29/22 15:00 02/08/22 06:05 Metoprolol Tartrate 50 Mg Tab PO 50 mg Q8H ABDIAZIZ Administration Nifedipine 30 mg 02/08/22 10:00 02/08/22 09:31 Nifedipine Xl 30 Mg Tab PO 30 mg QDAY ABDIAZIZ Administration Ondansetron HCl 4 mg 01/29/22 03:54 Ondansetron 4 Mg/2 Ml Inj IV Q8H PRN Nausea And Vomiting Oxycodone HCl 5 mg 02/02/22 12:00 02/06/22 12:43 Oxycodone 5 Mg Tab PO 5 mg Q4H PRN Administration Pain, Moderate (4-6) Sodium Chloride 10 ml 01/29/22 10:00 02/08/22 09:30 Sodium Chloride 0.9% 10 Ml Flush Syringe IV 10 ml BID ABDIAZIZ Administration Sodium Chloride 10 ml 01/29/22 03:54 Sodium Chloride 0.9% 10 Ml Flush Syringe IV PRN PRN LINE FLUSH Sodium Hypochlorite 1 applic 08/30/22 10:00 02/07/22 21:28 Sodium Hypochlorite, [place]'s 1/2 Strength (0.25%) 473 Ml Topical Soln TP 1 applicatio BID ABDIAZIZ Administration
[2022-02-08] MEDS: LINEZOLID 600 MG TAB PO SCH ×2 (10:00→21:06)
[2022-02-08] MEDS ORDERED: NIFEdipine XL 30 MG TAB PO SCH (10:00)
[2022-02-08] MEDS: SODIUM HYPOCHLORITE, DAKIN'S 1/2 STRENGTH (0.25%) 473 ML TOPICAL SOLN TP SCH ×2 (10:00→21:07)
--- NOTE | 2022-02-08 11:47 | Progress Note ---
Assessment and Plan Assessment and plan: The patient is a 66-year-old female with diabetes, hypertension, asthma was admitted to the hospital with complaints of generalized weakness. In the ED, found to be septic with leukocytosis, fever. She was started on empiric antibiotics for right leg cellulitis and pain, CT showed an abscess, general surgery was consulted and on 01/31/2022, she underwent an I&D of right upper thigh abscess. As per OR note, there was foul-smelling purulent material drained, abscess cavity appeared to track towards her inguinal area but not medially into the perianal or vaginal area. Got IV Zosyn in the ER, then was continued on ceftriaxone/Ancef. ID was consulted for antibiotic management for persistent leukocytosis. Daily Hospital course; 01/31/2020; x-ray right hip findings reviewed Consulted surgeon Dr. Lam, planning incision and drainage abscess tomorrow Continue empiric antibiotics 01/31; s/p incision and drainage of the upper thigh abscess today, fluid sent for analysis Follow cultures, continue empiric antibiotics, continue empiric antibiotics 02/01: Worsening leukocytosis, continue antibiotics, follow cultures, urine culture sent 02/02: Resumed care, consulted ID for persistent leukocytosis. Continue current antibiotic, follow ID recommendation. Patient appears to be altered and confused and oriented to self only. Continue to provide supportive care. 02/03: Noted ID recommendation. Added linezolid along with Rocephin. Monitor WBC to see improvement. Wound care and packing per surgery. Glycemic control. Monitor renal function, continue IV fluid. 02/04: WBC slightly improved. Creatinine 2.0 today. Patient's mental status remained unchanged. Continue current antibiotics, IV fluid. Patient need subacute rehab prior PT recommendation. Follow clinically. 02/05: WBC count improving with Rocephin and linezolid. Continue to follow BMP. Continue IV fluid. Patient tolerating diet. Her mental status remains unchanged. Pending placement. Possible DC to subacute rehab upon insurance authorization. Continue to provide supportive care. 02/06: Continue to improve in WBC count and serum creatinine. Continue current antibiotics. Continue to provide supportive care. Discharge pending on subacute rehab placement. 02/07: Creatinine level 1.4 today. Patient remains on and off confused and oriented to self only. Will get CT head to rule out any intracranial process. White count significantly improved. Patient remains afebrile. Pending discharge to subacute rehab. Change IV fluids to half-normal saline. 02/08: Patient stable. Patient noted to have uncontrolled HTN. Nifedipine 30xl started. A/P #Sepsis - resolved #Cellulitis/abscess right groin/upper thigh -Xray right groin hip findings noted -continue IV Rocephin and linezolid while inpatient -upon discharge, switch to PO Augmentin 875 mg daily + PO linezolid 600 mg BID to complete 10 more days ending 02/15/2022. Adjust Augmentin dose if renal funct ion improves, per ID recommendations -wound care and packing per surgery -optimize glycemic control -Status post incision drainage by Dr. Lam 01/31/2022 #ISAIAH (acute kidney injury), likely ATN, resolving -continue IV fluid hydration -Avoid nephrotoxic drugs and renally dose medication -Nephrology following, assistance appreciated #Acute toxic metabolic encephalopathy-improving -CT of the head 02/07 unremarkable -Likely due to underlying infection and ISAIAH -cannot rule out underlying dementia #Type II Diabetes with hyperglycemia #Hypoglycemia -A1C 7.8% -patient noted to have low BG in the mornings -regimen adjusted to 18U 70/30 QAM and 12U QPM -continue SSI + accuchecks #Hyponatremia-resolved -continue IV hydration #Elevated troponin/non-ST elevation NV type II -likely secondary to acute kidney injury #Sinus tachycardia #narrow complex tachycardia-resolved -continue metoprolol -Cardiology following, assistance appreciated #Hypertension -continue metoprolol -BG not controlled, will start nifedipine 30mg qday #History of hypothyroidism -continue Synthroid #History of asthma -continue albuterol via nebulizer every 4 hours as needed #Obesity #Weight loss counseling #Exercise counseling - BMI 33.5 - Counseled patient on the importance of weight loss, incorporating exercise, and dietary changes (lean meats, fresh fruits and vegetables, and water intake). Patient expresses understanding. - Time: +15 min #Advanced care planning -Disease education conducted, care plan discussed, diagnoses discussed, prognosis discussed, and patient acknowledges understanding with care plan -Time: +30 min #Discharge planning -Patient awaiting possible placement in subacute rehab, case management aware History Interval history: No acute events overnight. Patient is alert and oriented x3. She is aware of her pending placement. Patient concerned about her initial presenting encephalopathy but has no other concerns at this time. Hospitalist Physical - Physical exam Narrative exam: GENERAL: Well-developed well-nourished. In no acute distress. HEENT: Normocephalic. Atraumatic. NECK: Supple. CHEST/LUNGS: CTAB on room air HEART/CARDIOVASCULAR: RRR. No murmur, rubs or gallops appreciated. ABDOMEN: +BS. NT/ND. SKIN: No rashes noted. NEURO: No focal motor deficit. Follows all commands. MUSCULOSKELETAL: No joint effusion EXTREMITIES: No cyanosis, clubbing or edema. R thigh bandage intact without any noted drainage. PSYCH: Cooperative. - Constitutional Vitals: Temp Pulse Resp BP Pulse Ox 98.6 F 75 18 187/79 98 02/08/22 05:58 02/08/22 07:36 02/08/22 07:36 02/08/22 06:01 02/08/22 10:00 General appearance: Present: no acute distress, well-nourished, obese HEART Score - HEART Score Troponin: Troponin T 0.068 ng/mL (0.00-0.029) H 01/29/22 00:27 Results - Labs CBC & Chem 7: 02/06/22 04:25 02/07/22 05:31 Labs: Laboratory Last Values WBC 14.5 K/mm3 (4.5-11.0) H 02/06/22 04:25 RBC 2.73 M/mm3 (3.65-5.03) L 02/06/22 04:25 Hgb 7.6 gm/dl (10.1-14.3) L 02/06/22 04:25 Hct 23.1 % (30.3-42.9) L 02/06/22 04:25 MCV 85 fl (79-97) 02/06/22 04:25 MCH 28 pg (28-32) 02/06/22 04:25 MCHC 33 % (30-34) 02/06/22 04:25 RDW 15.3 % (13.2-15.2) H 02/06/22 04:25 Plt Count 185 K/mm3 (140-440) 02/06/22 04:25 Add Manual Diff Complete 02/06/22 04:25 Total Counted 100 02/06/22 04:25 Seg Neutrophils % Advertising Account Executive 02/02/22 08:08 Seg Neuts % (Manual) 75.0 % (40.0-70.0) H 02/06/22 04:25 Band Neutrophils % 0 % 02/06/22 04:25 Lymphocytes % (Manual) 17.0 % (13.4-35.0) 02/06/22 04:25 Reactive Lymphs % (Man) 0 % 02/06/22 04:25 Monocytes % (Manual) 8.0 % (0.0-7.3) H 02/06/22 04:25 Eosinophils % (Manual) 0 % (0.0-4.3) 02/06/22 04:25 Basophils % (Manual) 0 % (0.0-1.8) 02/06/22 04:25 Metamyelocytes % 0 % 02/06/22 04:25 Myelocytes % 0 % 02/06/22 04:25 Promyelocytes % 0 % 02/06/22 04:25 Blast Cells % 0 % 02/06/22 04:25 Nucleated RBC % Not Reportable 02/06/22 04:25 Seg Neutrophils # Man 10.9 K/mm3 (1.8-7.7) H 02/06/22 04:25 Band Neutrophils # 0.0 K/mm3 02/06/22 04:25 Lymphocytes # (Manual) 2.5 K/mm3 (1.2-5.4) 02/06/22 04:25 Abs React Lymphs (Man) 0.0 K/mm3 02/06/22 04:25 Monocytes # (Manual) 1.2 K/mm3 (0.0-0.8) H 02/06/22 04:25 Eosinophils # (Manual) 0.0 K/mm3 (0.0-0.4) 02/06/22 04:25 Basophils # (Manual) 0.0 K/mm3 (0.0-0.1) 02/06/22 04:25 Metamyelocytes # 0.0 K/mm3 02/06/22 04:25 Myelocytes # 0.0 K/mm3 02/06/22 04:25 Promyelocytes # 0.0 K/mm3 02/06/22 04:25 Blast Cells # 0.0 K/mm3 02/06/22 04:25 WBC Morphology Not Reportable 02/06/22 04:25 Hypersegmented Neuts Not Reportable 02/06/22 04:25 Hyposegmented Neuts Not Reportable 02/06/22 04:25 Hypogranular Neuts Not Reportable 02/06/22 04:25 Smudge Cells Not Reportable 02/06/22 04:25 Toxic Granulation Not Reportable 02/06/22 04:25 Toxic Vacuolation Not Reportable 02/06/22 04:25 Dohle Bodies Not Reportable 02/06/22 04:25 Pelger-Huet Anomaly Not Reportable 02/06/22 04:25 Theresa Rods Not Reportable 02/06/22 04:25 Platelet Estimate Not Reportable 02/06/22 04:25 Clumped Platelets Not Reportable 02/06/22 04:25 Plt Clumps, EDTA Not Reportable 02/06/22 04:25 Large Platelets Not Reportable 02/06/22 04:25 Giant Platelets Not Reportable 02/06/22 04:25 Platelet Satelliting Not Reportable 02/06/22 04:25 Plt Morphology Comment Not Reportable 02/06/22 04:25 RBC Morphology Normal 02/06/22 04:25 Dimorphic RBCs Not Reportable 02/06/22 04:25 Polychromasia Not Reportable 02/06/22 04:25 Hypochromasia Not Reportable 02/06/22 04:25 Poikilocytosis Not Reportable 02/06/22 04:25 Anisocytosis Not Reportable 02/06/22 04:25 Microcytosis Not Reportable 02/06/22 04:25 Macrocytosis Not Reportable 02/06/22 04:25 Spherocytes Not Reportable 02/06/22 04:25 Pappenheimer Bodies Not Reportable 02/06/22 04:25 Sickle Cells Not Reportable 02/06/22 04:25 Target Cells Not Reportable 02/06/22 04:25 Tear Drop Cells Not Reportable 02/06/22 04:25 Ovalocytes Not Reportable 02/06/22 04:25 Helmet Cells Not Reportable 02/06/22 04:25 [place] Bodies Not Reportable 02/06/22 04:25 [place] Rings Not Reportable 02/06/22 04:25 [place] Cells Not Reportable 02/06/22 04:25 Bite Cells Not Reportable 02/06/22 04:25 Crenated Cell Not Reportable 02/06/22 04:25 Elliptocytes Not Reportable 02/06/22 04:25 Acanthocytes (Spur) Not Reportable 02/06/22 04:25 Rouleaux Not Reportable 02/06/22 04:25 Hemoglobin C Crystals Not Reportable 02/06/22 04:25 Schistocytes Not Reportable 02/06/22 04:25 Malaria parasites Not Reportable 02/06/22 04:25 Sonido Bodies Not Reportable 02/06/22 04:25 Hem Pathologist Commnt No 02/06/22 04:25 VBG pH 7.380 (7.320-7.420) 01/29/22 00:27 Sodium 146 mmol/L (137-145) H 02/07/22 05:31 Potassium 3.9 mmol/L (3.6-5.0) 02/07/22 05:31 Chloride 115.0 mmol/L (98-107) H 02/07/22 05:31 Carbon Dioxide 23 mmol/L (22-30) 02/07/22 05:31 Anion Gap 12 mmol/L 02/07/22 05:31 BUN 32 mg/dL (7-17) H 02/07/22 05:31 Creatinine 1.4 mg/dL (0.6-1.2) H 02/07/22 05:31 Estimated GFR 46 ml/min 02/07/22 05:31 BUN/Creatinine Ratio 23 % 02/07/22 05:31 Glucose 65 mg/dL (65-100) 02/07/22 05:31 POC Glucose 164 mg/dL (70-105) H 02/08/22 11:13 Hemoglobin A1c 7.8 % (4-6) H 02/01/22 11:15 Ketones Quantitative Small (Negative) 01/29/22 00:27 Lactic Acid 1.30 mmol/L (0.7-2.0) 01/29/22 01:49 Calcium 8.7 mg/dL (8.4-10.2) 02/07/22 05:31 Magnesium 2.20 mg/dL (1.7-2.3) 02/01/22 11:15 Iron 12 ug/dL (37-170) L 01/31/22 20:55 TIBC 92 mcg/dL (250-450) L 01/31/22 20:55 Total Bilirubin 0.90 mg/dL (0.1-1.2) 01/29/22 00:27 AST 18 units/L (5-40) 01/29/22 00:27 ALT 12 units/L (7-56) 01/29/22 00:27 Alkaline Phosphatase 94 units/L (35-129) 01/29/22 00:27 Total Creatine Kinase 127 units/L (30-135) 01/31/22 20:55 Troponin T 0.068 ng/mL (0.00-0.029) H 01/29/22 00:27 Serum Total Protein 5.6 g/dL (6.1-8.1) L 02/02/22 08:08 Total Protein 6.5 g/dL (6.3-8.2) 01/29/22 00:27 Albumin 2.4 g/dL (3.8-4.8) L 02/02/22 08:08 Albumin/Globulin Ratio 1.1 % 01/29/22 00:27 [id number] 0.7 g/dL (0.2-0.3) H 02/02/22 08:08 [id number]-4-[id number] 1.0 g/dL (0.5-0.9) H 02/02/22 08:08 Beta Globulins 0.3 g/dL (0.2-0.5) 02/02/22 08:08 Gamma Globulins 1.0 g/dL (0.8-1.7) 02/02/22 08:08 Abnorm Protein Band 1 see below 02/02/22 08:08 PEP Interpretation see below H 02/02/22 08:08 Triglycerides 195 mg/dL (2-149) H 01/29/22 00:27 Cholesterol 146 mg/dL (50-199) 01/29/22 00:27 LDL Cholesterol Direct 58 mg/dL (50-130) 01/29/22 00:27 HDL Cholesterol 33 mg/dL (40-59) L 01/29/22 00:27 Cholesterol/HDL Ratio 4.42 % 01/29/22 00:27 TSH 1.600 mlU/mL (0.270-4.200) 01/29/22 00:27 PTH Intact 65.61 pg/mL (15-65) H 01/31/22 21:07 Urine Color Yellow (Yellow) 01/29/22 Unknown Urine Turbidity Hazy (Clear) 01/29/22 Unknown Specific [place] (Man) 1.015 (1.003-1.030) 01/29/22 Unknown Ur Protein (Man) 4+ mg/dL (Negative) 01/29/22 Unknown Ur Ketones (Man) Negative (Negative) 01/29/22 Unknown Ur Nitrite (Man) Negative (Negative) 01/29/22 Unknown Ur Reducing Substances Not Reportable 01/29/22 Unknown Urine Bilirubin (Man) Negative (Negative) 01/29/22 Unknown Leukocyte Esterase (Man) Negative (Negative) 01/29/22 Unknown Urine WBC (Auto) 6.0 /HPF (0.0-6.0) 01/29/22 Unknown Urine RBC (Auto) 5.0 /HPF (0.0-6.0) 01/29/22 Unknown U Epithel Cells (Auto) 14.0 /HPF (0-13.0) H 01/29/22 Unknown Urine Bacteria (Auto) 4+ /HPF (Negative) 01/29/22 Unknown Urine RBC (Manual) Negative (Negative) 01/29/22 Unknown Amorphous Crystals 3+ 01/29/22 Unknown Hyaline Casts 9 /LPF 01/29/22 Unknown Granular Casts 13 /LPF 01/29/22 Unknown Urine Eosinophils None seen (None Seen) 01/31/22 15:46 Urine Creatinine 152.6 mg/dL (0.1-20.0) H 02/01/22 03:55 Urine Creatinine 153.8 mg/dL (0.1-20.0) H 02/01/22 03:55 Protein/Creatinin Ratio 1.36 02/01/22 03:55 Urine Sodium 15 mmol/L 02/01/22 03:55 Urine Urea Nitrogen 400 02/01/22 03:55 Urine Total Protein 209 mg/dL (5-11.8) H 02/01/22 03:55 Miscellaneous Test Flexitest 1 H 02/02/22 08:08 Urias/IV: Voiding Method Incontinent Active Medications - Current Medications Current Medications: Generic Name Dose Route Start Last Admin Trade Name Freq PRN Reason Stop Dose Admin Acetaminophen 650 mg 01/29/22 03:54 02/07/22 21:25 Acetaminophen 325 Mg Tab PO 650 mg Q4H PRN Administration Pain MILD(1-3)/Fever >100.5/GARCIA Albuterol 2.5 mg 01/29/22 03:54 Albuterol 2.5 Mg/3 Ml Nebu IH Q3HRT PRN Shortness Of Breath Albuterol/Ipratropium 1 ampul 01/31/22 08:00 02/08/22 07:36 Ipratropium/Albuterol Sulfate 3 Ml Ampul.Neb IH 1 ampul TIDRT ABDIAZIZ Administration Citric Acid/Sodium Citrate 15 ml 02/04/22 14:00 02/08/22 09:31 Bicitra Oral Liqd 30ml PO 15 ml TID ABDIAZIZ Administration Dextrose 50 ml 01/29/22 03:54 02/06/22 21:56 Dextrose 50% In Water (25gm) 50 Ml Syringe IV 50 ml Q30MIN PRN Administration Hypoglycemia Protocol Famotidine 10 mg 01/29/22 10:00 02/08/22 09:31 Famotidine 10 Mg Tab PO 10 mg BID ABDIAZIZ Administration Ferrous Sulfate 325 mg 02/01/22 14:00 02/08/22 08:00 Ferrous Sulfate 325 Mg Tab PO 325 mg TID ABDIAZIZ Administration Heparin Sodium (Porcine) 5,000 unit 01/29/22 22:00 02/08/22 09:32 Heparin 5,000 Unit/1 Ml Vial SUB-Q 5,000 unit Q12HR ABDIAZIZ Administration Hydralazine HCl 10 mg 02/05/22 06:11 02/08/22 06:01 Hydralazine 20 Mg/1 Ml Inj IV 10 mg Q4H PRN Administration Hypertension Ceftriaxone Sodium 2 gm in 100 mls @ 200 mls/hr 02/02/22 14:00 02/08/22 09:31 Rocephin/Ns 2 Gm/100 Ml IV 02/15/22 10:29 200 mls/hr Q24HR ABDIAZIZ Administration Protocol Sodium Chloride 1,000 mls @ 50 mls/hr 02/07/22 09:00 02/08/22 09:43 Nacl 0.45% 1000 Ml IV 50 mls/hr DIRECT ABDIAZIZ Administration Insulin Human Lispro 0 unit 01/29/22 07:30 02/08/22 08:08 Insulin Lispro 100 Unit/Ml SUB-Q Not Given ACHS ABDIAZIZ Protocol Levothyroxine Sodium 100 mcg 01/29/22 06:00 02/08/22 05:43 Levothyroxine 100 Mcg Tab PO 100 mcg QAM@0600 ABDIAZIZ Administration Levothyroxine Sodium 75 mcg 01/29/22 06:00 02/08/22 05:43 Levothyroxine 75 Mcg Tab PO 75 mcg QAM@0600 ABDIAZIZ Administration Linezolid 600 mg 02/02/22 14:00 02/07/22 21:26 Linezolid 600 Mg Tab PO 02/15/22 22:01 600 mg Q12HR ABDIAZIZ Administration Protocol Loperamide HCl 2 mg 01/30/22 12:14 01/30/22 12:43 Loperamide 2 Mg Cap PO 2 mg Q2H PRN Administration Diarrhea Metoprolol Tartrate 50 mg 01/29/22 15:00 02/08/22 06:05 Metoprolol Tartrate 50 Mg Tab PO 50 mg Q8H ABDIAZIZ Administration Nifedipine 30 mg 02/08/22 10:00 02/08/22 09:31 Nifedipine Xl 30 Mg Tab PO 30 mg QDAY ABDIAZIZ Administration Ondansetron HCl 4 mg 01/29/22 03:54 Ondansetron 4 Mg/2 Ml Inj IV Q8H PRN Nausea And Vomiting Oxycodone HCl 5 mg 02/02/22 12:00 02/06/22 12:43 Oxycodone 5 Mg Tab PO 5 mg Q4H PRN Administration Pain, Moderate (4-6) Sodium Chloride 10 ml 01/29/22 10:00 02/08/22 09:30 Sodium Chloride 0.9% 10 Ml Flush Syringe IV 10 ml BID ABDIAZIZ Administration Sodium Chloride 10 ml 01/29/22 03:54 Sodium Chloride 0.9% 10 Ml Flush Syringe IV PRN PRN LINE FLUSH Sodium Hypochlorite 1 applic 02/02/22 10:00 02/07/22 21:28 Sodium Hypochlorite, [place] 1/2 Strength (0.25%) 473 Ml Topical Soln TP 1 applicatio BID ABDIAZIZ Administration Nutrition/Malnutrition Assess - Dietary Evaluation Nutrition/Malnutrition Findings: Nutrition Notes Start: 01/29/22 10:03 Freq: Status: Active Protocol: Document 02/01/22 15:58 JULIO (Rec: 02/01/22 16:07 JULIO [id number]) Nutrition Notes Initial or Follow up Reassessment Current Diagnosis Acute Kidney Injury,Diabetes, Hypertension Other Pertinent Diagnosis Celulitis/abscess (R) groin s/ p I&D, NSTEMI Current Diet Consistent CHO Labs/Tests Reviewed Pertinent Medications Feosol Height 5 ft 3 in Weight 90.718 kg [place] Body Weight (kg) 52.27 BMI 35.4 Weight Status Obese Subjective/Other Information Pt says she eats at least 50% of meals most of the time; no PO intakes documented since admission. She reports decreased appetite lately. She is not appropriate for diet education at this time as she seems to be a little confused during our conversation. Percent of energy/protein needs met: 81% energy 51% pro Burn Absent Trauma Absent #2 Nutrition Diagnosis Inadequate protein intake Etiology decreased appetite As Evidenced by Signs and Symptoms po intakes meeting <75% pro needs #1 Nutrition Diagnosis Predicted suboptimal energy intake As Evidenced by Signs and Symptoms estimated PO intakes meets at least 75% energy needs Diagnosis Progress(for reassessment Resolved documentation) Is patient on ventilator? No Is Patient Ambulatory and/or Out of Bed No REE-([place]-confined to bed) 1710.720 Kcal/Kg value to use for calculation 14 Approximate Energy Requirements Using 1270 kcal/Kg Calculation Used for Recommendations Kcal/kg Additional Notes Pro needs 1.25-1.5g/kg adjBW: 89-107g/day Fluid needs 1ml/kcal Nutrition Intervention Change Diet Order: Continue current diet Goal #1 PO intake to meet at least 75% energy and pro needs Follow-Up By: 02/08/22 Additional Comments F/U: intakes, wt
[2022-02-08 23:31] LABS: Hematocrit 21.4 % (30.3-42.9); Hemoglobin 7.1 gm/dl (10.1-14.3); Mean Corpuscular HGB Conc 33 % (30-34); Mean Corpuscular Volume 86 fl (79-97); Platelet Count 122 K/mm3 (140-440); Red Blood Count 2.49 M/mm3 (3.65-5.03); Red Cell Distribution Width 15.5 % (13.2-15.2)
[2022-02-09 00:05] LABS: Calcium 8.3 mg/dL (8.4-10.2)
[2022-02-09 00:18] LABS: Band Neutrophils # (Manual) 0.1 K/mm3; Basophils % (Manual) 0 % (0.0-1.8); Eosinophils % (Manual) 0 % (0.0-4.3); Total Cells Counted 100
[2022-02-09 00:19] LABS: Platelet Estimate Consistent w Auto; Toxic Vacuolation 1+
[2022-02-09] MEDS: hydrALAZINE 20 MG/1 ML INJ IV PRN (04:37)
[2022-02-09] MEDS: LEVOTHYROXINE 75 MCG TAB PO SCH (05:01)
[2022-02-09] MEDS: LEVOTHYROXINE 100 MCG TAB PO SCH (05:01)
[2022-02-09] MEDS: METOPROLOL TARTRATE 50 MG TAB PO SCH ×3 (06:34→23:57)
[2022-02-09] MEDS: INSULIN LISPRO 100 UNIT/ML SUB-Q SCH ×4 (07:22→22:00)
[2022-02-09] MEDS ORDERED: NIFEdipine XL 30 MG TAB PO SCH (07:23)
[2022-02-09] MEDS: FERROUS SULFATE 325 MG TAB PO SCH ×3 (08:00→21:43)
[2022-02-09] MEDS: IPRATROPIUM/ALBUTEROL SULFATE 3 ML AMPUL.NEB IH SCH ×3 (08:04→20:00)
[2022-02-09 08:24] LABS: Calcium 8.5 mg/dL (8.4-10.2)
--- NOTE | 2022-02-09 09:39 | Progress Note ---
Assessment and Plan Assessment and Plan Cellulitis/abscess right groin/upper thigh ISAIAH (acute kidney injury) Hyperglycemia due to type 2 diabetes mellitus Hyponatremia Elevated troponin/non-ST elevation VT type II Sinus tachycardia/ narrow complex tachycardia Hypertension History of bronchial asthma Obesity; BMI 35.4 Anemia Plan: -Renal function reviewed, SCr level was 1.6 today, yesterday's SCr level was 1.6 -Serum creatinine was normal in 2016. No recent baseline serum creatinine available so unsure if pt has CKD or not -Renal ultrasound reviewed showed Left renal cysts. No hydronephrosis. -On 0.45% NS infusion at 50 ml/hr -No urine eosinophils, pt has proteinuria with protein to cr ratio 1.3 g, likely from DM -SPEP showed no M spike -Free kappa/lambda ratio was slightly above range at 1.76 (0.26-1.65), check serum immunofixation and UPEP -On Bicitra 15 ml po TID -Holding home Spironolactone for now -Not resuming home Metformin given advanced renal disease -Renally dose all medications -Strict I/O's daily -Intake= 1740 ml Output= 800 ml (Net= 940 ml) -Renal plan reviewed by Dr Arnold Subjective Date of service: 02/09/22 Principal diagnosis: Fever, general malaise, PSVT Interval history: Pt seen in bed, c/o mid abdominal pain, no acute distress Objective - Vital Signs Vital signs: Vital Signs - 12hr 02/09/22 02/09/22 02/09/22 04:34 04:37 08:00 Temperature 98.6 F Pulse Rate 73 Pulse Rate [ 77 Anterior Bilateral Throughout] Respiratory 16 Rate Respiratory 16 Rate [Anterior Bilateral Throughout] Blood Pressure 189/111 180/105 O2 Sat by Pulse 96 Oximetry - General Appearance General appearance: well-developed EENT: ATNC Neck: no JVD Respiratory: Present: Decreased Breath Sounds Cardiology: regular, S1S2 Gastrointestinal: normoactive bowel sounds, tenderness Integumentary: warm and dry Neurologic: alert and oriented x3 Musculoskeletal: other (trace edema to BLE) Psychiatric: cooperative - Lab 02/08/22 22:56 02/09/22 06:58 Most recent lab results Calcium 8.5 mg/dL (8.4-10.2) 02/09/22 06:58 Magnesium 2.20 mg/dL (1.7-2.3) 02/01/22 11:15 Urine Creatinine 152.6 mg/dL (0.1-20.0) H 02/01/22 03:55 Urine Creatinine 153.8 mg/dL (0.1-20.0) H 02/01/22 03:55 Urine Sodium 15 mmol/L 02/01/22 03:55 Urine Total Protein 209 mg/dL (5-11.8) H 02/01/22 03:55 Medications & Allergies - Medications Allergies/Adverse Reactions: Allergies No Known Allergies Allergy (Unverified 08/01/15 23:02) Home Medications: Home Medications Medication Instructions Recorded Confirmed Last Taken Type Azithromycin [Zithromax TAB] 500 mg PO QDAY #7 tablet 08/05/15 02/02/22 Unknown Rx Cinacalcet HCl [Sensipar] 60 mg PO DAILY #30 tablet 08/05/15 02/02/22 Unknown Rx Insulin Lispro Prot/Lispro 28 units SUB-Q 1700 units 08/05/15 02/02/22 Unknown Rx [HumaLOG Mix 75/25 Vial] Insulin Lispro Prot/Lispro 30 units SUB-Q QDDIAB units 08/05/15 02/02/22 Unknown Rx [HumaLOG Mix 75/25 Vial] Insulin Lispro [HumaLOG VIAL] 28 units SQ QHS #1 vial 08/05/15 02/02/22 Unknown Rx Insulin Lispro [HumaLOG VIAL] 30 units SQ QAM #1 vial 08/05/15 02/02/22 Unknown Rx Levothyroxine [Synthroid] 175 mcg PO QAM #30 tablet 08/05/15 02/02/22 Unknown Rx Prednisone [predniSONE 10 mg 10 mg PO .TAPER #1 tab.ds.pk 08/05/15 02/02/22 Unknown Rx (6-Day Pack, 21 Tabs)] Spironolactone [Aldactone] 100 mg PO QDAY #30 tablet 08/05/15 02/02/22 Unknown Rx carvediloL [Coreg] 3.125 mg PO BID #60 tablet 08/05/15 02/02/22 Unknown Rx metFORMIN [Glucophage] 500 mg PO BID #30 tablet 08/05/15 02/02/22 Unknown Rx Active Medications: Generic Name Dose Route Start Last Admin Trade Name Freq PRN Reason Stop Dose Admin Acetaminophen 650 mg 08/26/22 03:54 02/07/22 21:25 Acetaminophen 325 Mg Tab PO 650 mg Q4H PRN Administration Pain MILD(1-3)/Fever >100.5/GARCIA Albuterol 2.5 mg 01/29/22 03:54 Albuterol 2.5 Mg/3 Ml Nebu IH Q3HRT PRN Shortness Of Breath Albuterol/Ipratropium 1 ampul 01/31/22 08:00 02/09/22 08:04 Ipratropium/Albuterol Sulfate 3 Ml Ampul.Neb IH 1 ampul TIDRT ABDIAZIZ Administration Citric Acid/Sodium Citrate 15 ml 02/04/22 14:00 02/08/22 21:07 Bicitra Oral Liqd 30ml PO 15 ml TID ABDIAZIZ Administration Dextrose 50 ml 01/29/22 03:54 02/06/22 21:56 Dextrose 50% In Water (25gm) 50 Ml Syringe IV 50 ml Q30MIN PRN Administration Hypoglycemia Protocol Famotidine 10 mg 01/29/22 10:00 02/08/22 21:07 Famotidine 10 Mg Tab PO 10 mg BID ABDIAZIZ Administration Ferrous Sulfate 325 mg 02/01/22 14:00 02/08/22 21:06 Ferrous Sulfate 325 Mg Tab PO 325 mg TID ABDIAZIZ Administration Heparin Sodium (Porcine) 5,000 unit 01/29/22 22:00 02/08/22 21:06 Heparin 5,000 Unit/1 Ml Vial SUB-Q 5,000 unit Q12HR ABDIAZIZ Administration Hydralazine HCl 10 mg 02/05/22 06:11 02/09/22 04:37 Hydralazine 20 Mg/1 Ml Inj IV 10 mg Q4H PRN Administration Hypertension Ceftriaxone Sodium 2 gm in 100 mls @ 200 mls/hr 02/02/22 14:00 02/08/22 09:31 Rocephin/Ns 2 Gm/100 Ml IV 02/15/22 10:29 200 mls/hr Q24HR ABDIAZIZ Administration Protocol Insulin Human Isoph/Insulin Regular 18 unit 02/09/22 10:00 Insulin Nph/Regular 70/30 Inj SUB-Q QAM ABDIAZIZ Insulin Human Isoph/Insulin Regular 12 unit 02/08/22 17:00 02/08/22 17:30 Insulin Nph/Regular 70/30 Inj SUB-Q Not Given QPMDIAB [facility] Insulin Human Lispro 0 unit 01/29/22 07:30 02/09/22 07:22 Insulin Lispro 100 Unit/Ml SUB-Q Not Given ACHS [facility] Protocol Levothyroxine Sodium 100 mcg 01/29/22 06:00 02/09/22 05:01 Levothyroxine 100 Mcg Tab PO 100 mcg QAM@0600 ABDIAZIZ Administration Levothyroxine Sodium 75 mcg 01/29/22 06:00 02/09/22 05:01 Levothyroxine 75 Mcg Tab PO 75 mcg QAM@0600 ABDIAZIZ Administration Linezolid 600 mg 02/02/22 14:00 02/08/22 21:06 Linezolid 600 Mg Tab PO 02/15/22 22:01 600 mg Q12HR [facility] Administration Protocol Loperamide HCl 2 mg 01/30/22 12:14 01/30/22 12:43 Loperamide 2 Mg Cap PO 2 mg Q2H PRN Administration Diarrhea Metoprolol Tartrate 50 mg 01/29/22 15:00 02/09/22 06:34 Metoprolol Tartrate 50 Mg Tab PO 50 mg Q8H ABDIAZIZ Administration Nifedipine 60 mg 02/09/22 08:00 Nifedipine Xl 60 Mg Tab PO QDAY [facility] Ondansetron HCl 4 mg 01/29/22 03:54 Ondansetron 4 Mg/2 Ml Inj IV Q8H PRN Nausea And Vomiting Oxycodone HCl 5 mg 02/02/22 12:00 02/06/22 12:43 Oxycodone 5 Mg Tab PO 5 mg Q4H PRN Administration Pain, Moderate (4-6) Sodium Chloride 10 ml 01/29/22 10:00 02/08/22 21:07 Sodium Chloride 0.9% 10 Ml Flush Syringe IV 10 ml BID ABDIAZIZ Administration Sodium Chloride 10 ml 01/29/22 03:54 02/09/22 04:38 Sodium Chloride 0.9% 10 Ml Flush Syringe IV 10 ml PRN PRN Administration LINE FLUSH Sodium Hypochlorite 1 applic 02/02/22 10:00 02/08/22 21:07 Sodium Hypochlorite, Dakin's 1/2 Strength (0.25%) 473 Ml Topical Soln TP 1 applicatio BID ABDIAZIZ Administration
[2022-02-09] MEDS: NIFEdipine XL 60 MG TAB PO SCH (09:40)
[2022-02-09] MEDS: FAMOTIDINE 10 MG TAB PO SCH ×2 (09:40→21:43)
[2022-02-09] MEDS: HEPARIN 5,000 UNIT/1 ML VIAL SUB-Q SCH ×2 (09:41→22:02)
[2022-02-09] MEDS: cefTRIAXone/NS 2 GM/100 ML 2 GM/100 ML BAG IV SCH (09:41)
[2022-02-09] MEDS: BICITRA ORAL LIQD 30ML PO SCH ×3 (09:42→21:43)
[2022-02-09] MEDS: INSULIN NPH/REGULAR 70/30 INJ SUB-Q SCH ×2 (09:50→17:31)
[2022-02-09] MEDS: SODIUM HYPOCHLORITE, DAKIN'S 1/2 STRENGTH (0.25%) 473 ML TOPICAL SOLN TP SCH ×2 (09:51→22:30)
[2022-02-09] MEDS: LINEZOLID 600 MG TAB PO SCH ×2 (10:00→21:44)
--- NOTE | 2022-02-09 10:39 | Progress Note ---
Assessment and Plan Cultures: 01/29/2022 blood culture: No growth 01/31/2022 surgical culture from right thigh: Usual skin adilia A/P: 66-year-old female with diabetes, hypertension, asthma was admitted to the hospital with complaints of generalized weakness: #Sepsis, secondary to right upper thigh abscess: S/p I&D by general surgery on 01/31/2022. As per OR note, there was foul-smelling purulent material drained, abscess cavity appeared to track towards her inguinal area but not medially into the perianal or vaginal area #Diabetes mellitus type 2, uncontrolled #ISAIAH: Renally adjust antibiotics #Obesity #Mild thrombocytopenia: probably from linezolid. Recs: -continue Ceftriaxone, Linezolid, while inpatient, upon discharge, switch to PO Augmentin 875 mg BID + PO linezolid 600 mg BID ending 02/12/2022. Given improvement in leucocytosis and mild thrombocytopenia which could be from linez olid, decreased end date by 3 days. -wound care and packing per surgery -optimize glycemic control Malena Castellano MD, FACP, [facility] O: [phone] F: [phone] C: [phone] Subjective Date of service: 02/09/22 Principal diagnosis: Fever, general malaise, PSVT Interval history: Awake, alert. Afebrile. No new complaints. Objective - Exam Narrative Exam: Physical Exam: Constitutional: Alert, cooperative. No acute distress Head, Ears, Nose: Normocephalic, atraumatic. External ears, nose normal Eyes: Conjunctivae/corneas clear. No icterus. No ptosis. Neck: Supple, no meningeal signs Cardiovascular: S1, S2 + Respiratory: Good air entry, clear to auscultation bilaterally GI: Soft, non-tender; bowel sounds normal. No peritoneal signs Musculoskeletal: Right thigh with dressing + Skin: No rash or abscess Hem/Lymphatic: No palpable cervical or supraclavicular nodes. No lymphangitis Psych: Mood ok. Affect normal Neurological: Awake, alert, oriented. No gross abnormality - Constitutional Vitals: Vital Signs Temp Pulse Resp BP Pulse Ox 98.6 F 77 16 180/105 96 02/09/22 04:34 02/09/22 08:00 02/09/22 08:00 02/09/22 04:37 02/09/22 04:34 Temperature -Last 24 Hours Temperature 98.6 F Temperature 99.4 F Temperature 98.2 F Temperature 98.8 F - Labs CBC & Chem 7: 02/08/22 22:56 02/09/22 06:58 Labs: Abnormal lab results 02/08/22 02/08/22 02/08/22 Range/Units 08:04 11:13 21:08 RBC (3.65-5.03) M/mm3 Hgb (10.1-14.3) gm/dl Hct (30.3-42.9) % RDW (13.2-15.2) % Plt Count (140-440) K/mm3 Seg Neuts % (Manual) (40.0-70.0) % Lymphocytes % (Manual) (13.4-35.0) % Chloride (98-107) mmol/L BUN (7-17) mg/dL Creatinine (0.6-1.2) mg/dL Glucose (65-100) mg/dL POC Glucose 146 H 164 H 133 H (70-105) mg/dL Calcium (8.4-10.2) mg/dL 02/08/22 02/08/22 02/09/22 Range/Units 22:56 22:56 06:58 RBC 2.49 L (3.65-5.03) M/mm3 Hgb 7.1 L (10.1-14.3) gm/dl Hct 21.4 L (30.3-42.9) % RDW 15.5 H (13.2-15.2) % Plt Count 122 L (140-440) K/mm3 Seg Neuts % (Manual) 80.0 H (40.0-70.0) % Lymphocytes % (Manual) 13.0 L (13.4-35.0) % Chloride 111.2 H 110.1 H (98-107) mmol/L BUN 26 H 25 H (7-17) mg/dL Creatinine 1.6 H 1.6 H (0.6-1.2) mg/dL Glucose 130 H 120 H (65-100) mg/dL POC Glucose (70-105) mg/dL Calcium 8.3 L (8.4-10.2) mg/dL 02/09/22 Range/Units 07:02 RBC (3.65-5.03) M/mm3 Hgb (10.1-14.3) gm/dl Hct (30.3-42.9) % RDW (13.2-15.2) % Plt Count (140-440) K/mm3 Seg Neuts % (Manual) (40.0-70.0) % Lymphocytes % (Manual) (13.4-35.0) % Chloride (98-107) mmol/L BUN (7-17) mg/dL Creatinine (0.6-1.2) mg/dL Glucose (65-100) mg/dL POC Glucose 139 H (70-105) mg/dL Calcium (8.4-10.2) mg/dL
--- NOTE | 2022-02-09 12:15 | Progress Note ---
Assessment and Plan - Patient Problems (1) Elevated troponin Current Visit: Yes Status: Acute Plan to address problem: Patient was admitted with sepsis and acute kidney injury, nonspecific troponin findings. Echocardiogram shows normal left ventricular systolic function, ejection fraction 60 to 65%. Conservative cardiac management. Follow intermittently. (2) Narrow complex tachycardia Current Visit: Yes Status: Acute Plan to address problem: Patient developed spontaneous narrow complex tachycardia in the emergency room, treated with IV metoprolol. Morphology of the tachycardia appears likely AV node reentry tachycardia. Continue metoprolol. Follow intermittently. Subjective Date of service: 02/09/22 Principal diagnosis: Fever, general malaise, PSVT Interval history: Patient is comfortable no new cardiac complaints, no cardiac events reported. Objective Vital Signs Temp Pulse Pulse Resp Resp BP Pulse Ox 02/09/22 08:00 77 16 02/09/22 04:37 180/105 02/09/22 04:34 98.6 F 73 16 189/111 96 02/08/22 21:08 99.4 F 81 16 161/60 97 02/08/22 20:28 98 02/08/22 19:47 76 16 02/08/22 15:38 98.2 F 80 18 179/80 98 02/08/22 13:49 74 18 - Physical Examination General: Appears Well, No Apparent Distress, Other (obese) HEENT: Positive: PERRL Neck: Positive: neck supple Cardiac: Positive: Reg Rate and Rhythm Lungs: Positive: clear to auscultation Neuro: Positive: Grossly Intact Abdomen: Positive: Soft Skin: Positive: Clear Extremities: Absent: edema - Labs and Meds CBC 02/08/22 Range/Units 22:56 WBC 9.2 (4.5-11.0) K/mm3 RBC 2.49 L (3.65-5.03) M/mm3 Hgb 7.1 L (10.1-14.3) gm/dl Hct 21.4 L (30.3-42.9) % Plt Count 122 L (140-440) K/mm3 Comprehensive Metabolic Panel 02/08/22 02/09/22 Range/Units 22:56 06:58 Sodium 144 144 (137-145) mmol/L Potassium 3.7 3.7 (3.6-5.0) mmol/L Chloride 111.2 H 110.1 H (98-107) mmol/L Carbon Dioxide 23 23 (22-30) mmol/L BUN 26 H 25 H (7-17) mg/dL Creatinine 1.6 H 1.6 H (0.6-1.2) mg/dL Glucose 130 H 120 H (65-100) mg/dL Calcium 8.3 L 8.5 (8.4-10.2) mg/dL
[2022-02-09] MEDS: oxyCODONE 5 MG TAB PO PRN (13:54)
--- NOTE | 2022-02-09 14:02 | Progress Note ---
Assessment and Plan Assessment and plan: The patient is a 66-year-old female with diabetes, hypertension, asthma was admitted to the hospital with complaints of generalized weakness. In the ED, found to be septic with leukocytosis, fever. She was started on empiric antibiotics for right leg cellulitis and pain, CT showed an abscess, general surgery was consulted and on 01/31/2022, she underwent an I&D of right upper thigh abscess. As per OR note, there was foul-smelling purulent material drained, abscess cavity appeared to track towards her inguinal area but not medially into the perianal or vaginal area. Got IV Zosyn in the ER, then was continued on ceftriaxone/Ancef. ID was consulted for antibiotic management for persistent leukocytosis. Daily Hospital course; 01/31/2020; x-ray right hip findings reviewed Consulted surgeon Dr. Lam, planning incision and drainage abscess tomorrow Continue empiric antibiotics 01/31; s/p incision and drainage of the upper thigh abscess today, fluid sent for analysis Follow cultures, continue empiric antibiotics, continue empiric antibiotics 02/01: Worsening leukocytosis, continue antibiotics, follow cultures, urine culture sent 02/02: Resumed care, consulted ID for persistent leukocytosis. Continue current antibiotic, follow ID recommendation. Patient appears to be altered and confused and oriented to self only. Continue to provide supportive care. 02/03: Noted ID recommendation. Added linezolid along with Rocephin. Monitor WBC to see improvement. Wound care and packing per surgery. Glycemic control. Monitor renal function, continue IV fluid. 02/04: WBC slightly improved. Creatinine 2.0 today. Patient's mental status remained unchanged. Continue current antibiotics, IV fluid. Patient need subacute rehab prior PT recommendation. Follow clinically. 02/05: WBC count improving with Rocephin and linezolid. Continue to follow BMP. Continue IV fluid. Patient tolerating diet. Her mental status remains unchanged. Pending placement. Possible DC to subacute rehab upon insurance authorization. Continue to provide supportive care. 02/06: Continue to improve in WBC count and serum creatinine. Continue current antibiotics. Continue to provide supportive care. Discharge pending on subacute rehab placement. 02/07: Creatinine level 1.4 today. Patient remains on and off confused and oriented to self only. Will get CT head to rule out any intracranial process. White count significantly improved. Patient remains afebrile. Pending discharge to subacute rehab. Change IV fluids to half-normal saline. 02/08: Patient stable. Patient noted to have uncontrolled HTN. Nifedipine 30xl started. 02/09; patient is currently hemodynamically stable. Increase nifedipine to 60 mg daily. Coronavirus PCR coming back positive; however, there is concern about it being a false positive. Coronavirus PCR will be repeated tomorrow morning. A/P #Sepsis - resolved #Cellulitis/abscess right groin/upper thigh -Xray right groin hip findings noted -continue IV Rocephin and linezolid while inpatient -upon discharge, switch to PO Augmentin 875 mg daily + PO linezolid 600 mg BID to complete 10 more days ending 02/12/2022. Adjust Augmentin dose if renal function improves, per ID recommendations -wound care and packing per surgery -optimize glycemic control -Status post incision drainage by Dr. Lam 01/31/2022 #ISAIAH (acute kidney injury), likely ATNimproving -continue IV fluid hydration -Avoid nephrotoxic drugs and renally dose medication -Nephrology following, assistance appreciated #Acute toxic metabolic encephalopathy-resolved -CT of the head 02/07 unremarkable -Likely due to underlying infection and ISAIAH -cannot rule out underlying dementia #Type II Diabetes with hyperglycemia #Hypoglycemia -A1C 7.8% -patient noted to have low BG in the mornings -regimen adjusted to 18U 70/30 QAM and 12U QPM -continue SSI + accuchecks #Hyponatremia-resolved -continue IV hydration #Elevated troponin/non-ST elevation [place] type II -likely secondary to acute kidney injury #Sinus tachycardia #narrow complex tachycardia-resolved -continue metoprolol -Cardiology following, assistance appreciated #Hypertension -continue metoprolol -BG not controlled, will start nifedipine 30mg qday #History of hypothyroidism -continue Synthroid #History of asthma -continue albuterol via nebulizer every 4 hours as needed #Obesity #Weight loss counseling #Exercise counseling - BMI 33.5 - Counseled patient on the importance of weight loss, incorporating exercise, and dietary changes (lean meats, fresh fruits and vegetables, and water intake). Patient expresses understanding. - Time: +15 min #Advanced care planning -Disease education conducted, care plan discussed, diagnoses discussed, progn osis discussed, and patient acknowledges understanding with care plan -Time: +30 min #Discharge planning -Patient awaiting possible placement in subacute rehab, case management aware Disposition Plan: Pending possible discharge home tomorrow Total Time Spent with Patient (Minutes): 45 minutes History Interval history: No acute events overnight. Hospitalist Physical - Constitutional Vitals: Temp Pulse Resp BP Pulse Ox 97.6 F 76 18 158/65 95 02/09/22 11:21 02/09/22 11:21 02/09/22 11:21 02/09/22 11:21 02/09/22 11:21 General appearance: Present: no acute distress, well-nourished, obese - EENT Eyes: Present: PERRL, EOM intact ENT: hearing intact, clear oral mucosa, dentition normal - Neck Neck: Present: supple, normal ROM - Respiratory Respiratory effort: normal Respiratory: bilateral: CTA - Cardiovascular Rhythm: regular Heart Sounds: Present: S1 & S2 - Extremities Extremities: no ischemia, pulses intact, pulses symmetrical, No edema, normal temperature, normal color Peripheral Pulses: within normal limits - Abdominal General gastrointestinal: soft, non-tender, non-distended, normal bowel sounds - Integumentary Integumentary: Present: clear, warm, dry - Psychiatric Psychiatric: appropriate mood/affect, intact judgment & insight, memory intact, cooperative - Neurologic Neurologic: CNII-XII intact, moves all extremities - Allied Health Allied health notes reviewed: nursing HEART Score - HEART Score Troponin: Troponin T 0.068 ng/mL (0.00-0.029) H 01/29/22 00:27 Results - Labs CBC & Chem 7: 02/08/22 22:56 02/09/22 06:58 Labs: Laboratory Last Values WBC 9.2 K/mm3 (4.5-11.0) 02/08/22 22:56 RBC 2.49 M/mm3 (3.65-5.03) L 02/08/22 22:56 Hgb 7.1 gm/dl (10.1-14.3) L 02/08/22 22:56 Hct 21.4 % (30.3-42.9) L 02/08/22 22:56 MCV 86 fl (79-97) 02/08/22 22:56 MCH 29 pg (28-32) 02/08/22 22:56 MCHC 33 % (30-34) 02/08/22 22:56 RDW 15.5 % (13.2-15.2) H 02/08/22 22:56 Plt Count 122 K/mm3 (140-440) L 02/08/22 22:56 Add Manual Diff Complete 02/08/22 22:56 Total Counted 100 02/08/22 22:56 Seg Neutrophils % Manager Risk 02/02/22 08:08 Seg Neuts % (Manual) 80.0 % (40.0-70.0) H 02/08/22 22:56 Band Neutrophils % 1.0 % 02/08/22 22:56 Lymphocytes % (Manual) 13.0 % (13.4-35.0) L 02/08/22 22:56 Reactive Lymphs % (Man) 0 % 02/08/22 22:56 Monocytes % (Manual) 5.0 % (0.0-7.3) 02/08/22 22:56 Eosinophils % (Manual) 0 % (0.0-4.3) 02/08/22 22:56 Basophils % (Manual) 0 % (0.0-1.8) 02/08/22 22:56 Metamyelocytes % 1.0 % 02/08/22 22:56 Myelocytes % 0 % 02/08/22 22:56 Promyelocytes % 0 % 02/08/22 22:56 Blast Cells % 0 % 02/08/22 22:56 Nucleated RBC % Not Reportable 02/08/22 22:56 Seg Neutrophils # Man 7.4 K/mm3 (1.8-7.7) 02/08/22 22:56 Band Neutrophils # 0.1 K/mm3 02/08/22 22:56 Lymphocytes # (Manual) 1.2 K/mm3 (1.2-5.4) 02/08/22 22:56 Abs React Lymphs (Man) 0.0 K/mm3 02/08/22 22:56 Monocytes # (Manual) 0.5 K/mm3 (0.0-0.8) 02/08/22 22:56 Eosinophils # (Manual) 0.0 K/mm3 (0.0-0.4) 02/08/22 22:56 Basophils # (Manual) 0.0 K/mm3 (0.0-0.1) 02/08/22 22:56 Metamyelocytes # 0.1 K/mm3 02/08/22 22:56 Myelocytes # 0.0 K/mm3 02/08/22 22:56 Promyelocytes # 0.0 K/mm3 02/08/22 22:56 Blast Cells # 0.0 K/mm3 02/08/22 22:56 WBC Morphology Not Reportable 02/08/22 22:56 Hypersegmented Neuts Not Reportable 02/08/22 22:56 Hyposegmented Neuts Not Reportable 02/08/22 22:56 Hypogranular Neuts Not Reportable 02/08/22 22:56 Smudge Cells Not Reportable 02/08/22 22:56 Toxic Granulation Not Reportable 02/08/22 22:56 Toxic Vacuolation 1+ 02/08/22 22:56 Dohle Bodies Not Reportable 02/08/22 22:56 Pelger-Huet Anomaly Not Reportable 02/08/22 22:56 Theresa Rods Not Reportable 02/08/22 22:56 Platelet Estimate Consistent w auto 02/08/22 22:56 Clumped Platelets Not Reportable 02/08/22 22:56 Plt Clumps, EDTA Not Reportable 02/08/22 22:56 Large Platelets Not Reportable 02/08/22 22:56 Giant Platelets Not Reportable 02/08/22 22:56 Platelet Satelliting Not Reportable 02/08/22 22:56 Plt Morphology Comment Not Reportable 02/08/22 22:56 RBC Morphology Not Reportable 02/08/22 22:56 Dimorphic RBCs Not Reportable 02/08/22 22:56 Polychromasia Not Reportable 02/08/22 22:56 Hypochromasia Not Reportable 02/08/22 22:56 Poikilocytosis Not Reportable 02/08/22 22:56 Anisocytosis Not Reportable 02/08/22 22:56 Microcytosis Not Reportable 02/08/22 22:56 Macrocytosis Not Reportable 02/08/22 22:56 Spherocytes Not Reportable 02/08/22 22:56 Pappenheimer Bodies Not Reportable 02/08/22 22:56 Sickle Cells Not Reportable 02/08/22 22:56 Target Cells Not Reportable 02/08/22 22:56 Tear Drop Cells Not Reportable 02/08/22 22:56 Ovalocytes Not Reportable 02/08/22 22:56 Helmet Cells Not Reportable 02/08/22 22:56 [place] Bodies Not Reportable 02/08/22 22:56 Central Rings Not Reportable 02/08/22 22:56 [place] Cells Not Reportable 02/08/22 22:56 Bite Cells Not Reportable 02/08/22 22:56 Crenated Cell Not Reportable 02/08/22 22:56 Elliptocytes Not Reportable 02/08/22 22:56 Acanthocytes (Spur) Not Reportable 02/08/22 22:56 Rouleaux Not Reportable 02/08/22 22:56 Hemoglobin C Crystals Not Reportable 02/08/22 22:56 Schistocytes Not Reportable 02/08/22 22:56 Malaria parasites Not Reportable 02/08/22 22:56 Sonido Bodies Not Reportable 02/08/22 22:56 Hem Pathologist Commnt No 02/08/22 22:56 VBG pH 7.380 (7.320-7.420) 01/29/22 00:27 Sodium 144 mmol/L (137-145) 02/09/22 06:58 Potassium 3.7 mmol/L (3.6-5.0) 02/09/22 06:58 Chloride 110.1 mmol/L (98-107) H 02/09/22 06:58 Carbon Dioxide 23 mmol/L (22-30) 02/09/22 06:58 Anion Gap 15 mmol/L 02/09/22 06:58 BUN 25 mg/dL (7-17) H 02/09/22 06:58 Creatinine 1.6 mg/dL (0.6-1.2) H 02/09/22 06:58 Estimated GFR 39 ml/min 02/09/22 06:58 BUN/Creatinine Ratio 16 % 02/09/22 06:58 Glucose 120 mg/dL (65-100) H 02/09/22 06:58 POC Glucose 139 mg/dL (70-105) H 02/09/22 07:02 Hemoglobin A1c 7.8 % (4-6) H 02/01/22 11:15 Ketones Quantitative Small (Negative) 01/29/22 00:27 Lactic Acid 1.30 mmol/L (0.7-2.0) 01/29/22 01:49 Calcium 8.5 mg/dL (8.4-10.2) 02/09/22 06:58 Magnesium 2.20 mg/dL (1.7-2.3) 02/01/22 11:15 Iron 12 ug/dL (37-170) L 01/31/22 20:55 TIBC 92 mcg/dL (250-450) L 01/31/22 20:55 Total Bilirubin 0.90 mg/dL (0.1-1.2) 01/29/22 00:27 AST 18 units/L (5-40) 01/29/22 00:27 ALT 12 units/L (7-56) 01/29/22 00:27 Alkaline Phosphatase 94 units/L (35-129) 01/29/22 00:27 Total Creatine Kinase 127 units/L (30-135) 01/31/22 20:55 Troponin T 0.068 ng/mL (0.00-0.029) H 01/29/22 00:27 Serum Total Protein 5.6 g/dL (6.1-8.1) L 02/02/22 08:08 Total Protein 6.5 g/dL (6.3-8.2) 01/29/22 00:27 Albumin 2.4 g/dL (3.8-4.8) L 02/02/22 08:08 Albumin/Globulin Ratio 1.1 % 01/29/22 00:27 Lvbtd-8-Oicqbqlip 0.7 g/dL (0.2-0.3) H 02/02/22 08:08 Nvrfd-5-Hkftlbuyi 1.0 g/dL (0.5-0.9) H 02/02/22 08:08 Beta Globulins 0.3 g/dL (0.2-0.5) 02/02/22 08:08 Gamma Globulins 1.0 g/dL (0.8-1.7) 02/02/22 08:08 Abnorm Protein Band 1 see below 02/02/22 08:08 PEP Interpretation see below H 02/02/22 08:08 Triglycerides 195 mg/dL (2-149) H 01/29/22 00:27 Cholesterol 146 mg/dL (50-199) 01/29/22 00:27 LDL Cholesterol Direct 58 mg/dL (50-130) 01/29/22 00:27 HDL Cholesterol 33 mg/dL (40-59) L 01/29/22 00:27 Cholesterol/HDL Ratio 4.42 % 01/29/22 00:27 TSH 1.600 mlU/mL (0.270-4.200) 01/29/22 00:27 PTH Intact 65.61 pg/mL (15-65) H 01/31/22 21:07 Urine Color Yellow (Yellow) 01/29/22 Unknown Urine Turbidity Hazy (Clear) 01/29/22 Unknown Specific [place] (Man) 1.015 (1.003-1.030) 01/29/22 Unknown Ur Protein (Man) 4+ mg/dL (Negative) 01/29/22 Unknown Ur Ketones (Man) Negative (Negative) 01/29/22 Unknown Ur Nitrite (Man) Negative (Negative) 01/29/22 Unknown Ur Reducing Substances Not Reportable 01/29/22 Unknown Urine Bilirubin (Man) Negative (Negative) 01/29/22 Unknown Leukocyte Esterase (Man) Negative (Negative) 01/29/22 Unknown Urine WBC (Auto) 6.0 /HPF (0.0-6.0) 01/29/22 Unknown Urine RBC (Auto) 5.0 /HPF (0.0-6.0) 01/29/22 Unknown U Epithel Cells (Auto) 14.0 /HPF (0-13.0) H 01/29/22 Unknown Urine Bacteria (Auto) 4+ /HPF (Negative) 01/29/22 Unknown Urine RBC (Manual) Negative (Negative) 01/29/22 Unknown Amorphous Crystals 3+ 01/29/22 Unknown Hyaline Casts 9 /LPF 01/29/22 Unknown Granular Casts 13 /LPF 01/29/22 Unknown Urine Eosinophils None seen (None Seen) 01/31/22 15:46 Urine Creatinine 152.6 mg/dL (0.1-20.0) H 02/01/22 03:55 Urine Creatinine 153.8 mg/dL (0.1-20.0) H 02/01/22 03:55 Protein/Creatinin Ratio 1.36 02/01/22 03:55 Urine Sodium 15 mmol/L 02/01/22 03:55 Urine Urea Nitrogen 400 02/01/22 03:55 Urine Total Protein 209 mg/dL (5-11.8) H 02/01/22 03:55 SARS-CoV-2 (PCR) Positive (Negative) A 02/09/22 11:10 Miscellaneous Test Flexitest 1 H 02/02/22 08:08 Urias/IV: Voiding Method External Female Catheter Active Medications - Current Medications Current Medications: Generic Name Dose Route Start Last Admin Trade Name Freq PRN Reason Stop Dose Admin Acetaminophen 650 mg 01/29/22 03:54 02/07/22 21:25 Acetaminophen 325 Mg Tab PO 650 mg Q4H PRN Administration Pain MILD(1-3)/Fever >100.5/GARCIA Albuterol 2.5 mg 01/29/22 03:54 Albuterol 2.5 Mg/3 Ml Nebu IH Q3HRT PRN Shortness Of Breath Albuterol/Ipratropium 1 ampul 01/31/22 08:00 02/09/22 08:04 Ipratropium/Albuterol Sulfate 3 Ml Ampul.Neb IH 1 ampul TIDRT ABDIAZIZ Administration Citric Acid/Sodium Citrate 15 ml 02/04/22 14:00 02/09/22 13:54 Bicitra Oral Liqd 30ml PO 15 ml TID ABDIAZIZ Administration Dextrose 50 ml 01/29/22 03:54 02/06/22 21:56 Dextrose 50% In Water (25gm) 50 Ml Syringe IV 50 ml Q30MIN PRN Administration Hypoglycemia Protocol Famotidine 10 mg 01/29/22 10:00 02/09/22 09:40 Famotidine 10 Mg Tab PO 10 mg BID ABDIAZIZ Administration Ferrous Sulfate 325 mg 02/01/22 14:00 02/09/22 13:54 Ferrous Sulfate 325 Mg Tab PO 325 mg TID ABDIAZIZ Administration Heparin Sodium (Porcine) 5,000 unit 01/29/22 22:00 02/09/22 09:41 Heparin 5,000 Unit/1 Ml Vial SUB-Q 5,000 unit Q12HR ABDIAZIZ Administration Hydralazine HCl 10 mg 02/05/22 06:11 02/09/22 04:37 Hydralazine 20 Mg/1 Ml Inj IV 10 mg Q4H PRN Administration Hypertension Ceftriaxone Sodium 2 gm in 100 mls @ 200 mls/hr 02/02/22 14:00 02/09/22 09:41 Rocephin/Ns 2 Gm/100 Ml IV 02/15/22 10:29 200 mls/hr Q24HR ABDIAZIZ Administration Protocol Insulin Human Isoph/Insulin Regular 18 unit 02/09/22 10:00 02/09/22 09:50 Insulin Nph/Regular 70/30 Inj SUB-Q Not Given QAM [facility] Insulin Human Isoph/Insulin Regular 12 unit 02/08/22 17:00 02/08/22 17:30 Insulin Nph/Regular 70/30 Inj SUB-Q Not Given QPMDIAB [facility] Insulin Human Lispro 0 unit 01/29/22 07:30 02/09/22 11:30 Insulin Lispro 100 Unit/Ml SUB-Q Not Given ACHS [facility] Protocol Levothyroxine Sodium 100 mcg 01/29/22 06:00 02/09/22 05:01 Levothyroxine 100 Mcg Tab PO 100 mcg QAM@0600 [facility] Administration Levothyroxine Sodium 75 mcg 01/29/22 06:00 02/09/22 05:01 Levothyroxine 75 Mcg Tab PO 75 mcg QAM@0600 [facility] Administration Linezolid 600 mg 02/02/22 14:00 02/09/22 10:00 Linezolid 600 Mg Tab PO 02/15/22 22:01 600 mg Q12HR [facility] Administration Protocol Loperamide HCl 2 mg 01/30/22 12:14 01/30/22 12:43 Loperamide 2 Mg Cap PO 2 mg Q2H PRN Administration Diarrhea Metoprolol Tartrate 50 mg 01/29/22 15:00 02/09/22 06:34 Metoprolol Tartrate 50 Mg Tab PO 50 mg Q8H ABDIAZIZ Administration Nifedipine 60 mg 02/09/22 08:00 02/09/22 09:40 Nifedipine Xl 60 Mg Tab PO 60 mg QDAY [facility] Administration Ondansetron HCl 4 mg 01/29/22 03:54 Ondansetron 4 Mg/2 Ml Inj IV Q8H PRN Nausea And Vomiting Oxycodone HCl 5 mg 02/02/22 12:00 02/09/22 13:54 Oxycodone 5 Mg Tab PO 5 mg Q4H PRN Administration Pain, Moderate (4-6) Sodium Chloride 10 ml 01/29/22 10:00 02/09/22 09:41 Sodium Chloride 0.9% 10 Ml Flush Syringe IV 10 ml BID ABDIAZIZ Administration Sodium Chloride 10 ml 01/29/22 03:54 02/09/22 04:38 Sodium Chloride 0.9% 10 Ml Flush Syringe IV 10 ml PRN PRN Administration LINE FLUSH Sodium Hypochlorite 1 applic 02/02/22 10:00 02/09/22 09:51 Sodium Hypochlorite, Dakin's 1/2 Strength (0.25%) 473 Ml Topical Soln TP 1 applicatio BID ABDIAZIZ Administration Nutrition/Malnutrition Assess - Dietary Evaluation Nutrition/Malnutrition Findings: Nutrition Notes Start: 01/29/22 10:03 Freq: Status: Active Protocol: Document 02/08/22 16:32 TARI (Rec: 02/08/22 17:16 TARI [id number]) Nutrition Notes Initial or Follow up Reassessment Current Diagnosis Acute Kidney Injury,Diabetes, Sepsis,Hypertension Other Pertinent Diagnosis Asthma, NSTEMI II, R-Groin Cellulitis, Hypothyroidism. Current Diet Consistent Carbohydrates - Renal- Diet+D Suppl (from B ). Labs/Tests 02/07: Na 146, Cl 115.0, BUN 32, Crea 1.4. Pertinent Medications 02/08: FeSO4, Humalog 2U, Levothyroxine, others nutritionally unremarkable. Height 5 ft 3 in Weight 85.7 kg [place] Body Weight (kg) 52.27 BMI 33.5 Intake Prior to Admission Poor Weight change and time frame Pt states having loss, unintentionally, between 2 and 13 lb recently. 5.018 Kg body weight loss reported in 1 week. Weight Status Obese Subjective/Other Information RD consult for routine F/U on dietary advancement. Diet continues as prescribed, Pt's PO intake of meals has been Fair (>50%) and fairly tolerated, according to ADL notes. I will prescribe Renal modification to durrent diet, to support Pt's ISAIAH condition during LOS. I will prescribe dietary supplements to compensate for poor or insufficient PO intake of meals during LOS. Pt is on Room Air, O2 saturation 98%, according to Physical Assessment History notes. Pt presents constipation, according to Physical Assessment History notes. Pt will be discharged to [facility] when medically stable and placement secured, according to Progress notes. Pt shows R-Groin Cellulitis as sign of concern for skin risk at the time, according to Physical Assessment History notes. Percent of energy/protein needs met: Prescribed Consistent Carbohydrates -Renal- Diet provides for energy/protein needs (2,061 Kcal/91 g) during LOS; additionally, Dietary Supplements will compensate for possible poor or insufficient PO intake of meals with 850 Kcal and 38 g of protein. Burn Absent Trauma Absent GI Symptoms Other Food Allergy No Skin Integrity/Comment R-Groin Cellulitis. Current % PO Fair (50-74%) Minimum of two criteria No Fluid Accumulation N/A Reduced Bootmaker Strength N/A (non-severe) Protein-Calorie Malnutrition N\A #3 Nutrition Diagnosis Altered nutrition-related laboratory values Etiology ISAIAH. As Evidenced by Signs and Symptoms 02/07: Na 146, Cl 115.0, BUN 32, Crea 1.4. #2 Nutrition Diagnosis Inadequate protein-energy intake Comments: Nutrition Diagnosis change for precision. Pt's PO intake of meals has been Fair (>50%) and fairly tolerated, according to ADL notes. Diagnosis Progress(for reassessment Continues documentation) Is patient on ventilator? No Is Patient Ambulatory and/or Out of Bed No REE-([place]-St. Jeor-confined to bed) 1650.564 Kcal/Kg value to use for calculation 16 Approximate Energy Requirements Using 1371 kcal/Kg Calculation Used for Recommendations Kcal/kg Additional Notes Protein: 1.25-1.5 g/Kg AdjBW; 89-107 g/day. Fluids: 1 ml/Kcal, or as per MD. Nutrition Intervention Change Diet Order: Continue Consistent Carbohydrates -Renal- Diet as tolerated. Add Supplement/Snack (indicate name/kcal Start 8 fl oz Nepro w/ /protein ) CARBSTEADY: BID. Provides kCal: 850 Provides Protein (gm) 38 Goal #1 Compensate, through dietary supplementation, for possible poor or insufficient PO intake of meals during LOS. Goal #2 Help reach and maintain acceptable chemistry lab values during LOS. Goal #3 Adjust the dietary intervention to better serve Pt's needs and clinical conditions during LOS. Follow-Up By: 02/15/22 Additional Comments Continue monitoring food tolerance, %PO intake of meals , dietary supplements, and BM.
[2022-02-10] MEDS: LEVOTHYROXINE 75 MCG TAB PO SCH (05:35)
[2022-02-10] MEDS: LEVOTHYROXINE 100 MCG TAB PO SCH (05:35)
[2022-02-10] MEDS: INSULIN LISPRO 100 UNIT/ML SUB-Q SCH ×4 (08:00→22:00)
[2022-02-10] MEDS: IPRATROPIUM/ALBUTEROL SULFATE 3 ML AMPUL.NEB IH SCH ×3 (09:02→21:48)
--- NOTE | 2022-02-10 10:42 | Progress Note ---
Assessment and Plan Cultures: 01/29/2022 blood culture: No growth 01/31/2022 surgical culture from right thigh: Usual skin adilia 02/09/2022 COVID-19 PCR: Positive A/P: 66-year-old female with diabetes, hypertension, asthma was admitted to the hospital with complaints of generalized weakness: #Sepsis, secondary to right upper thigh abscess: S/p I&D by general surgery on 01/31/2022. As per OR note, there was foul-smelling purulent material drained, abscess cavity appeared to track towards her inguinal area but not medially into the perianal or vaginal area #Diabetes mellitus type 2, uncontrolled #ISAIAH: Renally adjust antibiotics #Obesity #Mild thrombocytopenia: probably from linezolid. #COVID-19: Asymptomatic. Incidental finding, was tested for placement reasons. Recs: -continue Ceftriaxone, Linezolid, while inpatient, upon discharge, switch to PO Augmentin 875 mg BID + PO linezolid 600 mg BID ending 02/12/2022 -wound care and packing per surgery -optimize glycemic control -supportive care for COVID-19 Malena Castellano MD, FACP, [facility] O: [phone] F: [phone] C: [phone] Subjective Date of service: 02/10/22 Principal diagnosis: Fever, general malaise, PSVT Interval history: Afebrile. Tested positive for COVID-19, test done for placement reasons. Objective - Exam Narrative Exam: Physical Exam: deferred to minimize risk of transmission, reviewed in the chart - Constitutional Vitals: Vital Signs Temp Pulse Resp BP Pulse Ox 98.9 F 75 18 143/70 96 02/09/22 16:26 02/10/22 08:54 02/10/22 08:54 02/09/22 21:47 02/10/22 05:42 Temperature -Last 24 Hours Temperature 98.9 F Temperature 97.6 F - Labs CBC & Chem 7: 02/08/22 22:56 02/09/22 06:58 Labs: Abnormal lab results 02/09/22 02/09/22 02/09/22 Range/Units 11:10 11:19 16:25 POC Glucose 199 H 150 H (70-105) mg/dL SARS-CoV-2 (PCR) Positive A (Negative) 02/09/22 02/10/22 Range/Units 21:36 07:21 POC Glucose 215 H 159 H (70-105) mg/dL SARS-CoV-2 (PCR) (Negative)
[2022-02-10 11:55] LABS: Calcium 8.5 mg/dL (8.4-10.2)
--- NOTE | 2022-02-10 12:07 | Discharge Summary ---
Providers - Providers Date of Admission: 01/29/22 03:31 Date of discharge: 02/10/22 Attending physician: ZACARIAS RDZ MD 01/29/22 03:55 Consult to Dietitian/Nutrition [CONS] Routine Physician Instructions: Reason For Exam: Reason for Consult: Diet education 01/29/22 12:06 Consult to Physician [CONS] Routine Comment: Consulting Provider: KENDRA LAINEZ Physician Instructions: Reason For Exam: Non-ST elevation PR/cardiac arrhythmia/risk factor 01/30/22 10:08 Consult to Physician [CONS] Routine Comment: Consulting Provider: STEPHEN AREVALO Physician Instructions: Reason For Exam: Cellulitis/abscess right groin 01/30/22 18:18 Consult to Physician [CONS] Routine Comment: Consulting Provider: BIJAL WHITTAKER Physician Instructions: Reason For Exam: Acute kidney injury 02/01/22 10:50 Physical Therapy Evaluation and Treat [CONS] Routine Comment: Reason For Exam: weakness 02/02/22 09:51 Consult to Physician [CONS] Routine Comment: Consulting Provider: MICHAELLE ADHIKARI Physician Instructions: Reason For Exam: right thigh abscess 02/02/22 12:24 Occupational Therapy Evaluate and Treat [CONS] Stat Comment: Eval and Treat Reason For Exam: Occupational Therapy 02/07/22 14:03 Midline [Consult to PICC Line RN] [CONS] Routine Reason For Exam: IV access Type Line:: Midline Primary care physician: ANGELLA LEBLANC Hospitalization Reason for admission: Sepsis, ISAIAH on CKD 3, abscess of right groin, metabolic encephalopathy Condition: Stable Pertinent studies: Reviewed. Procedures: I&D of right upper thigh Hospital course: Patient is a 66-year-old female with past medical history of insulin-dependent type 2 diabetes mellitus, hypothyroidism, hypertension, and obesity who presented to the ED with complaints of generalized weakness. In the ED, the patient was found to be hemodynamically stable. Labs are remarkable for leukocytosis 19.6, hemoglobin 9.3, sodium 130, creatinine 2.6, and glucose 232. Patient was admitted for further evaluation. Patient underwent pelvic CT without contrast revealing "complex collection containing predominantly air and debris in the proximal, medial right thigh region extending from the level of the peritoneum inferiorly with adjacent inflammation and skin thickening". General surgery was consulted for further management, and the patient underwent incision and drainage of the right upper thigh abscess on 01/31/2022. Nephrology was consulted for management of the patient's ISAIAH. Infectious disease was also consulted for further management. Patient developed narrow complex tachycardia spontaneously that was resolved with administration of metoprolol (at the recommendation of cardiologyconsulted). Patient's renal function has returned back to her baseline, and the patient's sepsis has resolved. The patient's antibiotic course included ceftriaxone and linezolid, which she has since been transitioned to Augmentin 875 mg twice daily and p.o. linezolid 600 mg twice daily until 02/12/2022. Patient will follow up with general surgery in outpatient setting. Patient is medically clear for discharge. Disposition: 01 HOME / SELF CARE / HOMELESS Final Discharge Diagnosis (Prints w/discharge instructions): Sepsis, abscess of right groin/upper thigh, ISAIAH on CKD stage III, acute toxic metabolic encephalopathy, insulin-dependent type 2 diabetes mellitus with hyperglycemia, hypoglycemia, hyponatremia, NSTEMI type II, sinus tachycardia, narrow complex tachycardia, hypertension, history of hypothyroidism, history of asthma, obesity. Time spent for discharge: 45 min Core Measure Documentation - Palliative Care Palliative Care/ Comfort Measures: Not Applicable - Core Measures Any of the following diagnoses?: none Exam - Constitutional Vitals: Temp Pulse Resp BP Pulse Ox 98.9 F 75 18 143/70 96 02/09/22 16:26 02/10/22 08:54 02/10/22 08:54 02/09/22 21:47 02/10/22 05:42 General appearance: Present: no acute distress, well-nourished, obese - EENT Eyes: Present: PERRL, EOM intact ENT: hearing intact, clear oral mucosa, dentition normal - Neck Neck: Present: supple, normal ROM - Respiratory Respiratory effort: normal Respiratory: bilateral: CTA - Cardiovascular Rhythm: regular Heart Sounds: Present: S1 & S2 - Extremities Extremities: no ischemia, pulses intact, pulses symmetrical, No edema, normal temperature, normal color, abnormal (Bandage to right upper thigh at site of I&D) Peripheral Pulses: within normal limits - Abdominal General gastrointestinal: Present: soft, non-tender, non-distended, normal bowel sounds Female genitourinary: Present: deferred - Rectal Rectal Exam: deferred - Integumentary Integumentary: Present: clear, warm, dry - Musculoskeletal Musculoskeletal: strength equal bilaterally - Psychiatric Psychiatric: appropriate mood/affect, intact judgment & insight, memory intact, cooperative - Neurologic Neurologic: CNII-XII intact, moves all extremities - Allied Health Allied health notes reviewed: nursing Plan Activity: advance as tolerated Diet: low salt, diabetic Wound: keep clean and dry, change dressing (Change dressing daily) Additional Instructions: Patient is a 66-year-old female with past medical history of insulin-dependent type 2 diabetes mellitus, hypothyroidism, hypertension, and obesity who presented to the ED with complaints of generalized weakness. In the ED, the patient was found to be hemodynamically stable. Labs are remarkable for leukocytosis 19.6, hemoglobin 9.3, sodium 130, creatinine 2.6, and glucose 232. Patient was admitted for further evaluation. Patient underwent pelvic CT without contrast revealing "complex collection containing predominantly air and debris in the proximal, medial right thigh region extending from the level of the peritoneum inferiorly with adjacent inflammation and skin thickening". General surgery was consulted for further management, and the patient underwent incision and drainage of the right upper thigh abscess on 01/31/2022. Nephrology was consulted for management of the patient's ISAIAH. Infectious disease was also consulted for further management. Patient developed narrow complex tachycardia spontaneously that was resolved with administration of metoprolol (at the recommendation of cardiologyconsulted). Patient's renal function has returned back to her baseline, and the patient's sepsis has resolved. The patient's antibiotic course included ceftriaxone and linezolid, which she has since been transitioned to Augmentin 875 mg twice daily and p.o. linezolid 600 mg twice daily until 02/12/2022. Patient will follow up with general surgery in outpatient setting. Patient is medically clear for discharge. Care Plan Goals: Patient is medically clear for discharge. Assessment: Patient is a 66-year-old female with past medical history of insulin-dependent type 2 diabetes mellitus, hypothyroidism, hypertension, and obesity who presented to the ED with complaints of generalized weakness. In the ED, the patient was found to be hemodynamically stable. Labs are remarkable for leukocytosis 19.6, hemoglobin 9.3, sodium 130, creatinine 2.6, and glucose 232. Patient was admitted for further evaluation. Patient underwent pelvic CT without contrast revealing "complex collection containing predominantly air and debris in the proximal, medial right thigh region extending from the level of the peritoneum inferiorly with adjacent inflammation and skin thickening". General surgery was consulted for further management, and the patient underwent incision and drainage of the right upper thigh abscess on 01/31/2022. Nephrology was consulted for management of the patient's ISAIAH. Infectious disease was also consulted for further management. Patient developed narrow complex tachycardia spontaneously that was resolved with administration of metoprolol (at [facility] Patient's renal function has returned back to her baseline, and the patient's sepsis has resolved. The patient's antibiotic course included ceftriaxone and linezolid, which she has since been transitioned to Augmentin 875 mg twice daily and p.o. linezolid 600 mg twice daily until 02/12/2022. Patient will follow up with general surgery in outpatient setting. Patient is medically clear for discharge. Follow up with: ANGELLA LEBLANC MD [Primary Care Provider] - 7 Days STEPHEN AREVALO MD [Staff Physician] - 14 Days Prescriptions: Amoxicillin/K Clav Tab [Augmentin 875MG TAB] 1 each PO Q12HR #4 tablet Metoprolol [Lopressor TAB] 50 mg PO Q8H #90 tablet NIFEdipine XL [Procardia Xl] 60 mg PO QDAY #30 tablet oxyCODONE [roxiCODONE] 5 mg PO Q6H PRN #14 tablet PRN Reason: Pain, Moderate (4-6) Levothyroxine [Synthroid] 175 mcg PO QAM #30 tablet Linezolid [Zyvox] 600 mg PO Q12HR #4 tablet
[2022-02-10] MEDS: HEPARIN 5,000 UNIT/1 ML VIAL SUB-Q SCH ×2 (12:28→22:11)
[2022-02-10] MEDS: FAMOTIDINE 10 MG TAB PO SCH ×2 (12:28→22:10)
[2022-02-10] MEDS: cefTRIAXone/NS 2 GM/100 ML 2 GM/100 ML BAG IV SCH (12:28)
[2022-02-10] MEDS: AMOXICILLIN/K CLAV 875/125MG TAB PO SCH ×2 (12:42→22:00)
[2022-02-10] MEDS: LINEZOLID 600 MG TAB PO SCH ×2 (12:43→22:11)
[2022-02-10] MEDS: BICITRA ORAL LIQD 30ML PO SCH ×3 (12:45→22:11)
[2022-02-10] MEDS: INSULIN NPH/REGULAR 70/30 INJ SUB-Q SCH ×2 (12:47→18:51)
[2022-02-10] MEDS: FERROUS SULFATE 325 MG TAB PO SCH ×3 (12:53→22:10)
[2022-02-10] MEDS: NIFEdipine XL 60 MG TAB PO SCH (12:53)
[2022-02-10] MEDS: METOPROLOL TARTRATE 50 MG TAB PO SCH ×3 (12:54→23:00)
--- NOTE | 2022-02-10 14:14 | Progress Note ---
Assessment and Plan - Patient Problems (1) Elevated troponin Current Visit: Yes Status: Acute Plan to address problem: Patient was admitted with sepsis and acute kidney injury, nonspecific troponin findings. Echocardiogram showed normal left ventricular systolic function, ejection fraction 60 to 65%. Conservative cardiac management. Follow intermittently. (2) Narrow complex tachycardia Current Visit: Yes Status: Acute Plan to address problem: Patient developed spontaneous narrow complex tachycardia in the emergency room, associated with presenting sepsis, treated with IV metoprolol. Morphology of the tachycardia appears likely AV node reentry tachycardia. Continue metoprolol. Follow intermittently. Subjective Date of service: 02/10/22 Principal diagnosis: Fever, general malaise, PSVT Interval history: Patient is resting comfortably in bed, looks and feels well, no cardiac events reported. Objective Vital Signs Temp Pulse Pulse Resp Resp BP Pulse Ox 02/10/22 12:54 80 143/57 02/10/22 11:22 98.0 F 80 18 143/57 98 02/10/22 08:54 75 18 02/10/22 05:42 78 96 02/09/22 22:00 98 02/09/22 21:47 75 143/70 95 02/09/22 20:00 73 16 98 02/09/22 16:26 98.9 F 70 20 178/80 98 - Physical Examination General: Appears Well, No Apparent Distress HEENT: Positive: PERRL Neck: Positive: neck supple Cardiac: Positive: Reg Rate and Rhythm Lungs: Positive: clear to auscultation Neuro: Positive: Grossly Intact Abdomen: Positive: Soft Skin: Positive: Clear Extremities: Absent: edema - Labs and Meds Comprehensive Metabolic Panel 02/10/22 Range/Units 10:24 Sodium 143 (137-145) mmol/L Potassium 3.8 (3.6-5.0) mmol/L Chloride 112.5 H (98-107) mmol/L Carbon Dioxide 23 (22-30) mmol/L BUN 15 (7-17) mg/dL Creatinine 1.4 H (0.6-1.2) mg/dL Glucose 191 H (65-100) mg/dL Calcium 8.5 (8.4-10.2) mg/dL
--- NOTE | 2022-02-10 15:00 | Progress Note ---
Assessment and Plan Assessment: Cellulitis/abscess right groin/upper thigh ISAIAH (acute kidney injury) Hyperglycemia due to type 2 diabetes mellitus Hyponatremia Elevated troponin/non-ST elevation ME type II Sinus tachycardia/ narrow complex tachycardia/resolved Hypertension History of bronchial asthma Obesity; BMI 35.4 Anemia COVID infection Plan: -Renal labs reviewed. Serum creatinine was 1.4 today, yesterday's was 1.6 -Serum creatinine was normal in 2016. No recent baseline serum creatinine available so not sure if has CKD or not -Renal ultrasound reviewed-Left renal cysts. No hydronephrosis. -Urine lytes reviewed, No urine eosinophils. 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 Arnold Subjective Date of service: 02/10/22 Principal diagnosis: Fever, general malaise, PSVT Interval history: Patient now with active covid infection on isolation Objective - Vital Signs Vital signs: Vital Signs - 12hr 02/10/22 02/10/22 02/10/22 05:42 08:54 11:22 Temperature 98.0 F Pulse Rate 78 80 Pulse Rate [ 75 Anterior Bilateral Throughout] Respiratory 18 Rate Respiratory 18 Rate [Anterior Bilateral Throughout] Blood Pressure 143/57 O2 Sat by Pulse 96 98 Oximetry 02/10/22 12:54 Temperature Pulse Rate 80 Pulse Rate [ Anterior Bilateral Throughout] Respiratory Rate Respiratory Rate [Anterior Bilateral Throughout] Blood Pressure 143/57 O2 Sat by Pulse Oximetry Musculoskeletal: other - Lab 02/08/22 22:56 02/10/22 10:24 Most recent lab results Calcium 8.5 mg/dL (8.4-10.2) 02/10/22 10:24 Magnesium 2.20 mg/dL (1.7-2.3) 02/01/22 11:15 Urine Creatinine 152.6 mg/dL (0.1-20.0) H 02/01/22 03:55 Urine Creatinine 153.8 mg/dL (0.1-20.0) H 02/01/22 03:55 Urine Sodium 15 mmol/L 02/01/22 03:55 Urine Total Protein 209 mg/dL (5-11.8) H 02/01/22 03:55 Medications & Allergies - Medications Allergies/Adverse Reactions: Allergies No Known Allergies Allergy (Unverified 08/01/15 23:02) Home Medications: Home Medications Medication Instructions Recorded Confirmed Last Taken Type Cinacalcet HCl [Sensipar] 60 mg PO DAILY #30 tablet 08/05/15 02/02/22 Unknown Rx Insulin Lispro Prot/Lispro 30 units SUB-Q QDDIAB units 08/05/15 02/02/22 Unknown Rx [HumaLOG Mix 75/25 Vial] carvediloL [Coreg] 3.125 mg PO BID #60 tablet 08/05/15 02/02/22 Unknown Rx metFORMIN [Glucophage] 500 mg PO BID #30 tablet 08/05/15 02/02/22 Unknown Rx Amoxicillin/K Clav Tab [Augmentin 1 each PO Q12HR #4 tablet 02/10/22 Unknown Rx 875MG TAB] Levothyroxine [Synthroid] 175 mcg PO QAM #30 tablet 02/10/22 Unknown Rx Linezolid [Zyvox] 600 mg PO Q12HR #4 tablet 02/10/22 Unknown Rx Metoprolol [Lopressor TAB] 50 mg PO Q8H #90 tablet 02/10/22 Unknown Rx NIFEdipine XL [Procardia Xl] 60 mg PO QDAY #30 tablet 02/10/22 Unknown Rx oxyCODONE [roxiCODONE] 5 mg PO Q6H PRN #14 tablet 02/10/22 Unknown Rx Active Medications: Generic Name Dose Route Start Last Admin Trade Name Freq PRN Reason Stop Dose Admin Acetaminophen 650 mg 01/29/22 03:54 02/07/22 21:25 Acetaminophen 325 Mg Tab PO 650 mg Q4H PRN Administration Pain MILD(1-3)/Fever >100.5/GARCIA Albuterol 2.5 mg 01/29/22 03:54 Albuterol 2.5 Mg/3 Ml Nebu IH Q3HRT PRN Shortness Of Breath Albuterol/Ipratropium 1 ampul 01/31/22 08:00 02/10/22 09:02 Ipratropium/Albuterol Sulfate 3 Ml Ampul.Neb IH 1 ampul TIDRT ABDIAZIZ Administration Amoxicillin/Clavulanate Potassium 1 each 02/10/22 10:00 02/10/22 12:42 Amoxicillin/K Clav 875/125mg Tab PO 02/12/22 23:59 1 each Q12HR ABDIAZIZ Administration Protocol Citric Acid/Sodium Citrate 15 ml 02/04/22 14:00 02/10/22 12:45 Bicitra Oral Liqd 30ml PO 15 ml TID ABDIAZIZ Administration Dextrose 50 ml 01/29/22 03:54 02/06/22 21:56 Dextrose 50% In Water (25gm) 50 Ml Syringe IV 50 ml Q30MIN PRN Administration Hypoglycemia Protocol Famotidine 10 mg 01/29/22 10:00 02/10/22 12:28 Famotidine 10 Mg Tab PO 10 mg BID ABDIAZIZ Administration Ferrous Sulfate 325 mg 02/01/22 14:00 02/10/22 12:53 Ferrous Sulfate 325 Mg Tab PO 325 mg TID ABDIAZIZ Administration Heparin Sodium (Porcine) 5,000 unit 01/29/22 22:00 02/10/22 12:28 Heparin 5,000 Unit/1 Ml Vial SUB-Q 5,000 unit Q12HR ABDIAZIZ Administration Hydralazine HCl 10 mg 02/05/22 06:11 02/09/22 04:37 Hydralazine 20 Mg/1 Ml Inj IV 10 mg Q4H PRN Administration Hypertension Insulin Human Isoph/Insulin Regular 18 unit 02/09/22 10:00 02/10/22 12:47 Insulin Nph/Regular 70/30 Inj SUB-Q Not Given QAM ABDIAZIZ Insulin Human Isoph/Insulin Regular 12 unit 02/08/22 17:00 02/09/22 17:31 Insulin Nph/Regular 70/30 Inj SUB-Q Not Given QPMDIAB [facility] Insulin Human Lispro 0 unit 01/29/22 07:30 02/10/22 12:44 Insulin Lispro 100 Unit/Ml SUB-Q 3 unit ACHS ABDIAZIZ Administration Protocol Levothyroxine Sodium 100 mcg 01/29/22 06:00 02/10/22 05:35 Levothyroxine 100 Mcg Tab PO 100 mcg QAM@0600 ABDIAZIZ Administration Levothyroxine Sodium 75 mcg 01/29/22 06:00 02/10/22 05:35 Levothyroxine 75 Mcg Tab PO 75 mcg QAM@0600 ABDIAZIZ Administration Linezolid 600 mg 02/02/22 14:00 02/10/22 12:43 Linezolid 600 Mg Tab PO 02/12/22 22:01 600 mg Q12HR ABDIAZIZ Administration Protocol Loperamide HCl 2 mg 01/30/22 12:14 01/30/22 12:43 Loperamide 2 Mg Cap PO 2 mg Q2H PRN Administration Diarrhea Metoprolol Tartrate 50 mg 01/29/22 15:00 02/10/22 12:54 Metoprolol Tartrate 50 Mg Tab PO 50 mg Q8H ABDIAZIZ Administration Nifedipine 60 mg 02/09/22 08:00 02/10/22 12:53 Nifedipine Xl 60 Mg Tab PO 60 mg QDAY ABDIAZIZ Administration Ondansetron HCl 4 mg 01/29/22 03:54 Ondansetron 4 Mg/2 Ml Inj IV Q8H PRN Nausea And Vomiting Oxycodone HCl 5 mg 02/02/22 12:00 02/09/22 13:54 Oxycodone 5 Mg Tab PO 5 mg Q4H PRN Administration Pain, Moderate (4-6) Sodium Chloride 10 ml 01/29/22 10:00 02/10/22 12:30 Sodium Chloride 0.9% 10 Ml Flush Syringe IV 10 ml BID ABDIAZIZ Administration Sodium Chloride 10 ml 01/29/22 03:54 02/09/22 04:38 Sodium Chloride 0.9% 10 Ml Flush Syringe IV 10 ml PRN PRN Administration LINE FLUSH Sodium Hypochlorite 1 applic 02/02/22 10:00 02/09/22 22:30 Sodium Hypochlorite, Dakin's 1/2 Strength (0.25%) 473 Ml Topical Soln TP 0.25 applicatio BID ABDIAZIZ Administration
[2022-02-10] MEDS: SODIUM HYPOCHLORITE, DAKIN'S 1/2 STRENGTH (0.25%) 473 ML TOPICAL SOLN TP SCH ×2 (16:47→22:00)
[2022-02-10 23:06] LABS: Calcium 8.3 mg/dL (8.4-10.2)
[2022-02-11] MEDS: LEVOTHYROXINE 100 MCG TAB PO SCH (05:29)
[2022-02-11] MEDS: LEVOTHYROXINE 75 MCG TAB PO SCH (05:29)
[2022-02-11] MEDS: METOPROLOL TARTRATE 50 MG TAB PO SCH (06:01)
[2022-02-11 07:50] LABS: Calcium 8.6 mg/dL (8.4-10.2)
[2022-02-11] MEDS: IPRATROPIUM/ALBUTEROL SULFATE 3 ML AMPUL.NEB IH SCH ×2 (08:03→15:40)
--- NOTE | 2022-02-11 09:25 | Progress Note ---
Assessment and Plan Cultures: 01/29/2022 blood culture: No growth 01/31/2022 surgical culture from right thigh: Usual skin adilia 02/09/2022 COVID-19 PCR: Positive 02/10/2022 COVID-19 PCR: Negative A/P: 66-year-old female with diabetes, hypertension, asthma was admitted to the hospital with complaints of generalized weakness: #Sepsis, secondary to right upper thigh abscess: S/p I&D by general surgery on 01/31/2022. As per OR note, there was foul-smelling purulent material drained, abscess cavity appeared to track towards her inguinal area but not medially into the perianal or vaginal area #Diabetes mellitus type 2, uncontrolled #ISAIAH: Renally adjust antibiotics #Obesity #Mild thrombocytopenia: probably from linezolid. #COVID-19: ?false positive. Recs: -upon discharge, switch to PO Augmentin 875 mg BID + PO linezolid 600 mg BID ending 02/12/2022 -wound care and packing per surgery -optimize glycemic control -repeat COVID negative, remains on room air with no resp symptoms Will sign off. Please call with questions. Malena Castellano MD, FACP, [facility] O: [phone] F: [phone] C: [phone] Subjective Date of service: 02/11/22 Principal diagnosis: Fever, general malaise, PSVT Interval history: Afebrile. No complaints. Repeat COVID came back negative. Objective - Exam Narrative Exam: Physical Exam: Constitutional: Alert, cooperative. No acute distress Head, Ears, Nose: Normocephalic, atraumatic. External ears, nose normal Eyes: Conjunctivae/corneas clear. No icterus. No ptosis. Neck: Supple, no meningeal signs Cardiovascular: S1, S2 + Respiratory: Good air entry, clear to auscultation bilaterally GI: Soft, non-tender; bowel sounds normal. No peritoneal signs Musculoskeletal: Right thigh with dressing + Skin: No rash or abscess Hem/Lymphatic: No palpable cervical or supraclavicular nodes. No lymphangitis Psych: Mood ok. Affect normal Neurological: Awake, alert, oriented. No gross abnormality - Constitutional Vitals: Vital Signs Temp Pulse Resp BP Pulse Ox 98.2 F 79 16 183/91 90 02/11/22 04:13 02/11/22 06:01 02/11/22 04:13 02/11/22 06:01 02/11/22 04:13 Temperature -Last 24 Hours Temperature 98.2 F Temperature 98.7 F Temperature 97.5 F Temperature 97.7 F Temperature 98.0 F - Labs CBC & Chem 7: 02/08/22 22:56 02/11/22 07:14 Labs: Abnormal lab results 02/10/22 02/10/22 02/10/22 Range/Units 07:21 10:24 11:20 Potassium (3.6-5.0) mmol/L Chloride 112.5 H (98-107) mmol/L BUN (7-17) mg/dL Creatinine 1.4 H (0.6-1.2) mg/dL Glucose 191 H (65-100) mg/dL POC Glucose 159 H 222 H (70-105) mg/dL Calcium (8.4-10.2) mg/dL 02/10/22 02/10/22 02/10/22 Range/Units 16:15 21:43 22:04 Potassium 3.5 L (3.6-5.0) mmol/L Chloride 109.7 H (98-107) mmol/L BUN 24 H (7-17) mg/dL Creatinine 1.5 H (0.6-1.2) mg/dL Glucose 113 H (65-100) mg/dL POC Glucose 119 H 108 H (70-105) mg/dL Calcium 8.3 L (8.4-10.2) mg/dL 02/11/22 02/11/22 Range/Units 07:14 08:01 Potassium 3.4 L (3.6-5.0) mmol/L Chloride (98-107) mmol/L BUN 21 H (7-17) mg/dL Creatinine 1.3 H (0.6-1.2) mg/dL Glucose 102 H (65-100) mg/dL POC Glucose 113 H (70-105) mg/dL Calcium (8.4-10.2) mg/dL
--- NOTE | 2022-02-11 11:43 | Progress Note ---
Assessment and Plan Assessment: Cellulitis/abscess right groin/upper thigh ISAIAH (acute kidney injury) Hyperglycemia due to type 2 diabetes mellitus Hyponatremia Elevated troponin/non-ST elevation CA type II Sinus tachycardia/ narrow complex tachycardia/resolved Hypertension History of bronchial asthma Obesity; BMI 35.4 Anemia COVID infection Plan: -Renal labs reviewed. Serum creatinine was 1.3 today, yesterday's was 1.4 -Serum creatinine was normal in 2016. No recent baseline serum creatinine available so not sure if has CKD or not -Renal ultrasound reviewed-Left renal cysts. No hydronephrosis. -Urine lytes reviewed, No urine eosinophils. Has proteinuria, likely from DM -SPEP and serum free light chains remains pending -Low iron level-on Ferrous Sulfate 325 mg po TID -S/P IVF -PTH level was 65, monitor -CK level was 127 -Echo-LVEF was 60-65% -Holding home Spironolactone for now -Not resuming home Metformin given advanced renal disease -Renally dose all medications -Avoid nephrotoxic agents -Strict I/O's daily -Continue to monitor renal function closely -No acute indication for [employer] -Plan of care reviewed by Dr. Palacios Subjective Date of service: 02/11/22 Principal diagnosis: Fever, general malaise, PSVT Interval history: Patient now with active covid infection on isolation Objective - Vital Signs Vital signs: Vital Signs - 12hr 02/11/22 02/11/22 04:13 06:01 Temperature 98.2 F Pulse Rate 79 79 Respiratory 16 Rate Blood Pressure 183/91 183/91 O2 Sat by Pulse 90 Oximetry - Lab 02/08/22 22:56 02/11/22 07:14 Most recent lab results Calcium 8.6 mg/dL (8.4-10.2) 02/11/22 07:14 Magnesium 2.20 mg/dL (1.7-2.3) 02/01/22 11:15 Urine Creatinine 152.6 mg/dL (0.1-20.0) H 02/01/22 03:55 Urine Creatinine 153.8 mg/dL (0.1-20.0) H 02/01/22 03:55 Urine Sodium 15 mmol/L 02/01/22 03:55 Urine Total Protein 209 mg/dL (5-11.8) H 02/01/22 03:55 Medications & Allergies - Medications Allergies/Adverse Reactions: Allergies No Known Allergies Allergy (Unverified 08/01/15 23:02) Home Medications: Home Medications Medication Instructions Recorded Confirmed Last Taken Type Cinacalcet HCl [Sensipar] 60 mg PO DAILY #30 tablet 08/05/15 02/02/22 Unknown Rx Insulin Lispro Prot/Lispro 30 units SUB-Q QDDIAB units 08/05/15 02/02/22 Unknown Rx [HumaLOG Mix 75/25 Vial] carvediloL [Coreg] 3.125 mg PO BID #60 tablet 08/05/15 02/02/22 Unknown Rx metFORMIN [Glucophage] 500 mg PO BID #30 tablet 08/05/15 02/02/22 Unknown Rx Amoxicillin/K Clav Tab [Augmentin 1 each PO Q12HR #4 tablet 02/10/22 Unknown Rx 875MG TAB] Levothyroxine [Synthroid] 175 mcg PO QAM #30 tablet 02/10/22 Unknown Rx Linezolid [Zyvox] 600 mg PO Q12HR #4 tablet 02/10/22 Unknown Rx Metoprolol [Lopressor TAB] 50 mg PO Q8H #90 tablet 02/10/22 Unknown Rx NIFEdipine XL [Procardia Xl] 60 mg PO QDAY #30 tablet 02/10/22 Unknown Rx oxyCODONE [roxiCODONE] 5 mg PO Q6H PRN #14 tablet 02/10/22 Unknown Rx Active Medications: Generic Name Dose Route Start Last Admin Trade Name Freq PRN Reason Stop Dose Admin Acetaminophen 650 mg 01/29/22 03:54 02/07/22 21:25 Acetaminophen 325 Mg Tab PO 650 mg Q4H PRN Administration Pain MILD(1-3)/Fever >100.5/GARCIA Albuterol 2.5 mg 01/29/22 03:54 Albuterol 2.5 Mg/3 Ml Nebu IH Q3HRT PRN Shortness Of Breath Albuterol/Ipratropium 1 ampul 01/31/22 08:00 02/11/22 08:03 Ipratropium/Albuterol Sulfate 3 Ml Ampul.Neb IH Not Given TIDRT ABDIAZIZ Amoxicillin/Clavulanate Potassium 1 each 02/10/22 10:00 02/10/22 22:00 Amoxicillin/K Clav 875/125mg Tab PO 02/12/22 23:59 1 each Q12HR ABDIAZIZ Administration Protocol Citric Acid/Sodium Citrate 15 ml 02/04/22 14:00 02/10/22 22:11 Bicitra Oral Liqd 30ml PO 15 ml TID ABDIAZIZ Administration Dextrose 50 ml 01/29/22 03:54 02/06/22 21:56 Dextrose 50% In Water (25gm) 50 Ml Syringe IV 50 ml Q30MIN PRN Administration Hypoglycemia Protocol Famotidine 10 mg 01/29/22 10:00 02/10/22 22:10 Famotidine 10 Mg Tab PO 10 mg BID ABDIAZIZ Administration Ferrous Sulfate 325 mg 02/01/22 14:00 02/10/22 22:10 Ferrous Sulfate 325 Mg Tab PO 325 mg TID ABDIAZIZ Administration Heparin Sodium (Porcine) 5,000 unit 01/29/22 22:00 02/10/22 22:11 Heparin 5,000 Unit/1 Ml Vial SUB-Q 5,000 unit Q12HR ABDIAZIZ Administration Hydralazine HCl 10 mg 02/05/22 06:11 02/09/22 04:37 Hydralazine 20 Mg/1 Ml Inj IV 10 mg Q4H PRN Administration Hypertension Insulin Human Isoph/Insulin Regular 18 unit 02/09/22 10:00 02/10/22 12:47 Insulin Nph/Regular 70/30 Inj SUB-Q Not Given QAM [facility] Insulin Human Isoph/Insulin Regular 12 unit 02/08/22 17:00 02/10/22 18:51 Insulin Nph/Regular 70/30 Inj SUB-Q Not Given QPMDIAB [facility] Insulin Human Lispro 0 unit 01/29/22 07:30 02/10/22 22:00 Insulin Lispro 100 Unit/Ml SUB-Q Not Given ACHS [facility] Protocol Levothyroxine Sodium 100 mcg 01/29/22 06:00 02/11/22 05:29 Levothyroxine 100 Mcg Tab PO 100 mcg QAM@0600 ABDIAZIZ Administration Levothyroxine Sodium 75 mcg 01/29/22 06:00 02/11/22 05:29 Levothyroxine 75 Mcg Tab PO 75 mcg QAM@0600 ABDIAZIZ Administration Linezolid 600 mg 02/02/22 14:00 02/10/22 22:11 Linezolid 600 Mg Tab PO 02/12/22 22:01 600 mg Q12HR ABDIAZIZ Administration Protocol Loperamide HCl 2 mg 01/30/22 12:14 01/30/22 12:43 Loperamide 2 Mg Cap PO 2 mg Q2H PRN Administration Diarrhea Metoprolol Tartrate 50 mg 01/29/22 15:00 02/11/22 06:01 Metoprolol Tartrate 50 Mg Tab PO 50 mg Q8H ABDIAZIZ Administration Nifedipine 60 mg 02/09/22 08:00 02/10/22 12:53 Nifedipine Xl 60 Mg Tab PO 60 mg QDAY ABDIAZIZ Administration Ondansetron HCl 4 mg 01/29/22 03:54 Ondansetron 4 Mg/2 Ml Inj IV Q8H PRN Nausea And Vomiting Oxycodone HCl 5 mg 02/02/22 12:00 02/09/22 13:54 Oxycodone 5 Mg Tab PO 5 mg Q4H PRN Administration Pain, Moderate (4-6) Sodium Chloride 10 ml 01/29/22 10:00 02/10/22 22:17 Sodium Chloride 0.9% 10 Ml Flush Syringe IV 10 ml BID ABDIAZIZ Administration Sodium Chloride 10 ml 01/29/22 03:54 02/09/22 04:38 Sodium Chloride 0.9% 10 Ml Flush Syringe IV 10 ml PRN PRN Administration LINE FLUSH Sodium Hypochlorite 1 applic 02/02/22 10:00 02/10/22 22:00 Sodium Hypochlorite, Dakin's 1/2 Strength (0.25%) 473 Ml Topical Soln TP 1 applicatio BID ABDIAZIZ Administration
[2022-02-11] MEDS: BICITRA ORAL LIQD 30ML PO SCH (11:48)
[2022-02-11] MEDS: FAMOTIDINE 10 MG TAB PO SCH (11:49)
[2022-02-11] MEDS: AMOXICILLIN/K CLAV 875/125MG TAB PO SCH (11:49)
[2022-02-11] MEDS: HEPARIN 5,000 UNIT/1 ML VIAL SUB-Q SCH (11:50)
[2022-02-11] MEDS: LINEZOLID 600 MG TAB PO SCH (11:52)
[2022-02-11] MEDS: NIFEdipine XL 60 MG TAB PO SCH (11:53)
[2022-02-11] MEDS: FERROUS SULFATE 325 MG TAB PO SCH (11:56)
[2022-02-11] MEDS: INSULIN NPH/REGULAR 70/30 INJ SUB-Q SCH (11:57)
[2022-02-11] MEDS: INSULIN LISPRO 100 UNIT/ML SUB-Q SCH ×2 (12:05→12:07)
[2022-02-11] MEDS: SODIUM HYPOCHLORITE, DAKIN'S 1/2 STRENGTH (0.25%) 473 ML TOPICAL SOLN TP SCH (12:09)
--- NOTE | 2022-02-11 12:09 | Progress Note ---
Assessment and Plan - Patient Problems (1) Elevated troponin Current Visit: Yes Status: Acute Plan to address problem: Patient was admitted with sepsis and acute kidney injury, nonspecific troponin findings. Echocardiogram showed normal left ventricular systolic function, ejection fraction 60 to 65%. Conservative cardiac management. Follow intermittently. (2) Narrow complex tachycardia Current Visit: Yes Status: Acute Plan to address problem: Patient developed spontaneous narrow complex tachycardia in the emergency room, associated with presenting sepsis, treated with IV metoprolol. Morphology of the tachycardia appears likely AV node reentry tachycardia. Continue metoprolol. Follow intermittently. Subjective Date of service: 02/11/22 Principal diagnosis: Fever, general malaise, PSVT Interval history: Patient is resting comfortably in bed, looks and feels well, no cardiac events reported. Objective Vital Signs Temp Pulse Pulse Resp Resp BP Pulse Ox 02/11/22 06:01 79 183/91 02/11/22 04:13 98.2 F 79 16 183/91 90 02/10/22 23:00 79 167/73 02/10/22 22:00 97 02/10/22 20:16 98.7 F 70 167/73 95 02/10/22 16:22 97.5 F L 69 18 144/61 92 02/10/22 16:07 97.7 F 68 18 175/78 100 02/10/22 14:00 72 19 02/10/22 12:54 80 143/57 - Physical Examination General: Appears Well, No Apparent Distress, Other (obese) HEENT: Positive: PERRL Neck: Positive: neck supple Cardiac: Positive: Reg Rate and Rhythm Lungs: Positive: clear to auscultation Neuro: Positive: Grossly Intact Abdomen: Positive: Soft Skin: Positive: Clear Extremities: Absent: edema - Labs and Meds Comprehensive Metabolic Panel 02/10/22 02/11/22 Range/Units 22:04 07:14 Sodium 143 141 (137-145) mmol/L Potassium 3.5 L 3.4 L (3.6-5.0) mmol/L Chloride 109.7 H 107.0 (98-107) mmol/L Carbon Dioxide 27 26 (22-30) mmol/L BUN 24 H 21 H (7-17) mg/dL Creatinine 1.5 H 1.3 H (0.6-1.2) mg/dL Glucose 113 H 102 H (65-100) mg/dL Calcium 8.3 L 8.6 (8.4-10.2) mg/dL
[2022-02-11] MEDS: hydrALAZINE 20 MG/1 ML INJ IV PRN (12:32)
[2022-02-11 12:36] VITALS: BP 191/80
[2022-02-11] MEDS ORDERED: NIFEdipine XL 30 MG TAB PO SCH (13:00)
[2022-02-15 12:34] LABS: Albumin SEE SCANNED RESULT; Creatinine, Random Urine SEE SCANNED RESULT; Protein/Creatinine Ratio SEE SCANNED RESULT
[2022-02-15 12:35] LABS: Abnormal Protein Band 1 SEE SCANNED RESULT; Abnormal Protein Band 2 SEE SCANNED RESULT; Gamma Globulin SEE SCANNED RESULT; Interpretation SEE SCANNED RESULT
== END 2022-02-11 14:00 | DRG 853 ==
LOC: ED 21:39 → 3A 01-29 03:31
PROVIDERS: ADMIT Hospitalist; ATTEND Student in an Organized Health Care Education/Training Program
PROC: 0Y950ZZ Drainage of Right Inguinal Region, Open Approach (ICD-10-PCS; principal; 2022-01-31)
PROC: 05H933Z Insertion of Infusion Device into Right Brachial Vein, Percutaneous Approach (ICD-10-PCS; 2022-02-07)
DX: A41.9 Sepsis, unspecified organism (principal); G92.8 Other toxic encephalopathy; I21.A1 Myocardial infarction type 2; U07.1 COVID-19; L03.314 Cellulitis of groin; N17.9 Acute kidney failure, unspecified; E87.1 Hypo-osmolality and hyponatremia; E11.65 Type 2 diabetes mellitus with hyperglycemia; E03.9 Hypothyroidism, unspecified; E66.9 Obesity, unspecified; Z68.35 Body mass index [BMI] 35.0-35.9, adult; Z71.3 Dietary counseling and surveillance; D64.9 Anemia, unspecified; J44.9 Chronic obstructive pulmonary disease, unspecified; I12.9 Hypertensive chronic kidney disease with stage 1 through stage 4 chronic kidney disease, or unspecified chronic kidney disease; E11.22 Type 2 diabetes mellitus with diabetic chronic kidney disease; N18.30 Chronic kidney disease, stage 3 unspecified; Z79.4 Long term (current) use of insulin; Z79.84 Long term (current) use of oral hypoglycemic drugs; Z90.710 Acquired absence of both cervix and uterus
CPT/HCPCS: 36415; 70450; 71045; 72192; 76770; 80048; 80053; 80061; 81001; 82010; 82140; 82550; 82570; 82805; 82962; 83036; 83550; 83735; 83970; 84156; 84165; 84166; 84300; 84443; 84484; 84520; 85007; 85025; 86334; 87040; 87075; 87086; 87116; 89050; 93005; 93306; 94640; 94644; 99285; G0378; J3490; Q0177; Q9967; C8929; J0360; J0690; J0696; J1100; J1644; J1815; J2250; J2270; J2370; J2405; J2543; J2704; J3010; J3486; J7030; U0003